=== PATIENT | male | born 1960 | race Caucasian/White ===

== ENCOUNTER → 2020-10-06 11:24 | Outpatient (BNVA) | payer OTHER, SELFPAY | PROVIDERS: PCP Nurse Practitioner Family; Visit Provider Student in an Organized Health Care Education/Training Program | DX: Z76.89 Persons encountering health services in other specified circumstances (principal) ==

== ENCOUNTER → 2021-01-19 09:48 | Outpatient (BNVA) | payer OTHER, SELFPAY | PROVIDERS: PCP Nurse Practitioner Family; Visit Provider Urology ==

== ENCOUNTER → 2021-04-09 08:58 | Outpatient (BNVA) | payer OTHER, SELFPAY | PROVIDERS: PCP Nurse Practitioner Family; Visit Provider Urology ==

== ENCOUNTER → 2021-05-14 15:55 | Outpatient (BNVA) | payer OTHER, SELFPAY | PROVIDERS: PCP Nurse Practitioner Family; Visit Provider Student in an Organized Health Care Education/Training Program ==

== ENCOUNTER 2021-07-07 11:43 | Outpatient (REF) | payer OTHER, SELFPAY ==
[2021-07-07 14:47] LABS: Prostate Specific Antigen < 0.05 ng/mL (<0.05-4.0)
== END 2021-07-07 11:44 | disposition home or self-care (01) ==
LOC: HO.HMGCLDS 11:43
PROVIDERS: PCP Nurse Practitioner Family; Visit Provider Urology
DX: C61 Malignant neoplasm of prostate (principal)
CPT/HCPCS: 36415; 84153

== ENCOUNTER → 2021-09-29 09:07 | Outpatient (BNVA) | payer OTHER, SELFPAY | PROVIDERS: PCP Nurse Practitioner Family; Visit Provider Urology ==

== ENCOUNTER 2021-10-05 11:52 | Outpatient (REF) | payer OTHER, SELFPAY ==
[2021-10-05 13:02] LABS: Alanine Aminotransferase 21 U/L (0-40); Albumin Level 4.2 g/dL (3.5-5.0); Alkaline Phosphatase 79 U/L (39-117); Anion Gap 14 (12-20); Aspartate Amino Transferase 13 U/L (5-37); Bilirubin Total 1.1 mg/dL (0.0-1.0); Blood Urea Nitrogen 9 mg/dL (9-16); Calcium 9.1 mg/dL (8.4-10.2); Carbon Dioxide 25 mmol/L (22-29); Chloride 100 mmol/L (96-108); Estimated Glomerular Filt Rate > 60; Glucose Random 111 mg/dL (60-115); Potassium 3.7 mmol/L (3.3-5.1); Sodium 135 mmol/L (135-145); Total Protein 7.3 g/dL (6.5-8.0)
== END 2021-10-05 11:53 | disposition home or self-care (01) ==
LOC: HO.LAB 11:52
PROVIDERS: PCP Nurse Practitioner Family; Visit Provider Nurse Practitioner Family
DX: M15.9 Polyosteoarthritis, unspecified (principal)
CPT/HCPCS: 36415; 80053

== ENCOUNTER 2021-10-05 12:25 | Outpatient (REF) | payer OTHER, SELFPAY ==
[2021-10-05 13:55] LABS: COVID-19 Test Negative (Negative); IDNOW Serial# 16C4AD1C
== END 2021-10-05 12:26 | disposition home or self-care (01) ==
LOC: HO.LAB 12:25
PROVIDERS: PCP Nurse Practitioner Family; Visit Provider Internal Medicine
DX: Z20.822 Contact with and (suspected) exposure to COVID-19 (principal)
CPT/HCPCS: 36415; 87635; C9803

== ENCOUNTER 2021-10-11 11:19 | Outpatient (REF) | payer OTHER, SELFPAY ==
[2021-10-11 12:37] LABS: Influenza A PCR NEGATIVE (Negative); Influenza B PCR NEGATIVE (Negative); Resp Syncy Virus RNA Qual PCR NEGATIVE (Negative); SARS COV2 PCR INHOUSE NEGATIVE (Negative)
== END 2021-10-11 11:20 | disposition home or self-care (01) ==
LOC: HO.LNP 11:19
PROVIDERS: Visit Provider Internal Medicine
DX: R43.9 Unspecified disturbances of smell and taste (principal); Z20.822 Contact with and (suspected) exposure to COVID-19
CPT/HCPCS: 0241U

== ENCOUNTER → 2022-01-24 10:51 | Outpatient (BNVA) | payer OTHER, SELFPAY | PROVIDERS: PCP Nurse Practitioner Family; Visit Provider Nurse Practitioner Family | DX: Z13.89 Encounter for screening for other disorder (principal) ==

== ENCOUNTER 2022-03-29 07:26 | Outpatient (REF) | payer OTHER, SELFPAY ==
[2022-03-29 11:29] LABS: Appearance Urine CLEAR; Color Urine YELLOW; Glucose Urine UA NEG (NEG); Leukocyte Esterase Urine NEG (NEG); Nitrite Urine NEG (NEG); Urine Blood NEG (NEG); Urine Ketones NEG (NEG); Urine Protein NEG (NEG-TRACE)
[2022-03-29 12:00] LABS: Alanine Aminotransferase 32 U/L (0-40); Albumin Level 4.3 g/dL (3.5-5.0); Alkaline Phosphatase 72 U/L (39-117); Anion Gap 15 (12-20); Aspartate Amino Transferase 19 U/L (5-37); Bilirubin Total 0.7 mg/dL (0.0-1.0); Blood Urea Nitrogen 11 mg/dL (9-16); Calcium 9.4 mg/dL (8.4-10.2); Carbon Dioxide 25 mmol/L (22-29); Chloride 101 mmol/L (96-108); Estimated Glomerular Filt Rate > 60; Glucose Random 116 mg/dL (60-115); Potassium 4.4 mmol/L (3.3-5.1); Sodium 137 mmol/L (135-145); Total Protein 7.3 g/dL (6.5-8.0)
[2022-03-29 12:05] LABS: Alanine Aminotransferase 30 U/L (0-40); Albumin Level 4.3 g/dL (3.5-5.0); Alkaline Phosphatase 73 U/L (39-117); Anion Gap 15 (12-20); Aspartate Amino Transferase 19 U/L (5-37); Bilirubin Total 0.7 mg/dL (0.0-1.0); Blood Urea Nitrogen 11 mg/dL (9-16); Calcium 9.4 mg/dL (8.4-10.2); Carbon Dioxide 25 mmol/L (22-29); Chloride 101 mmol/L (96-108); Cholesterol 182 mg/dL; Estimated Glomerular Filt Rate > 60; Glucose Fasting 115 mg/dL (60-99); HDL Cholesterol 27 mg/dL; LDL Cholesterol Calculated 89 mg/dl; Potassium 4.4 mmol/L (3.3-5.1); Sodium 137 mmol/L (135-145); Total Protein 7.3 g/dL (6.5-8.0); Triglycerides 331 mg/dL
[2022-03-29 12:14] LABS: Prostate Specific Antigen < 0.05 ng/mL (<0.05-4.0)
== END 2022-03-29 07:27 | disposition home or self-care (01) ==
LOC: HO.HMGCLDS 07:26
PROVIDERS: Absent Provider Urology; PCP Nurse Practitioner Family; Visit Provider Nurse Practitioner Family
DX: Z00.00 Encounter for general adult medical examination without abnormal findings (principal); Z12.5 Encounter for screening for malignant neoplasm of prostate; C61 Malignant neoplasm of prostate; M15.9 Polyosteoarthritis, unspecified
CPT/HCPCS: 36415; 80053; 80061; 81003; 84153; 84443

== ENCOUNTER → 2022-03-31 08:33 | Outpatient (BNVA) | payer OTHER, SELFPAY | PROVIDERS: PCP Nurse Practitioner Family; Visit Provider Urology | DX: N52.9 Male erectile dysfunction, unspecified (principal); C61 Malignant neoplasm of prostate | CPT/HCPCS: 51798 ==

== ENCOUNTER 2022-06-21 06:55 | Outpatient (REF) | payer OTHER, SELFPAY ==
[2022-06-21 12:09] LABS: Alanine Aminotransferase 27 U/L (0-40); Albumin Level 4.2 g/dL (3.5-5.0); Alkaline Phosphatase 73 U/L (39-117); Anion Gap 14 (12-20); Aspartate Amino Transferase 17 U/L (5-37); Bilirubin Total 0.8 mg/dL (0.0-1.0); Blood Urea Nitrogen 11 mg/dL (9-16); Calcium 9.2 mg/dL (8.4-10.2); Carbon Dioxide 27 mmol/L (22-29); Chloride 102 mmol/L (96-108); Cholesterol 154 mg/dL; Estimated Glomerular Filt Rate > 60; Glucose Random 116 mg/dL (60-115); HDL Cholesterol 29 mg/dL; LDL Cholesterol Calculated 87 mg/dl; Potassium 4.1 mmol/L (3.3-5.1); Sodium 139 mmol/L (135-145); Triglycerides 194 mg/dL
== END 2022-06-21 06:56 | disposition home or self-care (01) ==
LOC: HO.HMGCLDS 06:55
PROVIDERS: PCP Nurse Practitioner Family; Visit Provider Nurse Practitioner Family
DX: E78.1 Pure hyperglyceridemia (principal)
CPT/HCPCS: 36415; 80053; 80061

== ENCOUNTER 2022-10-03 13:06 | Outpatient (REF) | payer OTHER, SELFPAY ==
[2022-10-03 15:11] LABS: Prostate Specific Antigen < 0.10 ng/mL (<0.05-4.0)
== END 2022-10-03 13:07 | disposition home or self-care (01) ==
LOC: HO.HMGCLDS 13:06
PROVIDERS: PCP Nurse Practitioner Family; Visit Provider Urology
DX: Z12.5 Encounter for screening for malignant neoplasm of prostate (principal); C61 Malignant neoplasm of prostate
CPT/HCPCS: 36415; 84153

== ENCOUNTER → 2022-11-04 10:53 | Outpatient (BNVA) | payer OTHER, SELFPAY | PROVIDERS: PCP Nurse Practitioner Family; Visit Provider Urology | DX: Z13.89 Encounter for screening for other disorder (principal) ==

== ENCOUNTER 2023-01-31 09:16 | Outpatient (REF) | payer OTHER, SELFPAY ==
--- NOTE | ~2023-01-31 | XR_ITS ---
EXAMINATION: XR SHOULDER, RIGHT CLINICAL INFORMATION: Right shoulder pain COMPARISON: None available. TECHNIQUE: AP external rotation, Grashey, scapular Y, and axillary views of the right shoulder. FINDINGS: Within the head of humerus, there is a benign-appearing sclerotic lesion likely representing an enchondroma. Degenerative changes are seen along the greater tuberosity of the head of the humerus. There is calcific tendinopathy adjacent to the greater tuberosity of the humerus along the rotator cuff. Joint spaces are well-maintained. XR/XR shoulder RT min 2V IMPRESSION: 1. Calcific tendinopathy of the rotator cuff. Adjacent degenerative changes of the humeral head. 2. Benign-appearing sclerotic lesion in the head of the humerus likely representing an enchondroma.
--- NOTE | ~2023-01-31 | XR_ITS ---
EXAMINATION: XR SHOULDER, LEFT CLINICAL INFORMATION: Left shoulder pain COMPARISON: None available. TECHNIQUE: AP external rotation, Grashey, scapular Y, and axillary views of the left shoulder. FINDINGS: Osseous structures are intact. There is a moderate-sized subacromial spur. Degenerative changes seen in the acromioclavicular joint space. Soft tissues are unremarkable. XR/XR shoulder LT min 2V IMPRESSION: Degenerative changes as described above.
== END 2023-01-31 09:17 | disposition home or self-care (01) ==
LOC: HO.HMGCX 09:16
PROVIDERS: PCP Nurse Practitioner Family; Visit Provider Nurse Practitioner Family
DX: M25.511 Pain in right shoulder (principal); M25.512 Pain in left shoulder
CPT/HCPCS: 73030

== ENCOUNTER → 2023-02-07 11:07 | Outpatient (BNVA) | payer MEDICARE, OTHER, SELFPAY | PROVIDERS: PCP Nurse Practitioner Family; Visit Provider Nurse Practitioner Family ==

== ENCOUNTER 2023-02-07 12:20 | Outpatient (REF) | payer OTHER, SELFPAY ==
[2023-02-07 14:05] LABS: Amphetamine Screen Urine Not Detected (Not Detect); Barbiturates, Urine Not Detected (Not Detect); Benzodiazepines Screen Urine Not Detected (Not Detect); Cannabinoid Screen Urine Not Detected (Not Detect); Cocaine Screen Urine Not Detected (Not Detect); Fentanyl, urine Not Detected (Not Detect); Opiate Screen Urine Not Detected (Not Detect); Phencyclidine Screen Urine Not Detected (Not Detect)
== END 2023-02-07 12:21 | disposition home or self-care (01) ==
LOC: HO.10HDL 12:20
PROVIDERS: Visit Provider Nurse Practitioner Family
DX: Z79.899 Other long term (current) drug therapy (principal)
CPT/HCPCS: 80307; 80373

== ENCOUNTER → 2023-02-23 09:57 | Outpatient (BNVA) | payer OTHER, MEDICARE, SELFPAY | PROVIDERS: PCP Nurse Practitioner Family; Visit Provider Orthopaedic Surgery | DX: M19.011 Primary osteoarthritis, right shoulder (principal); M19.012 Primary osteoarthritis, left shoulder | CPT/HCPCS: 20610; J1100 ==

== ENCOUNTER 2023-05-05 09:46 | Outpatient (REF) | payer OTHER, SELFPAY ==
[2023-05-05 13:00] LABS: Prostate Specific Antigen < 0.10 ng/mL (<0.05-4.0)
== END 2023-05-05 09:47 | disposition home or self-care (01) ==
LOC: HO.HMGCLDS 09:46
PROVIDERS: PCP Nurse Practitioner Family; Visit Provider Urology
DX: Z12.5 Encounter for screening for malignant neoplasm of prostate (principal); C61 Malignant neoplasm of prostate
CPT/HCPCS: 36415; 84153

== ENCOUNTER 2023-05-10 14:21 | Outpatient (AMB) | payer OTHER, SELFPAY ==
--- NOTE | 2023-05-10 14:43 | MHC.OFFVIS ---
Intake Intake Visit Reasons: 6M PSA(psa?) Intake Note: Patient is present for Follow Up Urology Med:Tadalafil, Tamsulosin Antibiotic Allergy: Amoxicillin, Penicillin Blood Thinner: None Allergies ampicillin Allergy (Intermediate, Verified 05/10/23 14:45) rash pseudoephedrine Allergy (Intermediate, Verified 05/10/23 14:45) anaphylaxis PENICILLIN Allergy (Intermediate, Uncoded 05/10/23 14:45) anaphylaxis HPI HPI Comments History of Present Illness Details Yassine ENGEL is a very pleasant male. They are a patient of Dr Munroe. They are seen in the office today for the following urologic conditions - prostate cancer - erectile dysfunction Six month follow-up PSA well controlled Tadalafil refilled Using tamsulosin periodically as needed Follow-up 6 months Prostate cancer: Group 3. February [address] [facility] Does have associated urgency and frequency in takes Flomax once or twice a week PSA 12/13 0.2, 07/13 <0.1, 04/13 <0.1, 10/13 <0.1, 05/14 <0.1 Prostate cancer was diagnosed 02/08 Dr Coles - PSA 4.5. Diagnosis was reached by 02/08 , needle biopsy, for elevated PSA, PSA at diagnosis 4.5, size at TRUS 35cc. The Ravin grade is 4 One out of twelve cores - RML , 4+3 = 7 30%. TNM Classification of Malignant Tumours (TNM) T1c. The D'Quintin (NCCN) risk category is Intermediate Risk (PSA 10-20, Gl 7, T2) - Group 3 by definition Initial therapy included Primary treatment, brachytherapy [facility] February 2019 Associated conditions erectile dysfunction Yes Therapeutic plan: PSA follow-up every 6 months [facility] Medical History Benign prostatic hyperplasia with lower urinary tract symptoms Nicotine dependence, cigarettes, uncomplicated Nocturia Prostate cancer (~2018) Seasonal allergies Traumatic rupture of left biceps tendon Wrist fracture, right Surgical History History of arthroplasty of right ankle History of prostate biopsy History of surgery on arm Hx of shoulder surgery Family History Father Cancer Mother Cancer Social History (Reviewed 05/10/23 @ 14:45 by DAVE Murdock Housing: House Alcohol intake: never Patient Tobacco Use Status: Current everyday Tobacco user Tobacco use type: Cigarette Cigarettes Per Day: 8 Years Smoked: 35 e-Cigarette/Vaping Use: Never Used Second Hand Smoke Exposure: No Current occupational status: retired Cognitive needs: No Hearing needs: No Vision needs: No Review of Systems Const Denies chills and Denies fever(s) Card Reports no additional complaints and Denies syncope Resp Denies cough GI Denies abdominal pain and Denies heartburn Reports as per HPI and Denies change in libido Neuro Denies syncope Psych Denies change in libido Endo Denies change in libido Physical Exam Const General: cooperative, healthy appearing, comfortable and no acute distress Orientation/consciousness: patient oriented x3 HEENT Face and sinus: Yes normal facial exam Mouth: moist mucous membranes Neck Neck: Yes normal visual inspection, Yes full ROM and Yes trachea midline Chest Chest palpation & inspection: normal inspection of the chest Resp Effort & Inspection: normal respiratory effort, able to speak in complete sentences and no respiratory distress GI Inspection: Yes normal to inspection Back/Spine/Pelvis Cervical Spine: normal cervical lordosis Thoracic/Lumbar Spine: thoracic and lumbar spine normal to inspection Skin General skin exam: no rashes or lesions noted Neuro General: patient oriented x3, gait normal, tone normal and moves all extremities Extrem General: Yes normal to inspection and Yes capillary refill normal Assessment & Plan Assessment & Plan (1) Prostate cancer: Onset Date: ~2018 Comment: (dx 01/2019 - Christine 4 + 3 initial treatment brachytherapy) Code(s): C61 - Malignant neoplasm of prostate (2) Erectile dysfunction: Code(s): N52.9 - Male erectile dysfunction, unspecified Plan Six month follow-up PSA Orders: Orders Prostate Specific Antigen 6 Months C61 - Malignant neoplasm of prostate Patient Instructions: Imaging studies, laboratory and physical exam results were discussed and reviewed in detail. No major barriers to patient understanding were identified. An opportunity to ask questions regarding the treatment plan was provided. All questions were answered. The patient expressed understanding and agreement with the above treatment plan. The patient is aware they should contact our office by phone for worsening of their current condition or the appearance of new urologic symptoms. Compliance is encouraged with any medications and followup testing that is ordered. It is a privilege to participate in the urologic care of your patient. If you have any questions or concerns regarding treatment for the above conditions, or other urologic issues, please do not hesitate to contact me. The office telephone contact is [phone]. This note is constructed using voice recognition software. While every effort has been made to ensure accuracy sales technician home theater errors may have been included. Yours sincerely, Dr Jose Coles MD, [facility] - Urology Providers of Expert, Compassionate Care for the Genitourinary System Coding Level of Care Code Est Pt Level 3 (42928) Diagnoses Prostate cancer C61 Erectile dysfunction N52.9
== END 2023-05-10 15:15 | disposition home or self-care (01) ==
PROVIDERS: Visit Provider Urology
DX: C61 Malignant neoplasm of prostate (principal); N52.9 Male erectile dysfunction, unspecified
CPT/HCPCS: 99213

== ENCOUNTER → 2023-05-10 14:21 | Outpatient (BNVA) | payer OTHER, SELFPAY | PROVIDERS: Visit Provider Urology ==

== ENCOUNTER 2023-08-01 13:52 | Outpatient (AMB) | payer OTHER, SELFPAY ==
[2023-08-01 14:01] VITALS: BP 122/74; PULSE 97; TEMP 36.6; O2SAT 98; BMI 36.0
--- NOTE | 2023-08-01 14:01 | MHC.OFFVIS ---
Intake Vital Signs 08/01/23 14:01 Height 6 ft Weight 265 lb 10.512 oz BMI 36.0 BP 122/74 Blood Pressure Location Rt brachial Position Sitting Pulse 97 Pulse Source Pulse Oximeter Temp 97.8 F Temp Source Skin Pulse Oximetry (%) 98 Intake Visit Reasons: osteoarthritis Intake Note: Pt seen today for OA follow up. C/o right hip and ankle pain. 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: No Accompanied by: Self / Same As Patient Allergies ampicillin Allergy (Intermediate, Verified 08/01/23 14:04) rash pseudoephedrine Allergy (Intermediate, Verified 08/01/23 14:04) anaphylaxis PENICILLIN Allergy (Intermediate, Uncoded 08/01/23 14:04) anaphylaxis Medication List - Last Reconciled 08/01/23 by Salena Stockton MD albuterol sulfate 90 mcg/actuation 1 inh inhalation QID PRN cholecalciferol (vitamin D3) 50 mcg PO DAILY meloxicam 15 mg PO DAILY PRN 30 days tadalafil 10 mg PO DAILY 90 days tamsulosin 0.4 mg PO BEDTIME 90 days tizanidine 2 mg PO BID PRN tramadol 50 mg PO BID PRN HPI HPI Comments History of Present Illness Details This is a 63-year-old male with osteoarthritis who presents for follow-up. She was evaluated by Orthopedics 5 months ago for bilateral shoulder osteoarthritis and steroid injection was done, according to patient they were quite helpful for 4 months. Over the last month he has been having recurrent shoulder pain and stiffness, worse with activity. Recently he has been having right hip pain and right ankle pain. Worse at night when he sleeps on his right side. Has been taking tramadol 1 tab a day for a few months but recently started taking 2 a day for his recurrent joint pain [facility] Medical History Nicotine dependence, cigarettes, uncomplicated Seasonal allergies Benign prostatic hyperplasia with lower urinary tract symptoms Nocturia Prostate cancer (~2019) Wrist fracture, right Traumatic rupture of left biceps tendon Surgical History History of prostate biopsy History of surgery on arm History of arthroplasty of right ankle Hx of shoulder surgery Family History Father Cancer Mother Cancer Social History Housing: House Alcohol intake: never Patient Tobacco Use Status: Current everyday Tobacco user Tobacco use type: Cigarette Cigarettes Per Day: 8 Years Smoked: 35 e-Cigarette/Vaping Use: Never Used Second Hand Smoke Exposure: No Current occupational status: retired Cognitive needs: No Hearing needs: No Vision needs: No Review of Systems Musc Reports arthralgias Physical Exam Vital Signs: Last Vital Signs Temp 97.8 F 08/01/23 14:01 Pulse 97 08/01/23 14:01 BP 122/74 08/01/23 14:01 Pulse Ox 98 08/01/23 14:01 BMI result Body Mass Index 36.0 Const General: cooperative, healthy appearing and comfortable Nutritional Appearance: obese morbidly obese Orientation/consciousness: patient oriented x3 Limitations: no limitations HEENT Head: Yes normocephalic and Yes atraumatic Mouth: moist mucous membranes Resp Effort & Inspection: normal respiratory effort and able to speak in complete sentences Neuro General: patient oriented x3 Extrem Other: Osteoarthritic changes of both hands with no active synovitis Bilateral shoulder pain with full abduction Right trochanteric bursa area tenderness with equivocal Derik's test Office Procedures Joint Injection/Drain Joint Injection/Drain Primary Site: right shoulder Secondary Site: left shoulder Prep: site was prepped using sterile technique and ethochloride spray was applied Injected: 40 mg of, Kenalog and other (2 mL of 1% lidocaine) Approach Used: posterolateral Procedure: The patient tolerated the procedure well Coding Details: The right shoulder was prepped ChloraPrep and alcohol. The subacromial space was injected with 40 mg of triamcinolone and 2 cc of lidocaine. Patient tolerated the procedure well no apparent immediate side effects. The left shoulder was prepped ChloraPrep and alcohol. The subacromial space was injected with 40 mg of triamcinolone and 2 cc of lidocaine. Patient tolerated the procedure well no apparent immediate side effects. 24116 - Large joint (X 2) Procedure code (CPT) selection complete Results Reviewed Results Reviewed: Laboratory Tests Date of Service: 01/31/23 Procedure(s): XR shoulder RT min 2V Accession Number(s): [id number] EXAMINATION: XR SHOULDER, RIGHT CLINICAL INFORMATION: Right shoulder pain? COMPARISON: None available.? TECHNIQUE: AP external rotation, Grashey, scapular Y, and axillary views of the right shoulder. FINDINGS: Within the head of humerus, there is a benign-appearing sclerotic lesion likely representing an enchondroma. Degenerative changes are seen along the greater tuberosity of the head of the humerus. There is calcific tendinopathy adjacent to the greater tuberosity of the humerus along the rotator cuff. Joint spaces are well-maintained.? XR/XR shoulder RT min 2V IMPRESSION: 1.? Calcific tendinopathy of the rotator cuff. Adjacent degenerative changes of the humeral head. 2.? Benign-appearing sclerotic lesion in the head of the humerus likely representing an enchondroma. Date of Service: 01/31/23 Procedure(s): XR shoulder LT min 2V Accession Number(s): [id number] EXAMINATION: XR SHOULDER, LEFT CLINICAL INFORMATION: Left shoulder pain? COMPARISON: None available.? TECHNIQUE: AP external rotation, Grashey, scapular Y, and axillary views of the left shoulder. FINDINGS: Osseous structures are intact. There is a moderate-sized subacromial spur. Degenerative changes seen in the acromioclavicular joint space. Soft tissues are unremarkable.? XR/XR shoulder LT min 2V IMPRESSION: Degenerative changes as described above. ? Assessment & Plan Assessment & Plan (1) Bilateral shoulder pain: Code(s): M25.511 - Pain in right shoulder; M25.512 - Pain in left shoulder Qualifiers: Chronicity: chronic Qualified Code(s): M25.511 - Pain in right shoulder; M25.512 - Pain in left shoulder; G89.29 - Other chronic pain Plan: Bilateral shoulder osteoarthritis. Last injection done by Orthopedics 02/2023 was helpful for at least 4 months. Today patient requesting repeat injection. With patient's consent both shoulders were injected with Kenalog today (2) Trochanteric bursitis of right hip: Code(s): M70.61 - Trochanteric bursitis, right hip Plan: I gave patient home exercises to do for greater trochanteric pain syndrome. Can consider injection next visit Plan I spent 26 minutes reviewing patient's chart, evaluating patient, counseling patient and documenting in the chart Orders: Orders AMB Joint Injection/Aspiration Today M19.011 - Primary osteoarthritis, right shoulder, M19.012 - Primary osteoarthritis, left shoulder Coding Level of Care Code Est Pt Level 4 (41240) Diagnoses Chronic pain of both shoulders M25.511; M25.512; G89.29 Chronicity: chronic Trochanteric bursitis of right hip M70.61 CPT Codes Coding - 42201 Large joint: 87896 - Large joint ([id number])
== END 2023-08-01 14:29 | disposition home or self-care (01) ==
PROVIDERS: PCP Nurse Practitioner Family; Visit Provider Student in an Organized Health Care Education/Training Program
DX: M25.511 Pain in right shoulder (principal); M25.512 Pain in left shoulder; G89.29 Other chronic pain; M70.61 Trochanteric bursitis, right hip
CPT/HCPCS: 20610; 99214

== ENCOUNTER → 2023-08-01 13:52 | Outpatient (BNVA) | payer OTHER, SELFPAY | PROVIDERS: Visit Provider Student in an Organized Health Care Education/Training Program | DX: M25.511 Pain in right shoulder (principal); M25.512 Pain in left shoulder; G89.29 Other chronic pain; M70.61 Trochanteric bursitis, right hip | CPT/HCPCS: 20610; J3301 ==

== ENCOUNTER 2023-08-16 15:50 | Outpatient (AMB) | payer OTHER, SELFPAY ==
--- NOTE | 2023-08-16 16:00 | A.OFFVIS_ITS ---
Intake Vital Signs 08/16/23 16:01 Height 6 ft Weight 263 lb 0.183 oz BMI 35.7 BP 120/76 Blood Pressure Location Lt brachial Position Sitting Pulse 86 Pulse Source Pulse Oximeter Temp 97.2 F Temp Source Skin Pulse Oximetry (%) 96 Oxygen Delivery Method Room Air Intake Visit Reasons: Hip pain/injection Intake Note: Patient here for right hip injection. 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 Accompanied by: Self / Same As Patient Allergies ampicillin Allergy (Intermediate, Verified 08/16/23 16:03) rash pseudoephedrine Allergy (Intermediate, Verified 08/16/23 16:03) anaphylaxis PENICILLIN Allergy (Intermediate, Uncoded 08/16/23 16:03) anaphylaxis Medication List - Last Reconciled 08/16/23 by Salena Stockton MD albuterol sulfate 90 mcg/actuation 1 inh inhalation QID PRN cholecalciferol (vitamin D3) 50 mcg PO DAILY meloxicam 15 mg PO DAILY PRN 30 days tadalafil 10 mg PO DAILY 90 days tamsulosin 0.4 mg PO BEDTIME 90 days tizanidine 2 mg PO BID PRN tramadol 75 mg (1.5 x 50 mg) PO DAILY PRN HPI HPI Comments History of Present Illness Details Patient returns for right hip injection. States that bilateral shoulder injections were quite helpful. Initial history: This is a 63-year-old male with osteoarthritis who presents for follow-up. She was evaluated by Orthopedics 5 months ago for bilateral shoulder osteoarthritis and steroid injection was done, according to patient they were quite helpful for 4 months. Over the last month he has been having recurrent shoulder pain and stiffness, worse with activity. Recently he has been having right hip pain and right ankle pain. Worse at night when he sleeps on his right side. Has been taking tramadol 1 tab a day for a few months but recently started taking 2 a day for his recurrent joint pain [facility] Medical History Nicotine dependence, cigarettes, uncomplicated Seasonal allergies Benign prostatic hyperplasia with lower urinary tract symptoms Nocturia Prostate cancer (~2019) Wrist fracture, right Traumatic rupture of left biceps tendon Surgical History History of prostate biopsy History of surgery on arm History of arthroplasty of right ankle Hx of shoulder surgery Family History Father Cancer Mother Cancer Social History Housing: House Alcohol intake: never Patient Tobacco Use Status: Current everyday Tobacco user Tobacco use type: Cigarette Cigarettes Per Day: 8 Years Smoked: 35 e-Cigarette/Vaping Use: Never Used Second Hand Smoke Exposure: No Current occupational status: retired Cognitive needs: No Hearing needs: No Vision needs: No Review of Systems Musc Reports arthralgias Physical Exam Vital Signs: Last Vital Signs Temp 97.2 F 08/16/23 16:01 Pulse 86 08/16/23 16:01 BP 120/76 08/16/23 16:01 Pulse Ox 96 08/16/23 16:01 Oxygen Delivery Method Room Air 08/16/23 16:01 BMI result Body Mass Index 35.7 Const General: cooperative, healthy appearing and comfortable Nutritional Appearance: obese morbidly obese Orientation/consciousness: patient oriented x3 Limitations: no limitations HEENT Head: Yes normocephalic and Yes atraumatic Resp Effort & Inspection: normal respiratory effort and able to speak in complete sentences Neuro General: patient oriented x3 Extrem Other: Osteoarthritic changes of both hands with no active synovitis Normal range of both shoulders today without pain Right trochanteric bursa area tenderness with equivocal Derik's test Office Procedures Joint Injection/Drain Joint Injection/Drain Details: Right hip trochanteric bursa Prep: site was prepped using sterile technique and ethochloride spray was applied Injected: 40 mg of, Kenalog and other (2 mL of 1% lidocaine) Procedure: The patient tolerated the procedure well Coding Details: With the patient's consent, the right lateral hip area was prepped with for Chloraprep and alcohol. Under a topical ethyl chloride spray the tender area over the trochanteric region was injected with 40 mg of Kenalog and 2 cc of 1% lidocaine. The patient tolerated the procedure with no adverse effects. 48848 - Glenohumeral/Tronchanteric Bursa/Intraarticular Procedure code (CPT) selection complete Results Reviewed Results Reviewed: Laboratory Tests Date of Service: 01/31/23 Procedure(s): XR shoulder RT min 2V Accession Number(s): [id number] EXAMINATION: XR SHOULDER, RIGHT CLINICAL INFORMATION: Right shoulder pain? COMPARISON: None available.? TECHNIQUE: AP external rotation, Grashey, scapular Y, and axillary views of the right shoulder. FINDINGS: Within the head of humerus, there is a benign-appearing sclerotic lesion likely representing an enchondroma. Degenerative changes are seen along the greater tuberosity of the head of the humerus. There is calcific tendinopathy adjacent to the greater tuberosity of the humerus along the rotator cuff. Joint spaces are well-maintained.? XR/XR shoulder RT min 2V IMPRESSION: 1.? Calcific tendinopathy of the rotator cuff. Adjacent degenerative changes of the humeral head. 2.? Benign-appearing sclerotic lesion in the head of the humerus likely representing an enchondroma. Date of Service: 01/31/23 Procedure(s): XR shoulder LT min 2V Accession Number(s): [id number] EXAMINATION: XR SHOULDER, LEFT CLINICAL INFORMATION: Left shoulder pain? COMPARISON: None available.? TECHNIQUE: AP external rotation, Grashey, scapular Y, and axillary views of the left shoulder. FINDINGS: Osseous structures are intact. There is a moderate-sized subacromial spur. Degenerative changes seen in the acromioclavicular joint space. Soft tissues are unremarkable.? XR/XR shoulder LT min 2V IMPRESSION: Degenerative changes as described above. ? Assessment & Plan Assessment & Plan (1) Bilateral shoulder pain: Code(s): M25.511 - Pain in right shoulder; M25.512 - Pain in left shoulder Plan: Bilateral shoulder osteoarthritis. Injected by Orthopedics 02/2023 was helpful for at least 4 months. Injected again 07/2023. Effective Can repeat injections as needed every 3-4 months (2) Trochanteric bursitis of right hip: Code(s): M70.61 - Trochanteric bursitis, right hip Plan: With patient's consent, right hip trochanteric bursa was injected with Kenalog today Plan I spent 16 minutes reviewing patient's chart, evaluating patient, counseling patient and documenting in the chart Orders: Orders AMB Joint Injection/Aspiration Today M70.61 - Trochanteric bursitis, right hip Coding Level of Care Code Est Pt Level 3 (20881) Diagnoses Bilateral shoulder pain M25.511; M25.512 Trochanteric bursitis of right hip M70.61 CPT Codes Coding - Joint 7: 96705 - Glenohumeral/Tronchanteric Bursa/Intraarticular ([id number])
[2023-08-16 16:01] VITALS: BP 120/76; PULSE 86; TEMP 36.2; O2SAT 96; BMI 35.7
== END 2023-08-16 16:30 | disposition home or self-care (01) ==
PROVIDERS: PCP Nurse Practitioner Family; Referring Provider Nurse Practitioner Family; Visit Provider Student in an Organized Health Care Education/Training Program
DX: M25.511 Pain in right shoulder (principal); M25.512 Pain in left shoulder; M70.61 Trochanteric bursitis, right hip
CPT/HCPCS: 20610

== ENCOUNTER → 2023-08-16 15:50 | Outpatient (BNVA) | payer OTHER, SELFPAY | PROVIDERS: PCP Nurse Practitioner Family; Referring Provider Nurse Practitioner Family; Visit Provider Student in an Organized Health Care Education/Training Program | DX: M70.61 Trochanteric bursitis, right hip (principal); M19.011 Primary osteoarthritis, right shoulder; M19.012 Primary osteoarthritis, left shoulder | CPT/HCPCS: 20610; J3301 ==

== ENCOUNTER 2023-11-02 07:05 | Outpatient (REF) | payer OTHER, SELFPAY ==
[2023-11-02 12:21] LABS: Prostate Specific Antigen < 0.10 ng/mL (<0.05-4.0)
== END 2023-11-02 07:06 | disposition home or self-care (01) ==
LOC: HO.HMGCLDS 07:05
PROVIDERS: PCP Nurse Practitioner Family; Visit Provider Urology
DX: C61 Malignant neoplasm of prostate (principal); Z12.5 Encounter for screening for malignant neoplasm of prostate
CPT/HCPCS: 36415; 84153

== ENCOUNTER 2023-11-07 14:54 | Outpatient (AMB) | payer OTHER, SELFPAY ==
--- NOTE | 2023-11-07 14:55 | MHC.OFFVIS ---
Intake Intake Visit Reasons: 6M PSA(set) Conf Intake Note: Patient is Present for Telephone Follow Up PSA Urology Med: Tadalafil, Tamsulosin Antibiotic Allergy: Penicillin, Ampicillin Blood Thinner: None Allergies ampicillin Allergy (Intermediate, Verified 08/16/23 16:03) rash pseudoephedrine Allergy (Intermediate, Verified 08/16/23 16:03) anaphylaxis PENICILLIN Allergy (Intermediate, Uncoded 08/16/23 16:03) anaphylaxis Medication List - Last Reconciled 11/07/23 by Jose Coles MD albuterol sulfate 90 mcg/actuation 1 inh inhalation QID PRN cholecalciferol (vitamin D3) 50 mcg PO DAILY meloxicam 15 mg PO DAILY PRN 30 days tadalafil 10 mg PO DAILY 90 days tamsulosin 0.4 mg PO BEDTIME 90 days tizanidine 2 mg PO BID PRN tramadol 75 mg (1.5 x 50 mg) PO DAILY PRN HPI HPI Comments History of Present Illness Details Yassine ENGEL is a very pleasant male. They are a patient of Dr Munroe. They are seen in the office today for the following urologic conditions - prostate cancer - erectile dysfunction Telemedicine Evaluation 15 min Consultation [employer] Video attempted Six month follow-up PSA remains well controlled Tadalafil refilled Using tamsulosin periodically as needed Follow-up 6 months Prostate cancer: Group 3. February 2019 brachytherapy [facility] Does have associated urgency and frequency in takes Flomax once or twice a week PSA 12/13 0.2, 07/13 <0.1, 04/13 <0.1, 10/13 <0.1, 05/14 <0.1, 11/15 <0.1 Prostate cancer was diagnosed 02/08 Dr Coles - PSA 4.5. Diagnosis was reached by 02/08 , needle biopsy, for elevated PSA, PSA at diagnosis 4.5, size at TRUS 35cc. The Ravin grade is 02/08 One out of twelve cores - RML , 4+3 = 7 30%. TNM Classification of Malignant Tumours (TNM) T1c. The D'Quintin (NCCN) risk category is Intermediate Risk (PSA 10-20, Gl 7, T2) - Group 3 by definition Initial therapy included Primary treatment, brachytherapy [facility] February 2019 Associated conditions erectile dysfunction Yes Therapeutic plan: PSA follow-up every 6 months [facility] Medical History Nicotine dependence, cigarettes, uncomplicated Seasonal allergies Benign prostatic hyperplasia with lower urinary tract symptoms Nocturia Prostate cancer (~2019) Wrist fracture, right Traumatic rupture of left biceps tendon Surgical History History of prostate biopsy History of surgery on arm History of arthroplasty of right ankle Hx of shoulder surgery Family History Father Cancer Mother Cancer Social History Housing: House Alcohol intake: never Patient Tobacco Use Status: Current everyday Tobacco user Tobacco use type: Cigarette Cigarettes Per Day: 8 Years Smoked: 35 e-Cigarette/Vaping Use: Never Used Second Hand Smoke Exposure: No Current occupational status: retired Cognitive needs: No Hearing needs: No Vision needs: No Review of Systems Const All systems reviewed & are unremarkable except as noted in HPI and below Reports no additional complaints Resp Reports no additional complaints GI Reports no additional complaints Reports as per HPI Musc Reports no additional complaints Physical Exam Telemedicine evaluation Appropriate responses Regular breathing rate and rhythm HEENT Head: Yes normal to inspection Ears: hearing grossly normal bilaterally Eyes General: appearance normal, both eyes and all related structures Neck Neck: Yes normal visual inspection Chest Chest palpation & inspection: normal inspection of the chest Resp Effort & Inspection: normal respiratory effort and able to speak in complete sentences Assessment & Plan Assessment & Plan (1) Prostate cancer: Onset Date: ~2018 Comment: (dx 01/2019 - Ravin 4 + 3 initial treatment brachytherapy) Code(s): C61 - Malignant neoplasm of prostate Plan Six-month follow-up Medications: Refilled tamsulosin 0.4 mg PO BEDTIME 90 caps 1RF 90 days C61 - Malignant neoplasm of prostate tadalafil 10 mg PO DAILY 90 tabs 1RF sexual activity 90 days N52.9 - Male erectile dysfunction, unspecified Patient Instructions: Imaging studies, laboratory and physical exam results were discussed and reviewed in detail. No major barriers to patient understanding were identified. An opportunity to ask questions regarding the treatment plan was provided. All questions were answered. The patient expressed understanding and agreement with the above treatment plan. The patient is aware they should contact our office by phone for worsening of their current condition or the appearance of new urologic symptoms. Compliance is encouraged with any medications and followup testing that is ordered. It is a privilege to participate in the urologic care of your patient. If you have any questions or concerns regarding treatment for the above conditions, or other urologic issues, please do not hesitate to contact me. The office telephone contact is [phone]. This note is constructed using voice recognition software. While every effort has been made to ensure accuracy balloon design printer errors may have been included. Yours sincerely, Dr Jose Coles MD, [facility] - Urology Providers of Expert, Compassionate Care for the Genitourinary System Telehealth Telehealth Location of provider rendering services: practice address Location of patient: address on file Patient Identification confirmed using: Name, : Yes Telehealth method: video Patient verbally consented to treatment: Yes Patient verbally consented to billing insurance company: Yes Patient informed of any privacy concerns related to visit: Yes Coding Level of Care Code Tele Est Pt Level 4 (17649) Diagnoses Prostate cancer C61
== END 2023-11-07 15:12 | disposition home or self-care (01) ==
LOC: HO.HUSH 14:54
PROVIDERS: PCP Nurse Practitioner Family; Visit Provider Urology
DX: C61 Malignant neoplasm of prostate (principal)
CPT/HCPCS: 99213

== ENCOUNTER → 2023-11-07 14:54 | Outpatient (BNVA) | payer OTHER, SELFPAY | PROVIDERS: PCP Nurse Practitioner Family; Visit Provider Urology ==

== ENCOUNTER 2023-11-16 10:45 | Outpatient (AMB) | payer OTHER, SELFPAY ==
[2023-11-16 10:47] VITALS: BP 120/70; PULSE 73; TEMP 36; O2SAT 95; BMI 36.0
--- NOTE | 2023-11-16 10:47 | A.OFFVIS_ITS ---
Intake Vital Signs 11/16/23 10:47 Height 6 ft Weight 265 lb 10.512 oz BMI 36.0 BP 120/70 Blood Pressure Location Rt brachial Position Sitting Pulse 73 Pulse Source Pulse Oximeter Temp 96.8 F Temp Source Skin Pulse Oximetry (%) 95 Oxygen Delivery Method Room Air Intake Visit Reasons: OA Intake Note: Patient last seen 08/16/23 presents today for follow up. Reports right knee pain that radiates down the leg to the ankle and across foot. 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 Accompanied by: Self / Same As Patient Allergies ampicillin Allergy (Intermediate, Verified 11/16/23 10:50) rash pseudoephedrine Allergy (Intermediate, Verified 11/16/23 10:50) anaphylaxis PENICILLIN Allergy (Intermediate, Uncoded 11/16/23 10:50) anaphylaxis Medication List - Last Reconciled 11/16/23 by Salena Stockton MD albuterol sulfate 90 mcg/actuation 1 inh inhalation QID PRN cholecalciferol (vitamin D3) 50 mcg PO DAILY meloxicam 15 mg PO DAILY PRN 30 days tadalafil 10 mg PO DAILY 90 days tamsulosin 0.4 mg PO BEDTIME 90 days tizanidine 2 mg PO BID PRN tramadol 75 mg (1.5 x 50 mg) PO DAILY PRN HPI HPI Comments History of Present Illness Details 63-year-old male with generalized osteoa rthritis returns for follow-up. He Reports right knee pain that radiates down the leg to the ankle and across foot. Pain started approx a month ago, he can not think of anything that makes it better or worse. Right hip trochanteric injection done last visit was not helpful. His shoulders have been good recently. He states that he suffered from sciatica on his left side in the 90s. He was evaluated by pain management and received pain medications. Then he followed with another specialist and received multiple epidural injections and blocks which were helpful. [facility] Medical History Nicotine dependence, cigarettes, uncomplicated Seasonal allergies Benign prostatic hyperplasia with lower urinary tract symptoms Nocturia Prostate cancer (~2019) Wrist fracture, right Traumatic rupture of left biceps tendon Surgical History History of prostate biopsy History of surgery on arm History of arthroplasty of right ankle Hx of shoulder surgery Family History Father Cancer Mother Cancer Social History Housing: House Alcohol intake: never Patient Tobacco Use Status: Current everyday Tobacco user Tobacco use type: Cigarette Cigarettes Per Day: 8 Years Smoked: 35 e-Cigarette/Vaping Use: Never Used Second Hand Smoke Exposure: No Current occupational status: retired Cognitive needs: No Hearing needs: No Vision needs: No Review of Systems Musc Reports back pain and Reports radiating pain into limb Physical Exam Vital Signs: Last Vital Signs Temp 96.8 F 11/16/23 10:47 Pulse 73 11/16/23 10:47 BP 120/70 11/16/23 10:47 Pulse Ox 95 11/16/23 10:47 Oxygen Delivery Method Room Air 11/16/23 10:47 BMI result Body Mass Index 36.0 Const General: cooperative, healthy appearing and comfortable Nutritional Appearance: obese morbidly obese Orientation/consciousness: patient oriented x3 Limitations: no limitations HEENT Head: Yes normocephalic and Yes atraumatic Resp Effort & Inspection: normal respiratory effort and able to speak in complete sentences Neuro General: patient oriented x3 Extrem Other: Osteoarthritic changes of both hands with no active synovitis Normal range of both shoulders today without pain Right trochanteric bursa area tenderness Negative straight leg raise test bilaterally No lumbar paraspinal muscle tenderness No SI joint tenderness No buttock tenderness to palpation Assessment & Plan Assessment & Plan (1) Sciatica: Code(s): M54.30 - Sciatica, unspecified side Qualifiers: Laterality: right Qualified Code(s): M54.31 - Sciatica, right side Plan: 63-year-old male with generalized osteoarthritis returns for follow-up. Has been having right buttock, right hip pain radiating towards his blood lower extremity, clinical picture consistent with sciatica/radiculopathy. Mentions history of sciatica years ago on the left side s/p multiple epidural blocks and injections which were quite helpful. Right hip trochanteric bursitis injection last visit was not helpful. Will refer patient to pain management for further evaluation Follow-up with me as needed Plan I spent 15 minutes reviewing patient's chart, evaluating patient, counseling patient and documenting in the chart Orders: Referrals Pain Management Referral M54.30 - Sciatica, unspecified side Coding Level of Care Code Est Pt Level 3 (05839) Diagnoses Sciatica of right side M54.31 Laterality: right
== END 2023-11-16 11:17 | disposition home or self-care (01) ==
PROVIDERS: PCP Nurse Practitioner Family; Visit Provider Student in an Organized Health Care Education/Training Program
DX: M54.31 Sciatica, right side (principal)
CPT/HCPCS: 99213

== ENCOUNTER → 2023-11-16 10:45 | Outpatient (BNVA) | payer OTHER, SELFPAY | PROVIDERS: PCP Nurse Practitioner Family; Visit Provider Student in an Organized Health Care Education/Training Program ==

== ENCOUNTER 2023-11-23 08:52 | Outpatient (AMB) | payer OTHER, SELFPAY ==
--- NOTE | 2023-11-23 09:02 | MHC.OFFVIS ---
Intake Vital Signs 11/23/23 09:07 Height 6 ft Weight 264 lb 2 oz BMI 35.8 BP 150/84 H Blood Pressure Location Rt brachial Position Sitting Respiration 16 Pulse 68 Pulse Source Pulse Oximeter Pulse Oximetry (%) 99 Oxygen Delivery Method Room Air Intake Visit Reasons: Sciatica, Unspecified Side - Confirmed Allergies ampicillin Allergy (Intermediate, Verified 11/23/23 09:00) rash pseudoephedrine Allergy (Intermediate, Verified 11/23/23 09:00) anaphylaxis PENICILLIN Allergy (Intermediate, Uncoded 11/16/23 10:50) anaphylaxis HPI HPI Comments History of Present Illness Details Yassine is a very pleasant 63-year-old male who presents to the office today for evaluation management of his right lower back pain. Patient reports he has been suffering with this pain for approximately 6 months, he denies inciting injury. Pain is in the right buttocks with referred pain into the thigh down the lower leg and across the top of the right foot. He describes the pain as a ?deep ache?. Denies shooting, shocking, electrical or zinging pain. Denies weakness, numbness, tingling, pins and needles of the right lower extremity. Patient reports after the pain started he was evaluated by Rheumatology and was given a steroid injection to the most tender area in his right buttock but it did not provide him any relief. He is unable to report what makes the pain worse though he does feel that it bothers him more after sitting in the car or climbing stairs. He has not attempted physical therapy in the last 6 months, but he has previously done physical therapy and he continues with home exercise program including using the exercise bands as they instructed. He states that this is not helped his pain. He is currently taking Tylenol, meloxicam, tramadol and tizanidine all with limited benefit. He states tizanidine will help him at night but ultimately the pain returns once medications wear off. Patient has undergone injections in his lower back, hip and knees years ago. States he was told that the lumbar spine is ?naturally fusing? and they could no longer continue with epidural steroid injections. Patient denies red flag symptoms including new loss of bowel, bladder or saddle anesthesia. Patient denies any recent imaging of his back or right hip. Pain today is rated as a 6/10, constant and worse during the day. In terms of muscle damage condition is described as aching, stabbing, sharp, shooting, dull. Pain is negatively impacting patient's enjoyment of life, general activity, recreational activities, sleep and walking. Past medical history significant for osteoarthritis, prostate cancer with seeding 2019, nicotine dependence and elevated cholesterol. Patient denies current use of anticoagulants. Denies implantable devices but does have a history of prostate seeding. [facility] Medical History Nicotine dependence, cigarettes, uncomplicated Seasonal allergies Benign prostatic hyperplasia with lower urinary tract symptoms Nocturia Prostate cancer (~2019) Wrist fracture, right Traumatic rupture of left biceps tendon Surgical History History of prostate biopsy History of surgery on arm History of arthroplasty of right ankle Hx of shoulder surgery Family History Father Cancer Mother Cancer Social History Housing: House Alcohol intake: never Patient Tobacco Use Status: Current everyday Tobacco user Tobacco use type: Cigarette Cigarettes Per Day: 8 Years Smoked: 35 e-Cigarette/Vaping Use: Never Used Second Hand Smoke Exposure: No Current occupational status: retired Cognitive needs: No Hearing needs: No Vision needs: No Review of Systems Const All systems reviewed & are unremarkable except as noted in HPI and below Physical Exam Vital Signs: Last Vital Signs Pulse 68 11/23/23 09:07 Resp 16 11/23/23 09:07 BP 150/84 H 11/23/23 09:07 Pulse Ox 99 11/23/23 09:07 Oxygen Delivery Method Room Air 11/23/23 09:07 BMI result Body Mass Index 35.8 General: awake, alert, oriented. Answers questions appropriately. Fully engaged in examination. Skin: warm, dry, intact HEENT: Normocephalic. Hearing intact. Cardiac: External chest normal in appearance. Respiratory: No cough, audible wheezing or stridor. Abdomen: without gross distension. MS: No obvious swelling or deformities. Able to stand on bilateral tiptoes and bilateral heels.? Able to transition from sit to stand unassisted. Ambulates with bilaterally normal heel strike and toe off SLR with and without dorsiflexion negative bilaterally LAUREN positive on the right for pain in the hip, negative for pain increased to the groin Nontender over bilateral posterior superior iliac spine Nontender over midline vertebrae or paraspinal muscles Range of motion intact Neurological: Oriented to person, place, time and situation. Thought process intact. No gait abnormalities appreciated. Psychiatric: Appropriate mood and affect. Good judgment and insight. Results Reviewed Results Reviewed: Imaging ordered, results pending Assessment & Plan Assessment & Plan (1) Lumbar spondylosis: Code(s): M47.816 - Spondylosis without myelopathy or radiculopathy, lumbar region (2) Right hip pain: Code(s): M25.551 - Pain in right hip (3) Generalized osteoarthritis of multiple sites: Code(s): M15.9 - Polyosteoarthritis, unspecified Plan Marked is a very pleasant 63-year-old male who presented to the office today for evaluation management of his right lower back pain. X-ray lumbar spine and right hip ordered for evaluation Patient has exhausted 6 months of conservative therapy including home exercise program, nonsteroidal anti-inflammatory medications, muscle relaxers and prescription opioid medications without improvement of his pain. Discussed options for treatment including diagnostic interventional testing, therapeutic steroid injections, peripheral nerve stimulation with Sprint, RFA and more permanent neuromodulation. Will schedule for fluoroscopy guided diagnostic right L3, L4, DR L5 MBB with local anesthetic. If patient does not find benefit after diagnostic MBB will plan for diagnostic right hip injection versus diagnostic right sacroiliac joint injection. All questions and concerns have been answered and patient agrees with the plan. Follow up after injections, sooner if needed. Orders: Orders XR lumbar spine 4V min Today M47.816 - Spondylosis without myelopathy or radiculopathy, lumbar region XR hip RT min 2V Today M25.551 - Pain in right hip Coding Level of Care Code New Pt Level 4 (75227) Diagnoses Lumbar spondylosis M47.816 Right hip pain M25.551 Generalized osteoarthritis of multiple sites M15.9
[2023-11-23 09:07] VITALS: BP 150/84; PULSE 68; RESP 16; O2SAT 99; BMI 35.8
== END 2023-11-23 09:46 | disposition home or self-care (01) ==
PROVIDERS: PCP Nurse Practitioner Family; Referring Provider Student in an Organized Health Care Education/Training Program; Visit Provider Registered Nurse Emergency
DX: M47.816 Spondylosis without myelopathy or radiculopathy, lumbar region (principal); M25.551 Pain in right hip; M15.9 Polyosteoarthritis, unspecified
CPT/HCPCS: 99204

== ENCOUNTER → 2023-11-23 08:52 | Outpatient (BNVA) | payer OTHER, SELFPAY | PROVIDERS: PCP Nurse Practitioner Family; Referring Provider Student in an Organized Health Care Education/Training Program; Visit Provider Registered Nurse Emergency ==

== ENCOUNTER 2023-11-25 10:35 | Outpatient (REF) | payer OTHER, SELFPAY ==
--- NOTE | ~2023-11-25 | XR_ITS ---
EXAMINATION: XR HIP, RIGHT CLINICAL INFORMATION: Pain COMPARISON: None available. TECHNIQUE: Two views of the right hip. FINDINGS: No fracture. Alignment is anatomic. Hip joint space is maintained. Soft tissues are unremarkable. XR/XR hip RT min 2V IMPRESSION: Normal right hip.
--- NOTE | ~2023-11-25 | XR_ITS ---
EXAMINATION: XR lumbar spine 4V min CLINICAL INFORMATION: Reason for Exam M47.816 - Spondylosis without myelopathy or radiculopathy, lumbar region COMPARISON: None TECHNIQUE: 5 views of the lumbar spine FINDINGS: 5 nonrib-bearing lumbar-type vertebral bodies. Vertebral body heights are maintained. Anterolisthesis of L4 on L5, retrolisthesis of L3 on L4. Pars defect on the right at L4. Moderate multilevel degenerative disc disease with loss of disc space height, facet arthropathy and disc osteophyte complexes. This is worst at L4/L5. Atherosclerotic calcifications of the abdominal aorta. XR/XR lumbar spine 4V min IMPRESSION: * Moderate spondylosis of the lumbar spine, as above detailed. * Spondylolisthesis, as above detailed. * Pars defect on the right at L4.
== END 2023-11-25 10:36 | disposition home or self-care (01) ==
LOC: HO.HMGCX 10:35
PROVIDERS: PCP Nurse Practitioner Family; Visit Provider Registered Nurse Emergency
DX: M47.816 Spondylosis without myelopathy or radiculopathy, lumbar region (principal); M25.551 Pain in right hip
CPT/HCPCS: 72110; 73502

== ENCOUNTER 2023-12-19 06:11 | Outpatient (REF) | payer OTHER, SELFPAY ==
--- NOTE | ~2023-12-19 | FL_ITS ---
EXAMINATION: XR FLUOROSCOPY WITH IMAGES CLINICAL INFORMATION: Lumbar spondylosis without myelopathy or radiculopathy. COMPARISON: None available. TECHNIQUE: Fluoroscopy Supervised By: Dr. Viviana Hanks. Fluoroscopy Time: 0.4 minutes. Cumulative Dose: 8.52 mGy. DAP: 0.148 mGym2. Images: 3. FINDINGS: The submitted images show injection needles and injected contrast at the right L3-L4, L4-L5 and L5-S1 neural foramina. FL/FL guidance in treatment room IMPRESSION: Intraoperative fluoroscopic guidance is provided during lumbar pain management procedure. Please see the patient's Operative Report for full procedural details.
== END 2023-12-19 06:12 | disposition home or self-care (01) ==
LOC: CF 06:11
PROVIDERS: Visit Provider Anesthesiology
DX: M47.816 Spondylosis without myelopathy or radiculopathy, lumbar region (principal); M25.551 Pain in right hip; M15.9 Polyosteoarthritis, unspecified
CPT/HCPCS: 64493; 64494; J2795; Q9967

== ENCOUNTER 2023-12-19 07:15 | Outpatient (AMB) | payer OTHER, SELFPAY ==
--- NOTE | 2023-12-19 07:23 | MHC.OFFVIS ---
Intake Vital Signs 12/19/23 07:26 12/19/23 09:20 Height 6 ft 6 ft Weight 262 lb 262 lb BMI 35.5 35.5 BP 140/72 H 140/80 H Blood Pressure Location Rt brachial Rt brachial Position Sitting Sitting Respiration 16 16 Pulse 68 66 Pulse Source Pulse Oximeter Pulse Oximeter Pulse Oximetry (%) 96 98 Oxygen Delivery Method Room Air Room Air Comment Pre-Op Post-op Intake Visit Reasons: RIGHT DIAGNOSTIC L3, L4, DRL5 MBB/confirm [employer] Bi Consultant Required: No Accompanied by: Self / Same As Patient Allergies ampicillin Allergy (Intermediate, Verified 11/23/23 09:00) rash pseudoephedrine Allergy (Intermediate, Verified 11/23/23 09:00) anaphylaxis PENICILLIN Allergy (Intermediate, Uncoded 11/16/23 10:50) anaphylaxis PFSH Medical History Nicotine dependence, cigarettes, uncomplicated Seasonal allergies Benign prostatic hyperplasia with lower urinary tract symptoms Nocturia Prostate cancer (~2018) Wrist fracture, right Traumatic rupture of left biceps tendon Surgical History History of prostate biopsy History of surgery on arm History of arthroplasty of right ankle Hx of shoulder surgery Family History Father Cancer Mother Cancer Social History Housing: House Alcohol intake: never Patient Tobacco Use Status: Current everyday Tobacco user Tobacco use type: Cigarette Cigarettes Per Day: 8 Years Smoked: 35 e-Cigarette/Vaping Use: Never Used Second Hand Smoke Exposure: No Current occupational status: retired Cognitive needs: No Hearing needs: No Vision needs: No Physical Exam Vital Signs: Last Vital Signs Pulse 66 12/19/23 09:20 Resp 16 12/19/23 09:20 BP 140/80 H 12/19/23 09:20 Pulse Ox 98 12/19/23 09:20 Oxygen Delivery Method Room Air 12/19/23 09:20 BMI result Body Mass Index 35.5 Assessment & Plan Assessment & Plan (1) Lumbar spondylosis: Code(s): M47.816 - Spondylosis without myelopathy or radiculopathy, lumbar region (2) Right hip pain: Code(s): M25.551 - Pain in right hip (3) Generalized osteoarthritis of multiple sites: Code(s): M15.9 - Polyosteoarthritis, unspecified Plan: Diagnostic medial branch block L3,L4 dorsal ramus L5 on the right. ? ?Informed consent was explained to the patient. All questions were explained and? answered.? The patient was taken inside the operating room where she was positioned prone on the operating table. Time-out was performed delineating correct site, side, the nature of the procedure, patient's allergy, . All operating room staff was participating in OR time-out procedure. ? ? The lower back was prepped with ChloraPrep and draped with sterile towels.? C-arm was brought over the operating field and sq picture of L4-, L5 vertebra and S1 AREA were delineated on the screen.? Point of interest were delineated as confluence of superior articular process of L4 and L5 vertebra on the right with corresponding transverse processes as well as confluence of the sacral alae on the right with superior articular process of S1.? The projection of the point of interest to the skin were injected with the small amount of local anesthetic lidocaine 2% 1-1.5 cc.? After that 22 gauge 3.5 inch spinal needle was driven sequentially to the points of interest in tunnel vision fashion. After needles gently contacted the bone at the point of interests the needle was injected with small amount of the contrast.? The injection of the contrast did not demonstrate any intravascular or intrathecal spread of the contrast.? After that injection of the? ropivacaine 0.5%-1cc was performed at each needle location.??after that the needles were removed and Bandaids were applied. ? Upon completion of the injections? needle was? removed and sterile Band-Aids were applied.? The patient tolerated procedure very well. Plan Marked is a very pleasant 63-year-old male who presented to the office today for evaluation management of his right lower back pain. X-ray lumbar spine and right hip ordered for evaluation Patient has exhausted 6 months of conservative therapy including home exercise program, nonsteroidal anti-inflammatory medications, muscle relaxers and prescription opioid medications without improvement of his pain. Discussed options for treatment including diagnostic interventional testing, therapeutic steroid injections, peripheral nerve stimulation with Sprint, RFA and more permanent neuromodulation. Will schedule for fluoroscopy guided diagnostic right L3, L4, DR L5 MBB with local anesthetic. If patient does not find benefit after diagnostic MBB will plan for diagnostic right hip injection versus diagnostic right sacroiliac joint injection. All questions and concerns have been answered and patient agrees with the plan. Follow up after injections, sooner if needed. Orders: Orders FL guidance in treatment room 12/19/23 M47.816 - Spondylosis without myelopathy or radiculopathy, lumbar region Coding Level of Care Code Procedure Only Diagnoses Lumbar spondylosis M47.816 Right hip pain M25.551 Generalized osteoarthritis of multiple sites M15.9
[2023-12-19 07:26] VITALS: BP 140/72; PULSE 68; RESP 16; O2SAT 96; BMI 35.5
[2023-12-19 09:20] VITALS: BP 140/80; PULSE 66; RESP 16; O2SAT 98; BMI 35.5
== END 2023-12-19 08:45 | disposition home or self-care (01) ==
LOC: HO.PMCPRC 07:15
PROVIDERS: PCP Nurse Practitioner Family; Visit Provider Anesthesiology
DX: M47.816 Spondylosis without myelopathy or radiculopathy, lumbar region (principal)
CPT/HCPCS: 64493; 64494

== ENCOUNTER 2023-12-25 08:52 | Outpatient (AMB) | payer OTHER, SELFPAY ==
--- NOTE | 2023-12-25 08:53 | MHC.OFFVIS ---
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 Patient reports 20% pain relief since procedure without significant improvement in his functioning, sleep or pain reduction. Patient reports right sided lower back pain that radiates to his right leg, specifically right anterior thigh and into right lateral lower leg and right ankle and dorsal surface of right foot with intermittent numbness and tingling. He has been partially managing his symptoms with tramadol and tizanidine. Pain affects his daily activities, functioning or playing golf. Denies any fever, abdominal or groin pain, weakness, bladder or bowel dysfunction, or saddle anesthesia. Past Procedures: 12/19/23: Diagnostic Right L3-L4 DR L5 MBB-20% pain relief PRIOR: Yassine is a very pleasant 63-year-old male who presents to the office today for evaluation management of his right lower back pain. Patient reports he has been suffering with this pain for approximately 6 months, he denies inciting injury. Pain is in the right buttocks with referred pain into the thigh down the lower leg and across the top of the right foot. He describes the pain as a ?deep ache?. Denies shooting, shocking, electrical or zinging pain. Denies weakness, numbness, tingling, pins and needles of the right lower extremity. Patient reports after the pain started he was evaluated by Rheumatology and was given a steroid injection to the most tender area in his right buttock but it did not provide him any relief. He is unable to report what makes the pain worse though he does feel that it bothers him more after sitting in the car or climbing stairs. He has not attempted physical therapy in the last 6 months, but he has previously done physical therapy and he continues with home exercise program including using the exercise bands as they instructed. He states that this is not helped his pain. He is currently taking Tylenol, meloxicam, tramadol and tizanidine all with limited benefit. He states tizanidine will help him at night but ultimately the pain returns once medications wear off. Patient has undergone injections in his lower back, hip and knees years ago. States he was told that the lumbar spine is ?naturally fusing? and they could no longer continue with epidural steroid injections. Patient denies red flag symptoms including new loss of bowel, bladder or saddle anesthesia. Patient denies any recent imaging of his back or right hip. Pain today is rated as a 6/10, constant and worse during the day. In terms of muscle damage condition is described as aching, stabbing, sharp, shooting, dull. Pain is negatively impacting patient's enjoyment of life, general activity, recreational activities, sleep and walking. Past medical history significant for osteoarthritis, prostate cancer with seeding 2018, nicotine dependence and elevated cholesterol. Patient denies current use of anticoagulants. Denies implantable devices but does have a history of prostate seeding. [facility] Medical History Nicotine dependence, cigarettes, uncomplicated Seasonal allergies Benign prostatic hyperplasia with lower urinary tract symptoms Nocturia Prostate cancer (~2019) Wrist fracture, right Traumatic rupture of left biceps tendon Surgical History History of prostate biopsy History of surgery on arm History of arthroplasty of right ankle Hx of shoulder surgery Family History Father Cancer Mother Cancer Social History Housing: House Alcohol intake: never Patient Tobacco Use Status: Current everyday Tobacco user Tobacco use type: Cigarette Cigarettes Per Day: 8 Years Smoked: 35 e-Cigarette/Vaping Use: Never Used Second Hand Smoke Exposure: No Current occupational status: retired Cognitive needs: No Hearing needs: No Vision needs: No Review of Systems Const All systems reviewed & are unremarkable except as noted in HPI and below Physical Exam Vital Signs: Last Vital Signs Pulse 75 03/04/24 08:57 BP 137/79 12/25/23 08:57 Pulse Ox 97 12/25/23 08:57 Oxygen Delivery Method Room Air 12/25/23 08:57 BMI result Body Mass Index 36.0 General: Appears afebrile. Alert and oriented. Mood and affect appropriate. Follows and participates in conversation appropriately. Respiratory effort is unlabored. No cough. No nasal discharge. Able to transition from sit to stand unassisted. Ambulates with bilaterally normal heel strike and toe off. Back/Spine/Pelvis Other: TTP over paraspinals from L3-S1. Pain in all ranges of motion, lumbar extension and facet loading bilaterally reproduces moderate pain. Moderate pain with lumbar flexion and bending. Strength 5/5 hip flexion bilaterally. Cervical Spine: cervical ROM normal and No Cervical spine tenderness Thoracic/Lumbar Spine: thoracic and lumbar spine normal to inspection, Lasegue's sign negative, straight leg raise negative bilaterally, pain with thoraco-lumbar ROM, thoraco-lumbar ROM limited, No thoracic spinal tenderness and lumbar spinal tenderness Pelvis: buttock tenderness on the right and no sciatic notch tenderness Sacroiliac joints: on the right (+Sancho's, SI distraction, Pelvic compression) tender to palpation and on the left nontender Results Reviewed Results Reviewed: XR lumbar spine 4V min 11/25/23 CLINICAL INFORMATION: Reason for Exam M47.816 - Spondylosis without myelopathy or radiculopathy, lumbar region FINDINGS: 5 nonrib-bearing lumbar-type vertebral bodies. Vertebral body heights are maintained. Anterolisthesis of L4 on L5, retrolisthesis of L3 on L4. Pars defect on the right at L4. Moderate multilevel degenerative disc disease with loss of disc space height, facet arthropathy and disc osteophyte complexes. This is worst at L4/L5. Atherosclerotic calcifications of the abdominal aorta. IMPRESSION: * Moderate spondylosis of the lumbar spine, as above detailed. * Spondylolisthesis, as above detailed. * Pars defect on the right at L4. XR HIP, RIGHT 11/25/23 FINDINGS: No fracture. Alignment is anatomic. Hip joint space is maintained. Soft tissues are unremarkable. IMPRESSION: Normal right hip. Assessment & Plan Assessment & Plan (1) Lumbar radiculopathy: Code(s): M54.16 - Radiculopathy, lumbar region (2) Vertebrogenic low back pain: Code(s): M54.51 - Vertebrogenic low back pain (3) Spondylolisthesis of lumbar region: Code(s): M43.16 - Spondylolisthesis, lumbar region (4) Lumbar spondylosis: Code(s): M47.816 - Spondylosis without myelopathy or radiculopathy, lumbar region (5) Right hip pain: Code(s): M25.551 - Pain in right hip (6) Lumbar degenerative disc disease: Code(s): M51.36 - Other intervertebral disc degeneration, lumbar region Plan Patient is status post diagnostic lumbar medial branch blocks with minimal pain relief. He presents with right-sided lower back pain with positive SI joint pain in significant exacerbation of pain with forward flexion and bending, indicating a discogenic source. We will proceed with lumbar spine MRI to assess for neural integrity and compression and follow up on previous xray findings. Patient has exhausted over 6 months of conservative therapy including home exercise program, nonsteroidal anti-inflammatory medications, muscle relaxers and prescription opioid medications without improvement of his pain. Reviewed interventional treatments including diagnostic interventional testing, therapeutic steroid injections, peripheral nerve stimulation with Sprint, RFA and more permanent neuromodulation. All questions and concerns have been answered and patient agrees with the plan. Follow up for MRI results and sooner if needed. Orders: Orders MR lumbar spine wo con Today M43.16 - Spondylolisthesis, lumbar region, M47.816 - Spondylosis without myelopathy or radiculopathy, lumbar region, M54.16 - Radiculopathy, lumbar region, M54.51 - Vertebrogenic low back pain Coding Level of Care Code Est Pt Level 4 (27444) Diagnoses Lumbar radiculopathy M54.16 Vertebrogenic low back pain M54.51 Spondylolisthesis of lumbar region M43.16 Lumbar spondylosis M47.816 Right hip pain M25.551 Lumbar degenerative disc disease M51.36
[2023-12-25 08:57] VITALS: BP 137/79; PULSE 75; O2SAT 97; BMI 36.0
== END 2023-12-25 09:21 | disposition home or self-care (01) ==
PROVIDERS: PCP Nurse Practitioner Family; Referring Provider Student in an Organized Health Care Education/Training Program; Visit Provider Nurse Practitioner Family
DX: M54.16 Radiculopathy, lumbar region (principal); M54.51 Vertebrogenic low back pain; M43.16 Spondylolisthesis, lumbar region; M47.816 Spondylosis without myelopathy or radiculopathy, lumbar region; M25.551 Pain in right hip; M51.36 Other intervertebral disc degeneration, lumbar region
CPT/HCPCS: 99214

== ENCOUNTER → 2023-12-25 08:52 | Outpatient (BNVA) | payer OTHER, SELFPAY | PROVIDERS: PCP Nurse Practitioner Family; Referring Provider Student in an Organized Health Care Education/Training Program; Visit Provider Nurse Practitioner Family ==

== ENCOUNTER 2024-01-09 07:17 | Outpatient (REF) | payer OTHER, SELFPAY ==
--- NOTE | ~2024-01-09 | MR_ITS ---
EXAMINATION: MR LUMBAR SPINE WITHOUT CONTRAST CLINICAL INFORMATION: Lumbar radiculopathy COMPARISON: Lumbar spine x-ray on 11/25/2023 TECHNIQUE: MRI of the lumbar spine was obtained using routine sequences without contrast. FINDINGS: The visualized lumbar vertebrae are intact. Evaluation of the intervertebral discs show: T12/L1: Intervertebral disc height is normal, with mild loss of T2 signal. No focal disc herniation is seen. Bilateral T12/L1 neuroforamina are patent. Bilateral apophyseal joints are intact with normal alignment. L-1/L-2: Intervertebral disc height is normal, with normal T2 signal. No focal disc herniation is seen. Bilateral L1-L2 neuroforamina are patent. Bilateral apophyseal joints are intact with normal alignment. Bilateral apophyseal joints show loss of joint space, sclerosis, facet hypertrophy and osteophytosis. L2/L3: There is anterior L2 on L3 displacement by 0.4 cm, with exposure of intervertebral disc. Posterior inferior L2 vertebral endplate T2 hypointense sclerotic Schmorl's node surrounded by semilunar shaped T2 hyperintensity is seen. Intervertebral disc height is moderately decreased, with mild loss of T2 signal. No focal disc herniation is seen. Bilateral L2-L3 neuroforamina are patent. There is marked spinal stenosis due to impingement by hypertrophic ligamentum flavum. Bilateral apophyseal joints are intact with normal alignment. Bilateral apophyseal joints show loss of joint space, sclerosis, facet hypertrophy and osteophytosis. L3/L4: There is mild posterior L3 on L4 displacement by 0.2 cm. Intervertebral disc height is markedly decreased, with mild loss of T2 signal. Mild posterior and bilateral foraminal disc protrusion is seen. Bilateral L3-L4 neuroforamina are mildly stenosed. There is mild spinal stenosis due to impingement by hypertrophic ligamentum flavum. Bilateral apophyseal joints are intact with normal alignment. Bilateral apophyseal joints show loss of joint space, sclerosis, facet hypertrophy and osteophytosis. L4/L5: Intervertebral disc height is markedly decreased, with mild loss of T2 signal. Mild posterior and bilateral foraminal disc protrusion is seen. There are moderate left and mild right L4-L5 neuroforamina stenosis. Bilateral apophyseal joints are intact with normal alignment. Bilateral apophyseal joints show loss of joint space, sclerosis, facet hypertrophy and osteophytosis. L5/S1: Intervertebral disc height is markedly decreased, with moderate loss of T2 signal. Mild posterior and bilateral foraminal disc protrusion is seen. There is moderate asymmetric right L5-S1 neuroforaminal stenosis. Bilateral apophyseal joints are intact with normal alignment. Bilateral apophyseal joints show loss of joint space, sclerosis, facet hypertrophy and osteophytosis. Conus medullaris is seen normally at L1 level. MR/MR lumbar spine wo con IMPRESSION: 1. Grade 1 L2-L3 anterolisthesis and grade 1 L3-L4 retrolisthesis. 2. Marked L2-L3 and mild L3-L4 spinal stenosis due to combination of spondylolisthesis and impingement by hypertrophic ligamentum flavum. 3. Moderate left and mild right L4-L5 and moderate asymmetric right L5-S1 neuroforamina stenosis. 4. Mild bilateral L3-L4 neuroforamina stenosis. 5. Multilevel lumbar spondylosis with bilateral apophyseal joint osteoarthritis and L2-L3 to L5-S1 degenerative lumbar disc disease
== END 2024-01-09 07:18 | disposition home or self-care (01) ==
LOC: HO.MRI 07:17
PROVIDERS: PCP Nurse Practitioner Family; Visit Provider Nurse Practitioner Family
DX: M54.16 Radiculopathy, lumbar region (principal); M54.51 Vertebrogenic low back pain; M43.16 Spondylolisthesis, lumbar region; M47.816 Spondylosis without myelopathy or radiculopathy, lumbar region
CPT/HCPCS: 72148

== ENCOUNTER 2024-02-16 11:24 | Outpatient (AMB) | payer OTHER, SELFPAY ==
--- NOTE | 2024-02-16 11:27 | MHC.OFFVIS ---
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 Patient continues to endorse axial low back pain and discogenic pain as well as spinal stenosis related pain with neurogenic claudication. Patient reports he can stand for 5 minutes and walk for 3 minutes before he needs to sit down and rest. He tried physical therapy and epidural steroidal injections in the past is partial improvement, more recently he underwent lumbar medial branch blocks is minimal relief. He continues to take tramadol during the day and tizanidine is partial improvement but has difficulty walking in the afternoon and evening. Patient has fragmented sleep due to pain. Also reports mood changes due to chronic pain. He is interested in interventional treatments as well as neurosurgical evaluation to address his symptoms. He states improved back pain will allow him increased quality time with his family and grandchildren, participate in golfing and fishing and be able to work on his yard work. Denies any recent cough, cold, infection, fever, any significant changes in her medical history, medications or recent hospitalizations. PRIOR: Patient presents today to assess response to Diagnostic Right L3-L4 DR L5 MBB on 12/19/23. Patient reports 20% pain relief since procedure without significant improvement in his functioning, sleep or pain reduction. Patient reports right sided lower back pain that radiates to his right leg, specifically right anterior thigh and into right lateral lower leg and right ankle and dorsal surface of right foot with intermittent numbness and tingling. He has been partially managing his symptoms with tramadol and tizanidine. Pain affects his daily activities, functioning or playing golf. Denies any fever, abdominal or groin pain, weakness, bladder or bowel dysfunction, or saddle anesthesia. Past Procedures: 12/19/23: Diagnostic Right L3-L4 DR L5 MBB-20% pain relief PRIOR: Yassine is a very pleasant 63-year-old male who presents to the office today for evaluation management of his right lower back pain. Patient reports he has been suffering with this pain for approximately 6 months, he denies inciting injury. Pain is in the right buttocks with referred pain into the thigh down the lower leg and across the top of the right foot. He describes the pain as a ?deep ache?. Denies shooting, shocking, electrical or zinging pain. Denies weakness, numbness, tingling, pins and needles of the right lower extremity. Patient reports after the pain started he was evaluated by Rheumatology and was given a steroid injection to the most tender area in his right buttock but it did not provide him any relief. He is unable to report what makes the pain worse though he does feel that it bothers him more after sitting in the car or climbing stairs. He has not attempted physical therapy in the last 6 months, but he has previously done physical therapy and he continues with home exercise program including using the exercise bands as they instructed. He states that this is not helped his pain. He is currently taking Tylenol, meloxicam, tramadol and tizanidine all with limited benefit. He states tizanidine will help him at night but ultimately the pain returns once medications wear off. Patient has undergone injections in his lower back, hip and knees years ago. States he was told that the lumbar spine is ?naturally fusing? and they could no longer continue with epidural steroid injections. Patient denies red flag symptoms including new loss of bowel, bladder or saddle anesthesia. Patient denies any recent imaging of his back or right hip. Pain today is rated as a 6/10, constant and worse during the day. In terms of muscle damage condition is described as aching, stabbing, sharp, shooting, dull. Pain is negatively impacting patient's enjoyment of life, general activity, recreational activities, sleep and walking. Past medical history significant for osteoarthritis, prostate cancer with seeding 2019, nicotine dependence and elevated cholesterol. Patient denies current use of anticoagulants. Denies implantable devices but does have a history of prostate seeding. [facility] Medical History Nicotine dependence, cigarettes, uncomplicated Seasonal allergies Benign prostatic hyperplasia with lower urinary tract symptoms Nocturia Prostate cancer (~2019) Wrist fracture, right Traumatic rupture of left biceps tendon Surgical History History of prostate biopsy History of surgery on arm History of arthroplasty of right ankle Hx of shoulder surgery Family History Father Cancer Mother Cancer Social History Housing: House Alcohol intake: never Patient Tobacco Use Status: Current everyday Tobacco user Tobacco use type: Cigarette Cigarettes Per Day: 8 Years Smoked: 35 e-Cigarette/Vaping Use: Never Used Second Hand Smoke Exposure: No Current occupational status: retired Cognitive needs: No Hearing needs: No Vision needs: No Review of Systems Const All systems reviewed & are unremarkable except as noted in HPI and below Physical Exam Vital Signs: Last Vital Signs Pulse 67 02/16/24 11:32 BP 160/81 H 02/16/24 11:32 Pulse Ox 96 02/16/24 11:32 Oxygen Delivery Method Room Air 02/16/24 11:32 BMI result Body Mass Index 35.8 General: Appears afebrile. Alert and oriented. Mood and affect appropriate. Follows and participates in conversation appropriately. Respiratory effort is unlabored. No cough. Able to transition from sit to stand unassisted. Ambulates with bilaterally normal heel strike and toe off, reports imbalance and unsteadiness on the right. Back/Spine/Pelvis Other: TTP over paraspinals from L3-S1. Pain in all ranges of motion, especially axial rotations, forward flexion and facet loading bilaterally reproduces moderate pain. Strength 5/5 left and 4/5 right hip flexion bilaterally. Cervical Spine: cervical ROM normal, cervical muscular tenderness and No Cervical spine tenderness Thoracic/Lumbar Spine: thoracic and lumbar spine normal to inspection, No Thoracic/lumbar spine scar(s), Lasegue's sign positive (L5 distribution) on the right and localized, pain with thoraco-lumbar ROM, paraspinal muscle tenderness, thoraco-lumbar ROM limited, No thoracic spinal tenderness and lumbar spinal tenderness Pelvis: buttock tenderness on the right and sciatic notch tenderness on the right Sacroiliac joints: on the right (+Sancho's, SI distraction, Pelvic compression) tender to palpation and on the left nontender Results Reviewed Results Reviewed: XR lumbar spine 4V min 11/25/23 CLINICAL INFORMATION: Reason for Exam M47.816 - Spondylosis without myelopathy or radiculopathy, lumbar region FINDINGS: 5 nonrib-bearing lumbar-type vertebral bodies. Vertebral body heights are maintained. Anterolisthesis of L4 on L5, retrolisthesis of L3 on L4. Pars defect on the right at L4. Moderate multilevel degenerative disc disease with loss of disc space height, facet arthropathy and disc osteophyte complexes. This is worst at L4/L5. Atherosclerotic calcifications of the abdominal aorta. IMPRESSION: * Moderate spondylosis of the lumbar spine, as above detailed. * Spondylolisthesis, as above detailed. * Pars defect on the right at L4. XR HIP, RIGHT 11/25/23 FINDINGS: No fracture. Alignment is anatomic. Hip joint space is maintained. Soft tissues are unremarkable. IMPRESSION: Normal right hip. MR LUMBAR SPINE WITHOUT CONTRAST 01/09/24 CLINICAL INFORMATION: Lumbar radiculopathy COMPARISON: Lumbar spine x-ray on 11/25/2023 TECHNIQUE: MRI of the lumbar spine was obtained using routine sequences without contrast. FINDINGS: The visualized lumbar vertebrae are intact. Evaluation of the intervertebral discs show: T12/L1: Intervertebral disc height is normal, with mild loss of T2 signal. No focal disc herniation is seen. Bilateral T12/L1 neuroforamina are patent. Bilateral apophyseal joints are intact with normal alignment. L-1/L-2: Intervertebral disc height is normal, with normal T2 signal. No focal disc herniation is seen. Bilateral L1-L2 neuroforamina are patent. Bilateral apophyseal joints are intact with normal alignment. Bilateral apophyseal joints show loss of joint space, sclerosis, facet hypertrophy and osteophytosis. L2/L3: There is anterior L2 on L3 displacement by 0.4 cm, with exposure of intervertebral disc. Posterior inferior L2 vertebral endplate T2 hypointense sclerotic Schmorl's node surrounded by semilunar shaped T2 hyperintensity is seen. Intervertebral disc height is moderately decreased, with mild loss of T2 signal. No focal disc herniation is seen. Bilateral L2-L3 neuroforamina are patent. There is marked spinal stenosis due to impingement by hypertrophic ligamentum flavum. Bilateral apophyseal joints are intact with normal alignment. Bilateral apophyseal joints show loss of joint space, sclerosis, facet hypertrophy and osteophytosis. L3/L4: There is mild posterior L3 on L4 displacement by 0.2 cm. Intervertebral disc height is markedly decreased, with mild loss of T2 signal. Mild posterior and bilateral foraminal disc protrusion is seen. Bilateral L3-L4 neuroforamina are mildly stenosed. There is mild spinal stenosis due to impingement by hypertrophic ligamentum flavum. Bilateral apophyseal joints are intact with normal alignment. Bilateral apophyseal joints show loss of joint space, sclerosis, facet hypertrophy and osteophytosis. L4/L5: Intervertebral disc height is markedly decreased, with mild loss of T2 signal. Mild posterior and bilateral foraminal disc protrusion is seen. There are moderate left and mild right L4-L5 neuroforamina stenosis. Bilateral apophyseal joints are intact with normal alignment. Bilateral apophyseal joints show loss of joint space, sclerosis, facet hypertrophy and osteophytosis. L5/S1: Intervertebral disc height is markedly decreased, with moderate loss of T2 signal. Mild posterior and bilateral foraminal disc protrusion is seen. There is moderate asymmetric right L5-S1 neuroforaminal stenosis. Bilateral apophyseal joints are intact with normal alignment. Bilateral apophyseal joints show loss of joint space, sclerosis, facet hypertrophy and osteophytosis. Conus medullaris is seen normally at L1 level. IMPRESSION: 1. Grade 1 L2-L3 anterolisthesis and grade 1 L3-L4 retrolisthesis. 2. Marked L2-L3 and mild L3-L4 spinal stenosis due to combination of spondylolisthesis and impingement by hypertrophic ligamentum flavum. 3. Moderate left and mild right L4-L5 and moderate asymmetric right L5-S1 neuroforamina stenosis. 4. Mild bilateral L3-L4 neuroforamina stenosis. 5. Multilevel lumbar spondylosis with bilateral apophyseal joint osteoarthritis and L2-L3 to L5-S1 degenerative lumbar disc disease Assessment & Plan Assessment & Plan (1) Lumbar radiculopathy: Code(s): M54.16 - Radiculopathy, lumbar region Category: Medical (2) Lumbar spinal stenosis: Code(s): M48.061 - Spinal stenosis, lumbar region without neurogenic claudication Category: Medical (3) Vertebrogenic low back pain: Code(s): M54.51 - Vertebrogenic low back pain Category: Medical (4) Spondylolisthesis of lumbar region: Code(s): M43.16 - Spondylolisthesis, lumbar region Category: Medical (5) Lumbar spondylosis: Code(s): M47.816 - Spondylosis without myelopathy or radiculopathy, lumbar region Category: Medical (6) Lumbar degenerative disc disease: Code(s): M51.36 - Other intervertebral disc degeneration, lumbar region Category: Medical Plan Discussed lumbar spine MRI results in greater detail with patient, imaging discussed with Dr. Baptiste as well. Patient has pending Neurosurgical evaluation at [facility] on 03/01/24 for surgical options. We discussed today interventional treatments for his right sided spinal stenosis related pain with neurogenic claudication and discogenic pain, including MILD and BVN ablation procedures. Informational pamphlets were provided to patient. For right sided radicular pain, we will proceed with Right L5 TFESI with local and fluoroscopy. Expectations, risks and benefits were reviewed. Patient is aware he will be contacted to schedule this procedure. He is not on anticoagulation. Patient will also start pregabalin 50 mg BID, for first week he will take it at bedtime and advance to BID if well tolerated. Side effects and precautions were reviewed with patient. All questions and concerns have been answered and patient agrees with the plan. Follow up after injections and sooner if needed. Medications: New pregabalin 50 mg PO BID 60 caps 0RF pain 30 days M48.061 - Spinal stenosis, lumbar region without neurogenic claudication, M54.16 - Radiculopathy, lumbar region Coding Level of Care Code Est Pt Level 4 (26867) Diagnoses Lumbar radiculopathy M54.16 Lumbar spinal stenosis M48.061 Vertebrogenic low back pain M54.51 Spondylolisthesis of lumbar region M43.16 Lumbar spondylosis M47.816 Lumbar degenerative disc disease M51.36
[2024-02-16 11:32] VITALS: BP 160/81; BP 171/85; PULSE 67; O2SAT 96; BMI 35.8
== END 2024-02-16 12:11 | disposition home or self-care (01) ==
PROVIDERS: PCP Nurse Practitioner Family; Visit Provider Nurse Practitioner Family
DX: M54.16 Radiculopathy, lumbar region (principal); M48.061 Spinal stenosis, lumbar region without neurogenic claudication; M54.51 Vertebrogenic low back pain; M43.16 Spondylolisthesis, lumbar region; M47.816 Spondylosis without myelopathy or radiculopathy, lumbar region; M51.36 Other intervertebral disc degeneration, lumbar region
CPT/HCPCS: 99214

== ENCOUNTER → 2024-02-16 11:24 | Outpatient (BNVA) | payer OTHER, SELFPAY | PROVIDERS: PCP Nurse Practitioner Family; Visit Provider Nurse Practitioner Family ==

== ENCOUNTER 2024-03-01 12:56 | Outpatient (AMB) | payer OTHER, SELFPAY ==
--- NOTE | 2024-03-01 13:00 | A.SPINEOV_ITS ---
Intake Visit Reasons: lumbar radiculopathy Intake Note: Mr. Reveles is here today c/o back pain. Shipping Associate Required: No Allergies Penicillins Allergy (Severe, Verified 02/16/24 11:34) Anaphylaxis ampicillin Allergy (Intermediate, Verified 02/16/24 11:34) rash pseudoephedrine Allergy (Intermediate, Verified 02/16/24 11:34) anaphylaxis Assessment & Plan Assessment & Plan (1) Lumbar spinal stenosis: Code(s): M48.061 - Spinal stenosis, lumbar region without neurogenic claudication Category: Medical Plan Dear Analia Thank you for referring Mr Reveles to our office today. He is a very nice 64-year-old gentleman who presents to the office today for evaluation of a c hronic low back pain with superimposed right leg pain which started in July of last year. He has been dealing with a chronic low back pain for years and generally it does not bring him to the doctor's office. It is really the leg pain that has been getting so bad that he is sought out treatment. The pain initially started in his right buttock, but now goes down to his lateral calf. It is associated with activity and will go away if he sits, but if he sits too long the symptoms will then get aggravated. If he sits in his car he has no pain. He has tried tramadol, meloxicam. He underwent an L L3-4 block which really did not have much effect. He tried chiropractic and physical therapy as well. Here today to see us for evaluation the setting of an MRI showing severe stenosis at L2-3 with spondylolisthesis at L2-3 amongst other degenerative changes. PMH: He is reasonably healthy, he has a history of right shoulder surgery, left biceps repair, prostate seeding secondary to prostate cancer. His current prostate numbers are excellent. Social hx: He does smoke 8-10 cigarettes a day Medications: Lyrica, Cialis, Flomax, vitamin-D, meloxicam and tramadol Allergies: All the penicillins antibiotics, ampicillin Sudafed Physical exam: Patient is awake alert oriented no acute distress, he has full strength of bilateral lower extremities with normal reflexes Imaging review: Lumbar MRI done at [facility] shows multilevel [id number] degenerative disc disease. He has a grade 1 spondylolisthesis at L2-3 with moderate to severe stenosis. The report suggests there is foraminal stenosis at other levels but I do not appreciate this as I can see fat around the exiting nerve root at all the levels of the spine on the right side. Impression: 64-year-old gentleman presents for evaluation of right-sided leg pain that seems to travel down his leg into his outer calf and is worsened with activity but can also be present if he sits for too long. Sitting in his car se ems to be the best position. He has no pain when he is driving. The pain can be present at night. He is tried many of the usual conservative treatments. He had no significant improvement with an L3-4 nerve block. His MRI shows severe stenosis at L2-3 with spondylolisthesis. I sent the patient for flexion- extension x-rays. Fortunately these show no signs of instability. Dr. Wolfe and I met with him and discussed the option of a right L2-3 decompression. Because we can not do the surgery until April, he was interested in pursuing another injection. It looks like the plan is for an L5 TFE, but we are wondering from might be more meaningful to do an L2-3 epidural just to confirm that this is where the pain is coming from. Pt was given risk and benefits of surgery including but not limited to infection, hematoma , nerve injury,durotomy, weakness,bowel/bladder injury, persistent pain, as well as the option to continue with conservative treatment and patient wishes to proceed with surgery. Pt is aware they should stop their motrin, aspirin 7 days prior to surgery. All questions were answered to the best of our ability. If there is anything about this patients medical history that we have overlooked or concerns you have about us proceeding with surgery we would appreciate any input you can offer. Thank you for allowing us to care for your patient. The total time spent with this visit with this patient was 45 minutes reviewing history, physical exam, lumbar imaging review, and implementation of treatment plan or further diagnostic testing Mikey Wolfe MD,PhD [facility] Orders: Orders XR lumbar spine 4V min Today M48.061 - Spinal stenosis, lumbar region without neurogenic claudication Coding Level of Care Code New Pt Level 4 (12256) Diagnoses Lumbar spinal stenosis M48.061
== END 2024-03-01 14:43 | disposition home or self-care (01) ==
PROVIDERS: PCP Nurse Practitioner Family; Referring Provider Internal Medicine; Visit Provider Physician Assistant
DX: M48.061 Spinal stenosis, lumbar region without neurogenic claudication (principal)
CPT/HCPCS: 99204

== ENCOUNTER 2024-03-01 12:56 | Outpatient (REF) | payer OTHER, SELFPAY ==
--- NOTE | ~2024-03-01 | XR_ITS ---
EXAMINATION: XR LUMBOSACRAL SPINE WITH OBLIQUES CLINICAL INFORMATION: Spinal stenosis lumbar region. COMPARISON: MR lumbar spine 01/09/2024, x-rays lumbar spine 11/25/2023. TECHNIQUE: AP, lateral neutral, flexion and extension views of the lumbar spine FINDINGS: Mild dextroscoliosis of the lumbar spine. Moderate multilevel lumbar spondylosis with multilevel loss of disc space height, most notable at L3-L4, L4-L5 and L5-S1. Grade 1 anterolisthesis of L2 on L3 with flexion and extension. Grade 1 anterolisthesis of L3 on L4 with flexion and extension. Previously identified pars defect better characterized on MRI. XR/XR lumbar spine 4V min IMPRESSION: Moderate multilevel lumbar spondylosis.
== END 2024-03-01 12:57 | disposition home or self-care (01) ==
LOC: HO.HOSX 12:56
PROVIDERS: PCP Nurse Practitioner Family; Visit Provider Physician Assistant
DX: M48.061 Spinal stenosis, lumbar region without neurogenic claudication (principal)
CPT/HCPCS: 72110

== ENCOUNTER 2024-03-07 07:09 | Outpatient (REF) | payer OTHER, SELFPAY ==
--- NOTE | ~2024-03-07 | FL_ITS ---
EXAMINATION: XR FLUOROSCOPY WITH IMAGES CLINICAL INFORMATION: Radiculopathy. COMPARISON: None available. TECHNIQUE: Fluoroscopy Supervised By: Dr. Ritchie Baptiste. Fluoroscopy Time: 0.2 minutes. Cumulative Dose: 6.37 mGy. DAP: 0.0291 Gycm2. Images: 2. FINDINGS: Intraoperative fluoroscopy and spot films were performed during a procedure in the OR. Single image demonstrates a needle just to the right of the midline with contrast in the epidural space. Exact level cannot be ascertained due to marked coning of the images. Please see Dr. Ritchie Baptiste's report for complete details. FL/FL guidance in treatment room IMPRESSION: Intraoperative fluoroscopy and spot films were obtained. Please see Dr. Ritchie Baptiste's report for complete details.
== END 2024-03-07 07:10 | disposition home or self-care (01) ==
LOC: CF 07:09
PROVIDERS: PCP Nurse Practitioner Family; Visit Provider Internal Medicine
DX: M54.16 Radiculopathy, lumbar region (principal)
CPT/HCPCS: 62323; J3301; Q9967

== ENCOUNTER 2024-03-07 09:58 | Outpatient (AMB) | payer OTHER, SELFPAY ==
--- NOTE | 2024-03-07 09:55 | MHC.OFFVIS ---
Vital Signs 03/07/24 10:39 03/07/24 10:40 Height 6 ft Weight 264 lb BMI 35.8 BP 116/72 124/80 Blood Pressure Location Lt brachial Lt brachial Position Sitting Sitting Respiration 18 Pulse 70 Pulse Source Pulse Oximeter Pulse Oximetry (%) 95 Oxygen Delivery Method Room Air Comment Pre-Op Post-Op Intake Visit Reasons: Right L2-L3 interlaminar THONG Allergies Penicillins Allergy (Severe, Verified 02/16/24 11:34) Anaphylaxis ampicillin Allergy (Intermediate, Verified 02/16/24 11:34) rash pseudoephedrine Allergy (Intermediate, Verified 02/16/24 11:34) anaphylaxis HPI HPI Right L2-L3 interlaminar THONG: Details: Patient presents for scheduled procedure. Denies any recent cough, cold, infection, fever or other significant changes in medical history since last office visit. Due to severe spinal canal stenosis at L2-3, with ligamentum flavum in close proximity to the cauda equina on the right side, we will proceed with a right interlaminar injection at L3-4. [facility] Medical History Nicotine dependence, cigarettes, uncomplicated Seasonal allergies Benign prostatic hyperplasia with lower urinary tract symptoms Nocturia Prostate cancer (~2019) Wrist fracture, right Traumatic rupture of left biceps tendon Surgical History History of prostate biopsy History of surgery on arm History of arthroplasty of right ankle Hx of shoulder surgery Family History Father Cancer Mother Cancer Social History Housing: House Alcohol intake: never Patient Tobacco Use Status: Current everyday Tobacco user Tobacco use type: Cigarette Cigarettes Per Day: 8 Years Smoked: 35 e-Cigarette/Vaping Use: Never Used Second Hand Smoke Exposure: No Current occupational status: retired Cognitive needs: No Hearing needs: No Vision needs: No Physical Exam Vital Signs: Last Vital Signs Pulse 70 03/07/24 10:39 Resp 18 03/07/24 10:39 BP 124/80 03/07/24 10:40 Pulse Ox 95 03/07/24 10:39 Oxygen Delivery Method Room Air 05/16/24 10:39 BMI result Body Mass Index 35.8 Office Procedures Joint Injection/Drain Joint Injection/Drain Details: Interlaminar epidural steroid injection, L3-4, right parasaggital After obtaining written consent, pre-procedure blood pressure and heart rate were stable and recorded in the nursing record. The patient was placed in the prone position. The lumbar area was widely prepped with chloraprep and draped in sterile fashion. Fluoroscopic guidance was used to identify the desired interlaminar space and for needle placement. Subcutaneous 0.5% lidocaine was used to anesthetize the skin overlying the target. A 20-gauge Julian needle was advanced to the epidural space using loss of resistance to contrast technique under fluoroscopic AP and contralateral oblique views. There was no evidence of heme or CSF and no paresthesias were elicited with needle placement. Confirmation of epidural needle placement was performed with 1cc of omnipaque 180. Next 3 ml 0.5% lidocaine mixed with 80 mg triamcinolone was administered epidurally with no pain elicited on injection. The needle tract tubing was then cleared with 1 ml of 0.5% lidocaine. The needle was removed, skin cleansed and a sterile bandage was applied. The patient tolerated the procedure well and no complications were encountered. Following the procedure the patient's vital signs were stable. The patient was discharged home in good condition with post-procedural instructions. Time Out: Immediately prior to the procedure, the following was verbally confirmed that there is a signed consent form and that the correct patient, planned procedure, site and side are consistent with documentation and that necessary equipment and/or blood products are available prior to the start of the case. Complications: none EBL: <5 cc Coding 84856 - Caudal/Lumbar Epidural/Interlaminar with fluoroscopy Procedure code (CPT) selection complete Assessment & Plan Assessment & Plan (1) Lumbar spinal stenosis: Code(s): M48.061 - Spinal stenosis, lumbar region without neurogenic claudication Category: Medical (2) Lumbar radiculopathy: Code(s): M54.16 - Radiculopathy, lumbar region Category: Medical Plan Patient is status post right parasagittal interlaminar L3-4 THONG. Patient tolerated procedure well and was discharged home in stable condition with discharge instructions. All questions were answered. We will follow-up via telephone or in clinic to assess response to therapy. A follow-up appointment was made during today's visit. Orders: Orders FL guidance in treatment room Today M54.16 - Radiculopathy, lumbar region Coding Level of Care Code Procedure Only Diagnoses Lumbar spinal stenosis M48.061 Lumbar radiculopathy M54.16 CPT Codes Coding - Joint 11: 78088 - Caudal/Lumbar Epidural/Interlaminar with fluoroscopy ([id number])
[2024-03-07 10:39] VITALS: BP 116/72; PULSE 70; RESP 18; O2SAT 95; BMI 35.8
[2024-03-07 10:40] VITALS: BP 124/80
== END 2024-03-07 10:40 | disposition home or self-care (01) ==
LOC: HO.PMCPRC 09:58
PROVIDERS: PCP Nurse Practitioner Family; Visit Provider Internal Medicine
DX: M54.16 Radiculopathy, lumbar region (principal)
CPT/HCPCS: 62323

== ENCOUNTER 2024-04-05 09:22 | Outpatient (AMB) | payer OTHER, SELFPAY ==
--- NOTE | 2024-04-05 09:33 | A.OFFVIS_ITS ---
Vital Signs 04/05/24 09:35 Height 6 ft Weight 253 lb BMI 34.3 BP 118/65 Blood Pressure Location Lt brachial Position Sitting Respiration 18 Pulse 64 Pulse Source Pulse Oximeter Pulse Oximetry (%) 98 Oxygen Delivery Method Room Air Intake Visit Reasons: s/p Right L2-L3 interlaminar THONG Intake Note: Patient states 95% relief. Pain level today 2/10 Allergies Penicillins Allergy (Severe, Verified 02/16/24 11:34) Anaphylaxis ampicillin Allergy (Intermediate, Verified 02/16/24 11:34) rash pseudoephedrine Allergy (Intermediate, Verified 02/16/24 11:34) anaphylaxis HPI HPI s/p Right L2-L3 interlaminar THONG: Details: 64-year-old male who presents today for status post right L2-L3 interlaminar THONG. The patient had the 80% relief from this injection. He's been more active. He has been doing a lot of yard work. He denies any concerns at this time. [facility] Medical History Nicotine dependence, cigarettes, uncomplicated Seasonal allergies Benign prostatic hyperplasia with lower urinary tract symptoms Nocturia Prostate cancer (~2019) Wrist fracture, right Traumatic rupture of left biceps tendon Surgical History History of prostate biopsy History of surgery on arm History of arthroplasty of right ankle Hx of shoulder surgery Family History Father Cancer Mother Cancer Social History Housing: House Alcohol intake: never Patient Tobacco Use Status: Current everyday Tobacco user Tobacco use type: Cigarette Cigarettes Per Day: 8 Years Smoked: 35 e-Cigarette/Vaping Use: Never Used Second Hand Smoke Exposure: No Current occupational status: retired Cognitive needs: No Hearing needs: No Vision needs: No Review of Systems Const All systems reviewed & are unremarkable except as noted in HPI and below Physical Exam Vital Signs: Last Vital Signs Pulse 64 04/05/24 09:35 Resp 18 04/05/24 09:35 BP 118/65 04/05/24 09:35 Pulse Ox 98 04/05/24 09:35 Oxygen Delivery Method Room Air 04/05/24 09:35 BMI result Body Mass Index 34.3 General: Appears afebrile. Alert and oriented. Mood and affect appropriate. Follows and participates in conversation appropriately. Respiratory effort is unlabored. Able to transition from sit to stand unassisted. Ambulates with bilaterally normal heel strike and toe off. Assessment & Plan Assessment & Plan (1) Lumbar radiculopathy: Code(s): M54.16 - Radiculopathy, lumbar region Category: Medical Plan He is going to be follow up as needed. He will call us if his symptoms return for repeat injection. Scribed for Dr. Baptiste by Meaghan Hines medical insurance coding specialist, on 04/05/2024. I, Dr. Baptiste, have personally reviewed and agree with the information entered by the scribe Coding Level of Care Code Est Pt Level 2 (51960) Diagnoses Lumbar radiculopathy M54.16
[2024-04-05 09:35] VITALS: BP 118/65; PULSE 64; RESP 18; O2SAT 98; BMI 34.3
== END 2024-04-05 09:41 | disposition home or self-care (01) ==
PROVIDERS: PCP Nurse Practitioner Family; Visit Provider Internal Medicine
DX: M54.16 Radiculopathy, lumbar region (principal)
CPT/HCPCS: 99212

== ENCOUNTER → 2024-04-05 09:22 | Outpatient (BNVA) | payer OTHER, SELFPAY | PROVIDERS: PCP Nurse Practitioner Family; Visit Provider Internal Medicine ==

== ENCOUNTER 2024-04-26 10:13 | Outpatient (AMB) | payer OTHER, SELFPAY ==
[2024-04-26 10:15] VITALS: BP 126/80; PULSE 66; TEMP 36.6; O2SAT 94; BMI 34.3
--- NOTE | 2024-04-26 10:15 | AM.OFFWIN_ITS ---
Intake Vital Signs 04/26/24 10:15 Height 6 ft Weight 253 lb BMI 34.3 BP 126/80 Blood Pressure Location Rt brachial Position Sitting Pulse 66 Pulse Source Pulse Oximeter Temp 97.8 F Temp Source Temporal Artery Scan Pulse Oximetry (%) 94 Oxygen Delivery Method Room Air Intake Visit Reasons: EP LT ear pain Intake Note: pt is here for left ear pain Patient Tobacco Use Status: Current everyday Tobacco user Allergies ampicillin Allergy (Severe, Verified 04/26/24 10:16) Anaphylaxis Penicillins Allergy (Severe, Verified 04/26/24 10:16) Anaphylaxis all cillins pineapple Allergy (Severe, Verified 04/26/24 10:16) Rash pseudoephedrine Allergy (Severe, Verified 04/26/24 10:16) anaphylaxis Sudafed Do you need a note to return to daycare/school/sports/work: No HPI HPI Comments History of Present Illness Details 64 y/o male patient who presents to walk in clinic with c/o left ear pain for few days now. Admits to swimming in the pool. [facility] Medical History (Updated 04/18/24 @ 12:18 by Rachel Castellon RN) Spinal stenosis Osteoarthritis Environmental allergies Nicotine dependence, cigarettes, uncomplicated Seasonal allergies Benign prostatic hyperplasia with lower urinary tract symptoms Nocturia Prostate cancer (~2018) Wrist fracture, right Traumatic rupture of left biceps tendon Surgical History (Updated 04/18/24 @ 12:15 by Rachel Castellon RN) History of prostate biopsy History of surgery on arm (~2005) History of arthroplasty of right ankle Hx of shoulder surgery (~1981) Family History Father Cancer Mother Cancer Social History (Updated 04/18/24 @ 12:35 by Rachel Castellon RN) Housing: House Are you a primary healthcare consulting manager to a significant other at home: Yes (daughter, supportive ) Do you presently have visiting nurse or other home services: No Alcohol intake: never Patient Tobacco Use Status: Current everyday Tobacco user Tobacco use type: Cigarette Cigarettes Per Day: 8 Years Smoked: 35 e-Cigarette/Vaping Use: Never Used Second Hand Smoke Exposure: No Current occupational status: retired Cognitive needs: No Hearing needs: No Vision needs: No Review of Systems Const All systems reviewed & are unremarkable except as noted in HPI and below Physical Exam Vital Signs: Last Vital Signs Temp 97.8 F 04/26/24 10:15 Pulse 66 04/26/24 10:15 BP 126/80 04/26/24 10:15 Pulse Ox 94 04/26/24 10:15 Oxygen Delivery Method Room Air 04/26/24 10:15 BMI result Body Mass Index 34.3 Const General: comfortable and no acute distress Nutritional Appearance: obese Orientation/consciousness: patient oriented x3 HEENT Head: Yes normocephalic Ears: external ears normal, TM normal on the left and TM abnormal bulging on the left, erythematous on the left and retracted on the left; not perforated General nose exam: Normal nasal mucous membranes and turbinates present Face and sinus: Yes sinuses nontender Mouth: moist mucous membranes Throat: Yes posterior oropharynx normal Neuro General: patient oriented x3, gait normal and moves all extremities Psych Speech and movement: Normal speech and movement present Assessment & Plan Assessment & Plan (1) Otitis of left ear: Code(s): H66.92 - Otitis media, unspecified, left ear Plan: Acetaminophen for pain relief Ordered Abx Otic drop for 7 days. Medications: New ciprofloxacin-dexamethasone 0.3-0.1 % 4 drps otic (ear) left BID 7 days 7.5 mL 0RF H66.92 - Otitis media, unspecified, left ear Coding Level of Care Code Est Pt Level 3 (62639) Diagnoses Otitis of left ear H66.92 Time Spent (min) 15
== END 2024-04-26 10:34 | disposition home or self-care (01) ==
PROVIDERS: PCP Nurse Practitioner Family; Visit Provider Nurse Practitioner Family
DX: H66.92 Otitis media, unspecified, left ear (principal)
CPT/HCPCS: 99213

== ENCOUNTER 2024-05-02 08:25 | Day surgery (SDC) | payer OTHER, SELFPAY ==
[2024-04-18 11:58] VITALS: BP 130/67; PULSE 68; RESP 16; O2SAT 97; BMI 33.9
--- NOTE | ~2024-05-02 | FL_ITS ---
EXAMINATION: XR FLUOROSCOPY WITH IMAGES CLINICAL INFORMATION: L2-L3 decompression. COMPARISON: None available. TECHNIQUE: Fluoroscopy Supervised By: Dr. Wolfe. Fluoroscopy Time: 3.3. Cumulative Dose: 1.9133 mGy. DAP: 0.8323 Gycm2. Images: 1. FINDINGS: Intraoperative fluoroscopy and spot films were performed during a procedure in the OR. The posterior probe is present at the L2-L3 disc space. Please correlate with Dr. Wolfe's report for complete details. FL/FL guidance in OR IMPRESSION: Intraoperative fluoroscopy and spot films were obtained. Please see Dr. Wolfe's report for complete details.
--- NOTE | 2024-05-02 08:24 | PC.NURSE ---
0705 called pt -has not arrived as scheduled for 8am, en route states he was told 8:30 but voicemail was left for 800 yesterday. pt states will arrive for 8:30
[2024-05-02 08:31] VITALS: BMI 34.1
[2024-05-02 08:40] VITALS: BP 149/89; PULSE 75; RESP 18; TEMP 36.6; O2SAT 95
--- NOTE | 2024-05-02 08:50 | P.CONAN_ITS ---
Documented by User: Faye Og NP 05/01/24 10:08 HPI - Anesthesia Eval Consult details Narrative: 64yo M for Right L2-3 Decompression, 05/02/24 No recent illness No CP/SOB with yardwork Smoker Seasonal allergies. Rescue inhaler with grass mowing PMFSH Active Problems Active Problems: All Active Problems Lumbar spinal stenosis (Acute) Lumbar degenerative disc disease (Acute) Spondylolisthesis of lumbar region (Acute) Vertebrogenic low back pain (Acute) Lumbar radiculopathy (Acute) Lumbar spondylosis (Acute) Right hip pain (Acute) Sciatica (Acute) Trochanteric bursitis of right hip (Acute) Osteoarthritis of shoulders, bilateral (Acute) Encounter for medication monitoring (Acute) Obesity (Acute) High triglycerides (Acute) Erectile dysfunction (Acute) Generalized osteoarthritis of multiple sites (Acute) Nicotine dependence, cigarettes, uncomplicated (Acute) Prostate cancer (Acute ~2018) Past Medical History Medical History (Updated 04/18/24 @ 12:18 by Rachel Castellon RN) Spinal stenosis Osteoarthritis Environmental allergies Nicotine dependence, cigarettes, uncomplicated Seasonal allergies Benign prostatic hyperplasia with lower urinary tract symptoms Nocturia Prostate cancer (~2018) Wrist fracture, right Traumatic rupture of left biceps tendon Family History Family History Father Cancer Mother Cancer Family history of problems with anesthesia: No Surgical History Surgical History (Updated 04/18/24 @ 12:15 by Rachel Castellon RN) History of prostate biopsy History of surgery on arm (~2005) History of arthroplasty of right ankle Hx of shoulder surgery (~1981) History of Problems with Anesthesia: No Social History Social History (Updated 04/18/24 @ 12:35 by Rachel Castellon RN) Housing: House Are you a primary family day carer to a significant other at home: Yes (daughter, supportive ) Do you presently have visiting nurse or other home services: No Alcohol intake: never Patient Tobacco Use Status: Current everyday Tobacco user Tobacco use type: Cigarette Cigarettes Per Day: 8 Years Smoked: 35 e-Cigarette/Vaping Use: Never Used Second Hand Smoke Exposure: No Use of substances other than those prescribed or required for medical reasons: No Have you been hit, kicked, punched, or otherwise hurt by someone within the past year? If so, by whom?: No Are you DNR?: No Advance Directives: No Advance Directives Information Provided: Yes Advance Directives on File: No Recently lost weight without trying: No Current occupational status: retired Cognitive needs: No Hearing needs: No Vision needs: No Meds Allergies Allergy/AdvReac Type Severity Reaction Status Date / Time ampicillin Allergy Severe Anaphylaxis Verified 04/26/24 10:16 Penicillins Allergy Severe Anaphylaxis Verified 04/26/24 10:16 all cillins pineapple Allergy Severe Rash Verified 04/26/24 10:16 pseudoephedrine Allergy Severe anaphylaxis Verified 04/26/24 10:16 Sudafed Home Medications ?Medication ?Instructions ?Recorded ?Confirmed ?Last Taken ?Type fexofenadine 180 mg tablet 180 mg PO DAILY PRN Allergy 04/17/24 04/17/24 Unknown History Symptoms fluticasone propionate 50 2 spray intranasal DAILY PRN 04/17/24 04/17/24 Unknown History mcg/actuation nasal Allergy Symptoms spray,suspension (Flonase Allergy Relief) tamsulosin 0.4 mg capsule 0.4 mg PO .3 X WEEK 04/17/24 04/17/24 Unknown History tramadol 50 mg tablet 50 mg PO BID PRN pain 04/17/24 04/17/24 Unknown History Exam Height,Weight and Vital Signs: Height 6 ft Weight 113.398 kg Last Vital Signs Pulse 68 04/18/24 11:58 Resp 16 04/18/24 11:58 BP 130/67 04/18/24 11:58 Pulse Ox 97 04/18/24 11:58 O2 Del Method Room Air 04/18/24 11:58 Airway Mallampati Class: II TM Dist: >3cm Neck ROM: Full Denture: Upper and Lower Heart: RRR Lungs: CTAB Assessment and Plan Assessment Anesthesia Assessment: Anesthesia Plan Discussed, Smoking Cess. Discussed and PAT Visit Final Anesthetic Review Family History of Problems with Anesthesia: No History of Problems with Anesthesia: No Documented by User: Audrey Sood DO 05/02/24 08:54 PMFSH Past Medical History Medical History (Updated 04/18/24 @ 12:18 by Rachel Castellon RN) Spinal stenosis Osteoarthritis Environmental allergies Nicotine dependence, cigarettes, uncomplicated Seasonal allergies Benign prostatic hyperplasia with lower urinary tract symptoms Nocturia Prostate cancer (~2018) Wrist fracture, right Traumatic rupture of left biceps tendon Family History Family History Father Cancer Mother Cancer Family history of problems with anesthesia: No Surgical History Surgical History (Updated 04/18/24 @ 12:15 by Rachel Castellon RN) History of prostate biopsy History of surgery on arm (~2005) History of arthroplasty of right ankle Hx of shoulder surgery (~1981) History of Problems with Anesthesia: No Social History Social History (Updated 04/18/24 @ 12:35 by Rachel Castellon RN) Housing: House Are you a primary family day carer to a significant other at home: Yes (daughter, supportive ) Do you presently have visiting nurse or other home services: No Alcohol intake: never Patient Tobacco Use Status: Current everyday Tobacco user Tobacco use type: Cigarette Cigarettes Per Day: 8 Years Smoked: 35 e-Cigarette/Vaping Use: Never Used Second Hand Smoke Exposure: No Use of substances other than those prescribed or required for medical reasons: No Have you been hit, kicked, punched, or otherwise hurt by someone within the past year? If so, by whom?: No Are you DNR?: No Advance Directives: No Advance Directives Information Provided: Yes Advance Directives on File: No Recently lost weight without trying: No Current occupational status: retired Cognitive needs: No Hearing needs: No Vision needs: No Meds Allergies Allergy/AdvReac Type Severity Reaction Status Date / Time ampicillin Allergy Severe Anaphylaxis Verified 04/26/24 10:16 Penicillins Allergy Severe Anaphylaxis Verified 04/26/24 10:16 all cillins pineapple Allergy Severe Rash Verified 04/26/24 10:16 pseudoephedrine Allergy Severe anaphylaxis Verified 04/26/24 10:16 Sudafed Home Medications ?Medication ?Instructions ?Recorded ?Confirmed ?Last Taken ?Type fexofenadine 180 mg tablet 180 mg PO DAILY PRN Allergy 04/17/24 04/17/24 Unknown History Symptoms fluticasone propionate 50 2 spray intranasal DAILY PRN 04/17/24 04/17/24 Unknown History mcg/actuation nasal Allergy Symptoms spray,suspension (Flonase Allergy Relief) tamsulosin 0.4 mg capsule 0.4 mg PO .3 X WEEK 04/17/24 04/17/24 Unknown History tramadol 50 mg tablet 50 mg PO BID PRN pain 04/17/24 04/17/24 Unknown History Exam Exam Date and Time: May 02, 2024 0850 Height,Weight and Vital Signs: Height 6 ft Weight 113.398 kg Last Vital Signs Pulse 68 04/18/24 11:58 Resp 16 04/18/24 11:58 BP 130/67 04/18/24 11:58 Pulse Ox 97 04/18/24 11:58 O2 Del Method Room Air 04/18/24 11:58 Vital Signs Pulse Rate 68 04/18/24 11:58 Respiratory Rate 16 04/18/24 11:58 Blood Pressure 130/67 04/18/24 11:58 Pulse Oximetry 97 04/18/24 11:58 Oxygen Delivery Method Room Air 04/18/24 11:58 Temperature 97.9 F 05/02/24 08:40 Pulse Rate 75 05/02/24 08:40 Respiratory Rate 18 05/02/24 08:40 Blood Pressure 149/89 H 05/02/24 08:40 Pulse Oximetry 95 05/02/24 08:40 Oxygen Delivery Method Room Air 05/02/24 08:40 Airway Mallampati Class: II TM Dist: >3cm Neck ROM: Full Denture: Upper and Lower Heart: S1S2 Assessment and Plan Assessment Anesthesia Assessment: Anesthesia Plan Discussed and Chart Reviewed Final Anesthetic Review Family History of Problems with Anesthesia: No History of Problems with Anesthesia: No NPO: Yes ASA Class: III Final Preanesthetic Review: No Changes in Pt Med Stat, Meds/Allgs Chart Reviewed, Consent Obtained/Reviewed and Anes Risks/Benef Reviewed Patient Risk: Intermediate Procedure Risk: Intermediate Anesthetic Plan Anesthetic Plan: GA and Agree w/ Assess. and Plan Disposition: Standard PACU
[2024-05-02 08:53] LABS: Hematocrit 47.4 % (42.0-52.0); Hemoglobin 16.5 g/dl (14.0-18.0); Mean Corpuscular HGB Conc 34.8 g/dl (31.0-36.0); Mean Corpuscular Hemoglobin 30.5 pg (27.0-33.0); Mean Corpuscular Volume 87.6 fL (80.0-98.0); Mean Platelet Volume 9.4 fL (9.4-12.4); Platelet Count 148 X10*3/uL (160-400); Red Blood Count 5.41 X10*6/uL (4.60-5.80); White Blood Count 7.5 X10*3/uL (4.8-10.8)
--- NOTE | 2024-05-02 08:53 | MHC.SHP ---
Pre-Procedural Eval Section A - 24 Hr Update-Section A only Date of Service: 05/02/24 The patient is an INPATIENT: No Section B - Complete if H&P > 30 days Chief Complaint: Spinal stenosis, lumbar region without neurogenic Details of Present Illness: right lumbar radiculopathy due to stenosis Allergies: Allergies Allergy/AdvReac Type Severity Reaction Status Date / Time ampicillin Allergy Severe Anaphylaxis Verified 04/26/24 10:16 Penicillins Allergy Severe Anaphylaxis Verified 04/26/24 10:16 all cillins pineapple Allergy Severe Rash Verified 04/26/24 10:16 pseudoephedrine Allergy Severe anaphylaxis Verified 04/26/24 10:16 Sudafed Review of Systems Sugical H&P ROS: Negative: Constitution, Cardiovascular, Respiratory, Neurological, Psychiatric, Hem-Onc, Allergic/Immunologic, Gastrointestinal, Genitourinary, Musculoskeletal, Integumentary, Endocrine and Eyes/Ears/Nose/Throat Exam Surgical H&P Exam: Normal: HEENT, Normal: Extremities, Normal: Skin and Normal: Neurological (awake and alert) and Not Evaluated: Heart, Not Evaluated: Lungs and Not Evaluated: Abdomen Plan Right L2-3 decompression Time Spent With Patient Time: Total time managing care of this patient today _5___ minutes.
[2024-05-02] MEDS: Lactated Ringers 1,000 ML 100 ML IVCONT (09:02)
[2024-05-02] MEDS: vancomycin/NS 2,000 MG/500 ML PLAST..BAG 250 MG IV (09:03)
[2024-05-02 09:04] LABS: Anion Gap 14 (12-20); Blood Urea Nitrogen 9 mg/dL (9-16); Calcium 9.5 mg/dL (8.4-10.2); Carbon Dioxide 24 mmol/L (22-29); Chloride 103 mmol/L (96-108); Creatinine Clr Calc Pharmacy 112.8; Estimated Glomerular Filt Rate > 60; Glucose Fasting 114 mg/dL (60-99); Potassium 4.2 mmol/L (3.3-5.1); Sodium 137 mmol/L (135-145)
[2024-05-02] MEDS: methocarbamoL 750 MG TABLET PO (09:06)
[2024-05-02] MEDS: Gabapentin 300 MG CAPSULE PO (09:07)
--- NOTE | 2024-05-02 10:46 | W.PM.OPN ---
Operative Note Operative Note Date of Service: 05/02/24 Narrative: Preoperative Diagnosis: L2-3 spinal stenosis/lateral recess stenosis/neural foraminal stenosis Operation: Right L2-3 Laminotomy, Partial facetectomy and foraminotomy with use of microscope Consent Informed Consent was obtained for this operation. I have explained the nature, purpose and benefits of the operation. I have discussed the risks and benefit of the operation including possible complications or adverse events with patient/family. Alternative(s) were discussed with the patient with their relative benefits and risks as well as the consequences of not accepting the operation were included in obtaining consent. Surgeon: GRISELDA DAO MD, PHD Procedure Assisted By: Mikey Almaguer Description of Procedure This 64-year-old male suffering from right side neurogenic claudication. The MRI shows L2-3 central lateral recess stenosis. The patient was offered a decompression. The procedure complications were explained. The patient was consented. The patient was brought to the operating room and endotracheally intubated. The patient was turned in prone position on the Eddie frame. Prep and drape was done followed by timeout. The Physician financial planning assistant provided access. A mid lumbar incision was made followed by release of the paravertebral muscle on the right side to expose the L2-3 lamina and facet joints. An intraoperative x-ray was obtained to confirm the correct level. The microscope was brought in. I took over the procedure. The high-speed drill was used to do a right L2-3 laminotomy until flavum ligament was reached. A #2 Kerrison was used to expand the laminotomy near flush to the pedicles and to include a partial facetectomy. The flavum ligament was opened and resected with a #3 Kerrison to decompress the underlying thecal sac. Severe hypertrophy of the flavum ligament was encountered. The flavum ligament was removed to decompress the lateral recess and the exiting L3 nerve root. A long nerve hook could be easily passed along the medial side of the pedicle as a sign of adequate decompression. The microscope was removed. Hemostasis was done. The physician financial planning assistant close the Incision in 2 layers. Steri-Strips were used to approximate incision. An OpSite with Tegaderm was used to cover the incision. All sponge needle counts were correct. Patient was extubated and transported in stable is to recovery room. Anesthesia: General Estimated Blood Loss (ml): 15 mL Complications: None Duration of Surgery: Under 60 Minutes Postoperative Plan: Discharge to home
--- NOTE | 2024-05-02 10:53 | PM.DS ---
DS: Providers Provider Date of Service: 05/02/24 Date of discharge: 05/02/24 Primary care physician: JOSE JUAN Rand Admitting clinician: Rakesh Wolfe DS: Diagnosis Discharge Diagnosis (1) Lumbar spinal stenosis: Status: Acute DS: Summary Time Attestation Discharge Coordination Time (in mins): 7 Quality: Safe Use of Opioids Does Pt have an Active Cancer Diagnosis on the Problem List?: No Quality: Stroke Does the patient have a stroke diagnosis?: No Physical Exam Vital Signs: Vital Signs: Last Vital Signs Temp 97.9 F 05/02/24 08:40 Pulse 75 05/02/24 08:40 Resp 18 05/02/24 08:40 BP 149/89 H 05/02/24 08:40 Pulse Ox 95 05/02/24 08:40 O2 Del Method Room Air 05/02/24 08:40 BMI result Body Mass Index 34.1 DS: Data Data Completed and Pending Labs on day of discharge: Laboratory Results - last 24 hr 05/02/24 08:46 WBC 7.5 RBC 5.41 Hgb 16.5 Hct 47.4 MCV 87.6 MCH 30.5 MCHC 34.8 RDW 14.0 Plt Count 148 L MPV 9.4 Absolute Nucleated RBC 0.000 Nucleated RBC % (auto) 0.0 Sodium 137 Potassium 4.2 Chloride 103 Carbon Dioxide 24 Anion Gap 14 BUN 9 Creatinine 0.84 Estim Creat Clear Calc 112.8 Estimated GFR > 60 Fasting Glucose 114 H Calcium 9.5 Discharge Plan Discharge Patient Disposition: Home, Self-Care Referrals: Elliot Ambrose FNP-BC [Primary Care Provider] - 1 Week Discharge Medications: New docusate sodium [Colace] 100 mg capsule 100 mg PO BID Qty: 20 0RF oxycodone 5 mg tablet 5 mg PO Q4H PRN (Reason: pain) Qty: 20 0RF Rx Instructions: Partial Fill upon patient request. Continued cholecalciferol (vitamin D3) 50 mcg (2,000 unit) capsule 50 mcg PO DAILY Qty: 90 1RF tizanidine 2 mg tablet 2 mg PO BID PRN (Reason: for muscle spasm) Qty: 60 0RF meloxicam 15 mg tablet 15 mg PO DAILY PRN (Reason: pain) 30 Days Qty: 30 2RF albuterol sulfate 90 mcg/actuation HFA aerosol inhaler 1 inh inhalation QID PRN (Reason: shortness of breath or wheezing) Qty: 6.7 1RF fexofenadine 180 mg Tablet 180 mg PO DAILY PRN (Reason: Allergy Symptoms) fluticasone propionate [Flonase Allergy Relief] 50 mcg/actuation [place],Suspension 2 spray INTRANASAL DAILY PRN (Reason: Allergy Symptoms) Rx Instructions: administer into each nostril tramadol 50 mg tablet 50 mg PO BID PRN (Reason: pain) tamsulosin 0.4 mg capsule 0.4 mg PO .3 X WEEK ciprofloxacin-dexamethasone 0.3-0.1 % drops,suspension 4 drp otic (ear) left BID 7 Days Qty: 7.5 0RF tadalafil 10 mg tablet 10 mg PO DAILY 90 Days Qty: 90 1RF Discharge Orders: Discharge Order (Routine); Ordered 05/02/24 Ordered By: Mikey Forrester Diet: Advance to usual diet Activity on Discharge: As tolerated Activity Restrictions/Additional Instructions: After your spinal surgery we ask you to observe the following restrictions/guidelines: Activity: It is normal to feel some discomfort as you increase your activity, but that will improve with time. We ask you avoid heavy lifting or acitivities that cause pain. As a general rule, 8lbs is a safe limit for lifting right after surgery. Walk as much as you feel comfortable but not to exhaustion. You will feel extra tired the first few days after surgery. Stay well hydrated. It is OK to walk up and down stairs You may return to driving when you are off narcotics (such as vicodin, oxycodone, dilaudid, etc), and you are back to normal functional capacity. If you have any concerns please check with office before driving. Return to work is specific to each patient and each surgery, so please speak with your doctor/PA at first follow up. Please bring paperwork such as FMLA at that time if you need it filled out. Medications: For optimum pain control, it is best to start with a combination of 500 mg of Tylenol every 4 hours with 600 mg of Motrin every 8 hours, and use narcotics as needed in between for breakthrough pain. We will give you a short supply of narcotics after surgery (usually one weeks worth). If you need more please call the office but do not use more than prescribed. You will need to give our office 48 hours notice if you need narcotics refilled and we do not fill narcotics on weekends or evenings. If you are on a narcotic, it is a good idea to take a stool softener such as colace or senna to avoid constipation If you take blood thinner such as aspirin, Plavix, Coumadin, Effient, Eliquis etc for conditions such as Afib, DVT, Pulmonary embolus, coronary disease, stents etc please speak with your surgeon about specific details as to when you can resume these medications. You can resume NSAIDs on post op day 1 (eg: Motrin, Naproxen, etc). Follow up: Please call the office, , after surgery to arrange a 3 week follow up for wound check. Wound Care: You may remove your dressing on the first day after surgery. ?You may ?leave open to air. Please do not remove the steri strips underneath. they will fall off on their own in one week. IT IS NORMAL FOR THE WOUND TO OOZE OR BE BLOODY FOR A FEW DAYS AFTER SURGERY. ?IF THIS HAPPENS JUST PLACE NEW DRESSING OVER IT TO AVOID STAINING CLOTHES. You may shower on post op day # 1 We ask that you do not let the water soak the wound. If it does get wet, just towel dry lightly. Please do not scrub your incision or place any type of chemical/ointment on the wound. No tub baths, pools or jacuzzis for one month. If you have any leaking or redness from your wound, or fevers, please call office Print Language: Indonesian
[2024-05-02 11:14] VITALS: BP 136/80; PULSE 98; RESP 16; TEMP 36.6; O2SAT 98
[2024-05-02 11:19] VITALS: BP 133/86; PULSE 74; RESP 16; O2SAT 98
[2024-05-02 11:24] VITALS: BP 121/69; PULSE 71; RESP 18; O2SAT 95
[2024-05-02 11:29] VITALS: BP 129/71; PULSE 71; RESP 18; O2SAT 94
[2024-05-02 11:44] VITALS: BP 137/80; PULSE 65; RESP 18; TEMP 36.6; O2SAT 95
== END 2024-05-02 12:22 | disposition home or self-care (01) ==
PROVIDERS: Nurse Practitioner; PCP Nurse Practitioner Family; Visit Provider Neurological Surgery
PROC: (CPT 63047; principal; 2024-05-02 10:30)
DX: M48.061 Spinal stenosis, lumbar region without neurogenic claudication (principal); M43.16 Spondylolisthesis, lumbar region; G89.29 Other chronic pain; M79.661 Pain in right lower leg; Z85.46 Personal history of malignant neoplasm of prostate; Z79.899 Other long term (current) drug therapy; Z88.0 Allergy status to penicillin; Z88.1 Allergy status to other antibiotic agents; Z88.8 Allergy status to other drugs, medicaments and biological substances; Z98.890 Other specified postprocedural states; F17.210 Nicotine dependence, cigarettes, uncomplicated
CPT/HCPCS: 63047; 36415; 80048; 85027; J0131; J1100; J1885; J2250; J2405; J2704; J3010; J3370

== ENCOUNTER → 2024-05-02 08:25 | Outpatient (BNV) | payer OTHER, SELFPAY | PROVIDERS: PCP Nurse Practitioner Family; Visit Provider Neurological Surgery | DX: M48.061 Spinal stenosis, lumbar region without neurogenic claudication (principal) | CPT/HCPCS: 63047; 99499 ==

== ENCOUNTER 2024-05-07 08:54 | Outpatient (REF) | payer OTHER, SELFPAY ==
[2024-05-07 11:20] LABS: Prostate Specific Antigen < 0.10 ng/mL (<0.05-4.0)
[2024-05-14 12:02] LABS: Testosterone, Free 28.7 pg/mL (35.0-155.0); Testosterone, Total 194 ng/dL (250-1100)
== END 2024-05-07 08:55 | disposition home or self-care (01) ==
LOC: HO.HMGCLDS 08:54
PROVIDERS: PCP Nurse Practitioner Family; Visit Provider Urology
DX: C61 Malignant neoplasm of prostate (principal); N52.9 Male erectile dysfunction, unspecified; Z12.5 Encounter for screening for malignant neoplasm of prostate
CPT/HCPCS: 36415; 84153; 84402; 84403

== ENCOUNTER 2024-05-15 07:48 | Outpatient (AMB) | payer OTHER, SELFPAY ==
--- NOTE | 2024-05-15 07:51 | MHC.OFFVIS ---
Vital Signs 05/15/24 07:56 Height 6 ft Weight 253 lb 4.978 oz BMI 34.4 BP 122/80 Blood Pressure Location Rt brachial Position Sitting Respiration 18 Pulse 68 Pulse Source Pulse Oximeter Pulse Oximetry (%) 95 Oxygen Delivery Method Room Air Intake Visit Reasons: Right shoulder pain/CM Intake Note: Patient presents for right shoulder pain. Allergies ampicillin Allergy (Severe, Verified 05/15/24 07:54) Anaphylaxis Penicillins Allergy (Severe, Verified 05/15/24 07:54) Anaphylaxis all cillins pineapple Allergy (Severe, Verified 05/15/24 07:54) Rash pseudoephedrine Allergy (Severe, Verified 05/15/24 07:54) anaphylaxis Sudafed Medication List - Last Reconciled 05/15/24 by Salena Stockton MD albuterol sulfate 90 mcg/actuation 1 inh inhalation QID PRN cholecalciferol (vitamin D3) 50 mcg PO DAILY ciprofloxacin-dexamethasone 0.3-0.1 % 4 drps otic (ear) left BID 7 days docusate sodium (Colace) 100 mg PO BID fexofenadine 180 mg PO DAILY PRN fluticasone propionate 50 mcg/actuation (Flonase Allergy Relief) 2 sprays intranasal DAILY PRN meloxicam 15 mg PO DAILY PRN 30 days oxycodone 5 mg PO Q4H PRN tadalafil 10 mg PO DAILY 90 days tamsulosin 0.4 mg PO .3 X WEEK tizanidine 2 mg PO BID PRN tramadol 50 mg PO BID PRN HPI Comments Details: 64-year-old male with generalized osteoarthritis returns for follow-up. States that his right shoulder has been bothering him, has limited range of motion of the right shoulder. Requesting another injection. States that the last injection done 07/2023 provided at least 6 months relief. Patient was evaluated by pain management and spine surgeon over the summer and had injection by pain management as well as spine surgery. States that his back feels much better overall as well as his legs. [facility] Medical History Spinal stenosis Osteoarthritis Environmental allergies Nicotine dependence, cigarettes, uncomplicated Seasonal allergies Benign prostatic hyperplasia with lower urinary tract symptoms Nocturia Prostate cancer (~2019) Wrist fracture, right Traumatic rupture of left biceps tendon Surgical History Previous back surgery History of prostate biopsy History of surgery on arm (~2005) History of arthroplasty of right ankle Hx of shoulder surgery (~1981) Family History Father Cancer Mother Cancer Social History Housing: House Are you a primary med care manager to a significant other at home: Yes (daughter, supportive ) Do you presently have visiting nurse or other home services: No Alcohol intake: never Patient Tobacco Use Status: Current everyday Tobacco user Tobacco use type: Cigarette Cigarettes Per Day: 8 Years Smoked: 35 e-Cigarette/Vaping Use: Never Used Second Hand Smoke Exposure: No Current occupational status: retired Cognitive needs: No Hearing needs: No Vision needs: No Review of Systems Musc Reports arthralgias, Reports limited range of motion and Reports stiffness Physical Exam Vital Signs: Last Vital Signs Pulse 68 05/15/24 07:56 Resp 18 05/15/24 07:56 BP 122/80 05/15/24 07:56 Pulse Ox 95 05/15/24 07:56 Oxygen Delivery Method Room Air 05/15/24 07:56 BMI result Body Mass Index 34.4 Const General: cooperative, healthy appearing and comfortable Nutritional Appearance: obese morbidly obese Orientation/consciousness: patient oriented x3 Limitations: no limitations HEENT Head: Yes normocephalic and Yes atraumatic Resp Effort & Inspection: normal respiratory effort and able to speak in complete sentences Neuro General: patient oriented x3 Extrem Other: Osteoarthritic changes of both hands with no active synovitis Limited right shoulder abduction with positive empty can test Office Procedures Joint Injection/Drain Joint Injection/Drain Primary Site: right shoulder Prep: site was prepped using sterile technique and ethochloride spray was applied Injected: 40 mg of, Kenalog, with 1 mL of, 1% plain lidocaine and in the subcromial space Approach Used: posterolateral Procedure: The patient tolerated the procedure well Coding Details: With patient's consent. The right shoulder was prepped ChloraPrep and alcohol. The subacromial space was injected with 40 mg of triamcinolone and 1 cc of lidocaine. Patient tolerated the procedure well no apparent immediate side effects. 84362 - Large joint Procedure code (CPT) selection complete Results Reviewed Results Reviewed: Laboratory Tests Date of Service: 01/31/23 Procedure(s): XR shoulder RT min 2V Accession Number(s): [id number] EXAMINATION: XR SHOULDER, RIGHT CLINICAL INFORMATION: Right shoulder pain? COMPARISON: None available.? TECHNIQUE: AP external rotation, Grashey, scapular Y, and axillary views of the right shoulder. FINDINGS: Within the head of humerus, there is a benign-appearing sclerotic lesion likely representing an enchondroma. Degenerative changes are seen along the greater tuberosity of the head of the humerus. There is calcific tendinopathy adjacent to the greater tuberosity of the humerus along the rotator cuff. Joint spaces are well-maintained.? XR/XR shoulder RT min 2V IMPRESSION: 1.? Calcific tendinopathy of the rotator cuff. Adjacent degenerative changes of the humeral head. 2.? Benign-appearing sclerotic lesion in the head of the humerus likely representing an enchondroma. Date of Service: 01/31/23 Procedure(s): XR shoulder LT min 2V Accession Number(s): [id number] EXAMINATION: XR SHOULDER, LEFT CLINICAL INFORMATION: Left shoulder pain? COMPARISON: None available.? TECHNIQUE: AP external rotation, Grashey, scapular Y, and axillary views of the left shoulder. FINDINGS: Osseous structures are intact. There is a moderate-sized subacromial spur. Degenerative changes seen in the acromioclavicular joint space. Soft tissues are unremarkable.? XR/XR shoulder LT min 2V IMPRESSION: Degenerative changes as described above. ? Assessment & Plan Assessment & Plan (1) Osteoarthritis of shoulders, bilateral: Code(s): M19.011 - Primary osteoarthritis, right shoulder; M19.012 - Primary osteoarthritis, left shoulder Category: Medical Plan: Bilateral shoulder osteoarthritis. Injected by Orthopedics 02/2023 was helpful for at least 4 months. Injected again 07/2023. Effective for at least 6 months. Today patient returns requesting another injection. He is not interested in PT at this time. The patient's consent, right shoulder was injected with Kenalog today Follow-up as needed Plan I spent 16 minutes reviewing patient's chart, evaluating patient, counseling patient and documenting in the chart Orders: Orders AMB Joint Injection/Aspiration Today M19.011 - Primary osteoarthritis, right shoulder, M19.012 - Primary osteoarthritis, left shoulder Coding Level of Care Code Est Pt Level 3 (97150) Diagnoses Osteoarthritis of shoulders, bilateral M19.011; M19.012 CPT Codes Coding - 13174 Large joint: 08679 - Large joint ([id number])
[2024-05-15 07:56] VITALS: BP 122/80; PULSE 68; RESP 18; O2SAT 95; BMI 34.4
== END 2024-05-15 08:56 | disposition home or self-care (01) ==
PROVIDERS: PCP Nurse Practitioner Family; Visit Provider Student in an Organized Health Care Education/Training Program
DX: M19.011 Primary osteoarthritis, right shoulder (principal); M19.012 Primary osteoarthritis, left shoulder
CPT/HCPCS: 20610; 99213

== ENCOUNTER → 2024-05-15 07:48 | Outpatient (BNVA) | payer OTHER, SELFPAY | PROVIDERS: PCP Nurse Practitioner Family; Visit Provider Student in an Organized Health Care Education/Training Program | DX: M19.011 Primary osteoarthritis, right shoulder (principal); M19.012 Primary osteoarthritis, left shoulder | CPT/HCPCS: 20610; J3301 ==

== ENCOUNTER 2024-05-20 13:42 | Outpatient (AMB) | payer OTHER, SELFPAY ==
--- NOTE | 2024-05-20 13:47 | HO.SPINEOV ---
Intake Visit Reasons: 1st post op Intake Note: Mr. Reveles is here today for his 1st post op. Returner Required: No Allergies ampicillin Allergy (Severe, Verified 05/15/24 07:54) Anaphylaxis Penicillins Allergy (Severe, Verified 05/15/24 07:54) Anaphylaxis all cillins pineapple Allergy (Severe, Verified 05/15/24 07:54) Rash pseudoephedrine Allergy (Severe, Verified 05/15/24 07:54) anaphylaxis Sudafed Assessment & Plan Assessment & Plan (1) Lumbar spinal stenosis: Code(s): M48.061 - Spinal stenosis, lumbar region without neurogenic claudication Category: Medical Plan Mr Reveles is 3 weeks out from his right L2-3 decompression. His preoperative right leg pain is gone. He is very pleased with the results. His wound is healed up nicely. He is starting to increase his activity level gently. We discussed activity guidelines, restrictions expectations after lumbar decompression. At this point he is doing so well, I do not think he needs to come back and see us unless there some issue. We had a lengthy discussion about waiting another 3-4 weeks before starting any real golfing activities that would result in twisting on his spine. He understands the limitations. We will see him back on an as-needed basis. Mikey Wolfe MD, PhD [facility] Coding Level of Care Code Global (95149) Diagnoses Lumbar spinal stenosis M48.061
== END 2024-05-20 14:24 | disposition home or self-care (01) ==
PROVIDERS: PCP Nurse Practitioner Family; Visit Provider Physician Assistant
DX: M48.061 Spinal stenosis, lumbar region without neurogenic claudication (principal)
CPT/HCPCS: 99024

== ENCOUNTER → 2024-05-20 13:42 | Outpatient (BNVA) | payer OTHER, SELFPAY | PROVIDERS: PCP Nurse Practitioner Family; Visit Provider Physician Assistant ==

== ENCOUNTER 2024-05-23 11:00 | Outpatient (AMB) | payer OTHER, SELFPAY ==
--- NOTE | 2024-05-23 11:00 | MHC.OFFVIS ---
Intake Visit Reasons: 6M PSA/Testo(set) Intake Note: Patient is Present for Telephone Follow Up PSA/Testosterone Urology Med: Tadalafil, Tamsulosin Antibiotic Allergy: Ampicillin,Pencillins Blood Thinner:None Director Professional Services Required: No Allergies ampicillin Allergy (Severe, Verified 08/02/24 14:53) Anaphylaxis Penicillins Allergy (Severe, Verified 08/02/24 14:53) Anaphylaxis all cillins pineapple Allergy (Severe, Verified 08/02/24 14:53) Rash pseudoephedrine Allergy (Severe, Verified 08/02/24 14:53) anaphylaxis Sudafed Medication List - Last Reconciled 05/23/24 by Jose Coles MD albuterol sulfate 90 mcg/actuation 1 inh inhalation QID PRN cholecalciferol (vitamin D3) 50 mcg PO DAILY docusate sodium (Colace) 100 mg PO BID fexofenadine 180 mg PO DAILY PRN fluticasone propionate 50 mcg/actuation (Flonase Allergy Relief) 2 sprays intranasal DAILY PRN meloxicam 15 mg PO DAILY PRN 30 days oxycodone 5 mg PO Q4H PRN tadalafil 10 mg PO DAILY 90 days tamsulosin 0.4 mg PO .3 X WEEK tizanidine 2 mg PO BID PRN tramadol 50 mg PO BID PRN HPI Comments Details: Yassine ENGEL is a very pleasant male. They are a patient of Dr Munroe. They are seen in the office today for the following urologic conditions - prostate cancer - erectile dysfunction Telemedicine Evaluation 15 min Consultation [employer] Video attempted Six month follow-up PSA remains well controlled Tadalafil refilled Using tamsulosin periodically as needed Follow-up 6 months Prostate cancer: Group 3. February 2019 brachytherapy [facility] Does have associated urgency and frequency in takes Flomax once or twice a week PSA 12/13 0.2, 07/13 <0.1, 04/13 <0.1, 10/13 <0.1, 05/14 <0.1, 11/15 <0.1, 05/15 <0.1 T 194 Prostate cancer was diagnosed 02/08 Dr Coles - PSA 4.5. Diagnosis was reached by 02/08 , needle biopsy, for elevated PSA, PSA at diagnosis 4.5, size at TRUS 35cc. The [place] grade is 4 One out of twelve cores - RML , 4+3 = 7 30%. TNM Classification of Malignant Tumours (TNM) T1c. The [place] (NCCN) risk category is Intermediate Risk (PSA 10-20, Gl 7, T2) - Group 3 by definition Initial therapy included Primary treatment, brachytherapy [facility] February 2019 Associated conditions erectile dysfunction Yes Therapeutic plan: PSA follow-up every 6 months [facility] Medical History Positive colorectal cancer screening using Cologuard test (~07/23/24) Spinal stenosis Osteoarthritis Environmental allergies Nicotine dependence, cigarettes, uncomplicated Seasonal allergies Benign prostatic hyperplasia with lower urinary tract symptoms Nocturia Prostate cancer (~2018) Wrist fracture, right Traumatic rupture of left biceps tendon Surgical History Previous back surgery History of prostate biopsy History of surgery on arm (~2005) History of arthroplasty of right ankle Hx of shoulder surgery (~1981) Family History Father Cancer Mother Cancer Social History Housing: House Are you a primary child care worker to a significant other at home: Yes (daughter, supportive ) Do you presently have visiting nurse or other home services: No Alcohol intake: never Patient Tobacco Use Status: Current everyday Tobacco user Tobacco use type: Cigarette Cigarettes Per Day: 8 Years Smoked: 35 e-Cigarette/Vaping Use: Never Used Second Hand Smoke Exposure: No Current occupational status: retired Cognitive needs: No Hearing needs: No Vision needs: No Review of Systems Const All systems reviewed & are unremarkable except as noted in HPI and below Reports no additional complaints Resp Reports no additional complaints GI Reports no additional complaints Reports as per HPI Musc Reports no additional complaints Physical Exam Telemedicine evaluation Appropriate responses Regular breathing rate and rhythm HEENT Head: Yes normal to inspection Ears: hearing grossly normal bilaterally Eyes General: appearance normal, both eyes and all related structures Neck Neck: Yes normal visual inspection Chest Chest palpation & inspection: normal inspection of the chest Resp Effort & Inspection: normal respiratory effort and able to speak in complete sentences Telehealth Telehealth Location of provider rendering services: practice address Location of patient: address on file Patient Identification confirmed using: Name, : Yes Telehealth method: video Patient verbally consented to treatment: Yes Patient verbally consented to billing insurance company: Yes Patient informed of any privacy concerns related to visit: Yes Assessment & Plan Assessment & Plan (1) Prostate cancer: Onset Date: ~2018 Comment: (dx 01/2019 - [place] 4 + 3 initial treatment brachytherapy) Code(s): C61 - Malignant neoplasm of prostate Category: Medical (2) Erectile dysfunction after prostate brachytherapy: Code(s): N52.35 - Erectile dysfunction following radiation therapy Category: Medical Plan 6m f/u PSA office Orders: Orders Prostate Specific Antigen 6 Months C61 - Malignant neoplasm of prostate Medications: Refilled tadalafil 10 mg PO DAILY 90 tabs 1RF sexual activity 90 days N52.9 - Male erectile dysfunction, unspecified Patient Instructions: Imaging studies, laboratory and physical exam results were discussed and reviewed in detail. No major barriers to patient understanding were identified. An opportunity to ask questions regarding the treatment plan was provided. All questions were answered. The patient expressed understanding and agreement with the above treatment plan. The patient is aware they should contact our office by phone for worsening of their current condition or the appearance of new urologic symptoms. Compliance is encouraged with any medications and followup testing that is ordered. It is a privilege to participate in the urologic care of your patient. If you have any questions or concerns regarding treatment for the above conditions, or other urologic issues, please do not hesitate to contact me. The office telephone contact is [phone]. This note is constructed using voice recognition software. While every effort has been made to ensure accuracy director learning and development errors may have been included. Yours sincerely, Dr Jose Coles MD, [facility] - Urology Providers of Expert, Compassionate Care for the Genitourinary System Coding Level of Care Code Tele Est Pt Level 3 (47480) Diagnoses Prostate cancer C61 Erectile dysfunction after prostate brachytherapy N52.35
== END 2024-05-23 13:48 | disposition home or self-care (01) ==
LOC: HO.HUSH 11:00
PROVIDERS: PCP Nurse Practitioner Family; Visit Provider Urology
DX: C61 Malignant neoplasm of prostate (principal); N52.35 Erectile dysfunction following radiation therapy
CPT/HCPCS: 99213

== ENCOUNTER → 2024-05-23 11:00 | Outpatient (BNVA) | payer OTHER, SELFPAY | PROVIDERS: PCP Nurse Practitioner Family; Visit Provider Urology ==

== ENCOUNTER 2024-06-03 09:50 | Outpatient (AMB) | payer OTHER, SELFPAY ==
[2024-06-03 09:51] VITALS: BP 126/74; PULSE 84; O2SAT 96; BMI 34.0
--- NOTE | 2024-06-03 09:51 | MHC.PC.OV ---
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: No Allergies ampicillin Allergy (Severe, Verified 06/03/24 17:08) Anaphylaxis Penicillins Allergy (Severe, Verified 06/03/24 17:08) Anaphylaxis all cillins pineapple Allergy (Severe, Verified 06/03/24 17:08) Rash pseudoephedrine Allergy (Severe, Verified 06/03/24 17:08) anaphylaxis Sudafed Tobacco use date assessed: 06/03/24 Fall risk assessment: No Falls in past year Last assessed Fall Risk: 06/03/24 Dental Screening Dental Screen Date: 06/03/24 Did you have a dental visit in the last 12 months?: No Did you have a dental problem in the last 6 months where you did not have access to dental care?: No Was dental information given to patient?: Patient has dentist HPI PE HPI Details 64-year-old presents to the office requesting a physical. He has transferred his care from another provider. In addition, Patient has a rash on his right eyelid and a few lesions on his left hand that he would like evaluated. Symptoms started a few days ago. The rash on the hand is very itchy. New tearing from the eye. 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 1. Little interest or pleasure in doing things: not at all 2. Feeling down, depressed, or hopeless: not at all 3. Trouble falling or staying asleep, or sleeping too much: not at all 4. Feeling tired or having little energy: not at all 5. Poor appetite or overeating: not at all 6. Feeling bad about yourself - or that you are a failure or have let yourself or your family down: not at all 7. Trouble concentrating on things, such as reading the newspaper or watching television: not at all 8. Moving or speaking so slowly that other people could have noticed. Or the opposite - being so fidgety or restless that you have been moving around a lot more than usual: not at all 9. Thoughts that you would be better off or of hurting yourself in some way: not at all Total score: 0 Depression Screening Interpretation: Negative Depression Screening Done: Yes 75924 - PHQ-9 Billing: Yes Source: Developed by Drs. Ramón Santos, Candy Pearce, Romulo Carson and colleagues, with an educational albaro from [employer]. Thrive Questionnaire Date Thrive assessed: 06/03/24 I am a: Patient What is your living situation today?: I have a steady place to live Within the past 12 months, did the food you bought not last and you didn't have the money to get more?: Never true Within the past 12 months, did you worry whether your food would run out before you got money to buy more?: Never true Do you have trouble paying for medicines?: No Do you have trouble getting transportation to medical appointments?: No Do you have trouble paying your heating and electricity bill?: No Do you have trouble taking care of your child, family member or friend?: No Do you have trouble with day-to-day activities such as bathing, preparing meals, shopping, managing finances, etc.?: No Are you currently unemployed and looking for a job?: No Are you interested in more education?: No Please select the resources that you would like help with: None Currently or been in a relationship where the following occur: No concerns reported THRIVE Score: 0 AUDIT C Alcohol Use Questionnaire (AUDIT-C) 1. How often do you have a drink containing alcohol?: Never 3. How often do you have six or more drinks on one occasion?: Never Total Score: 0 Score Reviewed/Action Taken: Yes CARLOS-7 AMB Questionnaire CARLOS-7 Date CARLOS - 7 assessed: 06/03/24 Feeling nervous, anxious, or on edge: 0 = Not at all Not being able to stop or control worryin = Not at all Worrying too much about different things: 0 = Not at all Trouble relaxin = Not at all Being so restless that it is hard to sit still: 0 = Not at all Becoming easily annoyed or irritable: 0 = Not at all Feeling afraid as if something awful might happen: 0 = Not at all Total CARLOS-7 score (0-4 normal; 5-9 mild; 10-14 moderate; 15-21 severe): 0 Source: Developed by Drs. Ramón Santos, Candy Pearce, Romulo Carson and colleagues, with an educational albaro from [employer]. CARLOS-7 Assessment Billing CARLOS-7 Assessment Tool: CARLOS-7 Assessment 02257 Physical exam (Primary Care) Vital Signs: Last Vital Signs Pulse 84 06/03/24 09:51 BP 126/74 06/03/24 09:51 Pulse Ox 96 06/03/24 09:51 Oxygen Delivery Method Room Air 06/03/24 09:51 Care Plan Goal for BP management: Blood pressure is stable. BMI result Body Mass Index 34.0 BMI Assessment/Plan discussion: High (1 lb per week weight loss suggested.) BMI High, discussed plan: lifestyle, weight reduction and dietary Tobacco/Smoking Status: Tobacco use Status Tobacco use date assessed 06/03/24 06/03/24 09:58 Patient Tobacco Use Status Current everyday Tobacco 06/03/24 09:51 Tobacco use type Cigarette 06/03/24 09:51 e-Cigarette/Vaping Use Never Used 06/03/24 09:51 Are you ready to quit: No PHQ-9: PHQ-9 Score PHQ-9: Total score 0 06/03/24 09:58 Depression Screening Interpretation: Negative Thrive Assessment: Date of Thrive Assessment Date Thrive assessed 06/03/24 06/03/24 09:58 Currently or been in a relationship where the following occur: No concerns reported Const General: cooperative and healthy appearing Nutritional Appearance: well nourished Orientation/consciousness: patient oriented x3 Limitations: no limitations HENMT Head: Yes normal to inspection Eyes Other: Right eye: Upper eyelid: Erythematous edges. Conjunctiva is clear. Anterior chambers clear. Neck Neck: Yes normal visual inspection Chest Chest palpation & inspection: normal palpation of entire chest wall Resp Effort & Inspection: normal respiratory effort Skin Other: Right hand: Erythematous area, no vesicles or pustules seen. Neuro General: patient oriented x3 Assessment and Plan Assessment & Plan (1) Nicotine dependence, cigarettes, uncomplicated: Comment: (current smoker) Code(s): F17.210 - Nicotine dependence, cigarettes, uncomplicated Plan: Patient was counseled to quit smoking. (2) Lumbar spinal stenosis: Code(s): M48.061 - Spinal stenosis, lumbar region without neurogenic claudication Plan: Symptoms are much better after the procedure. He no longer is taking the oxycodone. Pain symptoms are controlled with the tramadol. (3) Annual physical exam: Code(s): Z00.00 - Encounter for general adult medical examination without abnormal findings (4) Contact dermatitis: Code(s): L25.9 - Unspecified contact dermatitis, unspecified cause Plan: Blood work has been ordered. Patient has agreed to get a Cologuard done. Same test has been ordered. Orders: Referrals Cologuard Test Z12.11 - Encounter for screening for malignant neoplasm of colon Medications: New erythromycin 0.5 inches ophthalmic (eye) TID 1 g 0RF triamcinolone acetonide 0.025% 1 appl topical BID 15 grams 0RF Coding Level of Care Code Est Pt Level 4 (15416) New Pt Prev Care >65yr (87290) Diagnoses Nicotine dependence, cigarettes, uncomplicated F17.210 Lumbar spinal stenosis M48.061 Annual physical exam Z00.00 Contact dermatitis L25.9 Additional Codes CARLOS-7 Assessment Billing - CARLOS-7 Assessment Tool: CARLOS-7 Assessment [id number] ([id number])
== END 2024-06-03 10:41 | disposition home or self-care (01) ==
PROVIDERS: PCP Nurse Practitioner Family; Visit Provider Internal Medicine
DX: Z00.00 Encounter for general adult medical examination without abnormal findings (principal); L25.9 Unspecified contact dermatitis, unspecified cause; F17.210 Nicotine dependence, cigarettes, uncomplicated; M48.061 Spinal stenosis, lumbar region without neurogenic claudication
CPT/HCPCS: 99213; 99397

== ENCOUNTER 2024-08-02 14:41 | Outpatient (AMB) | payer OTHER, SELFPAY ==
--- NOTE | 2024-08-02 14:49 | MHC.OFFVIS ---
Vital Signs 08/02/24 14:56 Height 6 ft Weight 255 lb 4.725 oz BMI 34.6 BP 120/74 Blood Pressure Location Rt brachial Position Sitting Pulse 77 Pulse Source Pulse Oximeter Pulse Oximetry (%) 96 Oxygen Delivery Method Room Air Intake Visit Reasons: Right shoulder, neck and joint pain Intake Note: Patient presents for right shoulder, neck and joint pain. Allergies ampicillin Allergy (Severe, Verified 08/02/24 14:53) Anaphylaxis Penicillins Allergy (Severe, Verified 08/02/24 14:53) Anaphylaxis all cillins pineapple Allergy (Severe, Verified 08/02/24 14:53) Rash pseudoephedrine Allergy (Severe, Verified 08/02/24 14:53) anaphylaxis Sudafed Medication List - Last Reconciled 08/02/24 by Salena Stockton MD albuterol sulfate 90 mcg/actuation 1 inh inhalation QID PRN fexofenadine 180 mg PO DAILY PRN fluticasone propionate 50 mcg/actuation (Flonase Allergy Relief) 2 sprays intranasal DAILY PRN tadalafil 10 mg PO DAILY 90 days tamsulosin 0.4 mg PO .3 X WEEK tizanidine 2 mg PO BID PRN tramadol 50 mg PO BID PRN triamcinolone acetonide 0.5% 1 appl topical DAILY HPI Comments Details: 64-year-old male with osteoarthritis returns for follow-up. He states that over the last month or so he has noticed right-sided neck pain that shoots down his upper back all the way to his shoulder associated with numbness. He also has an itchy rash on the dorsum of his left hand he was prescribed steroid creams without much improvement [facility] Medical History Positive colorectal cancer screening using Cologuard test (~07/23/24) Spinal stenosis Osteoarthritis Environmental allergies Nicotine dependence, cigarettes, uncomplicated Seasonal allergies Benign prostatic hyperplasia with lower urinary tract symptoms Nocturia Prostate cancer (~2018) Wrist fracture, right Traumatic rupture of left biceps tendon Surgical History Previous back surgery History of prostate biopsy History of surgery on arm (~2005) History of arthroplasty of right ankle Hx of shoulder surgery (~1981) Family History Father Cancer Mother Cancer Social History Housing: House 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 program 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 a significant other at home: Yes (daughter, supportive ) Do you presently have visiting nurse or other home services: No Alcohol intake: never Patient Tobacco Use Status: Current everyday Tobacco user Tobacco use type: Cigarette Cigarettes Per Day: 8 Years Smoked: 35 e-Cigarette/Vaping Use: Never Used Second Hand Smoke Exposure: No Current occupational status: retired Cognitive needs: No Hearing needs: No Vision needs: No Review of Systems ENT Reports neck pain Musc Reports neck pain, Reports numbness and Reports radiating pain into limb Skin/Breast Reports rash Neuro Reports numbness Physical Exam Vital Signs: Last Vital Signs Pulse 77 08/02/24 14:56 BP 120/74 08/02/24 14:56 Pulse Ox 96 08/02/24 14:56 Oxygen Delivery Method Room Air 08/02/24 14:56 BMI result Body Mass Index 34.6 Const General: cooperative, healthy appearing and comfortable Nutritional Appearance: obese morbidly obese Orientation/consciousness: patient oriented x3 Limitations: no limitations HEENT Head: Yes normocephalic and Yes atraumatic Resp Effort & Inspection: normal respiratory effort and able to speak in complete sentences Neuro General: patient oriented x3 Extrem Other: Osteoarthritic changes of both hands with no active synovitis Mildly limited range of motion of his neck Negative Spurling's test on the left Equivocal Spurling's test on the right Assessment & Plan Assessment & Plan (1) Cervical radiculopathy: Code(s): M54.12 - Radiculopathy, cervical region Category: Medical Plan: Will check cervical spine x-rays and cervical spine MRI (2) Rash of hand: Code(s): R21 - Rash and other nonspecific skin eruption Category: Medical Plan: Dorsum of left hand Did not improve with steroid creams. Looks fungal to me. Will prescribe clotrimazole cream Plan I spent 24 minutes reviewing patient's chart, evaluating patient, ordering diagnostic workup, counseling patient and documenting in the chart Orders: Orders XR cervical spine 4V Today M54.12 - Radiculopathy, cervical region MR cervical spine wo con Today M54.12 - Radiculopathy, cervical region Medications: New clotrimazole 1% 1 appl topical BID 2 weeks 30 grams 1RF Coding Level of Care Code Est Pt Level 4 (37699) Diagnoses Cervical radiculopathy M54.12 Rash of hand R21
[2024-08-02 14:56] VITALS: BP 120/74; PULSE 77; O2SAT 96; BMI 34.6
== END 2024-08-02 15:27 | disposition home or self-care (01) ==
PROVIDERS: PCP Internal Medicine; Visit Provider Student in an Organized Health Care Education/Training Program
DX: M54.12 Radiculopathy, cervical region (principal); R21 Rash and other nonspecific skin eruption
CPT/HCPCS: 99214

== ENCOUNTER 2024-08-02 14:41 | Outpatient (REF) | payer OTHER, SELFPAY ==
--- NOTE | ~2024-08-02 | XR_ITS ---
EXAMINATION: XR CERVICAL SPINE 5 VIEWS CLINICAL INFORMATION: Radiculopathy, cervical region M54.12. COMPARISON: None available. TECHNIQUE: 5 views of the cervical spine, inclusive of flexion and extension views, were obtained. FINDINGS: The vertebral alignment is normal. No intrinsic bony abnormality. No fracture or subluxation. Degenerative changes with disc space narrowing, uncovertebral joint hypertrophy and osteophyte formation is seen from C3 through T1. Posterior facet joint arthropathy is seen bilaterally throughout the cervical spine. Mild diffuse neural foraminal osseous encroachment seen bilaterally. The surrounding prevertebral soft tissues are unremarkable. XR/XR cervical spine 4V IMPRESSION: Multilevel degenerative disc disease and posterior facet joint arthropathy. Electronically signed by: Augustin Gomez MD 10/08/2024 11:16 AM LYNN MORATAYA
== END 2024-08-02 14:42 | disposition home or self-care (01) ==
LOC: HO.XRAY 14:41
PROVIDERS: PCP Internal Medicine; Visit Provider Student in an Organized Health Care Education/Training Program
DX: M54.12 Radiculopathy, cervical region (principal); R21 Rash and other nonspecific skin eruption
CPT/HCPCS: 72050

== ENCOUNTER → 2024-08-25 11:25 | Outpatient (BNV) | payer OTHER, SELFPAY | PROVIDERS: PCP Internal Medicine; Visit Provider Radiology Diagnostic Radiology | DX: M54.12 Radiculopathy, cervical region (principal) | CPT/HCPCS: 72141 ==

== ENCOUNTER 2024-08-25 11:31 | Outpatient (REF) | payer OTHER, SELFPAY ==
--- NOTE | ~2024-08-25 | MR_ITS ---
EXAMINATION: MR CERVICAL SPINE WITHOUT CONTRAST CLINICAL INFORMATION: Radiculopathy, cervical region. COMPARISON: None available. TECHNIQUE: MRI of the cervical spine was obtained using routine sequences without contrast. FINDINGS: Craniocervical junction is intact. There is a subtle hyperintense T2 STIR bone marrow signal in the superior endplate of C7 likely related to Modic type I endplate changes. Bone marrow inhomogeneity. Multilevel marginal osteophyte formation C4 C7. Grade 1 anterolisthesis, C3-4 and C7-T1. Grade 1 retrolisthesis C4-5. Cervical spinal cord signal is normal. C2-3: Broad-based disc osteophyte complex formation. No cord compression. Bilateral neuroforamina narrowing on a degenerative basis. C3-4: Broad-based disc osteophyte complex formation. No cord compression. Bilateral neuroforamina stenosis on a degenerative basis. C4-5: Broad-based disc osteophyte complex formation. No cord compression. Bilateral neuroforamina narrowing on a degenerative basis. C5-6: Broad-based disc osteophyte compresses formation. No cord compression. Bilateral neuroforamina narrowing on a degenerative basis. C6-7: Broad-based disc osteophyte complex formation. No cord compression. Bilateral neuroforamina narrowing on a degenerative basis. C7-T1: No cord compression. No neuroforamina stenosis. No prevertebral compartment hematoma, mass or fluid collection. Flow-void signal within the mean vessels is normal. Codominant vertebral arteries. MR/MR cervical spine wo con IMPRESSION: Multilevel cervical spondylosis C2-3, to C6-7 resulting in bilateral neuroforamina narrowing without cord compression, edema and or myelopathy. Electronically signed by: Nilson Anderson MD 08/26/2024 11:49 AM EST
== END 2024-08-25 11:32 | disposition home or self-care (01) ==
LOC: HO.MRI 11:31
PROVIDERS: PCP Internal Medicine; Visit Provider Student in an Organized Health Care Education/Training Program
DX: M54.12 Radiculopathy, cervical region (principal)
CPT/HCPCS: 72141

== ENCOUNTER 2024-08-31 12:20 | Inpatient (IN) | payer OTHER, SELFPAY ==
[2024-08-31] VITALS (9 sets, daily range): BP systolic 103–133; BP diastolic 51–81; PULSE 90–108; RESP 17–20; TEMP 36.6–37.7; O2SAT 88–95; BMI 33.9
--- NOTE | ~2024-08-31 | MR_ITS ---
EXAMINATION: MR ABDOMEN WITHOUT AND WITH CONTRAST CLINICAL INFORMATION: Pancreatic liver mass is better assessed with thrombus COMPARISON: Multiple previous including imaging same day TECHNIQUE: MR abdomen was performed without and with use of 10 mL intravenous Gadavist gadolinium contrast. Postcontrast images are performed in multiphase dynamic sequences. Imaging was performed in 3 planes. FINDINGS: LUNG BASES: The visualized lung bases are unremarkable. LIVER, GALLBLADDER, AND BILIARY TREE: There are innumerable liver masses throughout the left and right lobe demonstrates restricted diffusion and heterogeneously hyperintense T2 signal and decreased T1 signal intensity. Following enhancement, lesions enhance normally peripherally. Appearance is consistent metastatic disease. Hepatic vessels are patent but there is once again thrombus within the main portal vein which appears nonenhancing similar to recent CT imaging. No biliary ductal dilatation. The gallbladder is unremarkable with no evidence of gallbladder wall thickening, or obvious pericholecystic inflammatory changes. PANCREAS: Pancreatic head mass is again noted measuring up to approximately 4 cm demonstrating restricted diffusion and heterogeneous enhancement. Pancreatic duct is normal in caliber without pancreatic parenchyma atrophy. 6 and 8 Process is blunted but is no gross encasement of the mesenteric vessels. Portal vein also appears spared. Origins of the celiac and branch vessels are also spared. SPLEEN: Significant enlargement 16.3 cm. No focal lesion. ADRENAL GLANDS: Normal. KIDNEYS AND URETERS: The kidneys are normal in size, shape, and enhance symmetrically. No hydronephrosis. No perinephric stranding. GASTROINTESTINAL TRACT: No bowel obstruction. No ascites or fluid collection. ABDOMINAL WALL: No significant hernia is appreciated. LYMPH NODES: No lymphadenopathy. VASCULAR: Unremarkable. OSSEOUS STRUCTURES: Marrow signal normal. MR/MR abdomen wo/w con IMPRESSION: 1. Pancreatic head mass with extensive hepatic metastatic disease. Diagnostic incision clinically pancreatic duct adenocarcinoma versus pancreatic neuroendocrine tumor. Tissue diagnosis recommended. 2. Likely gland thrombus within the main portal vein. 3. Splenomegaly. Electronically signed by: Brennan Hilliard MD 08/31/2024 08:53 PM [facility]
--- NOTE | ~2024-08-31 | XR_ITS ---
EXAMINATION: XR CHEST CLINICAL INFORMATION: Shortness of breath, right lower chest pain COMPARISON: None available. TECHNIQUE: 2 views of the chest were obtained. FINDINGS: Prominent interstitial markings. No organized airspace consolidation. No pneumothorax or pleural effusion. Cardiomediastinal silhouette within normal limits. Osseous and soft tissue structures are unremarkable. XR/XR chest 2V IMPRESSION: Prominent interstitial markings, nonspecific. Differential includes infection, edema, or emphysema. Electronically signed by: Dino Schneider DO 08/31/2024 03:24 PM EST
--- NOTE | ~2024-08-31 | US_ITS ---
EXAMINATION: US ABDOMEN LIMITED CLINICAL INFORMATION: Acute right upper quadrant pain for 2 days, history of prostate adenocarcinoma. COMPARISON: None available. TECHNIQUE: Real-time imaging of the right upper quadrant abdominal viscera. FINDINGS: PANCREAS: The visualized pancreatic head and body are normal in appearance. The remainder of the pancreas is obscured from visualization by the overlying bowel gas. LIVER: Hepatomegaly containing innumerable hypoechoic masses concerning for metastatic disease. There is no intrahepatic biliary duct dilatation seen. GALLBLADDER: Normal. The gallbladder is physiologically distended without evidence of stones, sludge, polyps, wall thickening or pericholecystic fluid. No sonographic Hitchcock's sign. COMMON BILE DUCT: Normal in caliber measuring 0.7 cm in diameter. RIGHT KIDNEY: Normal. No hydronephrosis. No renal calculi or focal parenchymal lesions. The kidney measures 11.8 cm in maximum dimension. VASCULAR: Hyperechoic filling defect in the main portal vein resulting in at least partial occlusion FREE FLUID: None. US/US abdomen limited IMPRESSION: 1. Hepatomegaly containing innumerable hypoechoic masses concerning for metastatic disease. 2. Hyperechoic filling defect in the main portal vein resulting in at least partial occlusion is concerning for bland versus tumor thrombus. Electronically signed by: Sharon Gamez MD 08/31/2024 03:58 PM EST
--- NOTE | ~2024-08-31 | CT_ITS ---
EXAMINATION: CT CHEST WITH CONTRAST CLINICAL INFORMATION: Pancreatic mass with liver metastases COMPARISON: CT abdomen 08/31/2024 TECHNIQUE: Multidetector volumetric CT imaging of the chest was obtained after the administration of 65 mL of Omnipaque 300 intravenous contrast without immediate adverse reactions. Axial MIP volume rendering provided. Sagittal and coronal reformatted images were obtained. This CT examination was performed using dose optimization techniques as appropriate, variously including the following: *Automated exposure control *Adjustment of mA and/or kV according to patient size (this includes techniques or standardized protocols for targeted exams where dose is matched to indication/reason for exam; i.e. extremities or head) *Use of iterative reconstruction technique DLP: 587 mGy-cm FINDINGS: LUNGS: There is no evidence of pulmonary metastases. Scattered calcified granulomas are seen. Basilar atelectasis is seen. Some subpleural reticulation is seen. There is mild honeycombing present along the major fissure in the right upper lobe posteriorly. MEDIASTINUM: There is a single enlarged node measuring 1.7 cm in short axis dimension in the right precarinal region. This node has a large fatty ramin. No other enlarged lymph nodes are seen. Heart size is normal. Thyroid unremarkable. CORONARY ARTERY CALCIUM: Moderate VASCULAR: No aortic aneurysm PLEURA: There is no pleural effusion. No pleural mass or thickening. AXILLA: No lymphadenopathy. UPPER ABDOMEN: Diffuse liver metastatic lesions are again noted. The pancreatic head mass is not included in the [id number] in this exam OSSEOUS STRUCTURES: No osseous metastatic disease CT/CT chest w IV con IMPRESSION: 1. No evidence of pulmonary metastatic disease. 2. Single enlarged precarinal lymph node with fatty ramin which I doubt is pathologic. 3. Diffuse liver metastatic disease more completely imaged on the abdominal CT earlier today. Fleischner guidelines were followed. Electronically signed by: Carlos Mccallum MD 08/31/2024 05:52 PM [facility] [place]
--- NOTE | ~2024-08-31 | CT_ITS ---
EXAMINATION: CTA ABDOMEN AND PELVIS CLINICAL INFORMATION: RUQ pain, query portal vein thrombosis TECHNIQUE: Multiple axial images were obtained through the abdomen and pelvis before and after administration of 80 mL of Omnipaque intravenously. Images were evaluated on independent dedicated 3-D workstation and 3-D images were reconstructed with concurrent radiologist supervision and subsequently interpreted. Specific vascular measurements are placed directly on the 3-D rendered images and are documented and stored in PACS. This CT examination was performed using dose optimization techniques as appropriate, variously including the following: *Automated exposure control. *Adjustment of mA and/or kV according to patient size (this includes techniques or standardized protocols for targeted exams where dose is matched to indication/reason for exam, i.e., extremities or head). *Use of iterative reconstruction technique. COMPARISON: None DLP: 1285 mGy-cm. FINDINGS: VASCULAR: Abdominal aorta: Normal in caliber. Atherosclerotic plaque in the prerenal abdominal aorta Iliac arteries: Patent with extensive atherosclerotic plaque Mesenteric arteries: The celiac artery is patent. The SMA is patent. The ROBEL is patent Renal arteries: Patent bilateral renal arteries NONVASCULAR: Lung Bases: Subsegmental atelectasis left lung base. Liver, Gallbladder, Biliary Tree: Innumerable hypodense lesions throughout the liver. Rounded nonocclusive thrombus in the main portal vein measuring 2.6 cm. The gallbladder is unremarkable with no evidence of radiopaque gallstones, gallbladder wall thickening, or pericholecystic inflammatory changes. Pancreas: Rounded masslike soft tissue in the pancreatic head measuring 3.9 centimeters. Spleen: Unremarkable. Adrenal Glands: Unremarkable. Kidneys and Ureters: The kidneys are normal in size, shape, and attenuation. No hydronephrosis or hydroureter or calculi seen. No perinephric stranding. Bladder: Unremarkable. Gastrointestinal Tract: Severe colonic diverticulosis. The large and small bowel are normal in caliber. Abdominal Wall: No hernia is demonstrated. Lymph Nodes: Prominent periportal lymph nodes. Pelvic Viscera: Brachytherapy seeds in the prostate. Osseous Structures: Sclerotic lesion in the anterior sacrum measuring 1.1 cm. Multilevel degenerative changes of the lumbar spine. CT/CT angio abdomen pelvis IMPRESSION: 1. Rounded masslike soft tissue in the pancreatic head measuring 3.9 cm and concerning for pancreatic neoplasm. Recommend pancreas protocol MRI with contrast for further evaluation for pancreatic mass. 2. Innumerable hypodense lesions throughout the liver consistent with metastatic disease. 3. Rounded nonocclusive thrombus in the main portal vein measuring 2.6 cm. This is favored represent bland thrombus as there is no appreciable enhancement between the arterial and venous phases. 4. Sclerotic lesion in the anterior sacrum measuring 1.1 cm, which is indeterminate. Electronically signed by: Avinash Olivarez MD 08/31/2024 04:16 PM [facility]
--- NOTE | 2024-08-31 12:43 | ED_ITS ---
HPI - Abdominal Pain General Chief Complaint: Abdominal Pain Stated Complaint: r flank pain-r shoulder pain Time Seen by Provider: 08/31/24 13:30 Source: patient and family Mode of arrival: ambulatory Limitations: no limitations History of Present Illness ED Provider: THOMAS Collado HPI narrative: This is a 64-year-old male history of hypertension, erectile dysfunction, sciatica, hyperlipidemia, nicotine dependence, prostate cancer presenting to the emergency department with complaints of right upper quadrant pain and right scapula/shoulder pain ongoing for the past 3-4 days acutely worsening over the past 2 days. Patient reports pain is severe, sharp and stabbing, reports he feels it under his ribcage at times pain is so bad he feels short of breath. He still has his gallbladder. He reports this is the most uncomfortable he has ever been. Denies fevers, chills, nausea, vomiting, changes in bowel habits, headache, vision changes, dizziness, weakness, chest pain. Related Data Home Medications ?Medication ?Instructions ?Recorded ?Confirmed fexofenadine 180 mg tablet 180 mg PO DAILY Allergy Symptoms 04/17/24 08/31/24 fluticasone propionate 50 2 spray intranasal DAILY PRN 04/17/24 08/31/24 mcg/actuation nasal Allergy Symptoms spray,suspension (Flonase Allergy Relief) tamsulosin 0.4 mg capsule 0.4 mg PO MOWEFR 04/17/24 08/31/24 tramadol 50 mg tablet 50 mg PO BEDTIME PRN pain 08/31/24 08/31/24 tramadol 50 mg tablet 50 mg PO DAILY@0900 pain 08/31/24 08/31/24 Previous Rx's ?Medication ?Instructions ?Recorded albuterol sulfate 90 mcg/actuation 1 inh inhalation QID PRN shortness 01/02/24 aerosol inhaler of breath or wheezing #6.7 grams tadalafil 10 mg tablet 10 mg PO DAILY sexual activity 90 07/02/24 days #90 tabs clotrimazole 1 % topical cream 1 appl topical BID 2 weeks #30 08/02/24 grams Allergies Allergy/AdvReac Type Severity Reaction Status Date / Time ampicillin Allergy Severe Anaphylaxis Verified 08/31/24 12:45 Penicillins Allergy Severe Anaphylaxis Verified 08/31/24 12:45 all cillins pineapple Allergy Severe Rash Verified 08/31/24 12:45 pseudoephedrine Allergy Severe anaphylaxis Verified 08/31/24 12:45 Sudafed Review of Systems Review of Systems Yes all other systems are reviewed and are negative [facility] Past Medical History Attestation statement: The following information was validated with the patient. Source: old records reviewed and nursing notes reviewed Medical History Positive colorectal cancer screening using Cologuard test (~07/23/24) Spinal stenosis Osteoarthritis Environmental allergies Nicotine dependence, cigarettes, uncomplicated Seasonal allergies Benign prostatic hyperplasia with lower urinary tract symptoms Nocturia Prostate cancer (~2018) Wrist fracture, right Traumatic rupture of left biceps tendon Surgical History Previous back surgery History of prostate biopsy History of surgery on arm (~2005) History of arthroplasty of right ankle Hx of shoulder surgery (~1981) Family History Family History Father Cancer Mother Cancer Social History Social History Housing: House 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giver services home to a significant other at home: Yes (daughter, supportive ) Do you presently have visiting nurse or other home services: No Alcohol intake: never Patient Tobacco Use Status: Current everyday Tobacco user Tobacco use type: Cigarette Years Smoked: 35 Smoked in Last 30 Days: Yes e-Cigarette/Vaping Use: Never Used Second Hand Smoke Exposure: No Use of substances other than those prescribed or required for medical reasons: No Advance Directives: No Advance Directives Information Provided: Yes Nutrition Risks: No Nutritional Risk Current occupational status: retired Cognitive needs: No Hearing needs: No Vision needs: No Physical Exam ED Vital Signs: Vital Signs - 24 hr 08/31/24 12:41 08/31/24 14:12 08/31/24 14:14 Temperature 99.4 F 99.9 F Pulse Rate 108 H 90 Respiratory Rate 18 20 20 Blood Pressure 133/81 103/51 L Pulse Oximetry 94 93 Oxygen Delivery Method Room Air Room Air Oxygen Flow Rate 08/31/24 15:58 08/31/24 16:26 08/31/24 16:27 Temperature 99.4 F Pulse Rate 103 H 100 Respiratory Rate 18 20 Blood Pressure 131/65 131/72 Pulse Oximetry 93 88 L 93 Oxygen Delivery Method Room Air Room Air Nasal Cannula Oxygen Flow Rate 2 08/31/24 17:52 Temperature Pulse Rate Respiratory Rate 18 Blood Pressure Pulse Oximetry Oxygen Delivery Method Oxygen Flow Rate BMI result Body Mass Index 33.9 vss Appearance: Alert.? Oriented X3.? No acute distress.? Head: Normocephalic, atraumatic, no step-offs or deformities Eyes: Pupils equal, round and reactive to light.? Neck: Normal inspection.? Neck supple.? CVS: Normal heart rate and rhythm.? Pulses normal.? Respiratory: No respiratory distress.? Breath sounds normal.? Abdomen: Soft and + right upper quadrant tenderness and positive Hitchcock sign. + boas sign Skin: Skin warm and dry.? Normal skin color.? Normal skin turgor.? Extremities: No lower extremity edema.? No calf ttp. 5/5 strength to bilateral upper and lower extremities Back: No midline tenderness, no C-spine tenderness, full range of motion, no CVA tenderness bilaterally Neuro: Oriented X 3.? No motor deficit.? No sensory deficit. CN 2-12 intact Course Course Course Narrative: This is an RME performed by Jl Donald [employer]: Additional HPI, ROS, PE not included below will be deferred to primary provider. Patient is a 64-year-old male Right upper quadrant pain that radiates along the lateral side and into the back as well as right shoulder pain, nausea, excessive belching. Symptom onset 2 days ago. Feels short of breath while walking around which is atypical for him. Admits to tobacco usage Lung sounds diminished in the right lower lobe, tenderness upon palpation to the right upper quadrant of the abdomen Plan: Serum labs, CXR, ultrasound Reevaluation(s) Reevaluation #1: Patient's CBC with leukocytosis 16.5, no left shift. Chemistry with low sodium 131 patient receiving IV fluids at this time. Patient's total bilirubin 2.7 deviating from patient's baseline which prompted me to order ultrasound of right upper quadrant, there seems to be an abnormality in the portal vein therefore CTA abdomen was ordered and pending. Flu, COVID, RSV negative. Right upper quadrant ultrasound with hepatomegaly containing innumerable hypoechoic masses concerning for metastatic disease of the liver. Hypoechoic filling defect in the main portal vein resulting in at least partial occlusion concerning for a bland versus tumor thrombus. CTA pending. Sign out to Dr. Ott. Time: 16:10 Medical Decision Making Medical Decision Making MDM Narrative: 64-year-old male presents with right shoulder pain and right upper quadrant pain ongoing 3-4 days worsening acutely over the past 2 days. On exam positive Hitchcock's and positive boas sign History and physical exam concerning for cholecystitis versus cholelithiasis. Unlikely PE, ACS, acute abdomen, obstruction, appendicitis, pancreatitis, diverticulitis. Will rule out metabolic derangements. Plan labs, urine, imaging. I received sign-out from my colleague THOMAS Collado. -patient has elevated LFTs, right upper quadrant pain, patient know the received prophylactic antibiotics. -ultrasound report concerning for multiple hypoechoic masses and there is a filling defect in the main portal vein resulting it at least a partial occlusion versus tumor -CT scan of the abdomen concerning for rounded masslike soft tissue measuring 3.9 cm in the pancreatic head, concerning for pancreatic neoplasm. There innumerable masses throughout the liver consistent with metastatic disease. Nonocclusive thrombus in main portal vein 2.6 cm. There is a sclerotic lesion in the anterior sacrum measuring 1.1 cm, indeterminate etiology -I discussed the above-mentioned with patient and his and daughter -they informed me that patient recently had a positive Cologuard test, he has an endoscopy scheduled for the near future. -also, patient has history of prostate cancer in remission to their knowledge -I discussed the above-mentioned with Dr. Kerns for Gastroenterology -we will proceed with ordering CEA, PSA and CA 19-9, MRI of the abdomen with and without contrast, Lovenox 1 milligram/kilogram b.i.d. , and in the next few days patient will need a colonoscopy and a liver biopsy -I discussed the patient with Dr. Herrera from the hospitalist team, patient being admitted -MRI of the abdomen will be done today -patient will need hematology/oncology consult I have personally provided 60 minutes of critical care time. Time includes review of lab data, radiology results, discussion with consultants, and monitoring for potential decompensation. Intervention performed as documented. Differential Diagnosis Differential Diagnoses: The differential diagnosis associated with the presentation includes (History and physical exam concerning for cholecystitis versus cholelithiasis. Unlikely PE, ACS, acute abdomen, obstruction, appendicitis, pancreatitis, diverticulitis. Will rule out metabolic derangements.) Admission/Observation Consideration of admission/observation: Escalation of care including admission/observation considered (Possible) Lab Data MDM Lab Attestation statement: I reviewed the patient's lab results. 08/31/24 13:57 08/31/24 13:57 Labs: Lab Results 08/31/24 08/31/24 08/31/24 Range/Units 13:57 16:31 18:01 WBC 16.5 H (4.8-10.8) X10*3/uL RBC 5.00 (4.60-5.80) X10*6/uL Hgb 14.9 (14.0-18.0) g/dl Hct 41.5 L (42.0-52.0) % MCV 82.8 (80.0-98.0) fL MCH 29.7 (27.0-33.0) pg MCHC 35.9 (31.0-36.0) g/dl RDW 13.1 (11.0-16.0) % Plt Count 146 L (160-400) X10*3/uL MPV 9.4 (9.4-12.4) fL Immature Gran % (Auto) 0.4 (0.0-0.4) % Neut % (Auto) 75.7 H (45-73) % Lymph % (Auto) 8.4 L (20-40) % [place] % (Auto) 14.8 H (2-11) % Eos % (Auto) 0.5 (0-4) % Baso % (Auto) 0.2 (0-2) % Lymph # (Auto) 1.4 (1.2-4.9) X10*3/uL [place] # (Auto) 2.4 H (0.1-1.2) X10*3/uL Eos # (Auto) 0.1 (0.0-0.4) X10*3/uL Baso # (Auto) 0.0 (0.0-0.2) X10*3/uL Abs Immat Gran (auto) 0.07 H (0.00-0.03) X10*3/uL Absolute Neuts (auto) 12.5 H (2.0-8.3) x10*3/uL Absolute Nucleated RBC 0.000 (0.0-0.012) X10*3/uL Nucleated RBC % (auto) 0.0 (0.0-0.2) /100WBC Smear Tech's Comments VERIFIED PT 15.6 H (10.9-12.4) SEC INR 1.3 H (0.9-1.1) APTT 37.5 H (26.0-36.8) SEC Sodium 131 L (135-145) mmol/L Potassium 4.1 (3.3-5.1) mmol/L Chloride 99 (96-108) mmol/L Carbon Dioxide 20 L (22-29) mmol/L Anion Gap 16 (12-20) BUN 10 (9-16) mg/dL Creatinine 0.78 (0.5-1.4) mg/dL Estim Creat Clear Calc 121.1 Estimated GFR > 60 Random Glucose 108 (60-115) mg/dL Lactic Acid 0.7 (0.5-2.0) mmol/L Calcium 9.6 (8.4-10.2) mg/dL Total Bilirubin 2.7 H (0.0-1.0) mg/dL Direct Bilirubin 0.8 H (0.0-0.5) mg/dL AST 47 H (5-37) U/L ALT 24 (0-40) U/L Alkaline Phosphatase 91 (39-117) U/L Troponin I High Sens 6.1 (<3.5-35.0) ng/L Total Protein 7.4 (6.5-8.0) g/dL Albumin 3.7 (3.5-5.0) g/dL Lipase 5 L (8-78) U/L Carcinoembryonic Ag 3.40 ng/mL Prostate Specific Ag < 0.10 (<0.05-4.0) ng/mL Urine Color Yellow Urine Appearance Clear Urine pH 7.0 (5.0-9.0) Ur Specific [place] 1.020 (1.005-1.025) Urine Protein Negative (Neg-Trace) mg/dL Urine Glucose (UA) Negative (Negative) mg/dL Urine Ketones Negative (Negative) mg/dL Urine Blood Trace H (Negative) Urine Nitrite Negative (Negative) Ur Leukocyte Esterase Negative (Negative) Urine RBC 3-5 H (0-2) /HPF Urine WBC 0-5 (0-5) /HPF Ur Squamous Epith Cells 0-2 (0-2) /HPF Urine Bacteria None Seen (None Seen) Hyaline Casts 0-2 (0-2) /LPF Influenza Type A (PCR) NEGATIVE (Negative) Influenza Type B (PCR) NEGATIVE (Negative) RSV RNA Qual (PCR) NEGATIVE (Negative) SARS-CoV-2 RNA (RT-PCR) NEGATIVE (Negative) Independent Interpretation I performed an independent interpretation of an: EKG (Normal sinus rhythm Minimal voltage criteria for LVH, may be normal variant ( R in aVL ) Borderline ECG When compared with ECG of 30-SEP-2013 09:15, No significant change was found), Plain X-Ray (XR/XR chest 2V IMPRESSION: Prominent interstitial markings, nonspecific. Differential includes infection, edema, or emphysema. ) and CT Scan Radiology Impression Discussion of test interpretation with radiology: I have reviewed the radiologist's reading. Radiologist Impression: MRI: LUNG BASES: The visualized lung bases are unremarkable. LIVER, GALLBLADDER, AND BILIARY TREE: There are innumerable liver masses throughout the left and right lobe demonstrates restricted diffusion and heterogeneously hyperintense T2 signal and decreased T1 signal intensity. Following enhancement, lesions enhance normally peripherally. Appearance is consistent metastatic disease. Hepatic vessels are patent but there is once again thrombus within the main portal vein which appears nonenhancing similar to recent CT imaging. No biliary ductal dilatation. The gallbladder is unremarkable with no evidence of gallbladder wall thickening, or obvious pericholecystic inflammatory changes. PANCREAS: Pancreatic head mass is again noted measuring up to approximately 4 cm demonstrating restricted diffusion and heterogeneous enhancement. Pancreatic duct is normal in caliber without pancreatic parenchyma atrophy. 6 and 8 Process is blunted but is no gross encasement of the mesenteric vessels. Portal vein also appears spared. Origins of the celiac and branch vessels are also spared. SPLEEN: Significant enlargement 16.3 cm. No focal lesion. ADRENAL GLANDS: Normal. KIDNEYS AND URETERS: The kidneys are normal in size, shape, and enhance symmetrically. No hydronephrosis. No perinephric stranding. GASTROINTESTINAL TRACT: No bowel obstruction. No ascites or fluid collection. ABDOMINAL WALL: No significant hernia is appreciated. LYMPH NODES: No lymphadenopathy. VASCULAR: Unremarkable. OSSEOUS STRUCTURES: Marrow signal normal. MR/MR abdomen wo/w con IMPRESSION: 1. Pancreatic head mass with extensive hepatic metastatic disease. Diagnostic incision clinically pancreatic duct adenocarcinoma versus pancreatic neuroendocrine tumor. Tissue diagnosis recommended. 2. Likely gland thrombus within the main portal vein. 3. Splenomegaly. Medications Administered Discontinued Medications Generic Name Dose Route Start Last Admin Trade Name Antonia PRN Reason Stop Dose Admin Enoxaparin Sodium 120 mg 08/31/24 16:58 08/31/24 17:52 Enoxaparin Sodium 120 Mg/0.8 Ml Syringe 1 mg/kg (120 mg) 08/31/24 16:59 120 mg SUBCUT Administration ONCE ONE Gadobutrol 10 ml 08/31/24 18:59 08/31/24 19:00 Gadobutrol 10 Ml Vial IVPUSH 08/31/24 19:00 10 ml ONCE ONE Administration Sodium Chloride 3,401.94 mls @ 3,401.94 mls/hr 08/31/24 13:38 08/31/24 15:54 Ns 30 ml/kg infuse over 1 hr (3401.94 ml) 08/31/24 14:37 Infused IV Infusion .Q1H STA Levofloxacin 500 mg in 100 mls @ 100 mls/hr 08/31/24 13:38 08/31/24 15:54 Levaquin IV 08/31/24 14:37 Infused ONCE ONE Infusion Metronidazole 500 mg in 100 mls @ 100 mls/hr 08/31/24 13:38 08/31/24 15:54 Flagyl IV 08/31/24 14:37 Infused ONCE ONE Infusion Iohexol 100 ml 08/31/24 15:52 08/31/24 15:52 Iohexol 350 Mg/Ml 100 Ml Infus..Btl IV 08/31/24 15:53 80 ml ONCE ONE Administration Iohexol 100 ml 08/31/24 16:57 08/31/24 16:57 Iohexol 350 Mg/Ml 100 Ml Infus..Btl IV 08/31/24 16:58 65 ml ONCE ONE Administration Morphine Sulfate 4 mg 08/31/24 13:36 08/31/24 14:14 Morphine Sulfate 4 Mg/Ml Cartridge IVPUSH 08/31/24 13:37 4 mg ONCE ONE Administration Protocol Morphine Sulfate 4 mg 08/31/24 17:48 08/31/24 17:52 Morphine Sulfate 4 Mg/Ml Cartridge IVPUSH 08/31/24 17:49 4 mg ONCE ONE Administration Protocol Ondansetron HCl 4 mg 08/31/24 13:36 08/31/24 14:13 Ondansetron Hcl 4 Mg/2 Ml Vial IVPUSH 08/31/24 13:37 4 mg ONCE ONE Administration Critical Care Time Critical Care Time Critical Care Time: Yes Total Critical Care Time: 45 Attestation: I attest to this time spent taking care of the patient, obtaining history, physical, reviewing labs, imaging, treatment of patients condition +/- specialist/hospitalist consult Discharge Plan Discharge Clinical Impression: Abdominal pain, RUQ, Liver masses, Portal vein thrombosis Patient Disposition: Admitted As Inpatient Interventions: Admission Worksheet (ED) Last Done: 08/31/24 21:12
--- NOTE | 2024-08-31 12:49 | ECG_ITS ---
Test Reason : ap Blood Pressure : / mmHG Vent. Rate : 100 BPM Atrial Rate : 100 BPM P-R Int : 186 ms QRS Dur : 086 ms QT Int : 334 ms P-R-T Axes : 044 -26 015 degrees QTc Int : 430 ms Normal sinus rhythm Minimal voltage criteria for LVH, may be normal variant ( R in aVL ) Borderline ECG When compared with ECG of 30-SEP-2013 09:15, No significant change was found Referred By: Billie Donald Electronically Signed By:SINTIA CARROLL MD
[2024-08-31 14:08] LABS: Basophils Percent Auto 0.2 % (0-2); Eosinophils Absolute Auto 0.1 X10*3/uL (0.0-0.4); Eosinophils Percent Auto 0.5 % (0-4); Hematocrit 41.5 % (42.0-52.0); Hemoglobin 14.9 g/dl (14.0-18.0); Imm Gran Abs Auto 0.07 X10*3/uL (0.00-0.03); Imm Gran Pct Auto 0.4 % (0.0-0.4); Lymphocytes Absolute Auto 1.4 X10*3/uL (1.2-4.9); Lymphocytes Percent Auto 8.4 % (20-40); MANUAL DIFF FLAG SCAN; Mean Corpuscular HGB Conc 35.9 g/dl (31.0-36.0); Mean Corpuscular Hemoglobin 29.7 pg (27.0-33.0); Mean Corpuscular Volume 82.8 fL (80.0-98.0); Mean Platelet Volume 9.4 fL (9.4-12.4); Monocytes Absolute Auto 2.4 X10*3/uL (0.1-1.2); Monocytes Percent Auto 14.8 % (2-11); Neutrophils Absolute Auto 12.5 x10*3/uL (2.0-8.3); Neutrophils Percent Auto 75.7 % (45-73); Platelet Count 146 X10*3/uL (160-400); Red Cell Distribution Width 13.1 % (11.0-16.0); SCAN SMEAR FLAG 1; White Blood Count 16.5 X10*3/uL (4.8-10.8)
[2024-08-31] MEDS: ondansetron HCL 4 MG/2 ML VIAL IVPUSH (14:13)
--- NOTE | 2024-08-31 14:13 | PC.NURSE ---
20G to LAC. Tolerated well
[2024-08-31] MEDS: Morphine Sulfate 4 MG/ML CARTRIDGE IVPUSH ×2 (14:14→17:52)
[2024-08-31 14:19] LABS: Lactic Acid 0.7 mmol/L (0.5-2.0)
[2024-08-31 14:21] LABS: Alanine Aminotransferase 24 U/L (0-40); Albumin Level 3.7 g/dL (3.5-5.0); Alkaline Phosphatase 91 U/L (39-117); Anion Gap 16 (12-20); Aspartate Amino Transferase 47 U/L (5-37); Bilirubin Direct 0.8 mg/dL (0.0-0.5); Bilirubin Total 2.7 mg/dL (0.0-1.0); Blood Urea Nitrogen 10 mg/dL (9-16); Calcium 9.6 mg/dL (8.4-10.2); Carbon Dioxide 20 mmol/L (22-29); Chloride 99 mmol/L (96-108); Creatinine Clr Calc Pharmacy 121.1; Estimated Glomerular Filt Rate > 60; Glucose Random 108 mg/dL (60-115); INTERNATIONAL NORM RATIO 1.3 (0.9-1.1); Lipase 5 U/L (8-78); Potassium 4.1 mmol/L (3.3-5.1); Prothrombin Time 15.6 SEC (10.9-12.4); Sodium 131 mmol/L (135-145); Total Protein 7.4 g/dL (6.5-8.0)
[2024-08-31 14:27] LABS: SLIDE REVIEW VERIFIED; Troponin-I High Sensitivity 6.1 ng/L (<3.5-35.0)
[2024-08-31] MEDS: SODIUM CHLORIDE 3401.94 ML IV (14:28)
[2024-08-31] MEDS: metroNIDAZOLE/NS 500 MG/100 ML PIGGYBACK 100 MG IV (14:33)
[2024-08-31] MEDS: levoFLOXacin/D5W 500 MG/100 ML PIGGYBACK 100 MG IV (14:33)
[2024-08-31 15:13] LABS: Influenza A PCR NEGATIVE (Negative); Influenza B PCR NEGATIVE (Negative); Resp Syncy Virus RNA Qual PCR NEGATIVE (Negative); SARS COV2 PCR INHOUSE NEGATIVE (Negative)
[2024-08-31] MEDS: iohexoL 350 MG/ML 100 ML INFUS..BTL IV ×2 (15:52→16:57)
[2024-08-31 16:43] LABS: Appearance Urine Clear; Color Urine Yellow; Glucose Urine UA Negative (Negative); Leukocyte Esterase Urine Negative (Negative); Nitrite Urine Negative (Negative); UMIC TRIGGER UACC YES; Urine Blood Trace (Negative); Urine Ketones Negative (Negative); Urine Protein Negative (Neg-Trace)
[2024-08-31 16:45] LABS: Bacteria Urine None Seen (None Seen); Hyaline Casts Urine 0-2 /LPF (0-2); Squamous Epithelial Cell Urine 0-2 /HPF (0-2); WBC Urine 0-5 /HPF (0-5)
[2024-08-31 17:13] LABS: Partial Thromboplastin Time 37.5 SEC (26.0-36.8)
[2024-08-31] MEDS: Enoxaparin Sodium 120 MG/0.8 ML SYRINGE SUBCUT (17:52)
--- NOTE | 2024-08-31 18:27 | P.HPHOSP_ITS ---
History of Present Illness Date of Service: 08/31/24 Chief Complaint: ruq pain 64M PMH prostate ca in remission, mild intermittent asthma/copd, obesity, presented with ruq abdominal pain. Pain ongoing for several days, right upper quadrant also right shoulder, associated with bloating initially thought it was constipation. Has been worsening over last few days so came to ED. Patient denies fever, chills, weight loss, loss of appetite. In ED CT abdomen pelvis showed 4 cm pancreatic mass and liver hypodensities consistent with metastases. Also showed nonocclusive thrombus in the main portal vein. Review of Systems 2 Review of Systems: Yes all other systems are reviewed and are negative [facility] Medical History Positive colorectal cancer screening using Cologuard test (~07/23/24) Spinal stenosis Osteoarthritis Environmental allergies Nicotine dependence, cigarettes, uncomplicated Seasonal allergies Benign prostatic hyperplasia with lower urinary tract symptoms Nocturia Prostate cancer (~2018) Wrist fracture, right Traumatic rupture of left biceps tendon Family History Father Cancer Mother Cancer Surgical History Previous back surgery History of prostate biopsy History of surgery on arm (~2005) History of arthroplasty of right ankle Hx of shoulder surgery (~1981) Social History Housing: House Are you a primary resident care provider to a significant other at home: Yes (daughter, supportive ) Do you presently have visiting nurse or other home services: No Alcohol intake: never Patient Tobacco Use Status: Current everyday Tobacco user Tobacco use type: Cigarette Cigarettes Per Day: 8 Years Smoked: 35 e-Cigarette/Vaping Use: Never Used Second Hand Smoke Exposure: No Advance Directives: No Advance Directives Information Provided: Yes Current occupational status: retired Cognitive needs: No Hearing needs: No Vision needs: No Meds Allergies Allergy/AdvReac Type Severity Reaction Status Date / Time ampicillin Allergy Severe Anaphylaxis Verified 08/31/24 12:45 Penicillins Allergy Severe Anaphylaxis Verified 08/31/24 12:45 all cillins pineapple Allergy Severe Rash Verified 08/31/24 12:45 pseudoephedrine Allergy Severe anaphylaxis Verified 08/31/24 12:45 Sudafed Home Medications ?Medication ?Instructions ?Recorded ?Confirmed ?Last Taken ?Type fexofenadine 180 mg tablet 180 mg PO DAILY Allergy Symptoms 04/17/24 08/31/24 08/31/24 History fluticasone propionate 50 2 spray intranasal DAILY PRN 04/17/24 08/31/24 Unknown History mcg/actuation nasal Allergy Symptoms spray,suspension (Flonase Allergy Relief) tamsulosin 0.4 mg capsule 0.4 mg PO MOWEFR 04/17/24 08/31/24 08/30/24 History tramadol 50 mg tablet 50 mg PO BEDTIME PRN pain 08/31/24 08/31/24 Unknown History tramadol 50 mg tablet 50 mg PO DAILY@0900 pain 08/31/24 08/31/24 08/31/24 History Physical Exam 2 Vital Signs and Narrative: Vital Signs: Last Vital Signs Temp 99.4 F 08/31/24 15:58 Pulse 100 08/31/24 16:27 Resp 18 08/31/24 17:52 BP 131/72 08/31/24 16:27 Pulse Ox 93 08/31/24 16:27 O2 Del Method Nasal Cannula 08/31/24 16:27 O2 Flow Rate 2 08/31/24 16:27 BMI result Body Mass Index 33.9 General: AO X 3, no acute distress Resp: CTA bilateral, no accessory muscles used CVS: S1,S2,RRR GI: soft, non tender, non distended Neuro: motor grossly intact, alert Psych: appropriate affect, appropriate insight Results Labs 08/31/24 13:57 08/31/24 13:57 Labs: Laboratory Results - last 24 hr 08/31/24 08/31/24 13:57 16:31 MCV 82.8 MCH 29.7 MCHC 35.9 RDW 13.1 Plt Count 146 L MPV 9.4 Immature Gran % (Auto) 0.4 Neut % (Auto) 75.7 H Lymph % (Auto) 8.4 L [place] % (Auto) 14.8 H Eos % (Auto) 0.5 Baso % (Auto) 0.2 Lymph # (Auto) 1.4 [place] # (Auto) 2.4 H Eos # (Auto) 0.1 Baso # (Auto) 0.0 Abs Immat Gran (auto) 0.07 H Absolute Neuts (auto) 12.5 H Absolute Nucleated RBC 0.000 Nucleated RBC % (auto) 0.0 Smear Tech's Comments VERIFIED PT 15.6 H INR 1.3 H APTT 37.5 H Anion Gap 16 Estim Creat Clear Calc 121.1 Estimated GFR > 60 Random Glucose 108 Lactic Acid 0.7 Calcium 9.6 Total Bilirubin 2.7 H Direct Bilirubin 0.8 H AST 47 H ALT 24 Alkaline Phosphatase 91 Troponin I High Sens 6.1 Total Protein 7.4 Albumin 3.7 Lipase 5 L Urine Color Yellow Urine Appearance Clear Urine pH 7.0 Ur Specific [place] 1.020 Urine Protein Negative Urine Glucose (UA) Negative Urine Ketones Negative Urine Blood Trace H Urine Nitrite Negative Ur Leukocyte Esterase Negative Urine RBC 3-5 H Urine WBC 0-5 Ur Squamous Epith Cells 0-2 Urine Bacteria None Seen Hyaline Casts 0-2 Influenza Type A (PCR) NEGATIVE Influenza Type B (PCR) NEGATIVE RSV RNA Qual (PCR) NEGATIVE SARS-CoV-2 RNA (RT-PCR) NEGATIVE Imaging Radiologist's Impressions: Impressions Chest X-Ray 08/31/24 13:16 IMPRESSION: Prominent interstitial markings, nonspecific. Differential includes infection, edema, or emphysema. Electronically signed by: Dino Schneider DO 08/31/2024 03:24 PM EST RP Abdomen Ultrasound 08/31/24 13:42 IMPRESSION: 1. Hepatomegaly containing innumerable hypoechoic masses concerning for metastatic disease. 2. Hyperechoic filling defect in the main portal vein resulting in at least partial occlusion is concerning for bland versus tumor thrombus. Electronically signed by: Sharon Gamez MD 08/31/2024 03:58 PM EST RP Abdomen/Pelvis CTA 08/31/24 15:02 IMPRESSION: 1. Rounded masslike soft tissue in the pancreatic head measuring 3.9 cm and concerning for pancreatic neoplasm. Recommend pancreas protocol MRI with contrast for further evaluation for pancreatic mass. 2. Innumerable hypodense lesions throughout the liver consistent with metastatic disease. 3. Rounded nonocclusive thrombus in the main portal vein measuring 2.6 cm. This is favored represent bland thrombus as there is no appreciable enhancement between the arterial and venous phases. 4. Sclerotic lesion in the anterior sacrum measuring 1.1 cm, which is indeterminate. Electronically signed by: Avinash Olivarez MD 08/31/2024 04:16 PM EST RP Chest CT 08/31/24 16:37 IMPRESSION: 1. No evidence of pulmonary metastatic disease. 2. Single enlarged precarinal lymph node with fatty ramin which I doubt is pathologic. 3. Diffuse liver metastatic disease more completely imaged on the abdominal CT earlier today. Fleischner guidelines were followed. Electronically signed by: Carlos Mccallum MD 08/31/2024 05:52 PM EST RP Assessment and Plan (1) Liver masses: Status: Acute Plan 64M PMH prostate ca in remission, mild intermittent asthma/copd, obesity, presented with ruq abdominal pain Pancreatic mass with suspected liver metastasis Pain control, Oncology eval, IR for liver mass biopsy Portal vein thrombosis Therapeutic Lovenox Mild intermittent asthma/COPD Albuterol p.r.n. History of prostate CA In remission Continue Flomax DVT prophylaxis on therapeutic Lovenox Full Code Patient with new diagnosis of portal vein thrombosis and pancreatic mass will need at least 2 midnights inpatient to initiate anticoagulation and obtain liver biopsy Quality Stroke Does the patient have a stroke diagnosis?: No VTE Prior VTE?: No VTE Risk Level:: Medical - moderate - high VTE Device Contraindication: Treatment Not Indicated VTE Drug Contraindication: N/A - Med Ordered
--- NOTE | 2024-08-31 18:27 | PHA.MEDREC ---
Addendum entered by Abhilash Martínez RPh 08/31/24 18:30: Reviewed by [facility] Original Note: Pharmacy Consult ? Medication Reconciliation Pharmacy has completed the medication reconciliation. Spoke with patient to confirm medications. He takes tramadol daily scheduled and he will take an extra at bedtime as needed. His tamsulosin is 3 days/week right now MOWEFR.
--- NOTE | 2024-08-31 18:39 | P.CNHO_ITS ---
Subjective - Subjective Chief complaint: Consult for: 1. Pancreatic Mass, 2. Liver Mets. Patient: new to practice Consult date: 08/31/24 Requesting Physician: Kwesi. Primary Care Provider: Nelson Silva MD Family Provider: Jud. Medical Summary: DIAGNOSIS: 1. Pancretic Mass. 2. Liver Lesions. HPI - Consult Narrative Reason for consult: Conult for: 1. Pancreatic mass. 2. Liver Lesions. Narrative: Yassine Reveles is a 64 year old gentleman,with H/O prostate cancer, presented to the emergency department with complaints of right upper quadrant pain and right scapula/shoulder pain ongoing for the past 3-4 days acutely worsening over the past 2 days. Patient reports pain is severe, sharp and stabbing. He feels it under his ribcage at times pain is so bad he feels short of breath. He still has his gallbladder. He reports this is the most uncomfortable he has ever been. Denies fevers, chills, nausea, vomiting, changes in bowel habits, headache, vision changes, dizziness, weakness, chest pain. CxR: Prominent interstitial markings, nonspecific. Differential includes infection, edema, or emphysema. U/S of abdomen: 1. Hepatomegaly containing innumerable hypoechoic masses concerning for metastatic disease. 2. Hyperechoic filling defect in the main portal vein resulting in at least partial occlusion is concerning for bland versus tumor thrombus. Cat scan of abdomen: 1. Rounded masslike soft tissue in the pancreatic head measuring 3.9 cm and concerning for pancreatic neoplasm. Recommend pancreas protocol MRI with contrast for further evaluation for pancreatic mass. 2. Innumerable hypodense lesions throughout the liver consistent with metastatic disease. 3. Rounded nonocclusive thrombus in the main portal vein measuring 2.6 cm. This is favored represent bland thrombus as there is no appreciable enhancement between the arterial and venous phases. 4. Sclerotic lesion in the anterior sacrum measuring 1.1 cm, which is indeterminate. CTA of chest: 1. No evidence of pulmonary metastatic disease. 2. Single enlarged precarinal lymph node with fatty ramin which I doubt is pathologic. 3. Diffuse liver metastatic disease more completely imaged on the abdominal CT earlier today. Medical History: History of hypertension, erectile dysfunction, sciatica, hyperlipidemia, nicotine dependence. Positive colorectal cancer screening using Cologuard test (~07/23/24) Spinal stenosis Osteoarthritis Environmental allergies Nicotine dependence, cigarettes, uncomplicated Seasonal allergies Benign prostatic hyperplasia with lower urinary tract symptoms Nocturia Prostate cancer (~2019) Wrist fracture, right Traumatic rupture of left biceps tendon Surgical History: Previous back surgery History of prostate biopsy History of surgery on arm (~2005) History of arthroplasty of right ankle Hx of shoulder surgery (~1981) Family History: Father Cancer of prostate. Grand pa with Prostate cancer. Mother Lymphoma. 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 Has 4 kids. Housing: House 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er development coordinator to a significant other at home: Yes (daughter, supportive ) Do you presently have visiting nurse or other home services: No Alcohol intake: Went through alcohol rehab 28 years ago. Patient Tobacco Use Status: Current everyday Tobacco user. ROS: Yassine has been feeling tired for about a week or so. No fever, chills nor night sweats, apetite has not been good, he has lost weight. No ARMANDO, nor dizziness. No CP, has been SOB. C/O RUQ pain, andnausea, no vomiting, bowels are constipated, No previous colonoscopy, recent cologaurd was positive. Appt with GI on 09/23. No dysuria nor hematuria. No jt pains. No focal weakness. H/O radiculopathy in neck and back, sees Dr. Wolfe. No rashes nor pruritis. [facility] Medical History: Medical History (Last Reviewed 09/09/24 @ 11:22 by Dorys Samaniego) Benign prostatic hyperplasia with lower urinary tract symptoms Environmental allergies Nicotine dependence, cigarettes, uncomplicated Nocturia Osteoarthritis Pancreatic tumor Positive colorectal cancer screening using Cologuard test Onset Date: ~07/23/24 Prostate cancer Onset Date: ~2019 Seasonal allergies Spinal stenosis Traumatic rupture of left biceps tendon Wrist fracture, right Family History: Family History (Last Reviewed 09/09/24 @ 11:22 by Dorys Samaniego) Father Cancer Mother Cancer Surgical History: Surgical History (Last Reviewed 09/09/24 @ 11:22 by Dorys Samaniego) History of arthroplasty of right ankle History of liver biopsy History of prostate biopsy History of surgery on arm Onset Date: ~2005 Hx of shoulder surgery Onset Date: ~1981 Previous back surgery Social History: Social History (Last Updated 09/09/24 @ 11:22 by Dorys Samaniego) Living Situation History: Household Members: Spouse Housing: House 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er development coordinator to a significant other at home: Yes 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er development coordinator to a significant other at home comment: daughter, supportive Do you presently have visiting nurse or other home services: No Alcohol History Details: 1. How often do you have a drink containing alcohol?: a. Never Tobacco History: Patient Tobacco Use Status: Current everyday Tobacco Tobacco use type: Cigarette Cigarette Packs Per Day: 0.5 Years Smoked: 35 e-Cigarette/Vaping Use: Never Used Second Hand Smoke Exposure: Yes Substance Use History: Use of substances other than those prescribed or required for medical reasons : No Domestic Abuse History: Have you been hit, kicked, punched, or otherwise hurt by someone within the past year? If so, by whom?: No Do you feel safe in your current relationship?: Yes Homicidal Assessment: Do you have thoughts of harming others: None Do you have a plan to hurt others: No Plan Nutrition Assessment: Patient : No Occupation Assessmet: service: No Current occupational status: retired Home Medications and Allergies Current Medications: Current Medications Acetaminophen (Acetaminophen 325 Mg Tablet) 650 mg PO Q6H PRN PRN Reason: Pain, Mild (Pain Scale 1-3), fever or headache Albuterol Sulfate (Albuterol Sulfate 90 Mcg 8 Gm Inhaler) 1 puff INHALE QID PRN PRN Reason: shortness of breath or wheezing Calcium Carbonate (Calcium Carbonate 750 Mg Tab.Chew) 750 mg PO Q4H PRN PRN Reason: Heartburn Enoxaparin Sodium (Enoxaparin Sodium 100 Mg/Ml Syringe) 100 mg SUBCUT Q12H ALBIN Loratadine (Loratadine 10 Mg Tablet) 10 mg PO DAILY ALBIN Magnesium Hydroxide (Milk Of Magnesia 30 Ml Oral.Susp) 30 ml PO DAILY PRN PRN Reason: Constipation Melatonin (Melatonin 3 Mg Tablet) 6 mg PO BEDTIME PRN PRN Reason: Insomnia Oxycodone HCl (Oxycodone Hcl Immed Release 5 Mg Tablet) 5 mg PO Q6H PRN PRN Reason: Pain, Moderate(Pain Scale 4-6) Sodium Chloride (0.9 % Sodium Chloride Flush 3 Ml Syringe) 3 ml IVFLUSH QSHIFT [facility] Tamsulosin HCl (Tamsulosin Hcl 0.4 Mg Capsule) 0.4 mg PO MoWeFr@0900 ALBIN Tramadol HCl (Tramadol Hcl 50 Mg Tablet) 50 mg PO BEDTIME PRN PRN Reason: Pain, Moderate(Pain Scale 4-6) Tramadol HCl (Tramadol Hcl 50 Mg Tablet) 50 mg PO DAILY@0900 [facility] Home Medications ?Medication ?Instructions ?Recorded ?Confirmed ?Type fexofenadine 180 mg tablet 180 mg PO DAILY Allergy Symptoms 04/17/24 09/09/24 History fluticasone propionate 50 2 spray intranasal DAILY PRN 04/17/24 09/09/24 History mcg/actuation nasal Allergy Symptoms spray,suspension (Flonase Allergy Relief) tamsulosin 0.4 mg capsule 0.4 mg PO MOWEFR 04/17/24 09/09/24 History tramadol 50 mg tablet 50 mg PO DAILY@0900 pain 08/31/24 09/09/24 History Allergies Allergy/AdvReac Type Severity Reaction Status Date / Time ampicillin Allergy Severe Anaphylaxis Verified 09/09/24 11:23 Penicillins Allergy Severe Anaphylaxis Verified 09/09/24 11:23 all cillins pineapple Allergy Severe Rash Verified 09/09/24 11:23 pseudoephedrine Allergy Severe anaphylaxis Verified 09/09/24 11:23 Sudafed Physical Exam Vital signs: Vital Signs Temp 99.4 F 08/31/24 15:58 Pulse 100 08/31/24 16:27 Resp 18 08/31/24 17:52 BP 131/72 08/31/24 16:27 Pulse Ox 93 08/31/24 16:27 O2 Del Method Nasal Cannula 08/31/24 16:27 O2 Flow Rate 2 08/31/24 16:27 Intake & Output 08/30/24 08/31/24 08/31/24 18:59 06:59 18:59 Intake Total 3601.94 / 3601.94 Balance 3601.94 / 3601.94 Intake: Intake, IV Amount 3601.94 / 3601.94 0.9 % Sodium Chloride 3,401.94 3401.94 / 3401.94 ml @ 3401.94 mls/hr IV .Q1H STA Rx#:[id number] levoFLOXacin/D5W 500 mg In 100 100 / 100 ml @ 100 mls/hr IV ONCE ONE Rx# :[id number] metroNIDAZOLE/NS 500 mg In 100 100 / 100 ml @ 100 mls/hr IV ONCE ONE Rx# :[id number] Other: Weight 113.398 kg Weight 113.398 kg Hem/Onc Consult Result - Labs CBC & Chem 7: 09/01/24 05:42 09/01/24 05:42 Labs: Short CBC 08/31/24 Range/Units 13:57 WBC 16.5 H (4.8-10.8) X10*3/uL Hgb 14.9 (14.0-18.0) g/dl Hct 41.5 L (42.0-52.0) % Plt Count 146 L (160-400) X10*3/uL BMP 08/31/24 13:57 Sodium 131 L Potassium 4.1 Chloride 99 Carbon Dioxide 20 L BUN 10 Creatinine 0.78 Calcium 9.6 Liver Function 08/31/24 Range/Units 13:57 Total Bilirubin 2.7 H (0.0-1.0) mg/dL Direct Bilirubin 0.8 H (0.0-0.5) mg/dL AST 47 H (5-37) U/L ALT 24 (0-40) U/L Alkaline Phosphatase 91 (39-117) U/L Albumin 3.7 (3.5-5.0) g/dL Urine 08/31/24 Range/Units 16:31 Urine Color Yellow Urine Appearance Clear Urine pH 7.0 (5.0-9.0) Ur Specific [place] 1.020 (1.005-1.025) Urine Protein Negative (Neg-Trace) mg/dL Urine Glucose (UA) Negative (Negative) mg/dL Assessment and Plan Patient Active problem list reviewed?: Yes (1) Pancreatic mass Status: Acute Assessment and plan: 64 year old gentleman presents with RUQ abdominal pain. DATA BASE: LFTs: 2.7/91/47/24. CEA: 3.40. Cat scan of abdomen: 1. Rounded masslike soft tissue in the pancreatic head measuring 3.9 cm and concerning for pancreatic neoplasm. Recommend pancreas protocol MRI with contrast for further evaluation for pancreatic mass. 2. Innumerable hypodense lesions throughout the liver consistent with metastatic disease. 3. Rounded nonocclusive thrombus in the main portal vein measuring 2.6 cm. This is favored represent bland thrombus as there is no appreciable enhancement between the arterial and venous phases. 4. Sclerotic lesion in the anterior sacrum measuring 1.1 cm, which is indeterminate. CTA of chest: 1. No evidence of pulmonary metastatic disease. 2. Single enlarged precarinal lymph node with fatty ramin which I doubt is pathologic. 3. Diffuse liver metastatic disease more completely imaged on the abdominal CT earlier today. IMPRESSION: Pancreatic mass with suspected liver metastasis. Portal vein thrombosis. PLAN: Will undergo biopsy of the liver mass under IR guidance. Meanwhile institute pain control. He is on Oxycodone. Wants to try that first before Morphine. If he has Adenocarcinoma of Pancreas, he can be offered palliative systemic chemotherapy with FOLFIRINOX. Alternative would be Gemzar/Abraxane. Will arrange for a portacath placement. Therapeutic Lovenox for the PVT. Thanks, CC: Dr. Silva. Addendum: He turned out to have a neuroendocrine tumor. Was referred to [facility] for liver directed therapy. - Time Spent With Patient Time Spent with Patient (in minutes): 30
[2024-08-31 18:55] LABS: Prostate Specific Antigen < 0.10 ng/mL (<0.05-4.0)
[2024-08-31] MEDS: gadobutroL 10 ML VIAL IVPUSH (19:00)
[2024-08-31] MEDS: oxyCODONE HCl Immed Release 5 MG TABLET PO (22:34)
[2024-08-31] MEDS: Nicotine 14 MG PATCH.TD24 TRANSDERMA (23:53)
[2024-09-01 03:20] VITALS: BP 107/53; PULSE 81; RESP 18; TEMP 36.5; O2SAT 94
[2024-09-01] MEDS: oxyCODONE HCl Immed Release 5 MG TABLET PO ×3 (06:20→17:32)
[2024-09-01] MEDS: Enoxaparin Sodium 100 MG/ML SYRINGE SUBCUT (06:21)
[2024-09-01 07:39] LABS: Hematocrit 37.7 % (42.0-52.0); Hemoglobin 13.1 g/dl (14.0-18.0); Mean Corpuscular HGB Conc 34.7 g/dl (31.0-36.0); Mean Corpuscular Hemoglobin 29.6 pg (27.0-33.0); Mean Corpuscular Volume 85.3 fL (80.0-98.0); Mean Platelet Volume 10.6 fL (9.4-12.4); Platelet Count 123 X10*3/uL (160-400); Red Blood Count 4.42 X10*6/uL (4.60-5.80); Red Cell Distribution Width 13.2 % (11.0-16.0); White Blood Count 12.3 X10*3/uL (4.8-10.8)
[2024-09-01 07:56] LABS: Alanine Aminotransferase 17 U/L (0-40); Albumin Level 3.3 g/dL (3.5-5.0); Alkaline Phosphatase 80 U/L (39-117); Anion Gap 15 (12-20); Aspartate Amino Transferase 28 U/L (5-37); Bilirubin Direct 0.5 mg/dL (0.0-0.5); Bilirubin Total 1.4 mg/dL (0.0-1.0); Blood Urea Nitrogen 11 mg/dL (9-16); Carbon Dioxide 21 mmol/L (22-29); Chloride 102 mmol/L (96-108); Creatinine Clr Calc Pharmacy 125.9; Estimated Glomerular Filt Rate > 60; Glucose Fasting 96 mg/dL (60-99); Potassium 3.9 mmol/L (3.3-5.1); Sodium 134 mmol/L (135-145); Total Protein 6.6 g/dL (6.5-8.0)
[2024-09-01 08:00] VITALS: BP 135/77; PULSE 84; RESP 17; TEMP 36.2; O2SAT 94
[2024-09-01] MEDS: traMADoL HCL 50 MG TABLET PO ×2 (08:33→23:44)
[2024-09-01] MEDS: Loratadine 10 MG TABLET PO (08:33)
[2024-09-01] MEDS: 0.9 % Sodium Chloride Flush 3 ML SYRINGE IVFLUSH ×3 (08:33→21:02)
--- NOTE | 2024-09-01 08:51 | P.PNIM_ITS ---
Subjective Subjective Date of Service: 09/01/24 Interval History: pain decently controlled with oxycodone Physical Exam 2 Vital Signs: Vital Signs: Last Vital Signs Temp 97.1 F 09/01/24 08:00 Pulse 84 09/01/24 08:00 Resp 17 09/01/24 08:00 BP 135/77 09/01/24 08:00 Pulse Ox 94 09/01/24 08:00 O2 Del Method Room Air 09/01/24 08:00 O2 Flow Rate 2 08/31/24 16:27 BMI result Body Mass Index 33.9 General: AO X 3, no acute distress Resp: CTA bilateral, no accessory muscles used CVS: S1,S2,RRR GI: soft, non tender, non distended Neuro: motor grossly intact, alert Psych: appropriate affect, appropriate insight Objective Data Active Medications Acetaminophen (Acetaminophen 325 Mg Tablet) 650 mg PO Q6H PRN PRN Reason: Pain, Mild (Pain Scale 1-3), fever or headache Albuterol Sulfate (Albuterol Sulfate 90 Mcg 8 Gm Inhaler) 1 puff INHALE QID PRN PRN Reason: shortness of breath or wheezing Calcium Carbonate (Calcium Carbonate 750 Mg Tab.Chew) 750 mg PO Q4H PRN PRN Reason: Heartburn Enoxaparin Sodium (Enoxaparin Sodium 100 Mg/Ml Syringe) 100 mg SUBCUT Q12H [facility] Last Admin: 09/01/24 06:21 Dose: 100 mg Documented By: EHSAN Loratadine (Loratadine 10 Mg Tablet) 10 mg PO DAILY [facility] Last Admin: 09/01/24 08:33 Dose: 10 mg Documented By: TON Magnesium Hydroxide (Milk Of Magnesia 30 Ml Oral.Susp) 30 ml PO DAILY PRN PRN Reason: Constipation Melatonin (Melatonin 3 Mg Tablet) 6 mg PO BEDTIME PRN PRN Reason: Insomnia Nicotine (Nicotine 14 Mg Patch.Td24) 14 mg TRANSDERMA DAILY [facility] Last Admin: 08/31/24 23:53 Dose: 14 mg Documented By: EHSAN Oxycodone HCl (Oxycodone Hcl Immed Release 5 Mg Tablet) 5 mg PO Q6H PRN PRN Reason: Pain, Moderate(Pain Scale 4-6) Last Admin: 09/01/24 06:20 Dose: 5 mg Documented By: HO.NATALSA Sodium Chloride (0.9 % Sodium Chloride Flush 3 Ml Syringe) 3 ml IVFLUSH QSHIFT [facility] Last Admin: 09/01/24 08:33 Dose: 3 ml Documented By: TON Tamsulosin HCl (Tamsulosin Hcl 0.4 Mg Capsule) 0.4 mg PO MoWeFr@0900 [facility] Tramadol HCl (Tramadol Hcl 50 Mg Tablet) 50 mg PO BEDTIME PRN PRN Reason: Pain, Moderate(Pain Scale 4-6) Tramadol HCl (Tramadol Hcl 50 Mg Tablet) 50 mg PO DAILY@0900 [facility] Last Admin: 09/01/24 08:33 Dose: 50 mg Documented By: TON Labs 09/01/24 05:42 09/01/24 05:42 Labs: Laboratory Results - last 24 hr 08/31/24 08/31/24 08/31/24 13:57 16:31 18:01 MCV 82.8 MCH 29.7 MCHC 35.9 RDW 13.1 Plt Count 146 L MPV 9.4 Immature Gran % (Auto) 0.4 Neut % (Auto) 75.7 H Lymph % (Auto) 8.4 L Schuyler % (Auto) 14.8 H Eos % (Auto) 0.5 Baso % (Auto) 0.2 Lymph # (Auto) 1.4 Schuyler # (Auto) 2.4 H Eos # (Auto) 0.1 Baso # (Auto) 0.0 Abs Immat Gran (auto) 0.07 H Absolute Neuts (auto) 12.5 H Absolute Nucleated RBC 0.000 Nucleated RBC % (auto) 0.0 Smear Tech's Comments VERIFIED PT 15.6 H INR 1.3 H APTT 37.5 H Anion Gap 16 Estim Creat Clear Calc 121.1 Estimated GFR > 60 Random Glucose 108 Fasting Glucose Lactic Acid 0.7 Calcium 9.6 Magnesium Total Bilirubin 2.7 H Direct Bilirubin 0.8 H AST 47 H ALT 24 Alkaline Phosphatase 91 Troponin I High Sens 6.1 Total Protein 7.4 Albumin 3.7 Lipase 5 L Carcinoembryonic Ag 3.40 Prostate Specific Ag < 0.10 Urine Color Yellow Urine Appearance Clear Urine pH 7.0 Ur Specific Bradley 1.020 Urine Protein Negative Urine Glucose (UA) Negative Urine Ketones Negative Urine Blood Trace H Urine Nitrite Negative Ur Leukocyte Esterase Negative Urine RBC 3-5 H Urine WBC 0-5 Ur Squamous Epith Cells 0-2 Urine Bacteria None Seen Hyaline Casts 0-2 Influenza Type A (PCR) NEGATIVE Influenza Type B (PCR) NEGATIVE RSV RNA Qual (PCR) NEGATIVE SARS-CoV-2 RNA (RT-PCR) NEGATIVE 09/01/24 05:42 MCV 85.3 MCH 29.6 MCHC 34.7 RDW 13.2 Plt Count 123 L MPV 10.6 Immature Gran % (Auto) Neut % (Auto) Lymph % (Auto) Schuyler % (Auto) Eos % (Auto) Baso % (Auto) Lymph # (Auto) Schuyler # (Auto) Eos # (Auto) Baso # (Auto) Abs Immat Gran (auto) Absolute Neuts (auto) Absolute Nucleated RBC 0.000 Nucleated RBC % (auto) 0.0 Smear Tech's Comments PT INR APTT Anion Gap 15 Estim Creat Clear Calc 125.9 Estimated GFR > 60 Random Glucose Fasting Glucose 96 Lactic Acid Calcium 9.0 D Magnesium 2.0 Total Bilirubin 1.4 H Direct Bilirubin 0.5 AST 28 ALT 17 Alkaline Phosphatase 80 Troponin I High Sens Total Protein 6.6 Albumin 3.3 L Lipase Carcinoembryonic Ag Prostate Specific Ag Urine Color Urine Appearance Urine pH Ur Specific Bradley Urine Protein Urine Glucose (UA) Urine Ketones Urine Blood Urine Nitrite Ur Leukocyte Esterase Urine RBC Urine WBC Ur Squamous Epith Cells Urine Bacteria Hyaline Casts Influenza Type A (PCR) Influenza Type B (PCR) RSV RNA Qual (PCR) SARS-CoV-2 RNA (RT-PCR) Assessment and Plan (1) Portal vein thrombosis: Status: Acute Plan 64M PMH prostate ca in remission, mild intermittent asthma/copd, obesity, presented with ruq abdominal pain Pancreatic mass with suspected liver metastasis Oncology appreciated IR for liver mass biopsy Portal vein thrombosis Therapeutic Lovenox (hold tonight for biopsy) Mild intermittent asthma/COPD Albuterol p.r.n. History of prostate CA In remission Continue Flomax DVT prophylaxis on therapeutic Lovenox Full Code reason for continued hospitalization:biopsy pending Quality Stroke Does the patient have a stroke diagnosis?: No VTE Prior VTE?: No VTE Risk Level:: Medical - moderate - high VTE Device Contraindication: Treatment Not Indicated VTE Drug Contraindication: N/A - Med Ordered
--- NOTE | 2024-09-01 09:24 | MHC.CM.PN ---
Addendum entered by Shanti Muñiz 09/01/24 13:00: HCP COMPLETED NAMING PTS , DEE, HIS AGENT. NOW ON FILE Original Note: PT REPORTS HE LIVES AT HOME WITH HIS AND KIDS HE IS INDEPENDENT WITH CARE AND MOBILITY HE HAS NO SERVICES OR DME HE IS UNSURE IF HE HAS A HCP, CM WILL CHECK WITH PTS WHEN SHE ARRIVES PCP: DELLA GUPTA DCP: HOME VIA PRIVATE TRANSPORT
[2024-09-01 16:00] VITALS: BP 137/89; PULSE 87; RESP 16; TEMP 36.6; O2SAT 94
[2024-09-01] MEDS: Acetaminophen 325 MG TABLET 650 MG PO (17:16)
[2024-09-01 19:21] VITALS: BP 124/74; PULSE 83; RESP 18; TEMP 36.2; O2SAT 95
[2024-09-01] MEDS: Milk of Magnesia 30 ML ORAL.SUSP PO (21:15)
[2024-09-02 04:00] VITALS: BP 128/79; PULSE 68; RESP 16; TEMP 36.2; O2SAT 95
[2024-09-02] MEDS: oxyCODONE HCl Immed Release 5 MG TABLET PO ×2 (06:29→13:57)
--- NOTE | 2024-09-02 06:29 | PC.NURSE ---
Per pt request oxycodone given per DEC for 06/01 pain.
[2024-09-02 07:22] VITALS: BP 127/59; PULSE 68; RESP 20; TEMP 36.3; O2SAT 95
--- NOTE | 2024-09-02 09:12 | HO.PM.IMPN ---
Subjective Subjective Date of Service: 09/02/24 Interval History: pain decently controlled with oxycodone Physical Exam Vital Signs: Vital Signs: Last Vital Signs Temp 97.4 F 09/02/24 07:22 Pulse 68 09/02/24 07:22 Resp 20 09/02/24 07:22 BP 127/59 L 09/02/24 07:22 Pulse Ox 95 09/02/24 07:22 O2 Del Method Room Air 09/02/24 07:22 O2 Flow Rate 2 08/31/24 16:27 BMI result Body Mass Index 33.9 General: AO X 3, no acute distress Resp: CTA bilateral, no accessory muscles used CVS: S1,S2,RRR GI: soft, non tender, non distended Neuro: motor grossly intact, alert Psych: appropriate affect, appropriate insight Objective Data Active Medications Acetaminophen (Acetaminophen 325 Mg Tablet) 650 mg PO Q6H PRN PRN Reason: Pain, Mild (Pain Scale 1-3), fever or headache Last Admin: 09/01/24 17:16 Dose: 650 mg Documented By: TON Albuterol Sulfate (Albuterol Sulfate 90 Mcg 8 Gm Inhaler) 1 puff INHALE QID PRN PRN Reason: shortness of breath or wheezing Calcium Carbonate (Calcium Carbonate 750 Mg Tab.Chew) 750 mg PO Q4H PRN PRN Reason: Heartburn Enoxaparin Sodium (Enoxaparin Sodium 100 Mg/Ml Syringe) 100 mg SUBCUT Q12H [facility] Last Admin: 09/01/24 06:21 Dose: 100 mg Documented By: EHSAN Loratadine (Loratadine 10 Mg Tablet) 10 mg PO DAILY [facility] Last Admin: 09/01/24 08:33 Dose: 10 mg Documented By: TON Magnesium Hydroxide (Milk Of Magnesia 30 Ml Oral.Susp) 30 ml PO DAILY PRN PRN Reason: Constipation Last Admin: 09/01/24 21:15 Dose: 30 ml Documented By: PALLAVI Melatonin (Melatonin 3 Mg Tablet) 6 mg PO BEDTIME PRN PRN Reason: Insomnia Nicotine (Nicotine 14 Mg Patch.Td24) 14 mg TRANSDERMA DAILY [facility] Last Admin: 08/31/24 23:53 Dose: 14 mg Documented By: EHSAN Oxycodone HCl (Oxycodone Hcl Immed Release 5 Mg Tablet) 5 mg PO Q4H PRN PRN Reason: Pain, Moderate(Pain Scale 4-6) Last Admin: 09/02/24 06:29 Dose: 5 mg Documented By: PALLAVI Sodium Chloride (0.9 % Sodium Chloride Flush 3 Ml Syringe) [facility] Last Admin: 09/01/24 21:02 Dose: 3 ml Documented By: PALLAVI Tamsulosin HCl (Tamsulosin Hcl 0.4 Mg Capsule) 0.4 mg PO MoWeFr@0900 [facility] Tramadol HCl (Tramadol Hcl 50 Mg Tablet) 50 mg PO BEDTIME PRN PRN Reason: Pain, Moderate(Pain Scale 4-6) Last Admin: 09/01/24 23:44 Dose: 50 mg Documented By: PALLAVI Tramadol HCl (Tramadol Hcl 50 Mg Tablet) 50 mg PO DAILY@0900 [facility] Last Admin: 09/01/24 08:33 Dose: 50 mg Documented By: TON Labs 09/01/24 05:42 09/01/24 05:42 Microbiology Microbiology Results: Microbiology 08/31/24 14:29 Blood Culture - Preliminary Blood - Venous No growth after 24 hours. 08/31/24 13:57 Blood Culture - Preliminary Blood - Venous No growth after 24 hours. Assessment and Plan (1) Portal vein thrombosis: Status: Acute Plan 64M PMH prostate ca in remission, mild intermittent asthma/copd, obesity, presented with ruq abdominal pain Pancreatic mass with suspected liver metastasis Oncology appreciated IR for liver mass biopsy today Portal vein thrombosis Therapeutic Lovenox on hold for biopsy, like doac on discharge Mild intermittent asthma/COPD Albuterol p.r.n. History of prostate CA In remission Continue Flomax DVT prophylaxis on therapeutic Lovenox Full Code reason for continued hospitalization:biopsy pending Quality Stroke Does the patient have a stroke diagnosis?: No VTE Prior VTE?: No VTE Risk Level:: Medical - moderate - high VTE Device Contraindication: Treatment Not Indicated VTE Drug Contraindication: N/A - Med Ordered
[2024-09-02] MEDS: 0.9 % Sodium Chloride Flush 3 ML SYRINGE IVFLUSH (09:54)
[2024-09-02] MEDS: Tamsulosin HCL 0.4 MG CAPSULE PO (09:55)
[2024-09-02] MEDS: Loratadine 10 MG TABLET PO (09:55)
[2024-09-02] MEDS: traMADoL HCL 50 MG TABLET PO (09:55)
[2024-09-02] MEDS: Nicotine 14 MG PATCH.TD24 TRANSDERMA (09:55)
--- NOTE | 2024-09-02 11:23 | PM.DS ---
DS: Providers Provider Date of Service: 09/02/24 Date of admission: 08/31/24 18:26 Date of discharge: 09/02/24 Primary care physician: Nelson Silva MD Consults: 08/31/24 18:25 Consult to Hematology / Oncology Routine Consulting Provider: [facility] [place]ology Reason for consultation: new panc mass and liver mets DS: Diagnosis Discharge Diagnosis (1) Portal vein thrombosis: Status: Acute DS: Summary Hospital Course Hospital Course: from initial hpi: 64M PMH prostate ca in remission, mild intermittent asthma/copd, obesity, presented with ruq abdominal pain. Pain ongoing for several days, right upper quadrant also right shoulder, associated with bloating initially thought it was constipation. Has been worsening over last few days so came to ED. Patient denies fever, chills, weight loss, loss of appetite. In ED CT abdomen pelvis showed 4 cm pancreatic mass and liver hypodensities consistent with metastases. Also showed nonocclusive thrombus in the main portal vein. hospital course: Patient was admitted for right upper quadrant pain due to pancreatic mass with suspected liver metastases. He was put on oxycodone and pain became better controlled. He was seen by Oncology recommended biopsy of liver lesion which will be done on 09/03/2024. He will follow up with Oncology as outpatient. For portal vein thrombosis was started on therapeutic Lovenox which is now on hold for biopsy and will be started on Eliquis after biopsy. For mild intermittent asthma/COPD he was stable on albuterol. For history of prostate CA he remains in remission and was continued on Flomax. Time Attestation Discharge Coordination Time (in mins): 36 Quality: Safe Use of Opioids Does Pt have an Active Cancer Diagnosis on the Problem List?: Yes Opioid Measure Date for [facility] Report: 08/03/24 Opioid Measure Time for [facility] Report: 11:23 Quality: Stroke Does the patient have a stroke diagnosis?: No Physical Exam Vital Signs: Vital Signs: Last Vital Signs Temp 97.4 F 09/02/24 07:22 Pulse 68 09/02/24 07:22 Resp 20 09/02/24 07:22 BP 127/59 L 09/02/24 07:22 Pulse Ox 95 09/02/24 07:22 O2 Del Method Room Air 09/02/24 07:22 O2 Flow Rate 2 08/31/24 16:27 BMI result Body Mass Index 33.9 General: AO X 3, no acute distress Resp: CTA bilateral, no accessory muscles used CVS: S1,S2,RRR GI: soft, non tender, non distended Neuro: motor grossly intact, alert Psych: appropriate affect, appropriate insight DS: Data Data Completed and Pending Labs on day of discharge: Preliminary micro results at discharge 08/31/24 14:29 Blood Culture - Preliminary Blood - Venous No growth after 24 hours. 08/31/24 13:57 Blood Culture - Preliminary Blood - Venous No growth after 24 hours. Discharge Plan Discharge Anticipated Discharge Date/Time: 09/02/24 11:17 Patient Disposition: Home, Self-Care Discharge Diagnosis: pancreatic mass with liver metastases, portal vein thrombosus Referrals: Rudi Shelton MD [Physician] - 1 Week Nelson Silva MD [Primary Care Provider] - 1 Week Discharge Medications: New oxycodone 5 mg Tablet 5 mg PO Q4H PRN (Reason: Pain, Moderate(Pain Scale 4-6)) Qty: 60 0RF Rx Instructions: Partial Fill upon patient request. apixaban 5 mg tablet 5 mg PO BID Qty: 180 0RF polyethylene glycol 3350 [Miralax] 17 gram/dose powder 17 g PO DAILY Qty: 238 0RF Continued albuterol sulfate 90 mcg/actuation HFA aerosol inhaler 1 inh inhalation QID PRN (Reason: shortness of breath or wheezing) Qty: 6.7 1RF tadalafil 10 mg tablet 10 mg PO DAILY 90 Days Qty: 90 1RF tramadol 50 mg tablet 50 mg PO BEDTIME PRN (Reason: pain) tramadol 50 mg tablet 50 mg PO DAILY@0900 fexofenadine 180 mg Tablet 180 mg PO DAILY fluticasone propionate [Flonase Allergy Relief] 50 mcg/actuation [place],Suspension 2 spray INTRANASAL DAILY PRN (Reason: Allergy Symptoms) Rx Instructions: administer into each nostril tamsulosin 0.4 mg capsule 0.4 mg PO MOWEFR clotrimazole 1 % cream 1 appl topical BID 14 Days Qty: 30 1RF Discharge Orders: Discharge Order (Routine); Ordered 09/02/24 Ordered By: Filippo Orosco Diet: npo after midnight tonigh Activity on Discharge: As tolerated Stand Alone Forms: Patient Portal Discharge page Print Language: Estonian Care Plan Goals: work up pancreatic mass and liver lesions, manage portal vein thrombosis, manage pain Health Concerns: pancreatic mass with liver lesions, portal vein thrombosis, pain Plan of Treatment: npo after midnight, come for appointment with IR for biopsy tomorrow (arrive at 10am, scheduled for 11:15am), dont start eliquis for the portal vein thrombosis until after biopsy follow up with dr elana jones for pain control and laxative to prevent opiate induced constipation Assessment: see above
--- NOTE | 2024-09-02 11:50 | MHC.CM.PN ---
PT DCD HOME SELF CARE
[2024-09-03 12:33] LABS: Carbohydrate Antigen 19-9 5 U/mL (<34)
== END 2024-09-02 14:10 | disposition home or self-care (01) | DRG 281 ==
LOC: HO.ED 18:04 → HO.EDOVER 18:34 → HO.S3 21:11
PROVIDERS: Nurse Practitioner Family; Physician Assistant; Admitting Provider Internal Medicine; Emergency Provider Emergency Medicine; PCP Internal Medicine; Visit Provider Internal Medicine
DX: C25.0 Malignant neoplasm of head of pancreas (principal); I81 Portal vein thrombosis; C78.7 Secondary malignant neoplasm of liver and intrahepatic bile duct; C61 Malignant neoplasm of prostate; F17.210 Nicotine dependence, cigarettes, uncomplicated; E78.5 Hyperlipidemia, unspecified; J45.20 Mild intermittent asthma, uncomplicated; E66.9 Obesity, unspecified; J44.9 Chronic obstructive pulmonary disease, unspecified; Z20.822 Contact with and (suspected) exposure to COVID-19; Z71.6 Tobacco abuse counseling; Z68.33 Body mass index [BMI] 33.0-33.9, adult; Z79.899 Other long term (current) drug therapy
CPT/HCPCS: 0241U; 36415; 71046; 71260; 74174; 74183; 76705; 80048; 80076; 81001; 82378; 83605; 83690; 83735; 84153; 84484; 85025; 85027; 85610; 85730; 86301; 86850; 86900; 86901; 87040; 93005; 99285; A9585; J1650; J1836; J1956; J2270; J2405; Q9967

== ENCOUNTER → 2024-08-31 12:49 | Outpatient (BNV) | payer OTHER, SELFPAY | PROVIDERS: Admitting Provider Internal Medicine; Emergency Provider Emergency Medicine; PCP Internal Medicine; Visit Provider Internal Medicine Cardiovascular Disease | DX: R10.9 Unspecified abdominal pain (principal) | CPT/HCPCS: 93010 ==

== ENCOUNTER → 2024-08-31 18:26 | Outpatient (BNV) | payer OTHER, SELFPAY | PROVIDERS: Admitting Provider Internal Medicine; Emergency Provider Emergency Medicine; PCP Internal Medicine; Visit Provider Internal Medicine Medical Oncology | DX: K86.9 Disease of pancreas, unspecified (principal) | CPT/HCPCS: 99222 ==

== ENCOUNTER → 2024-08-31 18:26 | Outpatient (BNV) | payer OTHER, SELFPAY | PROVIDERS: Admitting Provider Internal Medicine; Emergency Provider Emergency Medicine; PCP Internal Medicine; Visit Provider Internal Medicine | DX: R16.0 Hepatomegaly, not elsewhere classified (principal); K86.89 Other specified diseases of pancreas; Z85.46 Personal history of malignant neoplasm of prostate; I81 Portal vein thrombosis | CPT/HCPCS: 99223; 99232; 99239; 99499 ==

== ENCOUNTER 2024-09-03 08:59 | Day surgery (SDC) | payer OTHER, SELFPAY ==
[2024-09-03] VITALS (15 sets, daily range): BP systolic 103–138; BP diastolic 62–84; PULSE 59–77; RESP 14–22; TEMP 36.4–36.8; O2SAT 92–96; BMI 33.5
--- NOTE | ~2024-09-03 | US_ITS ---
Pancreatic mass with multiple liver lesions concerning for metastases. PROCEDURES: 1. Limited preprocedure ultrasound of the abdomen. Permanent images saved in PACS. 2. Ultrasound-guided biopsy of the left lobe liver mass. 3. Limited preprocedure ultrasound of the abdomen. Permanent images saved in PACS. CLINICIANS: Azam Ornelas PA-C MEDICATIONS: -Versed 1 mg, Fentanyl 50 mcg, and lidocaine 1% 10 mL SQ -Antibiotics: None -For additional details, please see nursing flowsheet. COMPLICATIONS: None ESTIMATED BLOOD LOSS: < 5 ml CONTRAST: None SPECIMENS: 5 x 20 g cores were sent to pathology MODERATE SEDATION TIME: 15 min PROCEDURE NOTE: The procedure, risks, benefits, and alternatives were carefully explained to the patient and written informed consent was obtained. The patient was placed supine on the exam table. A timeout was performed. A limited ultrasound of the abdomen was performed to localize the left lobe liver lesion and choose appropriate needle entry and trajectory. The patient was prepped and draped in usual sterile fashion. The skin and deeper soft tissues were anesthetized with lidocaine. Under ultrasound guidance, a 19 gauge trocar needle was advanced to the liver lesion. A 20 gauge biopsy device was inserted through the trocar needle advanced into the liver lesion. A total of 5, 20 gauge cores were performed. The specimens were placed in formalin. A total of 2 Gelfoam torpedoes were then administered through the trocar needle into the biopsy tract and at the level of the liver capsule. The needle was removed. A limited post procedure ultrasound was then performed. Images were saved in PACS. A dry dressing was applied and secured with Tegaderm. There were no immediate complications. The patient was stable after the procedure and was transferred to the post anesthesia care unit. The procedure was done under moderate sedation with a dedicated nurse for monitoring of vital signs. US/US biopsy liver Impression: Ultrasound-guided biopsy of a left lobe liver mass. This procedure was performed by Azam Ornelas PA-C and supervised by Dr. Villalta. Electronically signed by: Antoine Law MD 09/10/2024 04:08 PM [facility]
--- NOTE | 2024-09-03 10:35 | MHC.SHP ---
Pre-Procedural Eval Section A - 24 Hr Update-Section A only Date of Service: 09/03/24 Section B - Complete if H&P > 30 days Chief Complaint: liver bx, liver mets Details of Present Illness: 64 y/o man with pancreatic mass and multiple liver masses Relevant Family History (Specify if Yes): No Relevant Social History: None Present Medications: see Short Stay Collaborative assessment Medical History: Significant History History of Previous Operations: No relevant previous surgery Allergies: Allergies Allergy/AdvReac Type Severity Reaction Status Date / Time ampicillin Allergy Severe Anaphylaxis Verified 09/03/24 09:51 Penicillins Allergy Severe Anaphylaxis Verified 09/03/24 09:51 all cillins pineapple Allergy Severe Rash Verified 09/03/24 09:51 pseudoephedrine Allergy Severe anaphylaxis Verified 09/03/24 09:51 Sudafed Review of Systems Sugical H&P ROS: Negative: Constitution, Cardiovascular and Respiratory and Yes, Specify: Gastrointestinal (4/10 abd pain) Exam Surgical H&P Exam: Normal: Heart, Normal: Lungs, Normal: Skin and Normal: Neurological and Significant Findings: Abdomen (ttp ruq) Plan 64 y/o man with a pancreatic mass and multiple liver masses -liver mass biopsy Time Spent With Patient Time: Total time managing care of this patient today ____ minutes.
[2024-09-03] MEDS: fentaNYL citrate/PF 100 MCG/2 ML VIAL 50 MCG IVPUSH (12:15)
[2024-09-03] MEDS: Midazolam HCl 5 MG/ML VIAL 1 MG IVPUSH (12:15)
[2024-09-03] MEDS: Midazolam HCl 5 MG/ML VIAL IVPUSH (12:23)
[2024-09-03] MEDS: fentaNYL citrate/PF 100 MCG/2 ML VIAL 25 MCG IVPUSH (12:23)
[2024-09-03] MEDS: Lidocaine HCl 1 % MPF 5 ML VIAL 10 ML SUBCUT (12:33)
== END 2024-09-03 14:53 | disposition home or self-care (01) ==
PROVIDERS: Student in an Organized Health Care Education/Training Program; PCP Internal Medicine; Visit Provider Internal Medicine Medical Oncology
DX: C78.7 Secondary malignant neoplasm of liver and intrahepatic bile duct (principal); R16.0 Hepatomegaly, not elsewhere classified; C7A.1 Malignant poorly differentiated neuroendocrine tumors; K86.9 Disease of pancreas, unspecified; Z85.46 Personal history of malignant neoplasm of prostate; Z79.899 Other long term (current) drug therapy; F17.210 Nicotine dependence, cigarettes, uncomplicated
CPT/HCPCS: 47000; 76942; 88307; 88313; 88341; 88342; 88360; 99152; J2003; J2250; J2310; J3010

== ENCOUNTER → 2024-09-03 11:20 | Outpatient (BNV) | payer OTHER, SELFPAY | PROVIDERS: PCP Internal Medicine; Visit Provider Physician Assistant Surgical | DX: K86.89 Other specified diseases of pancreas (principal); R16.0 Hepatomegaly, not elsewhere classified; C61 Malignant neoplasm of prostate | CPT/HCPCS: 47000; 76942; 99152 ==

== ENCOUNTER 2024-09-04 10:31 | Outpatient (AMB) | payer OTHER, SELFPAY ==
--- NOTE | 2024-09-04 10:34 | MHC.PC.OV ---
Vital Signs 09/04/24 10:37 Height 6 ft Weight 249 lb BMI 33.8 BP 110/68 Blood Pressure Location Lt brachial Position Sitting Pulse 82 Pulse Source Pulse Oximeter Pulse Oximetry (%) 96 Oxygen Delivery Method Room Air Intake Visit Reasons: 3mth f/u Intake Note: Patient is here for hospital discharge follow up. Patient was discharged from [facility] [place] on 09/02/24. Pt decline flu shot today. 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 Accompanied by: Self / Same As Patient Allergies ampicillin Allergy (Severe, Verified 09/08/24 15:35) Anaphylaxis Penicillins Allergy (Severe, Verified 09/08/24 15:35) Anaphylaxis all cillins pineapple Allergy (Severe, Verified 09/08/24 15:35) Rash pseudoephedrine Allergy (Severe, Verified 09/08/24 15:35) anaphylaxis Sudafed Medication List - Last Reconciled 09/08/24 by Nelson Silva MD albuterol sulfate 90 mcg/actuation 1 inh inhalation QID PRN apixaban 5 mg PO BID clotrimazole 1% 1 appl topical BID 2 weeks fexofenadine 180 mg PO DAILY fluticasone propionate 50 mcg/actuation (Flonase Allergy Relief) 2 sprays intranasal DAILY PRN oxycodone 5 mg PO Q4H PRN polyethylene glycol 3350 (Miralax) 17 grams PO DAILY tadalafil 10 mg PO DAILY 90 days tamsulosin 0.4 mg PO MOWEFR tramadol 50 mg PO DAILY@0900 tramadol 50 mg PO BEDTIME PRN Tobacco use date assessed: 09/04/24 Fall risk assessment: No Falls in past year Last assessed Fall Risk: 09/04/24 Dental Screening Dental Screen Date: 06/03/24 HPI 3mth f/u HPI Details 64-year-old male presents to the office to discuss his medical condition. Patient is accompanied by his . Patient presented to the emergency room with worsening right epigastric pain and shoulder pain. On routine imaging of the abdomen, unfortunately patient was diagnosed to have pancreatic cancer with metastasis to the liver. He was discharged home a few days ago. Patient underwent a liver biopsy yesterday. He is scheduled to see the medical oncologist in a week. Patient is feeling better, his appetite has improved. [facility] Medical History (Updated 09/03/24 @ 09:50 by Audrey Colin RN) Pancreatic tumor Positive colorectal cancer screening using Cologuard test (~07/23/24) Spinal stenosis Osteoarthritis Environmental allergies Nicotine dependence, cigarettes, uncomplicated Seasonal allergies Benign prostatic hyperplasia with lower urinary tract symptoms Nocturia Prostate cancer (~2018) Wrist fracture, right Traumatic rupture of left biceps tendon Surgical History (Updated 09/04/24 @ 10:44 by SUNNY Clayton) History of liver biopsy Previous back surgery History of prostate biopsy History of surgery on arm (~2005) History of arthroplasty of right ankle Hx of shoulder surgery (~1981) Family History Father Cancer Mother Cancer Social History (Updated 09/04/24 @ 10:44 by SUNNY Clayton) Household Members: Spouse Housing: House Are you a primary senior resident care director to a significant other at home: Yes (daughter, supportive ) Do you presently have visiting nurse or other home services: No Alcohol intake: never Patient Tobacco Use Status: Current everyday Tobacco user Tobacco use type: Cigarette Cigarette Packs Per Day: 0.5 Cigarettes Per Day: 6 Years Smoked: 35 e-Cigarette/Vaping Use: Never Used Second Hand Smoke Exposure: Yes service: No Current occupational status: retired Cognitive needs: No Hearing needs: No Vision needs: No Questionnaire Thrive Questionnaire Date Thrive assessed: 09/01/24 CARLOS-7 AMB Questionnaire CARLOS-7 Date CARLOS - 7 assessed: 06/03/24 Source: Developed by Drs. Ramón Santos, Candy Pearce, Romulo Carson and colleagues, with an educational albaro from [employer]. Physical exam (Primary Care) Vital Signs: Last Vital Signs Pulse 82 09/04/24 10:37 BP 110/68 09/04/24 10:37 Pulse Ox 96 09/04/24 10:37 Oxygen Delivery Method Room Air 09/04/24 10:37 BMI result Body Mass Index 33.8 Tobacco/Smoking Status: Tobacco use Status Tobacco use date assessed 09/04/24 09/04/24 10:45 Patient Tobacco Use Status Current everyday Tobacco 09/04/24 10:45 Tobacco use type Cigarette 09/04/24 10:45 e-Cigarette/Vaping Use Never Used 09/04/24 10:45 Thrive Assessment: Date of Thrive Assessment Date Thrive assessed 09/01/24 09/04/24 10:45 Const General: cooperative and healthy appearing Nutritional Appearance: well nourished Orientation/consciousness: patient oriented x3 Limitations: no limitations HENMT Head: Yes normal to inspection Eyes General: appearance normal, both eyes and all related structures Neck Neck: Yes normal visual inspection Chest Chest palpation & inspection: normal palpation of entire chest wall Resp Effort & Inspection: normal respiratory effort Neuro General: patient oriented x3 Office Procedures Flu Questionnaire Does the patient have a severe egg allergy?: No Does the patient have severe life threatening allergies?: No Does the patient have a fever or illness today?: No Has the patient ever had Guillain-Kennard Syndrome?: No Has the patient ever had any past reaction to a flu shot?: No Immunizations Fluarix Triv [id number] (PF) 45 mcg (15 mcg x 3)/0.5 mL IM syringe Performing Provider: Nelson Silva MD Performing Location[facility] [place] [facility] Administered by: TWAN Wlaker on 09/04/24 11:14 Dose Route Admin Location Dispensed Lot Number Expiration Date TNC Plane Captain 0.5 mL IM Left Deltoid 0.5 mL [id number] 04/21/25 [id number] [employer] VIS Given Date VIS Provided VIS Publication Date 09/04/24 Single Vaccine 21 Eligibility Eligibility Date Funding Source Not [facility] Eligible 09/04/24 Private Coding Level of Care Code Est Pt Level 4 (54303) Complex EM visit Add On G2211 Diagnoses Pancreatic mass K86.89 Assessment & Plan Assessment & Plan (1) Pancreatic mass: Code(s): K86.89 - Other specified diseases of pancreas Category: Medical Plan: Unfortunate diagnosis. We will inform the patient the results of the liver biopsy. Continue symptomatic treatment currently. Patient has an upcoming appointment with his oncologist. 20 minutes spent in reviewing the scans and hospital discharge summary. Orders: Orders Influenza [id number] Immunization 09/04/24 Z23 - Encounter for immunization
[2024-09-04 10:37] VITALS: BP 110/68; PULSE 82; O2SAT 96; BMI 33.8
== END 2024-09-04 11:41 | disposition home or self-care (01) ==
PROVIDERS: PCP Internal Medicine; Visit Provider Internal Medicine
DX: K86.89 Other specified diseases of pancreas (principal)

== ENCOUNTER → 2024-09-04 10:31 | Outpatient (BNVA) | payer OTHER, SELFPAY | PROVIDERS: PCP Internal Medicine; Visit Provider Internal Medicine | DX: C25.9 Malignant neoplasm of pancreas, unspecified (principal); C78.7 Secondary malignant neoplasm of liver and intrahepatic bile duct; Z23 Encounter for immunization | CPT/HCPCS: 90471; 90656 ==

== ENCOUNTER → 2024-09-09 10:45 | Outpatient (BNV) | payer OTHER, SELFPAY | PROVIDERS: PCP Internal Medicine; Visit Provider Internal Medicine Medical Oncology | DX: D3A.8 Other benign neuroendocrine tumors (principal) | CPT/HCPCS: 99214 ==

== ENCOUNTER 2024-11-19 13:15 | Outpatient (REF) | payer OTHER, SELFPAY ==
--- NOTE | ~2024-11-19 | PE_ITS ---
EXAMINATION: FLUORINE-18 FDG PET/CT SCAN CLINICAL INFORMATION: Neuroendocrine tumor of the pancreas. Evaluate for liver metastases. TECHNIQUE: 60 minutes following the intravenous administration of 6.4 mCi of gallium 68 Dotatate, images from the skull base to proximal thigh were obtained using a combined PET/CT scanner with CT scan based attenuation correction. No oral or intravenous contrast was administered. Transverse, coronal, sagittal, and volume reconstruction projections were obtained. . The radiotracer was injected intravenously through right antecubital vein, without any complications. Total CT exam dose-length product 1231 mGy-cm. * These CT images were obtained using dose optimization techniques as appropriate, variously including the following: Automated exposure control * Adjustment of mA and/or kV according to patient size (this includes techniques or standardized protocols for targeted exams where dose is matched to indication/reason for exam; i.e. extremities or head) * Use of iterative reconstruction technique COMPARISON: MRI abdomen 08/31/2024. CT angiography of abdomen and pelvis 08/31/2024 FINDINGS: HEAD AND NECK: No abnormal radiotracer activity seen in the head on the neck region to suspect any distant metastatic disease. On CT visualized intracranial brain parenchyma is normal. The lateral ventricles are normal. The paranasal sinuses are well-aerated. No abnormal neck mass or abnormal lymphadenopathy seen. The major salivary glands are symmetrical and normal. CHEST: No metabolic activity seen in the chest especially the lung parenchyma, mediastinum or the axilla. Ports and Devices: None Lungs: No abnormal radiotracer uptake. Pleura: No significant pleural effusion. Lymph Nodes: No tracer-avid mediastinal, hilar or internal mammary or axillary lymphadenopathy. Mediastinum: There is no significant pericardial effusion/thickening. There is mild coronary artery calcifications. Breasts/Chest Wall: No abnormal radiotracer uptake. ABDOMEN/PELVIS: Liver/Biliary System: There are multiple FDG avid lesions in the left and caudate lobes. Previous MRI visualized lesion in the right hepatic lobe are metabolically non-FDG active lesions. Pancreas: There is moderate metabolic activity seen in the head of the pancreas aorta is normal pancreatic mass. No metabolic activity seen in the body of the tail of pancreas. The very pancreatic soft tissues are normal. Spleen: Normal tracer activity seen within the spleen . Spleen is enlarged measuring 15 cm in length. Adrenal Glands: No abnormal radiotracer uptake. Kidneys: No hydronephrosis, hydroureter or renal calculi bilaterally. Bowel: There is scattered stool and gas in colon. No abnormal metabolic activity seen. Lymph Nodes: No tracer avid retroperitoneal, mesenteric or pelvic and/or groin lymphadenopathy. Pelvic Organs: The urinary bladder is underdistended. MUSCULOSKELETAL: No abnormal FDG activity seen. There is mild degenerative disc changes L2-3, L3-4, L4-5 and L5-S1 disc levels. No aggressive lytic or sclerotic process seen. VASCULAR: Unremarkable. PET/PET CT fusion skull to thigh IMPRESSION: Abnormal FDG activity multiple lesions seen in left and caudate lobe. MRI visualized large lesion in the right hepatic lobe are significantly FDG negative or have decreased activity likely have been treated previously. Mild mild to moderate metabolic activity in the head of the pancreas, the index lesion Electronically signed by: Kendall Frye MD 11/21/2024 12:30 PM EST
--- OUTSIDE RECORDS SUMMARY | 2024-11-19 14:15 | XMS_ITS | Clinical Summary ---
Author Organization [facility] Address [address] [place] [address] Care Team Providers Care Machine Set Up Operator Paper Goods Name Role Phone Elliot Ambrose MD Primary Care Provider Allergies Active Allergy Reactions Criticality Noted Date Comments Amoxicillin Rash/Dermatitis Low 04/04/2019 All cillin medications Other, Food Diarrhea,Rash/Dermat it is Low 05/17/2019 Pineapple,oysters Penicillins Diarrhea,Rash/Dermat it is Low 05/17/2019 Pseudoephedrine Anaphylaxis High 05/17/2019 Sulfa Antibiotics Unknown/Patient and Family Unable to Define Medium 05/21/2019 Medications Medication Sig Dispensed Refills Start Date End Date Status finasteride (PROSCAR) 5 MG tablet Take 1 tablet (5 mg total) by mouth daily. 1 02/13/2019 Active gabapentin (NEURONTIN) 300 MG capsule Take 1 capsule (300 mg total) by mouth daily. 03/30/2019 Active meloxicam (MOBIC) 15 MG tablet Take 1 tablet (15 mg total) by mouth daily as needed. 0 02/24/2019 Active Vitamin D3 (CHOLECALICEROL) 2000 units tablet Take 1 tablet (2,000 Units total) by mouth daily. 3 03/22/2019 Active tamsulosin (FLOMAX) 0.4 MG capsuleIndications :History of brachytherapy,Pros rivera cancer (HCC) Take 1 capsule (0.4 mg total) by mouth daily. 30 capsule 3 05/21/2019 Active Additional Information Patient taking differently:0.4 mg Oral3 times daily, 2-3 Times a week, Reported on 01/03/2023 traMADol (ULTRAM) 50 MG tablet Take 1 tablet (50 mg total) by mouth daily. Active Family History Medical History Relation Name Comments Cancer, Prostate Father Relation Name Status Comments Father Mother Social History Tobacco Use Types Packs/Day Years Used Date Smoking Tobacco: Former Cigarettes 0.5 40 0 04/26/1979 - 04/26/2019 Smokeless Tobacco: Never Comments:40 years Alcohol Use Standard Drinks/Week Comments Never 0 (1 standard drink = 0.6 oz pur e alcohol) AUDIT-C Answer Date Recorded Frequency of Alcohol Consumption Never 04/04/2019 Average Number of Drinks Not on file 019 Frequency of Binge Drinking Not on file 03/23 Sex and Gender Information Value Date Recorded Sex Assigned at Not on file Gender Identity Not on file Sexual Orientation Not on file Last Filed Vital Signs Vital Sign Reading Time Taken Comments Blood Pressure 147/84 01/03/2023 10:51 AM EDT Pulse 81 01/03/2023 10:51 AM EDT Temperature 36.7 ??C (98.1 ??F) 01/03/2023 10:51 AM E DT Respiratory Rate 18 01/03/2023 10:51 AM EDT Oxygen Saturation 97% 01/03/2023 10:51 AM EDT Inhaled Oxygen Concentration - - Weight 127 kg (279 lb 12.8 oz) 01/03/2023 10:51 AM EDT Height 182.9 cm (6') 06/12/2019 1:45 PM EDT Body Mass Index 37.95 06/12/2019 1:45 PM EDT Plan of Treatment Health Maintenance Due Date Last Done Comments Hepatitis C Virus Screening 1960 DTaP/Tdap/Td Vaccines (1 - Tdap) 1977 Colonoscopy 2003 Lung Cancer Screening (LDCT) 01/20/2008 Pneumococcal Vaccines 50+ (1 of 1 - PCV) 01/20/2008 Zoster (Shingles) Vaccine (1 of 2) 01/20/2008 Influenza Vaccine 05/23/2024 07/10/2020 COVID-19 Vaccine ( - 2023-2 5 season) 2024 RSV Vaccine 60 years and old er and Patients (1 - 1-dose 75+ series) 2033 Hepatitis B Vaccines Aged Out No long er eligible based on patient's age to complete this topic Advance Directives * Full Code (Latest Code Status on File) Date Activated Date Inactivated Comments 05/21/2019 7:11 AM Care Teams Machine Set Up Operator Paper Goods Relationship Specialty Start Date End Date Elliot Ambrose MD [address] [place] [address] PCP - General Family Medicine 06/23/20
--- OUTSIDE RECORDS SUMMARY | 2024-11-19 14:15 | XMS_ITS | Encounter Summary ---
Author Organization [facility] Address [address] [place] [address] Care Team Providers Care Aeronautical Engineering Technologist Name Role Phone Elliot Ambrose MD Primary Care Provider Encounter Details Date Type Department Care Team (Late st Contact Info) Description 01/03/2023 Scanned Document [facility] [address] [place] [phone] Luciano Dahl MD [address] [place] [id number] Social History Tobacco Use Types Packs/Day Years [...] on file Sexual Orientation Not on file COVID-19 Exposure Response Date Recorded In the last 10 days, have yo u been in contact with someone who was confirmed or suspected to have Coronavirus/COVID-19? No / Unsure 01/03/2023 12:09 PM EDT documented as of this encounter Plan of Treatment Not on file documented as of this encounter Visit Diagnoses Not on filedocumented in this encounter Care Teams Aeronautical Engineering Technologist Relationship Specialty Start Date End Date Elliot Ambrose MD [address] [place] [address] PCP - General Family Medicine 06/23/20 documented as of this encounter
--- OUTSIDE RECORDS SUMMARY | 2024-11-19 14:15 | XMS_ITS | Encounter Summary ---
Author Organization [facility] Address [address] [place] [address] Care Team Providers Care Timekeeper Name Role Phone Jefferson Medina MD Primary Care Provider Elliot Ambrose MD Primary Care Provider [phone] Encounter Details Date Type Department Care Team (Late st Contact Info) Description 05/21/2019 Scanned Document [facility] [address] [place] [address] Provider, Generic Social History Tobacco Use Types Packs/Day Years [...] on file Sexual Orientation Not on file documented as of this encounter Plan of Treatment Not on file documented as of this encounter Procedures Procedure Name Priority Date/Time Associated Diagnosis Comments HX OUTSIDE ORDER 05/21/2019 documented in this encounter Results * HX OUTSIDE ORDER (05/21/2019) Narrative 05/21/2019 Ordered by an unspecified provider. Generic Provider HX AMB PROCEDURES documented in this encounter Visit Diagnoses Not on filedocumented in this encounter Care Teams Timekeeper Relationship Specialty Start Date End Date Jefferson Medina MD [address] [place] [address] PCP - General Radiation Oncology 03/27/19 06/22/20 Elliot Ambrose MD [address] [place] [address] PCP - General Family Medicine 06/23/20 documented as of this encounter
--- OUTSIDE RECORDS SUMMARY | 2024-11-19 14:15 | XMS_ITS | Encounter Summary ---
Author Organization [facility] Address [address] [place] [address] Care Team Providers Care Evaluator Transfer Students Name Role Phone Jefferson Medina MD Primary Care Provider [phone] Encounter Details Date Type Department Care Team (Late st Contact Info) Description 05/21/2019 7:30 AM EDT Hospital Encounter [facility] Radiation Oncology [address] [place] [phone] Jefferson Medina MD [address] [place] [phone] Social History Tobacco Use Types Packs/Day Years [...] on filedocumented in this encounter Care Teams Evaluator Transfer Students Relationship Specialty Start Date End Date Jefferson Medina MD [address] [place] [address] PCP - General Radiation Oncology 03/27/19 06/22/20 documented as of this encounter
--- OUTSIDE RECORDS SUMMARY | 2024-11-19 14:15 | XMS_ITS ---
Author Name [facility] Organization Unknown History of Medication Use Medication Directions Dispensed Refills Start Date End Date Stat finasteride (PROSCAR) 5 MG tablet Take 1 tablet (5 mg total) by mouth daily. 02/13/2019 active gabapentin (NEURONTIN) 300 MG capsule Take 1 capsule (300 mg total) by mouth daily. 03/30/2019 active tamsulosin (FLOMAX) 0.4 MG capsule Take 1 capsule (0.4 mg total) by mouth daily. 05/21/2019 active
--- OUTSIDE RECORDS SUMMARY | 2024-11-19 14:15 | XMS_ITS | Encounter Summary ---
Author Organization [facility] Address [address] [place] [address] Care Team Providers Care International Trade Compliance Manager Name Role Phone Jefferson Medina MD Primary Care Provider [phone] Elliot Ambrose MD Primary Care Provider [phone] Encounter Details Date Type Department Care Team (Late st Contact Info) Description 05/14/2019 Prep for Surgery [facility] Urologic Surgery [address] [phone] Alek Lynn MD [address] [id number] Social History Tobacco Use Types Packs/Day Years Used Date Smoking Tobacco: Every Day Cigarettes Smokeless Tobacco: Never Comments:40 years Alcohol Use [...] on filedocumented in this encounter Care Teams International Trade Compliance Manager Relationship Specialty Start Date End Date Jefferson Medina MD [address] [place] [address] PCP - General Radiation Oncology 03/27/19 06/22/20 Elliot Ambrose MD [address] [place] [address] PCP - General Family Medicine 06/23/20 documented as of this encounter
== END 2024-11-19 13:16 | disposition home or self-care (01) ==
LOC: HO.PET 13:15
PROVIDERS: PCP Internal Medicine; Visit Provider Internal Medicine Medical Oncology
DX: Z13.89 Encounter for screening for other disorder (principal)

== ENCOUNTER 2024-11-26 11:34 | Outpatient (AMB) | payer OTHER, SELFPAY ==
--- NOTE | 2024-11-26 11:36 | A.OFFVIS_ITS ---
Intake Visit Reasons: 6m/PSA Intake Note: Patient is present for 6M/PSA Urology Medication:TADALAFIL,TAMSULOSIN Antibiotic Allergy:AMPICILLIN,PENICILLIN Blood Thinner:APIXABAN Insurance Claim Auditor Required: No Allergies ampicillin Allergy (Severe, Verified 11/26/24 11:37) Anaphylaxis Penicillins Allergy (Severe, Verified 11/26/24 11:37) Anaphylaxis all cillins pineapple Allergy (Severe, Verified 11/26/24 11:37) Rash pseudoephedrine Allergy (Severe, Verified 11/26/24 11:37) anaphylaxis Sudafed HPI Comments Details: Yassine ENGEL is a very pleasant male. They are a patient of Dr Munroe. They are seen in the office today for the following urologic conditions - prostate cancer - erectile dysfunction Six month follow-up PSA remains well controlled Last 6 months has treatment for neuroendocrine tumor of the pancreas. Has involved liver embolization with plan for radioactive seeds Did have some issues with urination Will like to go back on tamsulosin daily Prostate cancer: Group 3. February 2019 brachytherapy [facility] Does have associated urgency and frequency in takes Flomax once or twice a week PSA 12/13 0.2, 07/13 <0.1, 04/13 <0.1, 10/13 <0.1, 05/14 <0.1, 11/15 <0.1, 05/15 <0.1 T 194, 09/15 PSA <0.1 Prostate cancer was diagnosed 02/08 Dr Coles - PSA 4.5. Diagnosis was reached by 02/08 , needle biopsy, for elevated PSA, PSA at diagnosis 4.5, size at TRUS 35cc. The Savery grade is 4 One out of twelve cores - RML , 4+3 = 7 30%. TNM Classification of Malignant Tumours (TNM) T1c. The D'Quintin (NCCN) risk category is Intermediate Risk (PSA 10-20, Gl 7, T2) - Group 3 by definition Initial therapy included Primary treatment, brachytherapy [facility] February 2019 Associated conditions erectile dysfunction Yes Therapeutic plan: PSA follow-up every 6 months [facility] Medical History Pancreatic tumor Positive colorectal cancer screening using Cologuard test (~07/23/24) Spinal stenosis Osteoarthritis Environmental allergies Nicotine dependence, cigarettes, uncomplicated Seasonal allergies Benign prostatic hyperplasia with lower urinary tract symptoms Nocturia Prostate cancer (~2018) Wrist fracture, right Traumatic rupture of left biceps tendon Surgical History History of liver biopsy Previous back surgery History of prostate biopsy History of surgery on arm (~2005) History of arthroplasty of right ankle Hx of shoulder surgery (~1981) Family History Father Cancer Mother Cancer Social History Household Members: Spouse Housing: House Are you a primary live in caregiver to a significant other at home: Yes (daughter, supportive ) Do you presently have visiting nurse or other home services: No Alcohol intake: never Patient Tobacco Use Status: Current everyday Tobacco user Tobacco use type: Cigarette Cigarette Packs Per Day: 0.5 Years Smoked: 35 e-Cigarette/Vaping Use: Never Used Second Hand Smoke Exposure: Yes service: No Current occupational status: retired Cognitive needs: No Hearing needs: No Vision needs: No Review of Systems Const Denies chills and Denies fever(s) Card Reports no additional complaints and Denies syncope Resp Denies cough GI Denies abdominal pain and Denies heartburn Reports as per HPI and Denies change in libido Neuro Denies syncope Psych Denies change in libido Endo Denies change in libido Physical Exam Const General: cooperative, healthy appearing, comfortable and no acute distress Orientation/consciousness: patient oriented x3 HEENT Face and sinus: Yes normal facial exam Mouth: moist mucous membranes Neck Neck: Yes normal visual inspection, Yes full ROM and Yes trachea midline Chest Chest palpation & inspection: normal inspection of the chest Resp Effort & Inspection: normal respiratory effort, able to speak in complete sentences and no respiratory distress GI Inspection: Yes normal to inspection Back/Spine/Pelvis Cervical Spine: normal cervical lordosis Thoracic/Lumbar Spine: thoracic and lumbar spine normal to inspection Skin General skin exam: no rashes or lesions noted Neuro General: patient oriented x3, gait normal, tone normal and moves all extremities Extrem General: Yes normal to inspection and Yes capillary refill normal Assessment & Plan Assessment & Plan (1) Prostate cancer: Onset Date: ~2018 Comment: (dx 01/2019 - Savery 4 + 3 initial treatment brachytherapy) Code(s): C61 - Malignant neoplasm of prostate Category: Medical (2) Erectile dysfunction after prostate brachytherapy: Code(s): N52.35 - Erectile dysfunction following radiation therapy Category: Medical Plan Continue interval surveillance Patient Instructions: This note is constructed using voice recognition software. While every effort has been made to ensure accuracy pre coder errors may have been included. Imaging studies, laboratory and physical exam results were discussed and reviewed in detail. No major barriers to patient understanding were identified. An opportunity to ask questions regarding the treatment plan was provided. All questions were answered. The patient expressed understanding and agreement with the above treatment plan. The patient is aware they should contact our office by phone for worsening of their current condition or the appearance of new urologic symptoms. Compliance is encouraged with any medications and followup testing that is ordered. It is a privilege to participate in the urologic care of your patient. If you have any questions or concerns regarding treatment for the above conditions, or other urologic issues, please do not hesitate to contact me. The office telephone contact is [phone]. Sincerely, Dr Jose Coles MD, [facility] - Urology Compassionate Specialist Care for the Genitourinary System Coding Level of Care Code Est Pt Level 4 (19812) Complex EM visit Add On G2211 Diagnoses Prostate cancer C61 Erectile dysfunction after prostate brachytherapy N52.35
--- OUTSIDE RECORDS SUMMARY | 2024-11-26 12:34 | XMS_ITS | Clinical Summary ---
Author Organization [facility] Address [address] [place] [address] Care Team Providers Care Food Mobile Driver Name Role Phone Elliot Ambrose MD Primary [...] Inactivated Comments 05/21/2019 7:11 AM Care Teams Food Mobile Driver Relationship Specialty Start Date End Date Elliot Ambrose MD [address] [place] [address] PCP - General Family Medicine 06/23/20
--- OUTSIDE RECORDS SUMMARY | 2024-11-26 12:34 | XMS_ITS | Encounter Summary ---
Author Organization [facility] Address [address] [place] [address] Care Team Providers Care Corrections Unit Supervisor Name Role Phone Elliot Ambrose MD Primary Care Provider [phone] Encounter Details Date Type Department Care Team (Late st Contact Info) Description 01/03/2023 Scanned Document [facility] Radiation Oncology [address] [place] [id number] Luciano Dahl MD [address] [place] [id number] Social History Tobacco Use Types Packs/Day Years [...] on filedocumented in this encounter Care Teams Corrections Unit Supervisor Relationship Specialty Start Date End Date Elliot Ambrose MD [address] [place] [address] PCP - General Family Medicine 06/23/20 documented as of this encounter
--- OUTSIDE RECORDS SUMMARY | 2024-11-26 12:34 | XMS_ITS | Encounter Summary ---
Author Organization [facility] Address [address] [place] [id number] Care Team Providers Care Java Front End Web Developer Name Role Phone Jefferson Medina MD Primary Care Provider [phone] Elliot Ambrose MD Primary Care Provider [phone] Encounter Details Date Type Department Care Team (Late st Contact Info) Description 05/14/2019 Prep for Surgery [facility] Urologic Surgery [address] [id number] Alek Lynn MD [address] [id number] Social History Tobacco Use Types Packs/Day Years [...] on filedocumented in this encounter Care Teams Java Front End Web Developer Relationship Specialty Start Date End Date Jefferson Medina MD [address] [place] [address] PCP - General Radiation Oncology 03/27/19 06/22/20 Elliot Ambrose MD [address] [place] [address] PCP - General Family Medicine 06/23/20 documented as of this encounter
--- OUTSIDE RECORDS SUMMARY | 2024-11-26 12:34 | XMS_ITS | Encounter Summary ---
Author Organization [facility] Address [address] [place] [address] Care Team Providers Care Tool Radial Drill Press Set Up Operator Name Role Phone Jefferson Medina MD Primary Care Provider [phone] Encounter Details Date Type Department Care Team (Late st Contact Info) Description 05/21/2019 7:30 AM EDT Hospital Encounter [facility] Radiation Oncology [address] [place] [phone] Jefferson Medina MD [address] [place] [id number] Social History Tobacco Use Types Packs/Day Years [...] on filedocumented in this encounter Care Teams Tool Radial Drill Press Set Up Operator Relationship Specialty Start Date End Date Jefferson Medina MD [address] [place] [address] PCP - General Radiation Oncology 03/27/19 06/22/20 documented as of this encounter
--- OUTSIDE RECORDS SUMMARY | 2024-11-26 12:34 | XMS_ITS | Encounter Summary ---
Author Organization [facility] Address [address] [place] [address] Care Team Providers Care National Expansion Recruiter Name Role Phone Jefferson Medina MD Primary Care Provider Elliot Ambrose MD Primary Care Provider [phone] Encounter Details Date Type Department Care Team (Late st Contact Info) Description 05/21/2019 Scanned Document [facility] Radiology [address] [place] [address] Provider, Generic Social History Tobacco [...] on filedocumented in this encounter Care Teams National Expansion Recruiter Relationship Specialty Start Date End Date Jefferson Medina MD [address] [place] [address] PCP - General Radiation Oncology 03/27/19 06/22/20 Elliot Ambrose MD [address] [place] [address] PCP - General Family Medicine 06/23/20 documented as of this encounter
== END 2024-11-26 12:16 | disposition home or self-care (01) ==
PROVIDERS: PCP Nurse Practitioner Family; Visit Provider Urology
DX: C61 Malignant neoplasm of prostate (principal); N52.35 Erectile dysfunction following radiation therapy
CPT/HCPCS: 99214

== ENCOUNTER 2025-01-13 09:47 | Outpatient (AMB) | payer OTHER, SELFPAY ==
--- NOTE | 2025-01-13 09:49 | A.OFFVIS_ITS ---
Vital Signs 01/13/25 09:54 Height 6 ft Weight 209 lb 7.026 oz BMI 28.4 BP 110/69 Blood Pressure Location Lt brachial Position Sitting Pulse 69 Intake Visit Reasons: Pancreatic Mass Intake Note: Yassine presents in the office as a new patient for a pancreatic mass. CC: States that he had a positive cologuard and distended with possible blocked bile duct. All tests are done here and has disk for MRI from [facility] that was done last monday. Lots of gas pains, intolerable to foods, lots of belching. If he does not take his laxative he has constipation. Store Keeper Required: No Allergies ampicillin Allergy (Severe, Verified 01/13/25 09:54) Anaphylaxis Penicillins Allergy (Severe, Verified 01/13/25 09:54) Anaphylaxis all cillins pineapple Allergy (Severe, Verified 01/13/25 09:54) Rash pseudoephedrine Allergy (Severe, Verified 01/13/25 09:54) anaphylaxis Sudafed oyster extract Allergy (Mild, Verified 01/13/25 09:55) Unknown HPI HPI Pancreatic Mass: Details: HPI 64 yr old m with hx of prostate ca and pancreatic mass here for assessment He has pancreatic NET with mets and embolization He has been noted to be more jaundiced he has issues with bloating and belching he denies abdominal pain no nausea or vomiting on eliquis for PVT ROS: Constitutional : No Weight loss, No Fever, No Chills ENT/Mouth : No sore throat, No Rhinorrhea Eyes: No Swelling, No Redness Cardiovascular : No Chest Pain, No SOB, No Edema Respiratory : No Cough, No Sputum, No Wheezing Gastrointestinal : see HPI Genitourinary : NO Dysuria, No Urinary Frequency, No Hematuria, No Urgency Musculoskeletal : + joint pain, No Myalgias, No Joint Swelling Skin : No Skin Lesions, No rash Neuro : No Weakness, No Numbness, No Dizziness, No Headache Psych : No Anxiety/Panic, No Depression Heme/Lymph: No Bruising, No Lymphadenopathy Endocrine : No Polyuria, No Polydipsia All other systems reviewed and are negative. Medical History Pancreatic tumor Positive colorectal cancer screening using Cologuard test (~07/23/24) Spinal stenosis Osteoarthritis Environmental allergies Nicotine dependence, cigarettes, uncomplicated Seasonal allergies Benign prostatic hyperplasia with lower urinary tract symptoms Nocturia Prostate cancer (~2019) Wrist fracture, right Traumatic rupture of left biceps tendon Surgical History History of liver biopsy Previous back surgery History of prostate biopsy History of surgery on arm (~2005) History of arthroplasty of right ankle Hx of shoulder surgery (~1981) Family History Father Cancer Mother Cancer Social History Household Members: Spouse Housing: House Are you a primary pulmonary care nurse to a significant other at home: Yes (daughter, supportive ) Do you presently have visiting nurse or other home services: No Alcohol intake: never Patient Tobacco Use Status: Current everyday Tobacco user Tobacco use type: Cigarette Cigarette Packs Per Day: 0.5 Cigarettes Per Day: 6 Years Smoked: 35 e-Cigarette/Vaping Use: Never Used Second Hand Smoke Exposure: Yes service: No Current occupational status: retired Cognitive needs: No Hearing needs: No Vision needs: No EXAM: GENERAL: The patient is well developed and nontoxic. VITAL SIGNS:see workflow HEENT: icteric sclerae, PERRLA, EOMI. Oropharynx clear. Moist mucous membranes. Conjunctivae appear well perfused. No thyroid mass. CHEST: Chest wall is nontender. HEART: Regular rate and rhythm without murmurs. LUNGS: Clear to auscultation bilaterally. ABDOMEN: Soft, positive bowel sounds, nontender, no organomegaly.no flank tenderness SKIN: No rash, no excessive bruising, petechiae, or purpura. NEUROLOGIC: Cranial nerves II-XII intact without motor/sensory deficit. Psych: normal affect clubbing ++ A/P: 1/ Obstructive jaundice - due to head of pancreas mass PLAN: / Urgent ERCP, with stent and decompression--reviewed benefits and risks incl pancreatitis,perforation, technical issues 2/ stop eliquis 2 days before [facility] Medical History Pancreatic tumor Positive colorectal cancer screening using Cologuard test (~07/23/24) Spinal stenosis Osteoarthritis Environmental allergies Nicotine dependence, cigarettes, uncomplicated Seasonal allergies Benign prostatic hyperplasia with lower urinary tract symptoms Nocturia Prostate cancer (~2018) Wrist fracture, right Traumatic rupture of left biceps tendon Surgical History History of liver biopsy Previous back surgery History of prostate biopsy History of surgery on arm (~2005) History of arthroplasty of right ankle Hx of shoulder surgery (~1981) Family History Father Cancer Mother Cancer Social History Household Members: Spouse Housing: House Are you a primary pulmonary care nurse to a significant other at home: Yes (daughter, supportive ) Do you presently have visiting nurse or other home services: No Alcohol intake: never Patient Tobacco Use Status: Current everyday Tobacco user Tobacco use type: Cigarette Cigarette Packs Per Day: 0.5 Years Smoked: 35 e-Cigarette/Vaping Use: Never Used Second Hand Smoke Exposure: Yes service: No Current occupational status: retired Cognitive needs: No Hearing needs: No Vision needs: No Physical Exam Vital Signs: Last Vital Signs Pulse 69 01/13/25 09:54 BP 110/69 01/13/25 09:54 BMI result Body Mass Index 28.4 Assessment & Plan Assessment & Plan (1) Neuroendocrine tumor of pancreas: Code(s): D3A.8 - Other benign neuroendocrine tumors Category: Medical Plan: see above Coding Level of Care Code New Pt Level 4 (33473) Diagnoses Neuroendocrine tumor of pancreas D3A.8
[2025-01-13 09:54] VITALS: BP 110/69; PULSE 69; BMI 28.4
== END 2025-01-13 10:58 | disposition home or self-care (01) ==
LOC: HO.HGI 09:48
PROVIDERS: PCP Nurse Practitioner Family; Visit Provider Internal Medicine Gastroenterology
DX: D3A.8 Other benign neuroendocrine tumors (principal)
CPT/HCPCS: 99204

== ENCOUNTER → 2025-01-13 09:47 | Outpatient (BNVA) | payer OTHER, SELFPAY | PROVIDERS: PCP Nurse Practitioner Family; Visit Provider Internal Medicine Gastroenterology ==

== ENCOUNTER 2025-01-22 08:45 | Outpatient (AMB) | payer OTHER, SELFPAY ==
--- NOTE | 2025-01-22 08:47 | MHC.OFFVIS ---
Vital Signs 01/22/25 08:52 Height 6 ft Weight 209 lb 3.499 oz BMI 28.4 BP 112/80 Blood Pressure Location Lt brachial Position Sitting Pulse 105 H Pulse Source Pulse Oximeter Pulse Oximetry (%) 95 Oxygen Delivery Method Room Air Intake Visit Reasons: arthritis Intake Note: Patient presents for arthritis. Allergies ampicillin Allergy (Severe, Verified 01/22/25 08:50) Anaphylaxis Penicillins Allergy (Severe, Verified 01/22/25 08:50) Anaphylaxis all cillins pineapple Allergy (Severe, Verified 01/22/25 08:50) Rash pseudoephedrine Allergy (Severe, Verified 01/22/25 08:50) anaphylaxis Sudafed oyster extract Allergy (Mild, Verified 01/22/25 08:50) Unknown Medication List - Last Reconciled 01/22/25 by Chuyita Barcenas MD albuterol sulfate 90 mcg/actuation 1 inh inhalation QID PRN apixaban 5 mg PO BID 90 days calcium carbonate-simethicone 750-250 mg (Phazyme Gas and Acid) 1 tab PO BID PRN capecitabine 1,500 mg (3 x 500 mg) PO BID clotrimazole 1% 1 appl topical BID 2 weeks fexofenadine 180 mg PO DAILY fluticasone propionate 50 mcg/actuation (Flonase Allergy Relief) 2 sprays intranasal DAILY PRN omeprazole 20 mg PO DAILY ondansetron 8 mg PO Q8H polyethylene glycol 3350 (Miralax) 17 grams PO DAILY tadalafil 10 mg PO DAILY 90 days tamsulosin 0.4 mg PO MOWEFR temozolomide 300 mg (3 x 100 mg) PO DAILY tramadol 75 mg (1.5 x 50 mg) PO DAILY PRN 90 days HPI Comments Details: Patient is a 65-year-old male current every day smoker with hyperlipidemia, prostate cancer, malignant neuroendocrine tumor of the pancreas with mets to the liver, and polyarticular osteoarthritis here today for follow up Interval History: Patient last seen 08/02/[address] Stockton. At that time he was following up for his osteoarthritis. Noting specifically right-sided neck pain shooting down his upper back all the way to his shoulder associated with numbness. He was sent to do an x-ray and MRI of his cervical spine. Currently undergoing treatment for pancreatic cancer His shoulder pain was attributed to his diagphramatic irritation of the gall bladder Knee pain bilaterally, more noticeable now that he is no longer on dilaudid Rheumatologic History: Polyarticular osteoarthritis Current Rheumatology Medication(s): Tramadol 75mg daily PFSH Medical History Pancreatic tumor Positive colorectal cancer screening using Cologuard test (~07/23/24) Spinal stenosis Osteoarthritis Environmental allergies Nicotine dependence, cigarettes, uncomplicated Seasonal allergies Benign prostatic hyperplasia with lower urinary tract symptoms Nocturia Prostate cancer (~2018) Wrist fracture, right Traumatic rupture of left biceps tendon Surgical History History of liver biopsy Previous back surgery History of prostate biopsy History of surgery on arm (~2005) History of arthroplasty of right ankle Hx of shoulder surgery (~1981) Family History Father Cancer Mother Cancer Social History Household Members: Spouse Housing: House Are you a primary toddler caregiver to a significant other at home: Yes (daughter, supportive ) Do you presently have visiting nurse or other home services: No Alcohol intake: never Patient Tobacco Use Status: Current everyday Tobacco user Tobacco use type: Cigarette Cigarette Packs Per Day: 0.5 Years Smoked: 35 e-Cigarette/Vaping Use: Never Used Second Hand Smoke Exposure: Yes service: No Current occupational status: retired Cognitive needs: No Hearing needs: No Vision needs: No Review of Systems Const Details: Review of Systems Constitutional: Denies fever, chills, weight loss ENT: Denies vision changes, eye pain or eye redness, dental caries, dry mouth GI: Denies nausea, vomiting, diarrhea, abdominal pain, change in BM Pulm: Denies SOB, FISHER, hemoptysis, wheezing Cards: Denies chest pain, palpitations Skin: Denies Raynaud's, rash, nail changes, photosensitivity. +jaundice PRODUCT DESIGNER: Denies headaches, weakness, paresthesias, recurrent falls MSK: as per HPI All other systems reviewed and are unremarkable except noted above Physical Exam Vital Signs: Last Vital Signs Pulse 105 H 01/22/25 08:52 BP 112/80 01/22/25 08:52 Pulse Ox 95 01/22/25 08:52 Oxygen Delivery Method Room Air 01/22/25 08:52 BMI result Body Mass Index 28.4 Vital signs reviewed Physical Examination CONSTITUITIONAL Patient alert and cooperative. Well appearing and in no apparent painful distress HEENT Jaundice. ?Pupils equal round and reactive to light. ?No lymphadenopathy. ? CHEST/RESPIRATORY SYSTEM Normal respiratory effort and able to speak in complete sentences. ?Clear to auscultation bilaterally. ?No crackles, rales, rhonchi, wheezes heard. CARDIAC SYSTEM Regular rate and rhythm. ?S1 and S2 heard no murmurs. ?Radial pulses intact bilaterally MSK Hands: ?Good machine stoppage frequency checker strength bilaterally. No deformities noted. ?No synovitis noted to the MCPs, PIPs or DIPs. ?No tenderness to palpation of these joints. Wrists: ?Full range of motion at the wrists without pain. ?No tenderness to palpation or synovitis noted to the wrists. Elbows: Full range of motion without pain. No tenderness, weakness, swelling, increased warmth or erythema. Shoulders: Full range of motion without pain. No tenderness, weakness, swelling, increased warmth or erythema. Hips: Full range of motion without pain. Hip bursa: No tenderness to palpation Knees: ?Full range of motion. ?No tenderness, swelling, increased warmth or erythema. Bilateral crepitations felt Ankles: Full range of motion. ?No tenderness, swelling, increased warmth or erythema.? Feet: ?Negative squeeze test. ?No tenderness to palpation or swelling of the MTPs. Tender points:?No tenderness to palpation of the bilateral trapezius, supraspinatus, greater trochanters, anterior costochondral junctions, bilateral gluteal areas, bilateral suboccipital muscle insertions SKIN Skin intact without rashes. Jaundice Results Reviewed Results Reviewed: Laboratory Tests 01/09/25 15:23 WBC 7.0 RBC 4.59 L Hgb 12.9 L Hct 38.6 L Plt Count 186 Sodium 134 L Potassium 4.0 Chloride 101 Carbon Dioxide 26 BUN 6 L Creatinine 0.67 Total Bilirubin 5.2 H AST 101 H ALT 92 H Alkaline Phosphatase 909 H Total Protein 7.7 XR C Spine 07/2024 FINDINGS: The vertebral alignment is normal. No intrinsic bony abnormality. No fracture or subluxation. Degenerative changes with disc space narrowing, uncovertebral joint hypertrophy and osteophyte formation is seen from C3 through T1. Posterior facet joint arthropathy is seen bilaterally throughout the cervical spine. Mild diffuse neural foraminal osseous encroachment seen bilaterally. The surrounding prevertebral soft tissues are unremarkable. IMPRESSION: Multilevel degenerative disc disease and posterior facet joint arthropathy. MRI C spine 08/2024 FINDINGS: Craniocervical junction is intact. There is a subtle hyperintense T2 STIR bone marrow signal in the superior endplate of C7 likely related to Modic type I endplate changes. Bone marrow inhomogeneity. Multilevel marginal osteophyte formation C4 C7. Grade 1 anterolisthesis, C3-4 and C7-T1. Grade 1 retrolisthesis C4-5. Cervical spinal cord signal is normal. C2-3: Broad-based disc osteophyte complex formation. No cord compression. Bilateral neuroforamina narrowing on a degenerative basis. C3-4: Broad-based disc osteophyte complex formation. No cord compression. Bilateral neuroforamina stenosis on a degenerative basis. C4-5: Broad-based disc osteophyte complex formation. No cord compression. Bilateral neuroforamina narrowing on a degenerative basis. C5-6: Broad-based disc osteophyte compresses formation. No cord compression. Bilateral neuroforamina narrowing on a degenerative basis. C6-7: Broad-based disc osteophyte complex formation. No cord compression. Bilateral neuroforamina narrowing on a degenerative basis. C7-T1: No cord compression. No neuroforamina stenosis. No prevertebral compartment hematoma, mass or fluid collection. Flow-void signal within the mean vessels is normal. Codominant vertebral arteries. IMPRESSION: Multilevel cervical spondylosis C2-3, to C6-7 resulting in bilateral neuroforamina narrowing without cord compression, edema and or myelopathy. Assessment & Plan Assessment & Plan (1) Generalized osteoarthritis of multiple sites: Code(s): M15.9 - Polyosteoarthritis, unspecified Category: Medical Plan: #Polyarticular OA Patient is a 65 y.o. male with pancreatic cancer c/b liver mets here today for follow up OA. Complaining of bilateral knee pain. Still has neck pain as well. Discussed with patient that based on his current medical condition conservative management would be the best option. We will prescribe topical diclofenac and increase his tramadol from once a day to twice a day. Once his cancers in remission we can consider intervention such as steroid injections and gel injections for his knees. Plan - Increase Tramadol to 75mg bid - Topical diclofenac for bilateral knees - RTC 6 months Plan I spent 22 minutes reviewing the record and labs, taking a history, examining the patient, discussing the treatment plan, ordering diagnostic work up and documenting in the medical record Medications: New diclofenac sodium 1% apply to bilateral knees 4 times a day 4 grams topical QID 100 grams 6RF M15.9 - Polyosteoarthritis, unspecified Changed From tramadol 75 mg (1.5 x 50 mg) PO DAILY 90 days PRN 135 tabs 0RF pain M15.9 - Polyosteoarthritis, unspecified, M19.011 - Primary osteoarthritis, right shoulder, M19.012 - Primary osteoarthritis, left shoulder, M51.36 - Other intervertebral disc degeneration, lumbar region To tramadol 75 mg (1.5 x 50 mg) PO BID 30 days PRN 135 tabs 5RF pain M15.9 - Polyosteoarthritis, unspecified, M19.011 - Primary osteoarthritis, right shoulder, M19.012 - Primary osteoarthritis, left shoulder, M51.36 - Other intervertebral disc degeneration, lumbar region Coding Level of Care Code Est Pt Level 3 (30860) Diagnoses Generalized osteoarthritis of multiple sites M15.9
[2025-01-22 08:52] VITALS: BP 112/80; PULSE 105; O2SAT 95; BMI 28.4
--- OUTSIDE RECORDS SUMMARY | 2025-01-22 09:20 | XMS_ITS | Encounter Summary ---
Author Organization [facility] Address [address] [place] [address] Care Team Providers Care Exceptional Student Education Aide Name Role Phone Jefferson Medina MD Primary Care Provider Elliot Ambrose MD Primary Care Provider [phone] Encounter Details Date Type Department Care Team (Late st Contact Info) Description 05/21/2019 Scanned Document [facility] Radiology [address] [place] [address] Provider, Generic Social History Tobacco [...] on filedocumented in this encounter Care Teams Exceptional Student Education Aide Relationship Specialty Start Date End Date Jefferson Medina MD [address] [place] [address] PCP - General Radiation Oncology 03/27/19 06/22/20 Elliot Ambrose MD [address] [place] [address] PCP - General Family Medicine 06/23/20 documented as of this encounter
--- OUTSIDE RECORDS SUMMARY | 2025-01-22 09:20 | XMS_ITS | Clinical Summary ---
Author Organization [facility] Address [address] [place] [address] Care Team Providers Care Fast Food Restaurant Manager Name Role Phone Elliot Ambrose MD Primary [...] Inactivated Comments 05/21/2019 7:11 AM Care Teams Fast Food Restaurant Manager Relationship Specialty Start Date End Date Elliot Ambrose MD [address] [place] [address] PCP - General Family Medicine 06/23/20
--- OUTSIDE RECORDS SUMMARY | 2025-01-22 09:20 | XMS_ITS | Encounter Summary ---
Author Organization [facility] Address [address] [place] [address] Care Team Providers Care Civil Rights Attorney Name Role Phone Elliot Ambrose MD Primary Care Provider [phone] Encounter Details Date Type Department Care Team (Late st Contact Info) Description 01/03/2023 Scanned Document [facility] Radiation Oncology [address] [place] [phone] Luciano Dahl MD [address] [place] [phone] Social History Tobacco Use Types Packs/Day Years [...] on filedocumented in this encounter Care Teams Civil Rights Attorney Relationship Specialty Start Date End Date Elliot Ambrose MD [address] [place] [address] PCP - General Family Medicine 06/23/20 documented as of this encounter
--- OUTSIDE RECORDS SUMMARY | 2025-01-22 09:20 | XMS_ITS | Encounter Summary ---
Author Organization [facility] Address [address] [place] [address] Care Team Providers Care Clipper Machine Operator Name Role Phone Jefferson Medina MD Primary Care Provider [phone] Elliot Ambrose MD Primary Care Provider [phone] Encounter Details Date Type Department Care Team (Late st Contact Info) Description 05/14/2019 Prep for Surgery [facility] Urologic Surgery [address] [phone] Alek Lynn MD [address] [address] Social History Tobacco Use Types Packs/Day Years [...] on filedocumented in this encounter Care Teams Clipper Machine Operator Relationship Specialty Start Date End Date Jefferson Medina MD [address] [place] [address] PCP - General Radiation Oncology 03/27/19 06/22/20 Elliot Ambrose MD [address] [place] [address] PCP - General Family Medicine 06/23/20 documented as of this encounter
--- OUTSIDE RECORDS SUMMARY | 2025-01-22 09:20 | XMS_ITS | Encounter Summary ---
Author Organization [facility] Address [address] [place] [address] Care Team Providers Care Payroll Accounting Clerk Name Role Phone Jefferson Medina MD Primary Care Provider [phone] Encounter Details Date Type Department Care Team (Late st Contact Info) Description 05/21/2019 7:30 AM EDT Hospital Encounter [facility] Radiation Oncology [address] [place] [phone] Jefferson Medina MD [address] [place] [phone] Social History Tobacco Use Types Packs/Day Years [...] on filedocumented in this encounter Care Teams Payroll Accounting Clerk Relationship Specialty Start Date End Date Jefferson Medina MD [address] [place] [address] PCP - General Radiation Oncology 03/27/19 06/22/20 documented as of this encounter
== END 2025-01-22 09:17 | disposition home or self-care (01) ==
LOC: HO.RHE 08:46
PROVIDERS: PCP Nurse Practitioner Family; Visit Provider Student in an Organized Health Care Education/Training Program
DX: M15.9 Polyosteoarthritis, unspecified (principal)
CPT/HCPCS: 99213

== ENCOUNTER 2025-01-22 11:54 | Day surgery (SDC) | payer OTHER, SELFPAY ==
--- NOTE | 2025-01-20 15:00 | P.CONAN_ITS ---
Documented by User: Faye Og NP 01/20/25 15:03 HPI - Anesthesia Eval Consult details Narrative: 65yo M for ERCP hx of prostate ca and pancreatic mass Eliquis - portal vein thrombosis s/p lumbar decompression 04/2024 ETT-7.5 with ProVu PMFSH Active Problems Active Problems: All Active Problems Neuroendocrine tumor of pancreas (Acute) Pancreatic mass (Acute) Portal vein thrombosis (Acute) Liver masses (Acute) Abdominal pain, RUQ (Acute) Rash of hand (Acute) Cervical radiculopathy (Acute) Erectile dysfunction after prostate brachytherapy (Acute) Lumbar spinal stenosis (Acute) Lumbar degenerative disc disease (Acute) Spondylolisthesis of lumbar region (Acute) Vertebrogenic low back pain (Acute) Lumbar radiculopathy (Acute) Lumbar spondylosis (Acute) Right hip pain (Acute) Sciatica (Acute) Trochanteric bursitis of right hip (Acute) Osteoarthritis of shoulders, bilateral (Acute) Encounter for medication monitoring (Acute) Obesity (Acute) High triglycerides (Acute) Erectile dysfunction (Acute) Generalized osteoarthritis of multiple sites (Acute) Positive colorectal cancer screening using Cologuard test (Acute ~07/23/24) Nicotine dependence, cigarettes, uncomplicated (Acute) Prostate cancer (Acute ~2019) Past Medical History Medical History Pancreatic tumor Positive colorectal cancer screening using Cologuard test (~07/23/24) Spinal stenosis Osteoarthritis Environmental allergies Nicotine dependence, cigarettes, uncomplicated Seasonal allergies Benign prostatic hyperplasia with lower urinary tract symptoms Nocturia Prostate cancer (~2018) Wrist fracture, right Traumatic rupture of left biceps tendon Family History Family History Father Cancer Mother Cancer Family history of problems with anesthesia: No Surgical History Surgical History History of liver biopsy Previous back surgery History of prostate biopsy History of surgery on arm (~2005) History of arthroplasty of right ankle Hx of shoulder surgery (~1981) History of Problems with Anesthesia: No Social History Social History Household Members: Spouse Housing: House Are you a primary healthcare sales representative to a significant other at home: Yes (daughter, supportive ) Do you presently have visiting nurse or other home services: No Alcohol intake: never Patient Tobacco Use Status: Current everyday Tobacco user Tobacco use type: Cigarette Cigarette Packs Per Day: 0.5 Cigarettes Per Day: 8 Years Smoked: 35 e-Cigarette/Vaping Use: Never Used Second Hand Smoke Exposure: Yes Use of substances other than those prescribed or required for medical reasons: No Are you DNR?: No Advance Directives: No Advance Directives Information Provided: Yes service: No Current occupational status: retired Cognitive needs: No Hearing needs: No Vision needs: No Meds Allergies Allergy/AdvReac Type Severity Reaction Status Date / Time ampicillin Allergy Severe Anaphylaxis Verified 01/22/25 08:50 Penicillins Allergy Severe Anaphylaxis Verified 01/22/25 08:50 all cillins pineapple Allergy Severe Rash Verified 01/22/25 08:50 pseudoephedrine Allergy Severe anaphylaxis Verified 01/22/25 08:50 Sudafed oyster extract Allergy Mild Unknown Verified 01/22/25 08:50 Home Medications ?Medication ?Instructions ?Recorded ?Confirmed ?Last Taken ?Type fexofenadine 180 mg tablet 180 mg PO DAILY Allergy Symptoms 04/17/24 01/22/25 09/03/24 06:00 History fluticasone propionate 50 2 spray intranasal DAILY PRN 04/17/24 01/22/25 Unknown History mcg/actuation nasal Allergy Symptoms spray,suspension (Flonase Allergy Relief) omeprazole 20 mg capsule,delayed 20 mg PO DAILY 01/13/25 01/22/25 Unknown History release Exam Pertinent Lab Results Pertinent Lab Results: Laboratory Tests 01/09/25 15:23 WBC 7.0 Hgb 12.9 L Hct 38.6 L Plt Count 186 Sodium 134 L Potassium 4.0 Chloride 101 Carbon Dioxide 26 BUN 6 L Creatinine 0.67 Narrative Narrative: EKG 08/2024 Vent. Rate : 100 BPM Atrial Rate : 100 BPM P-R Int : 186 ms QRS Dur : 086 ms QT Int : 334 ms P-R-T Axes : 044 -26 015 degrees QTc Int : 430 ms Normal sinus rhythm Minimal voltage criteria for LVH, may be normal variant ( R in aVL ) Borderline ECG When compared with ECG of 30-SEP-2013 09:15, No significant change was found Assessment and Plan Assessment Anesthesia Assessment: Chart Reviewed Final Anesthetic Review Family History of Problems with Anesthesia: No History of Problems with Anesthesia: No Documented by User: Juju Malin MD 01/22/25 13:57 PMFSH Past Medical History Medical History Pancreatic tumor Positive colorectal cancer screening using Cologuard test (~07/23/24) Spinal stenosis Osteoarthritis Environmental allergies Nicotine dependence, cigarettes, uncomplicated Seasonal allergies Benign prostatic hyperplasia with lower urinary tract symptoms Nocturia Prostate cancer (~2018) Wrist fracture, right Traumatic rupture of left biceps tendon Family History Family History Father Cancer Mother Cancer Surgical History Surgical History History of liver biopsy Previous back surgery History of prostate biopsy History of surgery on arm (~2005) History of arthroplasty of right ankle Hx of shoulder surgery (~1981) Social History Social History Household Members: Spouse Housing: House Are you a primary healthcare sales representative to a significant other at home: Yes (daughter, supportive ) Do you presently have visiting nurse or other home services: No Alcohol intake: never Patient Tobacco Use Status: Current everyday Tobacco user Tobacco use type: Cigarette Cigarette Packs Per Day: 0.5 Cigarettes Per Day: 8 Years Smoked: 35 e-Cigarette/Vaping Use: Never Used Second Hand Smoke Exposure: Yes Use of substances other than those prescribed or required for medical reasons: No Are you DNR?: No Advance Directives: No Advance Directives Information Provided: Yes service: No Current occupational status: retired Cognitive needs: No Hearing needs: No Vision needs: No Meds Allergies Allergy/AdvReac Type Severity Reaction Status Date / Time ampicillin Allergy Severe Anaphylaxis Verified 01/22/25 08:50 Penicillins Allergy Severe Anaphylaxis Verified 01/22/25 08:50 all cillins pineapple Allergy Severe Rash Verified 01/22/25 08:50 pseudoephedrine Allergy Severe anaphylaxis Verified 01/22/25 08:50 Sudafed oyster extract Allergy Mild Unknown Verified 01/22/25 08:50 Home Medications ?Medication ?Instructions ?Recorded ?Confirmed ?Last Taken ?Type fexofenadine 180 mg tablet 180 mg PO DAILY Allergy Symptoms 04/17/24 01/22/25 09/03/24 06:00 History fluticasone propionate 50 2 spray intranasal DAILY PRN 04/17/24 01/22/25 Unknown History mcg/actuation nasal Allergy Symptoms spray,suspension (Flonase Allergy Relief) omeprazole 20 mg capsule,delayed 20 mg PO DAILY 01/13/25 01/22/25 Unknown History release Exam Airway Mallampati Class: II TM Dist: >3cm Neck ROM: Full Denture: Upper and Lower Heart: rrr Lungs: cta Assessment and Plan Assessment Anesthesia Assessment: Anesthesia Plan Discussed Final Anesthetic Review NPO: Yes ASA Class: III Final Preanesthetic Review: No Changes in Pt Med Stat, Meds/Allgs Chart Reviewed and Consent Obtained/Reviewed Patient Risk: Intermediate Procedure Risk: Intermediate Anesthetic Plan Anesthetic Plan: GA Disposition: Standard PACU
--- NOTE | ~2025-01-22 | FL_ITS ---
EXAMINATION: FL GUIDANCE ONLY HISTORY: ERCP COMPARISON: Correlation is made with an MRI in the abdomen dated 08/31/2024. TECHNIQUE: Fluoroscopy time: 1 minute, 27 seconds.. Cumulative Dose: 37.902 mGy. DAP: 16.487 mGym2 Images: 5. FINDINGS: There is dilatation of the common bile duct. The distal common bile duct is not well visualized. The final image demonstrates a stent in the distal common bile duct, which demonstrates moderate central constriction. FL/FL guidance in OR IMPRESSION: Fluoroscopy during procedure. Please see procedure report for additional information. Electronically signed by: Ramón Becerra MD 01/22/2025 03:52 PM EDT
--- NOTE | 2025-01-22 12:24 | MHC.SHP ---
Pre-Procedural Eval Section A - 24 Hr Update-Section A only Date of Service: 01/22/25 The patient is an INPATIENT: No The patient has been examined within 24 hours of the surgical procedure. The History & Physical has been completed within 30 days and I have reviewed it.: Yes Section B - Complete if H&P > 30 days Chief Complaint: Benign neoplasm of pancreas Allergies: Allergies Allergy/AdvReac Type Severity Reaction Status Date / Time ampicillin Allergy Severe Anaphylaxis Verified 01/22/25 08:50 Penicillins Allergy Severe Anaphylaxis Verified 01/22/25 08:50 all cillins pineapple Allergy Severe Rash Verified 01/22/25 08:50 pseudoephedrine Allergy Severe anaphylaxis Verified 01/22/25 08:50 Sudafed oyster extract Allergy Mild Unknown Verified 01/22/25 08:50 Plan Diagnosis/Plan: Unchanged I have reviewed the history and physical and performed a pertinent physical examination on my patient. No changes have occurred unless specified. ERCP with stent placement Time Spent With Patient Time: Total time managing care of this patient today ____ minutes.
[2025-01-22 12:33] VITALS: BMI 28.2
[2025-01-22 12:55] VITALS: BP 118/81; PULSE 96; RESP 15; TEMP 36.4; O2SAT 99
[2025-01-22] MEDS: Lactated Ringers 1,000 ML 100 ML IVCONT (12:57)
[2025-01-22] MEDS: Indomethacin 50 MG SUPP.RECT 100 MG PR (15:04)
--- NOTE | 2025-01-22 15:25 | P.OP_ITS ---
Operative Note Operative Note Date of Service: 01/22/25 Narrative: Description:?Endoscopic retrograde cholangiopancreatography (ERCP) and EGD PROCEDURE: 1/ upper endoscopy 2/Endoscopic retrograde cholangiopancreatography and sphincterotomy, balloon dilation, with stent placement and intra op cholangiogram INDICATION FOR THE PROCEDURE:?Patient with a history of obstructive jaundice due to panc head mass MEDICATIONS:?General anesthesia. The risks of the procedure were made aware to the patient and consisted of medication reaction, bleeding, perforation, aspiration, and post ERCP pancreatit is. DESCRIPTION OF PROCEDURE:?After informed consent and appropriate sedation, a forward viewing endoscope was passed to exclude gastric outlet obstruction. no obstruction was noted but esophageal candidiasis was seen. this scope was then withdrawn. The duodenoscope was then inserted into the oropharynx, down the esophagus, and into the stomach. The scope was then advanced through the pylorus to the ampulla. The scope was in an unstable long position and the ampulla was approached but the wire kept going into the PD. A paco precut was performed and then the tome re angled and eventually went into the CBD. A generous sphincterotomy was performed and black colored bile came out. A cholangiogram confirmed distal stricture and proximally dilated CBD. A 10 mm balloon was then used to dilate the stricture and a 10 mm x 60 mm covered metal stent was then deployed across the stricture with good effect and free flow of bile. The procedure was then terminated and air suctioned from the stomach. FINDINGS: 1. CBD stricture 2. esophageal candidiasis RECOMMENDATIONS: 1. Clears today and advance diet tomorrow as tolerated 2. 21 d of fluconazole 3. Restart apixiban in 48 hrs, i.e January 24 in the afternoon 4. Stent can be changed in a year or earlier if indicated clinically
[2025-01-22 15:27] VITALS: BP 109/72; PULSE 93; RESP 16; TEMP 36.1; O2SAT 99
[2025-01-22 15:42] VITALS: BP 119/79; PULSE 78; RESP 18; O2SAT 99
[2025-01-22 15:57] VITALS: BP 126/76; PULSE 68; RESP 18; TEMP 36.4; O2SAT 98
== END 2025-01-22 16:30 | disposition home or self-care (01) ==
PROVIDERS: PCP Internal Medicine; Visit Provider Internal Medicine Gastroenterology
PROC: (CPT 43260; principal; 2025-01-22 13:30)
DX: C25.4 Malignant neoplasm of endocrine pancreas (principal); C7B.02 Secondary carcinoid tumors of liver; C61 Malignant neoplasm of prostate; K83.1 Obstruction of bile duct; B37.81 Candidal esophagitis; Z87.19 Personal history of other diseases of the digestive system; N40.1 Benign prostatic hyperplasia with lower urinary tract symptoms; R35.1 Nocturia; J30.2 Other seasonal allergic rhinitis; M15.9 Polyosteoarthritis, unspecified; Z79.01 Long term (current) use of anticoagulants; Z79.899 Other long term (current) drug therapy; Z88.0 Allergy status to penicillin; Z88.1 Allergy status to other antibiotic agents; Z88.8 Allergy status to other drugs, medicaments and biological substances; Z91.018 Allergy to other foods; F17.210 Nicotine dependence, cigarettes, uncomplicated; Z98.890 Other specified postprocedural states; E78.5 Hyperlipidemia, unspecified
CPT/HCPCS: 43274; C1726; C1874; J1100; J1610; J2003; J2250; J2405; J2704; J3010; Q9967

== ENCOUNTER → 2025-01-22 11:54 | Outpatient (BNV) | payer OTHER, SELFPAY | PROVIDERS: PCP Internal Medicine; Visit Provider Internal Medicine Gastroenterology | DX: K83.1 Obstruction of bile duct (principal); B37.81 Candidal esophagitis; K86.89 Other specified diseases of pancreas | CPT/HCPCS: 43262; 43274 ==

== ENCOUNTER 2025-02-26 14:59 | Inpatient (IN) | payer OTHER, SELFPAY ==
--- NOTE | ~2025-02-26 | XR_ITS ---
EXAMINATION: XR CHEST CLINICAL INFORMATION: sob COMPARISON: 08/31/2024. TECHNIQUE: Frontal view of the chest was obtained. FINDINGS: Projection is apical lordotic. The cardiac, hilar, and mediastinal contours are normal. Mild aortic mural calcification. Lungs demonstrate left basilar vague opacity, unknown a real finding or artifactual from apical lordotic technique. No definite effusion or pneumothorax. No focal osseous or soft tissue abnormality. XR/XR chest 1V IMPRESSION: 1. Markedly apical lordotic projection. 2. Vague left basilar opacity, consistent with pneumonia in the appropriate clinical setting. Electronically signed by: Samson Matos MD 02/28/2025 08:20 AM EDT
--- NOTE | ~2025-02-26 | XR_ITS ---
EXAMINATION: XR ABDOMEN KUB CLINICAL INDICATION: Abdominal pain COMPARISON: None available. TECHNIQUE: AP view of the abdomen. FINDINGS: Patient's large body habitus. There is gastrointestinal. No intestinal dilatation. No gross air-fluid levels. Airspace disease, left lower lung lobe/lingula. Probable is status post prostate gland seen. There is a stent in the right upper quadrant abdomen. There is a bone marrow inhomogeneity in the bony pelvis and proximal femurs. Multilevel thoracolumbar spondylosis. Spina bifida occulta, S1 and S2. XR/XR KUB IMPRESSION: No intestinal obstruction pattern. Airspace disease, lingula/left lung base. Probable biliary stent. Questionable abnormal bone marrow. Electronically signed by: Nilson Anderson MD 02/28/2025 08:19 AM EDT
--- NOTE | ~2025-02-26 | CT_ITS ---
EXAMINATION: CT CHEST WITH IV CONTRAST, CT ABDOMEN PELVIS WITH IV CONTRAST INDICATION: shock COMPARISON: Comparison is made with the prior examination dated 08/31/2024. TECHNIQUE: CT scan of the chest, abdomen and pelvis was performed without contrast using standard departmental protocol. Coronal and sagittal reformatted images were generated and reviewed. Oral contrast material was not administered at the request of the referring physician. This CT exam was performed with one or more of the following dose reduction techniques: automated exposure control, adjustment of the mA and/or kV according to patient size, use of iterative reconstruction technique. DLP: 1370 mGy-cm CHEST: THYROID: The thyroid is unremarkable. LUNGS: There is mild to moderate emphysema. There is airspace opacity in the lingula and left lower lobe, compatible with pneumonia. There is dependent atelectasis in the right lower lobe. MEDIASTINUM: There is a 1.8 cm paracarinal right lymph node without change. There are multiple subcentimeter anterior mediastinal and AP window lymph nodes. LENARD: Evaluation of the hilar regions is limited by lack of intravenous contrast material. CARDIOVASCULATURE: The heart is normal in size. There is a small pericardial effusion measuring up to 12 mm in thickness. The thoracic aorta is normal in caliber. DEGREE OF CORONARY CALCIFICATION: severe PLEURA: There is a small left pleural effusion and a trace right pleural effusion. No pneumothorax. MAIN AIRWAYS: The mainstem bronchi and proximal branches are patent. AXILLA: There is no axillary lymphadenopathy. SOFT TISSUES: Unremarkable. BONES: There is degenerative disc disease of the spine. ABDOMEN: Evaluation of the solid organs is limited by lack of intravenous contrast material. LIVER: The liver demonstrates a nodular contour. Again seen are multiple hypodense masses within the liver consistent with metastatic disease. Several of these masses in the left lobe demonstrate internal foci of gas, compatible with necrosis or infection. GALLBLADDER / BILE DUCTS: A stent is noted in the common bile duct. Gas is seen within the common bile duct as well as intrahepatic biliary radicals of the left lobe and in the gallbladder. No calcified gallstones are identified. SPLEEN: The spleen is normal in size and has an unremarkable unenhanced appearance. PANCREAS: There is fullness of the region of the uncinate process of the pancreas compatible with the patient's known mass in this region. ADRENAL GLANDS: Unremarkable. KIDNEYS/RETROPERITONEUM: No renal calculi are identified. There is no hydronephrosis. LYMPH NODES: No retroperitoneal lymphadenopathy is identified in the abdomen or pelvis. VASCULATURE: The abdominal aorta demonstrates atherosclerotic calcification, but is normal in caliber. MESENTERY/PERITONEUM: There is a moderate amount of ascites in the abdomen and pelvis. No masses. There is no free intraperitoneal gas. STOMACH: The stomach is collapsed, limiting evaluation. SMALL BOWEL: The small bowel is normal in caliber. COLON: The colon is unremarkable. APPENDIX: The appendix is not seen, however no inflammatory changes are seen adjacent to the cecum. URINARY BLADDER/PELVIC ORGANS: The urinary bladder is collapsed, limiting detailed evaluation. Multiple prostate seeds is seen in place. BONES / SOFT TISSUES: No suspicious bony or soft tissue abnormalities. CT/CT abdomen pelvis w IV con IMPRESSION: 1. Airspace opacity in the lingula and left lower lobe compatible with pneumonia. 2. Small left pleural effusion and trace right pleural effusion. 3. Small pericardial effusion. 4. Diffuse hepatic metastatic disease. Gas is present in multiple masses in the left lobe compatible with necrosis or infection. 5. Moderate amount of ascites. 6. Fullness of the region of the uncinate process of the pancreas, compatible with the patient's known mass in this region. Electronically signed by: Ramón Becerra MD 02/28/2025 12:07 PM EDT
[2025-02-26 15:51] VITALS: BMI 28.8
[2025-02-26 15:52] VITALS: BP 98/60; PULSE 88; RESP 18; TEMP 36.9; O2SAT 97
[2025-02-26 16:01] LABS: Osmolality, Serum 267 mosm/kg (281-305)
--- OUTSIDE RECORDS SUMMARY | 2025-02-26 16:05 | XMS_ITS | Encounter Summary ---
Author Organization [facility] Address [address] [place] [address] Care Team Providers Care Software Systems Architect Name Role Phone Elliot Ambrose MD Primary Care Provider Encounter Details Date Type Department Care Team (Late st Contact Info) Description 01/03/2023 Scanned Document [facility] Radiation Oncology [address] [place] [phone] Luciano Dahl MD [address] [place] [phone] Social History Tobacco Use Types Packs/Day Years [...] Recorded Sex Assigned at Not on file Legal Sex Male 1:39 PM EDT Gender Identity Not on file Sexual Orientation [...] on filedocumented in this encounter Care Teams Software Systems Architect Relationship Specialty Start Date End Date Elliot Ambrose MD [address] [place] [address] PCP - General Family Medicine 06/23/20 documented as of this encounter
--- OUTSIDE RECORDS SUMMARY | 2025-02-26 16:05 | XMS_ITS | Encounter Summary ---
Author Organization [facility] Address [address] [place], [place] [id number] Care Team Providers Care Flame Cutting Supervisor Name Role Phone Jefferson Medina MD Primary Care Provider [phone] Elliot Ambrose MD Primary Care Provider [phone] Encounter Details Date Type Department Care Team (Late st Contact Info) Description 05/14/2019 Prep for Surgery [facility] Urologic Surgery [place] [address] [phone] Alek Lynn MD [address] [phone] Social History Tobacco Use Types Packs/Day Years [...] on filedocumented in this encounter Care Teams Flame Cutting Supervisor Relationship Specialty Start Date End Date Jefferson Medina MD [address] [place] [address] PCP - General Radiation Oncology 03/27/19 06/22/20 Elliot Ambrose MD [address] [place] [address] PCP - General Family Medicine 06/23/20 documented as of this encounter
--- OUTSIDE RECORDS SUMMARY | 2025-02-26 16:05 | XMS_ITS | Encounter Summary ---
Author Organization [facility] Address [address] [place] [address] Care Team Providers Care Garment Manufacturing Supervisor Name Role Phone Jefferson Medina MD Primary Care Provider Elliot Ambrose MD Primary Care Provider [phone] Encounter Details Date Type Department Care Team (Late st Contact Info) Description 05/21/2019 Scanned Document [facility] Radiology [address] [place] [address] Provider, Generic Social History Tobacco [...] Narrative 05/21/2019 Ordered by an unspecified provider. us Generic Provider HX AMB PROCEDURES Final Result documented in this encounter Visit Diagnoses Not on filedocumented in this encounter Care Teams Garment Manufacturing Supervisor Relationship Specialty Start Date End Date Jefferson Medina MD [address] [place] [address] PCP - General Radiation Oncology 03/27/19 06/22/20 Elliot Ambrose MD [address] [place] [address] PCP - General Family Medicine 06/23/20 documented as of this encounter
--- OUTSIDE RECORDS SUMMARY | 2025-02-26 16:05 | XMS_ITS | Encounter Summary ---
Author Organization [facility] Address [address] [place], [place] [phone] Care Team Providers Care Creche Attendant Name Role Phone Jefferson Medina MD Primary Care Provider [phone] Encounter Details Date Type Department Care Team (Late st Contact Info) Description 05/21/2019 7:30 AM EDT Hospital Encounter [facility] Radiation Oncology [address] [place] [phone] Jefferson Medina MD [address] [place] [phone] Social History Tobacco Use Types Packs/Day Years [...] on filedocumented in this encounter Care Teams Creche Attendant Relationship Specialty Start Date End Date Jefferson Medina MD [address] [place] [address] PCP - General Radiation Oncology 03/27/19 06/22/20 documented as of this encounter
--- OUTSIDE RECORDS SUMMARY | 2025-02-26 16:05 | XMS_ITS | Clinical Summary ---
Author Organization [facility] Address [address] [place] [address] Care Team Providers Care Local Operator Name Role Phone Elliot Ambrose MD Primary Care Provider [phone] Allergies Active Allergy Reactions Criticality Noted Date Comments Amoxicillin Rash/Dermatitis Low 04/04/2019 All cillin medications Other, Food Diarrhea,Rash/Dermat it is Low 05/17/2019 Pineapple,oysters Penicillins Diarrhea,Rash/Dermat it is Low 05/17/2019 Pseudoephedrine Anaphylaxis High 05/17/2019 Sulfa Antibiotics Unknown/Patient and Family Unable to Define Medium 05/21/2019 Medications finasteride (PROSCAR) 5 MG tablet Take 1 tablet (5 mg total) by mouth daily. 1 9 Active gabapentin (NEURONTIN) 300 MG capsule Take 1 capsule (300 mg total) by mouth daily. 9 Active meloxicam (MOBIC) 15 MG tablet Take 1 tablet (15 mg total) by mouth daily as needed. 0 9 Active Vitamin D3 (CHOLECALICEROL ) 2000 units tablet Take 1 tablet (2,000 Units total) by mouth daily. 3 9 Active tamsulosin (FLOMAX) 0.4 MG capsuleIndicati ons:History of brachytherapy,P rostate cancer (HCC) Take 1 capsule (0.4 mg total) by mouth daily. 30 capsule 3 9 Active Additional Information Patient taking differently:0.4 mg [...] Zoster (Shingles) Vaccine (1 of 2) 01/20/2008 COVID-19 Vaccine ( - 2023-2 5 season) 2024 Influenza Vaccine 05/23/2025 07/10/2020 RSV Vaccine 60 years and old er and Patients (1 - 1-dose 75+ series) 2033 Hepatitis B Vaccines Aged Out No long er eligible based on patient's age to complete this topic Insurance [facility] Advance Directives * Full Code (Latest Code Status on File) Date Activated Date Inactivated Comments 05/21/2019 7:11 AM Care Teams Local Operator Relationship Specialty Start Date End Date Elliot Ambrose MD [address] [place] [address] PCP - General Family Medicine 06/23/20
[2025-02-26] MEDS: 0.9 % Sodium Chloride Flush 3 ML SYRINGE IVFLUSH ×2 (16:06→19:36)
--- NOTE | 2025-02-26 16:39 | PHA.MEDREC ---
Pharmacy Consult ? Medication Reconciliation Pharmacy has completed the medication reconciliation. Spoke with the patient and family at bedside, he was able to tell me most of his medications, with his spouse filling in some details. He is a chemo patient and currently on a 2-week on 2-week off cycle with capecitabine and temozolomide. He is not taking them now but potentially will start them Monday for a 14 day course, with capecitabine starting on Day 1 and temozolomide starting on day 10 - 14 according to spouse
--- NOTE | 2025-02-26 17:35 | PM.IMHP ---
History of Present Illness Date of Service: 02/26/25 Attending physician on admission: Filippo Orosco Chief Complaint: Hyponatremia Pt is a 65-year-old male with a PMH significant for pancreatic cancer with Mets to liver on oral chemotherapy follows with Dr. Shelton, hx of prostate cancer, GERD, and BPH who is directly admitted to the hospital after routine labs during oncology visit showed hyponatremia of 126. During visit pt was also found to be hypotensive at 89/60 and was given 2L IVF prior to admission to the hospital. Pt reports reduced p.o. intake the past few weeks, especially of solids. Food just does not appear appetizing to him. Has been trying to keep up on fluids. Some nausea without vomiting, intermittent abd pain. Previously with constipation but has been having recent bowel movements after milk of mag. Occasional neuropathy in fingers and toes. Currently feels better after the fluids. No chest pain or pressure or palpitations. Denies fever, chills. No SOB or difficulty breathing. Review of Systems Review of Systems: Yes all other systems are reviewed and are negative [facility] Medical History Pancreatic tumor Positive colorectal cancer screening using Cologuard test (~07/23/24) Spinal stenosis Osteoarthritis Environmental allergies Nicotine dependence, cigarettes, uncomplicated Seasonal allergies Benign prostatic hyperplasia with lower urinary tract symptoms Nocturia Prostate cancer (~2018) Wrist fracture, right Traumatic rupture of left biceps tendon Family History Father Cancer Mother Cancer Surgical History History of liver biopsy Previous back surgery History of prostate biopsy History of surgery on arm (~2005) History of arthroplasty of right ankle Hx of shoulder surgery (~1981) Social History Household Members: Spouse Housing: House Are you a primary foster care social worker to a significant other at home: Yes (daughter, supportive ) Do you presently have visiting nurse or other home services: No Alcohol intake: never Patient Tobacco Use Status: Current everyday Tobacco user Tobacco use type: Cigarette Cigarette Packs Per Day: 0.5 Years Smoked: 35 e-Cigarette/Vaping Use: Never Used Second Hand Smoke Exposure: No Use of substances other than those prescribed or required for medical reasons: No Have you been hit, kicked, punched, or otherwise hurt by someone within the past year? If so, by whom?: No Do you feel safe in your current relationship?: Yes Do you have thoughts of harming others: None Do you have a plan to hurt others: No Plan service: No Current occupational status: retired Cognitive needs: No Hearing needs: No Vision needs: No Meds Allergies Allergy/AdvReac Type Severity Reaction Status Date / Time ampicillin Allergy Severe Anaphylaxis Verified 02/04/25 11:11 Penicillins Allergy Severe Anaphylaxis Verified 02/04/25 11:11 all cillins pineapple Allergy Severe Rash Verified 02/04/25 11:11 pseudoephedrine Allergy Severe anaphylaxis Verified 02/04/25 11:11 Sudafed oyster extract Allergy Mild Unknown Verified 02/04/25 11:11 Active Medications: Current Medications Acetaminophen (Acetaminophen 325 Mg Tablet) 650 mg PO Q6H PRN PRN Reason: Pain, Mild 1-3,fever,headache Calcium Carbonate (Calcium Carbonate 750 Mg Tab.Chew) 750 mg PO Q4H PRN PRN Reason: Heartburn Magnesium Hydroxide (Milk Of Magnesia 30 Ml Oral.Susp) 30 ml PO DAILY PRN PRN Reason: Constipation Melatonin (Melatonin 3 Mg Tablet) 6 mg PO BEDTIME PRN PRN Reason: Insomnia Sodium Chloride (0.9 % Sodium Chloride Flush 3 Ml Syringe) [facility] Last Admin: 02/26/25 16:06 Dose: 3 ml Home Medications ?Medication ?Instructions ?Recorded ?Confirmed ?Last Taken ?Type fluticasone propionate 50 2 spray intranasal DAILY PRN 04/17/24 02/26/25 02/25/25 History mcg/actuation nasal Allergy Symptoms spray,suspension (Flonase Allergy Relief) omeprazole 20 mg capsule,delayed 20 mg PO DAILY 01/13/25 02/26/25 02/25/25 History release jkaqrv-tuqrnjjr-kbutpfp 1 cap PO TIDWM 02/26/25 02/26/25 02/25/25 History 36,000-114,000-180,000 unit capsule,delay rel (Creon) tamsulosin 0.4 mg capsule 0.4 mg PO DAILY 02/26/25 02/26/25 02/25/25 History tizanidine 2 mg tablet 2 mg PO BEDTIME PRN Muscle Spasm 02/26/25 02/26/25 02/25/25 History Physical Exam Vital Signs and Narrative: Vital Signs: Last Vital Signs Temp 98.5 F 02/26/25 15:52 Pulse 88 02/26/25 15:52 Resp 18 02/26/25 15:52 BP 98/60 02/26/25 15:52 Pulse Ox 97 02/26/25 15:52 O2 Del Method Room Air 02/26/25 15:52 BMI result Body Mass Index 28.8 General: AOx3, no acute distress Resp: CTA bilaterally CVS: S1, S2, RRR GI: +BS, no distention, mild LUQ tenderness Skin: Warm, dry Neuro: Cranial nerves II-XII grossly intact bilaterally. Motor grossly intact bilaterally Extremities: No edema Psych: Appropriate affect Results Labs Labs: Laboratory Results - last 24 hr 02/26/25 15:30 Osmolality 267 L Assessment and Plan (1) Acute hyponatremia: Status: Acute Plan Pt is a 65-year-old male with a PMH significant for pancreatic cancer with Mets to liver on oral chemotherapy follows with Dr. Shelton, hx of prostate cancer, GERD, and BPH who is directly admitted to the hospital after routine labs during oncology visit showed hyponatremia of 126. Hyponatremia Sodium 126 at time of presentation Secondary to hypovolemia vs SIADH Pt received 2L IVF at oncology visit, hold on additional fluids for now Check UA, serum and urine osmolality, urine sodium urine creatinine Follow sodium Hypotension BP as low as 89/60 Likely in the setting of hypovolemia due to reduced po intake Resuscitated with 2L IVF by oncology Currently normotensive at 120/67 Consider albumin if pt's BP remains low Monitor BP Reduced p.o. intake Pt reports not eating much for the past few weeks In the setting of chemotherapy Pt declines nutrition consult or dietary supplement at this time Pancreatic cancer w/mets to liver Continue temozolomide, capecitabine, Eliquis Oncology consult Nicotine dependence NRT: gum Constipation In the setting of opioid analgesics Continue bowel regimen Full Code Attending:?Dr. Orosco DVT Prophylaxis: On Eliquis Pt will require a hospitalization of at least two nights for treatment of acute hyponatremia and hypotension requiring close monitoring of labs and vitals. Quality Stroke Does the patient have a stroke diagnosis?: No VTE Prior VTE?: No VTE Risk Level:: Medical - moderate - high VTE Device Contraindication: Treatment Not Indicated VTE Drug Contraindication: N/A - Med Ordered
[2025-02-26 17:46] LABS: Appearance Urine Clear; Color Urine Dark Yellow; Glucose Urine UA Negative (Negative); Leukocyte Esterase Urine Trace (Negative); Nitrite Urine Negative (Negative); UMIC TRIGGER UACC YES; Urine Blood Negative (Negative); Urine Ketones Negative (Negative); Urine Protein Trace mg/dL (Neg-Trace)
[2025-02-26 17:48] LABS: Bacteria Urine None Seen (None Seen); Hyaline Casts Urine 0-2 /LPF (0-2); RBC Urine 0-2 /HPF (0-2); Squamous Epithelial Cell Urine 0-2 /HPF (0-2); WBC Urine 0-5 /HPF (0-5)
[2025-02-26 18:21] LABS: Creatinine Urine 110.67 mg/dL; Sodium Urine Random < 20.0 mmol/L
[2025-02-26 19:17] VITALS: BP 120/67; PULSE 97; RESP 18; TEMP 36.2; O2SAT 99
[2025-02-26] MEDS: oxyCODONE HCl Immed Release 5 MG TABLET PO (23:04)
[2025-02-27 04:00] VITALS: BP 97/57; PULSE 67; RESP 18; TEMP 36.7; O2SAT 97
[2025-02-27] MEDS: Omeprazole 20 MG CAPSULE.DR PO (06:30)
[2025-02-27 06:58] LABS: Anion Gap 10 (12-20); Blood Urea Nitrogen 8 mg/dL (9-16); Carbon Dioxide 24 mmol/L (22-29); Chloride 98 mmol/L (96-108); Creatinine Clr Calc Pharmacy 141.4; Estimated Glomerular Filt Rate > 60; Glucose Random 99 mg/dL (60-115); Potassium 3.9 mmol/L (3.3-5.1); Sodium 128 mmol/L (135-145)
[2025-02-27 07:03] LABS: Hematocrit 28.5 % (42.0-52.0); Hemoglobin 9.5 g/dl (14.0-18.0); Mean Corpuscular HGB Conc 33.3 g/dl (31.0-36.0); Mean Corpuscular Hemoglobin 28.3 pg (27.0-33.0); Mean Corpuscular Volume 84.8 fL (80.0-98.0); Mean Platelet Volume 9.8 fL (9.4-12.4); Platelet Count 161 X10*3/uL (160-400); Red Blood Count 3.36 X10*6/uL (4.60-5.80); Red Cell Distribution Width 15.1 % (11.0-16.0); White Blood Count 7.5 X10*3/uL (4.8-10.8)
[2025-02-27 07:26] VITALS: BP 96/57; PULSE 83; RESP 16; TEMP 36.6; O2SAT 98
[2025-02-27] MEDS: polyethylene glycoL 3350 17 GM POWD.PACK PO (08:22)
[2025-02-27] MEDS: Apixaban 5 MG TABLET PO ×2 (08:22→19:27)
[2025-02-27] MEDS: Tamsulosin HCL 0.4 MG CAPSULE PO (08:22)
[2025-02-27] MEDS: 0.9 % Sodium Chloride Flush 3 ML SYRINGE IVFLUSH ×2 (08:23→19:21)
[2025-02-27 08:39] VITALS: BP 100/60
[2025-02-27] MEDS: oxyCODONE HCl Immed Release 5 MG TABLET PO ×2 (09:22→18:20)
--- NOTE | 2025-02-27 10:02 | P.PNIM_ITS ---
Subjective Subjective Date of Service: 02/27/25 Interval History: His apetite has been poor, and has been having increasing abdominal pain Physical Exam 2 Vital Signs: Vital Signs: Last Vital Signs Temp 97.8 F 02/27/25 07:26 Pulse 83 02/27/25 07:26 Resp 16 02/27/25 07:26 BP 100/60 02/27/25 08:39 Pulse Ox 98 02/27/25 07:26 O2 Del Method Room Air 02/27/25 07:26 BMI result Body Mass Index 28.8 Objective Data Active Medications Acetaminophen (Acetaminophen 325 Mg Tablet) 650 mg PO Q6H PRN PRN Reason: Pain, Mild 1-3,fever,headache Albuterol Sulfate (Albuterol Sulfate 90 Mcg 8 Gm Inhaler) 1 puff INHALE QID PRN PRN Reason: shortness of breath or wheezing Apixaban (Apixaban 5 Mg Tablet) 5 mg PO BID [facility] Last Admin: 02/27/25 08:22 Dose: 5 mg Documented By: QUE Calcium Carbonate (Calcium Carbonate 750 Mg Tab.Chew) 750 mg PO Q4H PRN PRN Reason: Heartburn Fluticasone Propionate (Fluticasone Propionate Nasal 16 Gm [place]) 2 spray NOSTRIL-B DAILY PRN PRN Reason: Allergy Symptoms Magnesium Citrate (Magnesium Citrate 300 Ml Solution) 150 ml PO DAILY PRN PRN Reason: Constipation Magnesium Hydroxide (Milk Of Magnesia 30 Ml Oral.Susp) 30 ml PO DAILY PRN PRN Reason: Constipation Melatonin (Melatonin 3 Mg Tablet) 6 mg PO BEDTIME PRN PRN Reason: Insomnia Nicotine Polacrilex (Nicotine Polacrilex 2 Mg Gum) 2 mg BUCCAL Q1H PRN PRN Reason: Nicotine Cravings Non-Formulary Medication (Capecitabine) 1,500 mg PO BID [facility] Non-Formulary Medication (Cymiba-Thmmdgcq-Cpxuoum [Creon]) 1 cap PO TIDWM [facility] Non-Formulary Medication (Temozolomide) 300 mg PO DAILY [facility] Omeprazole (Omeprazole 20 Mg Capsule.Dr) 20 mg PO DAILY@0630 [facility] Last Admin: 02/27/25 06:30 Dose: 20 mg Documented By: STEVE Oxycodone HCl (Oxycodone Hcl Immed Release 5 Mg Tablet) 5 mg PO Q6H PRN PRN Reason: Pain, Severe (Pain Scale 7-10) Last Admin: 02/27/25 09:22 Dose: 5 mg Documented By: QUE Polyethylene Glycol (Polyethylene Glycol 3350 17 Gm Powd.Pack) 17 gm PO DAILY [facility] Last Admin: 02/27/25 08:22 Dose: 17 gm Documented By: QUE Sodium Chloride (0.9 % Sodium Chloride Flush 3 Ml Syringe) 3 ml IVFLUSH QSHIFT [facility] Last Admin: 02/27/25 08:23 Dose: 3 ml Documented By: QUE Tamsulosin HCl (Tamsulosin Hcl 0.4 Mg Capsule) 0.4 mg PO DAILY [facility] Last Admin: 02/27/25 08:22 Dose: 0.4 mg Documented By: QUE Tizanidine HCl (Tizanidine Hcl 4 Mg Tablet) 2 mg PO BEDTIME PRN PRN Reason: Muscle Spasm Tramadol HCl (Tramadol Hcl 50 Mg Tablet) 75 mg PO BID PRN PRN Reason: Pain, Moderate(Pain Scale 4-6) Labs 02/27/25 05:53 02/27/25 05:53 Labs: Laboratory Results - last 24 hr 02/26/25 02/26/25 02/27/25 15:30 17:17 05:53 MCV 84.8 MCH 28.3 MCHC 33.3 RDW 15.1 Plt Count 161 MPV 9.8 Absolute Nucleated RBC 0.000 Nucleated RBC % (auto) 0.0 Anion Gap 10 L Estim Creat Clear Calc 141.4 Estimated GFR > 60 Random Glucose 99 Osmolality 267 L Calcium 8.0 L Urine Color Dark Yellow Urine Appearance Clear Urine pH 6.0 Ur Specific [place] 1.020 Urine Protein Trace Urine Glucose (UA) Negative Urine Ketones Negative Urine Blood Negative Urine Nitrite Negative Ur Leukocyte Esterase Trace H Urine RBC 0-2 Urine WBC 0-5 Ur Squamous Epith Cells 0-2 Urine Bacteria None Seen Hyaline Casts 0-2 Ur Random Sodium < 20.0 Urine Creatinine 110.67 Assessment and Plan (1) Pancreatic cancer: Status: Acute Plan Pt is a 65-year-old male with a PMH significant for pancreatic cancer with Mets to liver on oral chemotherapy follows with Dr. Shelton, hx of prostate cancer, GERD, and BPH who is directly admitted to the hospital after routine labs during oncology visit showed hyponatremia of 126. Hyponatremial Sodium 126 at time of presentation--.128 Secondary to hypovolemia vs SIADH Pt received 2L IVF at oncology visit, hold on additional fluids for now Check UA, serum and urine osmolality, urine sodium urine creatinine Follow sodium Hypotension Likely in the setting of hypovolemia due to reduced po intake Resuscitated with 2L IVF by oncology Albumin x 2 Reduced p.o. intake Pt reports not eating much for the past few weeks In the setting of chemotherapy beach expert consult Pancreatic cancer w/mets to liver Continue temozolomide, capecitabine, Eliquis Oncology consult Nicotine dependence NRT: gum Constipation In the setting of opioid analgesics Continue bowel regimen Full Code Attending:?Dr. Orosco DVT Prophylaxis: On Eliquis Pt will require a hospitalization of at least two nights for treatment of acute hyponatremia and hypotension requiring close monitoring of labs and vitals. Quality Stroke Does the patient have a stroke diagnosis?: No VTE Prior VTE?: No VTE Risk Level:: Medical - moderate - high VTE Device Contraindication: Treatment Not Indicated VTE Drug Contraindication: N/A - Med Ordered
[2025-02-27] MEDS: Nicotine Polacrilex 2 MG GUM BUCCAL ×2 (13:31→18:20)
[2025-02-27] MEDS: Morphine Sulfate 4 MG/ML CARTRIDGE 2 MG IVPUSH ×3 (13:32→23:41)
[2025-02-27] MEDS: Albumin Human 25 % 100 ML 133.33 ML IV ×2 (14:28→15:15)
[2025-02-27 15:16] VITALS: BP 95/57; PULSE 80; RESP 16; TEMP 36.5; O2SAT 98
--- NOTE | 2025-02-27 15:27 | MHC.CM.PN ---
PT REPORTS HE LIVES AT HOME WITH HIS AND KIDS HE IS INDEPENDENT WITH CARE AND MOBILITY HE HAS NO SERVICES OR DME HCP ON FILE PCP: DELLA GUPTA DCP: HOME VIA PRIVATE TRANSPORT
--- NOTE | 2025-02-27 16:19 | PM.HEMONCCN ---
Subjective - Subjective Chief complaint: FOLLOW-UP FOR: PANCREATIC CARCINOMA. Patient: known to practice within the last 3 years Consult date: 02/27/25 Requesting Physician: Thuan. Primary Care Provider: Nelson Silva MD Family Provider: DR. Setele Medical Summary: DIAGNOSIS: PANCREATIC NEUROENDOCRINE TUMOR. Grip Utilized?: No - Serbian Speaking HPI - Consult Narrative Reason for consult: Consult for: Neuroendocrine tumor of the pancreas with liver Mets Narrative: Yassine Reveles is a pleasant 65 year old gentleman, admitted on 02/26 with nausea vomiting and hypotension. PMH significant for: Neuroendocrine Pancreatic cancer with Mets to liver on oral chemotherapy (Cap/Tem),Hx of prostate cancer, GERD, and BPH. He was directly admitted to the hospital after routine labs during oncology visit showed hyponatremia of 126. During visit pt was also found to be hypotensive at 89/60 and was given 2L IVF prior to admission to the hospital. Pt reported reduced p.o. intake the past few weeks, especially of solids. Food just does not appear appetizing to him. He has been trying to keep up on fluids. Has had nausea without vomiting, intermittent abd pain. Previously with constipation but has been having recent bowel movements after milk of mag. No chest pain or pressure or palpitations. Occasional neuropathy in fingers and toes. Currently feels better after the fluids. Denies fever, chills. No SOB or difficulty breathing. [facility] Medical History: Pancreatic tumor: Underwent bland ablation by IR at [facility]. Now started on oral chemotherapy. Positive colorectal cancer screening using Cologuard test (~07/23/24) Spinal stenosis Osteoarthritis Environmental allergies Nicotine dependence, cigarettes, uncomplicated Seasonal allergies Benign prostatic hyperplasia with lower urinary tract symptoms Nocturia Prostate cancer (~2019) Wrist fracture, right Traumatic rupture of left biceps tendon Review of Systems Review of Systems: Yes all other systems are reviewed and are negative Review of Systems - Constitutional Reports system reviewed and no additional complaints, except as documented - Eyes Reports system reviewed and no additional complaints, except as documented - ENT Reports system reviewed and no additional complaints, except as documented - Cardiovascular Reports system reviewed and no additional complaints, except as documented - Respiratory Reports no additional respiratory complaints - Gastrointestinal Reports system reviewed and no additional complaints, except as documented - Genitourinary Genitourinary: Reports no additional male genitourinary complaints - Musculoskeletal Reports system reviewed and no additional complaints, except as documented - Integumentary/Breasts Skin/Breast: Reports no additional skin complaints - Neurologic Reports system reviewed and no additional complaints, except as documented - Psychiatric Reports system reviewed and no additional complaints, except as documented - Endocrine Reports no additional endocrine complaints - Hematologic/Lymphatic Reports system reviewed and no additional complaints, except as documented - Allergic/Immunologic Reports system reviewed and no additional complaints, except as documented Oncology Screenings - ECOG Performance Status ECOG Performance Status: 2 [facility] Medical History: Medical History (Last Reviewed 02/26/25 @ 22:59 by THOMAS Braga) Benign prostatic hyperplasia with lower urinary tract symptoms Environmental allergies Nicotine dependence, cigarettes, uncomplicated Nocturia Osteoarthritis Pancreatic tumor Positive colorectal cancer screening using Cologuard test Onset Date: ~07/23/24 Prostate cancer Onset Date: ~2018 Seasonal allergies Spinal stenosis Traumatic rupture of left biceps tendon Wrist fracture, right Functional capacity: uses cane/walker Family History: Family History (Last Reviewed 02/26/25 @ 22:59 by THOMAS Braga) Father Cancer Mother Cancer Surgical History: Surgical History (Last Reviewed 02/26/25 @ 22:59 by THOMAS Braga) History of arthroplasty of right ankle History of liver biopsy History of prostate biopsy History of surgery on arm Onset Date: ~2005 Hx of shoulder surgery Onset Date: ~1981 Previous back surgery Social History: Social History (Last Reviewed 02/26/25 @ 22:59 by THOMAS Braga) Living Situation History: Household Members: Spouse Housing: House Are you a primary life care planner to a significant other at home: Yes Are you a primary life care planner to a significant other at home comment: daughter, supportive Do you presently have visiting nurse or other home services: No Alcohol History Details: 1. How often do you have a drink containing alcohol?: a. Never Tobacco History: Patient Tobacco Use Status: Current everyday Tobacco Tobacco use type: Cigarette Cigarette Packs Per Day: 0.5 Years Smoked: 35 e-Cigarette/Vaping Use: Never Used Second Hand Smoke Exposure: No Substance Use History: Use of substances other than those prescribed or required for medical reasons: No Domestic Abuse History: Have you been hit, kicked, punched, or otherwise hurt by someone within the past year? If so, by whom?: No Do you feel safe in your current relationship?: Yes Homicidal Assessment: Do you have thoughts of harming others: None Do you have a plan to hurt others: No Plan Nutrition Assessment: Patient : No Occupation Assessmet: service: No Current occupational status: retired Home Medications and Allergies Current Medications: Current Medications Acetaminophen (Acetaminophen 325 Mg Tablet) 650 mg PO Q6H PRN PRN Reason: Pain, Mild 1-3,fever,headache Albuterol Sulfate (Albuterol Sulfate 90 Mcg 8 Gm Inhaler) 1 puff INHALE QID PRN PRN Reason: shortness of breath or wheezing Apixaban (Apixaban 5 Mg Tablet) 5 mg PO BID [facility] Last Admin: 02/27/25 08:22 Dose: 5 mg Calcium Carbonate (Calcium Carbonate 750 Mg Tab.Chew) 750 mg PO Q4H PRN PRN Reason: Heartburn Fluticasone Propionate (Fluticasone Propionate Nasal 16 Gm [place]) 2 spray NOSTRIL-B DAILY PRN PRN Reason: Allergy Symptoms Magnesium Citrate (Magnesium Citrate 300 Ml Solution) 150 ml PO DAILY PRN PRN Reason: Constipation Magnesium Hydroxide (Milk Of Magnesia 30 Ml Oral.Susp) 30 ml PO DAILY PRN PRN Reason: Constipation Melatonin (Melatonin 3 Mg Tablet) 6 mg PO BEDTIME PRN PRN Reason: Insomnia Morphine Sulfate (Morphine Sulfate 4 Mg/Ml Cartridge) 2 mg IVPUSH Q4H PRN; Protocol PRN Reason: Pain, Severe (Pain Scale 7-10) Last Admin: 02/27/25 13:32 Dose: 2 mg Nicotine Polacrilex (Nicotine Polacrilex 2 Mg Gum) 2 mg BUCCAL Q1H PRN PRN Reason: Nicotine Cravings Last Admin: 02/27/25 13:31 Dose: 2 mg Non-Formulary Medication (Capecitabine) 1,500 mg PO BID [facility] Non-Formulary Medication (Pcypvd-Ovjxuzsy-Kaxcvwr [Creon]) 1 cap PO TIDWM [facility] Non-Formulary Medication (Temozolomide) 300 mg PO DAILY [facility] Omeprazole (Omeprazole 20 Mg Capsule.Dr) 20 mg PO DAILY@0630 [facility] Last Admin: 02/27/25 06:30 Dose: 20 mg Oxycodone HCl (Oxycodone Hcl Immed Release 5 Mg Tablet) 5 mg PO Q6H PRN PRN Reason: Pain, Moderate(Pain Scale 4-6) Polyethylene Glycol (Polyethylene Glycol 3350 17 Gm Powd.Pack) 17 gm PO DAILY [facility] Last Admin: 02/27/25 08:22 Dose: 17 gm Sodium Chloride (0.9 % Sodium Chloride Flush 3 Ml Syringe) 3 ml IVFLUSH QSORFT [facility] Last Admin: 02/27/25 14:32 Dose: Not Given Tamsulosin HCl (Tamsulosin Hcl 0.4 Mg Capsule) 0.4 mg PO DAILY [facility] Last Admin: 02/27/25 08:22 Dose: 0.4 mg Tizanidine HCl (Tizanidine Hcl 4 Mg Tablet) 2 mg PO BEDTIME PRN PRN Reason: Muscle Spasm Tramadol HCl (Tramadol Hcl 50 Mg Tablet) 75 mg PO BID PRN PRN Reason: Pain, Moderate(Pain Scale 4-6) Home Medications ?Medication ?Instructions ?Recorded ?Confirmed ?Type omeprazole 20 mg capsule,delayed 20 mg PO DAILY 01/13/25 02/26/25 History release tizanidine 2 mg tablet 2 mg PO BEDTIME PRN Muscle Spasm 02/26/25 02/26/25 History Allergies Allergy/AdvReac Type Severity Reaction Status Date / Time ampicillin Allergy Severe Anaphylaxis Verified 02/04/25 11:11 Penicillins Allergy Severe Anaphylaxis Verified 02/04/25 11:11 all cillins pineapple Allergy Severe Rash Verified 02/04/25 11:11 pseudoephedrine Allergy Severe anaphylaxis Verified 02/04/25 11:11 Sudafed oyster extract Allergy Mild Unknown Verified 02/04/25 11:11 Physical Exam Vital signs: Vital Signs Temp 97.7 F 02/27/25 15:16 Pulse 80 02/27/25 15:16 Resp 16 02/27/25 15:16 BP 95/57 L 02/27/25 15:16 Pulse Ox 98 02/27/25 15:16 O2 Del Method Room Air 02/27/25 15:16 Intake & Output 02/26/25 02/27/25 02/27/25 18:59 06:59 18:59 Intake Total 1240 / 1240 660 / 660 Output Total 200 / 200 Balance 1040 / 1040 660 / 660 Urine Output (Average ml/kg/hr) 0.17 0.17 Intake: Intake, Oral Amount 1240 / 1240 460 / 460 Intake, IV Amount 200 / 200 Albumin Human 25 % 100 ml @ 133 200 / 200 .333 mls/hr IV Q1H [facility] Rx#: [id number] Output: Output, Urine Amount 200 / 200 Other: Breakfast % Eaten 100% Lunch % Eaten 50% Dinner % Eaten 100% Eating (Feeding) Ability Independent Number of Unmeasured Voids 1 1 Number of Bowel Movements 3 Urine Bathroom Bathroom Urine Color Yellow Last Bowel Movement 02/26/25 02/26/25 Stool Bathroom Bathroom Stool Amount Moderate Moderate Stool Color Brown Brown Stool Consistency Loose Loose Weight 96.4 kg [place] Weight in Grams 34984 Weight 96.4 kg - Constitutional Present: mild distress - Routine HEENT Exam Head: Present: normal inspection, normocephalic Eye: Present: normal appearance ENT: Present: mucous membranes moist - Routine Neck Exam Present: supple - Routine Respiratory Exam Present: CTAB - Routine Cardiovascular Exam Cardiovascular: Present: RRR, S1, S2 - Routine Abdominal Exam Present: soft - Routine Extremities Exam Present: pulses intact Hem/Onc Consult Result - Labs CBC & Chem 7: 02/28/25 01:57 02/28/25 16:43 Labs: Short CBC 02/27/25 Range/Units 05:53 WBC 7.5 (4.8-10.8) X10*3/uL Hgb 9.5 L (14.0-18.0) g/dl Hct 28.5 L (42.0-52.0) % Plt Count 161 (160-400) X10*3/uL BMP 02/27/25 05:53 Sodium 128 L Potassium 3.9 Chloride 98 Carbon Dioxide 24 BUN 8 L Creatinine 0.61 Calcium 8.0 L Urine 02/26/25 Range/Units 17:17 Urine Color Dark Yellow Urine Appearance Clear Urine pH 6.0 (5.0-9.0) Ur Specific [place] 1.020 (1.005-1.025) Urine Protein Trace (Neg-Trace) mg/dL Urine Glucose (UA) Negative (Negative) mg/dL Assessment and Plan Patient Active problem list reviewed?: Yes (1) Neuroendocrine tumor of pancreas Problem details: RD recommends MD to code for severe protein calorie malnutrition Status: Acute Assessment and plan: 65 year old gentleman,with H/O prostate cancer, initially presented with complaints of right upper quadrant pain and right scapula/shoulder pain ongoing for the past 3-4 days acutely worsening over the past 2 days. Patient reports pain is severe, sharp and stabbing. He feels it under his ribcage at times pain is so bad he feels short of breath. He still has his gallbladder. He reports this is the most uncomfortable he has ever been. Denies fevers, chills, nausea, vomiting, changes in bowel habits, headache, vision changes, dizziness, weakness, chest pain. CxR: Prominent interstitial markings, nonspecific. Differential includes infection, edema, or emphysema. U/S of abdomen: 1. Hepatomegaly containing innumerable hypoechoic masses concerning for metastatic disease. 2. Hyperechoic filling defect in the main portal vein resulting in at least partial occlusion is concerning for bland versus tumor thrombus. Cat scan of abdomen: 1. Rounded masslike soft tissue in the pancreatic head measuring 3.9 cm and concerning for pancreatic neoplasm. Recommend pancreas protocol MRI with contrast for further evaluation for pancreatic mass. 2. Innumerable hypodense lesions throughout the liver consistent with metastatic disease. 3. Rounded nonocclusive thrombus in the main portal vein measuring 2.6 cm. This is favored represent bland thrombus as there is no appreciable enhancement between the arterial and venous phases. 4. Sclerotic lesion in the anterior sacrum measuring 1.1 cm, which is indeterminate. CTA of chest: 1. No evidence of pulmonary metastatic disease. 2. Single enlarged precarinal lymph node with fatty ramin which I doubt is pathologic. 3. Diffuse liver metastatic disease more completely imaged on the abdominal CT.. He underwent liver directed therapy at [facility] under the care of Dr. Hernandez.( he underwent bland embolization of the right lobe of the liver on 10/30 and left lobe of the liver on 12/06.) He was then started on cap/Tem, regimen, about a month ago. He presented to Oncology yesterday with hypotension, in the setting of hypovolemia due to reduced po intake. He was also noted to have Hyponatremia. Sodium 126 at time of presentation.128. This is likely secondary to SIADH. He had not been eating nor drinking much. He is feeling much better today. His appetite has improved. He has been ambulating. PLAN: He was Resuscitated with 2L IVF in oncology on 02/26. Also received Albumin x 2 Further IV fluids were held. Checked UA, serum and urine osmolality 267, urine sodium urine creatinine. Follow serum sodium. Now up to 128. He would like to go home tomorrow. I advised him to hold off taking his chemotherapy medications this week. He will return next week and will check his labs. Then decide went to resume. Thanks, CC: Dr. Steele Addendum: Patient took a turn for the worse on 02/28. He developed nausea and vomiting. He was transferred to the ICU. He was maintained on pressors. He got worst and was transferred to [facility]. Unfortunately he on 03/01. - Time Spent With Patient Time Spent with Patient (in minutes): 30
[2025-02-27] MEDS: ondansetron HCL 4 MG/2 ML VIAL IVPUSH (19:20)
[2025-02-27 20:00] VITALS: BP 96/60; PULSE 100; RESP 18; TEMP 36.8; O2SAT 93
[2025-02-27] MEDS: Metoclopramide HCl 10 MG/2 ML VIAL IVPUSH (20:46)
[2025-02-27] MEDS: traMADoL HCL 50 MG TABLET 75 MG PO (21:50)
[2025-02-27] MEDS: Milk of Magnesia 30 ML ORAL.SUSP PO (23:22)
[2025-02-27 23:59] VITALS: BP 80/48; PULSE 83; RESP 20; TEMP 36.4; O2SAT 96
[2025-02-28] VITALS (20 sets, daily range): BP systolic 59–121; BP diastolic 31–68; PULSE 92–128; RESP 18–45; TEMP 35.3–36.3; O2SAT 90–95; BMI 28.8
[2025-02-28] MEDS: Albumin Human 25 % 100 ML 133.33 ML IV ×2 (00:10→01:12)
[2025-02-28] MEDS: 0.9 % Sodium Chloride 500 ML IV (00:25)
[2025-02-28] MEDS: Lactated Ringers 1,000 ML 999 ML IV ×2 (01:33→06:00)
[2025-02-28 02:08] LABS: Hematocrit 38.6 % (42.0-52.0); Hemoglobin 12.9 g/dl (14.0-18.0); Mean Corpuscular HGB Conc 33.4 g/dl (31.0-36.0); Mean Corpuscular Hemoglobin 28.2 pg (27.0-33.0); Mean Corpuscular Volume 84.3 fL (80.0-98.0); Mean Platelet Volume 9.2 fL (9.4-12.4); Platelet Count 234 X10*3/uL (160-400); Red Blood Count 4.58 X10*6/uL (4.60-5.80); Red Cell Distribution Width 15.2 % (11.0-16.0); White Blood Count 6.1 X10*3/uL (4.8-10.8)
[2025-02-28 02:09] LABS: VBG Base Excess -8.6 mmol/L; VBG HCO3 15 mmol/L (22-26); VBG pCO2 26 mmHg; VBG pH 7.35 (7.32-7.43); VBG pO2 49 mmHg
[2025-02-28 02:15] LABS: Venous Blood Gas Refer to POC result
[2025-02-28 02:16] LABS: Anion Gap 19 (12-20); Blood Urea Nitrogen 12 mg/dL (9-16); Calcium 8.2 mg/dL (8.4-10.2); Carbon Dioxide 14 mmol/L (22-29); Chloride 101 mmol/L (96-108); Creatinine Clr Calc Pharmacy 89.8; Estimated Glomerular Filt Rate > 60; Glucose Random 125 mg/dL (60-115); Potassium 3.2 mmol/L (3.3-5.1); Sodium 131 mmol/L (135-145)
[2025-02-28 02:23] LABS: Troponin-I High Sensitivity 17.5 ng/L (<3.5-35.0)
[2025-02-28 02:30] LABS: Lactic Acid 7.3 mmol/L (0.5-2.0)
[2025-02-28 02:42] LABS: Band Neutrophils Percent 32 % (3-5); Eosinophils Absolute Manual 0.2 X10*3/uL (0.0-0.4); Eosinophils Percent Manual 4 % (0-4); Lymphocytes Absolute Manual 0.5 X10*3/uL (1.2-4.9); Lymphocytes Percent Manual 9 % (20-40); Metamyelocytes Absolute 0.1 X10*3/uL; Metamyelocytes Percent 2 %; Monocytes Absolute Manual 0.1 X10*3/uL (0.1-1.2); Monocytes Percent Manual 1 % (2-11); Neutrophils Absolute Manual 5.1 X10*3/uL (2.0-8.3); Neutrophils Percent Manual 52 % (45-73)
[2025-02-28 02:46] LABS: Dohle Bodies PRESENT; Ovalocytes 1+ (5-14) /OIF; Platelet Estimate NORMAL (NORMAL); Platelet Morphology Comment NORMAL; RBC Morphology NOTED; Toxic Granulation PRESENT; Toxic Vacuolation PRESENT
[2025-02-28 02:48] LABS: Burr Cells 2+ (3-5) /OIF
--- NOTE | 2025-02-28 03:09 | PC.NURSE ---
At 0000 pt's BP was 80/48, tiger text to Dr. Urban, 2 bags of IV Albumin ordered. After 1st bag infused - pt's BP 78/32, Dr. Urban made aware, 500 ml NS bolus ordered and put pt in trendelenburg position. Pt's BP after that 84/52. Labs ordered by Dr. Urban. After 2nd bag of Albumin infused, pt's BP 92/58, 1 liter LR bolus ordered. After 1 liter LR bolus pt's BP 94/54. Dr. Urban aware. Will continue to monitor.
--- NOTE | 2025-02-28 03:30 | PM.EVENT ---
Event Note Date of Service: 02/28/25 Event Note: Nurse reported hypotension. Ordered crystalloids and colloids with improvement of blood pressure. Also ordered labs which revealed lactic acidosis. Bicarb low. PH on VBG 7.35. Ordered oral bicarb. Re-examined the patient who is complaining of diffuse abdominal discomfort. Does have abdominal tenderness upon examination. Will obtain CT abdomen/pelvis with IV contrast. Time Spent With Patient Time: Total time managing care of this patient today ____ minutes.
[2025-02-28] MEDS: Sodium Bicarbonate 650 MG TABLET PO (03:43)
[2025-02-28 03:59] LABS: Reflex Lactate? Lactic Acid Added
--- NOTE | 2025-02-28 04:04 | PC.NURSE ---
Pt vomiting intermittently throughout the night. 100-200 ml each time, just now another 400 ml, mostly thin yellow-greenish bile.
[2025-02-28] MEDS: Omeprazole 20 MG CAPSULE.DR PO (05:31)
[2025-02-28 07:22] LABS: Reflex Lactate? 2 Y
[2025-02-28 07:59] LABS: Glucose, Whole Blood 154 mg/dL (60-115)
--- NOTE | 2025-02-28 08:04 | HO.PM.IMPN ---
Subjective Subjective Date of Service: 02/28/25 Interval History: Patient become increasing more hypotensive overnight, elevated lactic acid 7.2 to 7.8, and increasing abdominal pain and vomited several times. Given albumin and IVF, and BP is persistent low BP and with low rectal temp of 95, a CT of abdomen and pelvis pending. KUB and CXR requested, blood culture requested and starting IV Flagyl and Zosyn and surgical consultation. Physical Exam Vital Signs: Vital Signs: Last Vital Signs Temp 95.6 F L 02/28/25 07:30 Pulse 96 02/28/25 07:30 Resp 18 02/28/25 07:30 BP 72/50 L 02/28/25 07:30 Pulse Ox 92 02/28/25 07:30 O2 Del Method Room Air 02/28/25 07:30 BMI result Body Mass Index 28.8 Const: Other: General: AO X 3, no acute distress Resp: CTA bilateral CVS: S1,S2,RRR GI: +BS, some distention, and exquisitely tender and guarding Skin: No rash Neuro: motor grossly intact Psych: appropriate affect Objective Data Active Medications Acetaminophen (Acetaminophen 325 Mg Tablet) 650 mg PO Q6H PRN PRN Reason: Pain, Mild 1-3,fever,headache Albuterol Sulfate (Albuterol Sulfate 90 Mcg 8 Gm Inhaler) 1 puff INHALE QID PRN PRN Reason: shortness of breath or wheezing Apixaban (Apixaban 5 Mg Tablet) 5 mg PO BID [facility] Last Admin: 02/27/25 19:27 Dose: 5 mg Documented By: JULIAQC Calcium Carbonate (Calcium Carbonate 750 Mg Tab.Chew) 750 mg PO Q4H PRN PRN Reason: Heartburn Fluticasone Propionate (Fluticasone Propionate Nasal 16 Gm [place]) 2 spray NOSTRIL-B DAILY PRN PRN Reason: Allergy Symptoms Albumin Human (Kedbumin 25 %) 100 mls @ 100 mls/hr IV Q6H [facility]BIN Stop: 02/28/25 14:44 Lactated Ringer's (Lr) 500 mls @ 999 mls/hr IV .Q31M ALBIN Stop: 02/28/25 08:15 Levofloxacin (Levaquin) 750 mg in 150 mls @ 100 mls/hr IV Q24H [facility] Metronidazole (Flagyl) 500 mg in 100 mls @ 100 mls/hr IV Q8H [facility] Magnesium Citrate (Magnesium Citrate 300 Ml Solution) 150 ml PO DAILY PRN PRN Reason: Constipation Magnesium Hydroxide (Milk Of Magnesia 30 Ml Oral.Susp) 30 ml PO DAILY PRN PRN Reason: Constipation Last Admin: 02/27/25 23:22 Dose: 30 ml Documented By: STEVE Melatonin (Melatonin 3 Mg Tablet) 6 mg PO BEDTIME PRN PRN Reason: Insomnia Morphine Sulfate (Morphine Sulfate 4 Mg/Ml Cartridge) 2 mg IVPUSH Q4H PRN; Protocol PRN Reason: Pain, Severe (Pain Scale 7-10) Last Admin: 02/27/25 23:41 Dose: 2 mg Documented By: STEVE Nicotine Polacrilex (Nicotine Polacrilex 2 Mg Gum) 2 mg BUCCAL Q1H PRN PRN Reason: Nicotine Cravings Last Admin: 02/27/25 18:20 Dose: 2 mg Documented By: QUE Non-Formulary Medication (Capecitabine) 1,500 mg PO BID [facility] Pt Owned Med (Lipase -Protease-Amylase [ Creon] 36,000-114, 000- 180,000 Unit Cap 1 cap PO TIDWM [facility] Last Admin: 02/27/25 20:55 Dose: Not Given Documented By: STEVE Non-Admin Reason: pt already ate dinner. Non-Formulary Medication (Temozolomide) 300 mg PO DAILY [facility] Omeprazole (Omeprazole 20 Mg Capsule.Dr) 20 mg PO DAILY@0630 [facility] Last Admin: 02/28/25 05:31 Dose: 20 mg Documented By: STEVE Ondansetron HCl (Ondansetron Hcl 4 Mg/2 Ml Vial) 4 mg IVPUSH Q6H PRN PRN Reason: Nausea and Vomiting Last Admin: 02/27/25 19:20 Dose: 4 mg Documented By: STEVE Oxycodone HCl (Oxycodone Hcl Immed Release 5 Mg Tablet) 5 mg PO Q6H PRN PRN Reason: Pain, Moderate(Pain Scale 4-6) Last Admin: 02/27/25 18:20 Dose: 5 mg Documented By: QUE Polyethylene Glycol (Polyethylene Glycol 3350 17 Gm Powd.Pack) 17 gm PO DAILY [facility] Last Admin: 02/27/25 08:22 Dose: 17 gm Documented By: QUE Sodium Chloride (0.9 % Sodium Chloride Flush 3 Ml Syringe) 3 ml IVFLUSH QSHIFT [facility] Last Admin: 02/27/25 19:21 Dose: 3 ml Documented By: STEVE Tamsulosin HCl (Tamsulosin Hcl 0.4 Mg Capsule) 0.4 mg PO DAILY [facility] Last Admin: 02/27/25 08:22 Dose: 0.4 mg Documented By: QUE Tizanidine HCl (Tizanidine Hcl 4 Mg Tablet) 2 mg PO BEDTIME PRN PRN Reason: Muscle Spasm Tramadol HCl (Tramadol Hcl 50 Mg Tablet) 75 mg PO BID PRN PRN Reason: Pain, Moderate(Pain Scale 4-6) Last Admin: 02/27/25 21:50 Dose: 75 mg Documented By: STEVE Labs 02/28/25 01:57 02/28/25 09:49 Labs: Laboratory Results - last 24 hr 02/28/25 02/28/25 02/28/25 01:57 02:01 05:19 MCV 84.3 MCH 28.2 MCHC 33.4 RDW 15.2 Plt Count 234 D MPV 9.2 L Immature Gran % (Auto) Cancelled Neut % (Auto) Cancelled Lymph % (Auto) Cancelled [place] % (Auto) Cancelled Eos % (Auto) Cancelled Baso % (Auto) Cancelled Lymph # (Auto) Cancelled [place] # (Auto) Cancelled Eos # (Auto) Cancelled Baso # (Auto) Cancelled Abs Immat Gran (auto) Cancelled Absolute Neuts (auto) Cancelled Absolute Nucleated RBC 0.000 Nucleated RBC % (auto) 0.0 Neutrophils % (Manual) 52 Band Neutrophils % 32 H Lymphocytes % (Manual) 9 L Monocytes % (Manual) 1 L Eosinophils % (Manual) 4 Metamyelocytes % 2 Abs Neuts (Manual) 5.1 Lymphocytes # (Manual) 0.5 L Monocytes # (Manual) 0.1 Eosinophils # (Manual) 0.2 Metamyelocytes # 0.1 Toxic Granulation PRESENT Toxic Vacuolation PRESENT Dohle Bodies PRESENT Platelet Estimate NORMAL Plt Morphology Comment NORMAL RBC Morphology NOTED Ovalocytes 1+ (5-14) Lisle Cells 2+ (3-5) Hold Purple Top VBG pH 7.35 VBG pCO2 26 VBG pO2 49 VBG HCO3 15 L VBG O2 Saturation 73.0 VBG Base Excess -8.6 Anion Gap 19 Estim Creat Clear Calc 89.8 Estimated GFR > 60 POC Glucose Random Glucose 125 H Lactic Acid 7.3 H* Lactic Acid F/U @ 2Hr 7.0 H* Calcium 8.2 L 02/28/25 02/28/25 07:30 07:45 MCV MCH MCHC RDW Plt Count MPV Immature Gran % (Auto) Neut % (Auto) Lymph % (Auto) [place] % (Auto) Eos % (Auto) Baso % (Auto) Lymph # (Auto) Winston # (Auto) Eos # (Auto) Baso # (Auto) Abs Immat Gran (auto) Absolute Neuts (auto) Absolute Nucleated RBC Nucleated RBC % (auto) Neutrophils % (Manual) Band Neutrophils % Lymphocytes % (Manual) Monocytes % (Manual) Eosinophils % (Manual) Metamyelocytes % Abs Neuts (Manual) Lymphocytes # (Manual) Monocytes # (Manual) Eosinophils # (Manual) Metamyelocytes # Toxic Granulation Toxic Vacuolation Dohle Bodies Platelet Estimate Plt Morphology Comment RBC Morphology Ovalocytes Lisle Cells Hold Purple Top SEE NOTE VBG pH VBG pCO2 VBG pO2 VBG HCO3 VBG O2 Saturation VBG Base Excess Anion Gap Estim Creat Clear Calc Estimated GFR POC Glucose 154 H Random Glucose Lactic Acid Lactic Acid F/U @ 2Hr Calcium Assessment and Plan (1) Pancreatic cancer: Status: Acute Plan Pt is a 65-year-old male with a PMH significant for 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 Shelton, hx of prostate cancer, GERD, and BPH, h/o of portal vein thrombosis on [facility] who is directly admitted to the hospital after routine labs during oncology visit showed hyponatremia of 126 on 02/26. On 02/27 to 02/28 overnight, has become increasingly hypotensive, abdominal pain and, N/V and lactic acidosis and now hypothermic. Abdominal pain, n/v, Hypotensive... Has underlying chronic abdominal pain but worse, and now concerning given acute lactic acidosis and hypotension. CT is requested. KUB no obstruction. CXR PNA Surgery consult. NPO for. Broad spec Abx (Flagyl and Zosyn). Hypotension--likely multifactorial, sepsis not excluded. 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 Sodium 126 at time of presentation--> 128 and now 131 Reduced p.o. intake Pt reports not eating much for the past few weeks In the setting of chemotherapy document control clerk consult, supplement Pancreatic cancer w/mets to liver Continue temozolomide, capecitabine Oncology following, poor prognosis and hospice should be of consideration. Portal vein trhombosis--Eliquis Nicotine dependence NRT: gum Constipation In the setting of opioid analgesics Continue bowel regimen Full Code DVT Prophylaxis: On Eliquis Pt will require a hospitalization of at least two nights for treatment of acute hyponatremia and hypotension requiring close monitoring of labs and vitals. Discussed with Quality Stroke Does the patient have a stroke diagnosis?: No VTE Prior VTE?: No VTE Risk Level:: Medical - moderate - high VTE Device Contraindication: Treatment Not Indicated VTE Drug Contraindication: N/A - Med Ordered
[2025-02-28 08:05] LABS: ~Lactic Acid-LAB USE ONLY 7.8 mmol/L (0.5-2.0)
[2025-02-28] MEDS: Lactated Ringers 500 ML 999 ML IV (08:05)
[2025-02-28 08:08] LABS: Anion Gap 20 (12-20); Blood Urea Nitrogen 14 mg/dL (9-16); Calcium 8.3 mg/dL (8.4-10.2); Carbon Dioxide 17 mmol/L (22-29); Chloride 99 mmol/L (96-108); Creatinine Clr Calc Pharmacy 67.9; Estimated Glomerular Filt Rate 57; Glucose Random 164 mg/dL (60-115); Potassium 3.7 mmol/L (3.3-5.1); Sodium 132 mmol/L (135-145)
[2025-02-28] MEDS: Albumin Human 25 % 100 ML IV ×2 (08:09→13:05)
[2025-02-28] MEDS: ondansetron HCL 4 MG/2 ML VIAL IVPUSH ×2 (08:19→13:57)
--- NOTE | 2025-02-28 08:23 | PM.CNGS ---
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 He was initially admitted to the hospitalist service on 02/26/2025 for hyponatremia of 126. Patient is under the care of Dr. Shelton, receiving oral chemotherapy for the liver metastasis. He also has a history of prostate CA, GERD, BPH. He previously underwent embolization of the right hepatic lobe on 10/30/2024 and left hepatic lobe on 12/06/2024 [place] [facility] He also underwent ERCP with balloon dilatation and stent placement at [facility] on 01/22/2025. This morning the patient reported increased abdominal pain felt diffusely. He was also noted to have a blood pressure of 72/50. Surgical consultation was requested for further evaluation. Abdominal CT is planned although because the hypotension could not be performed. Flat plate of the abdomen is pending. Review of Systems Review of Systems: Yes Unobtainable due to mental condition PMFSH Past Medical History Medical History Pancreatic tumor Positive colorectal cancer screening using Cologuard test (~07/23/24) Spinal stenosis Osteoarthritis Environmental allergies Nicotine dependence, cigarettes, uncomplicated Seasonal allergies Benign prostatic hyperplasia with lower urinary tract symptoms Nocturia Prostate cancer (~2018) Wrist fracture, right Traumatic rupture of left biceps tendon Family History Family History Father Cancer Mother Cancer Surgical History Surgical History History of liver biopsy Previous back surgery History of prostate biopsy History of surgery on arm (~2005) History of arthroplasty of right ankle Hx of shoulder surgery (~1981) Social History Social History Household Members: Spouse Housing: House Are you a primary assisted living care manager to a significant other at home: Yes (daughter, supportive ) Do you presently have visiting nurse or other home services: No Alcohol intake: never Patient Tobacco Use Status: Current everyday Tobacco user Tobacco use type: Cigarette Cigarette Packs Per Day: 0.5 Years Smoked: 35 e-Cigarette/Vaping Use: Never Used Second Hand Smoke Exposure: No Use of substances other than those prescribed or required for medical reasons: No Have you been hit, kicked, punched, or otherwise hurt by someone within the past year? If so, by whom?: No Do you feel safe in your current relationship?: Yes Do you have thoughts of harming others: None Do you have a plan to hurt others: No Plan service: No Current occupational status: retired Cognitive needs: No Hearing needs: No Vision needs: No Meds Allergies Allergy/AdvReac Type Severity Reaction Status Date / Time ampicillin Allergy Severe Anaphylaxis Verified 02/04/25 11:11 Penicillins Allergy Severe Anaphylaxis Verified 02/04/25 11:11 all cillins pineapple Allergy Severe Rash Verified 02/04/25 11:11 pseudoephedrine Allergy Severe anaphylaxis Verified 02/04/25 11:11 Sudafed oyster extract Allergy Mild Unknown Verified 02/04/25 11:11 Active Medications: Current Medications Acetaminophen (Acetaminophen 325 Mg Tablet) 650 mg PO Q6H PRN PRN Reason: Pain, Mild 1-3,fever,headache Albuterol Sulfate (Albuterol Sulfate 90 Mcg 8 Gm Inhaler) 1 puff INHALE QID PRN PRN Reason: shortness of breath or wheezing Apixaban (Apixaban 5 Mg Tablet) 5 mg PO BID [facility] Last Admin: 02/27/25 19:27 Dose: 5 mg Calcium Carbonate (Calcium Carbonate 750 Mg Tab.Chew) 750 mg PO Q4H PRN PRN Reason: Heartburn Fluticasone Propionate (Fluticasone Propionate Nasal 16 Gm [place]) 2 spray NOSTRIL-B DAILY PRN PRN Reason: Allergy Symptoms Albumin Human (Kedbumin 25 %) 100 mls @ 100 mls/hr IV Q6H [facility] Stop: 02/28/25 14:44 Last Admin: 02/28/25 08:09 Dose: 100 mls/hr Levofloxacin (Levaquin) 750 mg in 150 mls @ 100 mls/hr IV Q24H [facility] Metronidazole (Flagyl) 500 mg in 100 mls @ 100 mls/hr IV Q8H [facility] Magnesium Citrate (Magnesium Citrate 300 Ml Solution) 150 ml PO DAILY PRN PRN Reason: Constipation Magnesium Hydroxide (Milk Of Magnesia 30 Ml Oral.Susp) 30 ml PO DAILY PRN PRN Reason: Constipation Last Admin: 02/27/25 23:22 Dose: 30 ml Melatonin (Melatonin 3 Mg Tablet) 6 mg PO BEDTIME PRN PRN Reason: Insomnia Morphine Sulfate (Morphine Sulfate 4 Mg/Ml Cartridge) 2 mg IVPUSH Q4H PRN; Protocol PRN Reason: Pain, Severe (Pain Scale 7-10) Last Admin: 02/27/25 23:41 Dose: 2 mg Nicotine Polacrilex (Nicotine Polacrilex 2 Mg Gum) 2 mg BUCCAL Q1H PRN PRN Reason: Nicotine Cravings Last Admin: 02/27/25 18:20 Dose: 2 mg Non-Formulary Medication (Capecitabine) 1,500 mg PO BID [facility] Pt Owned Med (Lipase -Protease-Amylase [ Creon] 36,000-114, 000- 180,000 Unit Cap 1 cap PO TIDWM [facility] Last Admin: 02/27/25 20:55 Dose: Not Given Non-Formulary Medication (Temozolomide) 300 mg PO DAILY [facility] Omeprazole (Omeprazole 20 Mg Capsule.Dr) 20 mg PO DAILY@0630 [facility] Last Admin: 02/28/25 05:31 Dose: 20 mg Ondansetron HCl (Ondansetron Hcl 4 Mg/2 Ml Vial) 4 mg IVPUSH Q6H PRN PRN Reason: Nausea and Vomiting Last Admin: 02/28/25 08:19 Dose: 4 mg Oxycodone HCl (Oxycodone Hcl Immed Release 5 Mg Tablet) 5 mg PO Q6H PRN PRN Reason: Pain, Moderate(Pain Scale 4-6) Last Admin: 02/27/25 18:20 Dose: 5 mg Polyethylene Glycol (Polyethylene Glycol 3350 17 Gm Powd.Pack) 17 gm PO DAILY [facility] Last Admin: 02/27/25 08:22 Dose: 17 gm Sodium Chloride (0.9 % Sodium Chloride Flush 3 Ml Syringe) [facility] Last Admin: 02/27/25 19:21 Dose: 3 ml Tamsulosin HCl (Tamsulosin Hcl 0.4 Mg Capsule) 0.4 mg PO DAILY [facility] Last Admin: 02/27/25 08:22 Dose: 0.4 mg Tizanidine HCl (Tizanidine Hcl 4 Mg Tablet) 2 mg PO BEDTIME PRN PRN Reason: Muscle Spasm Tramadol HCl (Tramadol Hcl 50 Mg Tablet) 75 mg PO BID PRN PRN Reason: Pain, Moderate(Pain Scale 4-6) Last Admin: 02/27/25 21:50 Dose: 75 mg Home Medications ?Medication ?Instructions ?Recorded ?Confirmed ?Last Taken ?Type fluticasone propionate 50 2 spray intranasal DAILY PRN 04/17/24 02/26/25 02/25/25 History mcg/actuation nasal Allergy Symptoms spray,suspension (Flonase Allergy Relief) omeprazole 20 mg capsule,delayed 20 mg PO DAILY 01/13/25 02/26/25 02/25/25 History release [id number] 1 cap PO TIDWM 02/26/25 02/26/25 02/25/25 History 36,000-114,000-180,000 unit capsule,delay rel (Creon) tamsulosin 0.4 mg capsule 0.4 mg PO DAILY 02/26/25 02/26/25 02/25/25 History tizanidine 2 mg tablet 2 mg PO BEDTIME PRN Muscle Spasm 02/26/25 02/26/25 02/25/25 History Physical Exam Vital Signs: Vital Signs: Last Vital Signs Temp 95.6 F L 02/28/25 07:30 Pulse 96 02/28/25 07:30 Resp 18 02/28/25 07:30 BP 72/50 L 02/28/25 07:30 Pulse Ox 92 02/28/25 07:30 O2 Del Method Room Air 02/28/25 07:30 BMI result Body Mass Index 28.8 Eyes: Sclerae: scleral abnormal (Scleral icterus) bilateral GI: Inspection: Yes distended Palpation (GI): Tenderness to palpation present (GI) (All quadrants) Skin: Other: Jaundice Results Labs 02/28/25 01:57 02/28/25 07:30 Labs: Abnormal lab results 02/28/25 02/28/25 02/28/25 Range/Units 01:57 02:01 05:19 RBC 4.58 L D (4.60-5.80) X10*6/uL Hgb 12.9 L D (14.0-18.0) g/dl Hct 38.6 L D (42.0-52.0) % MPV 9.2 L (9.4-12.4) fL Band Neutrophils % 32 H (3-5) % Lymphocytes % (Manual) 9 L (20-40) % Monocytes % (Manual) 1 L (2-11) % Lymphocytes # (Manual) 0.5 L (1.2-4.9) X10*3/uL VBG HCO3 15 L (22-26) mmol/L Sodium 131 L (135-145) mmol/L Potassium 3.2 L (3.3-5.1) mmol/L Carbon Dioxide 14 L (22-29) mmol/L POC Glucose (60-115) mg/dL Random Glucose 125 H (60-115) mg/dL Lactic Acid 7.3 H* (0.5-2.0) mmol/L Lactic Acid F/U @ 2Hr 7.0 H* (0.5-2.0) mmol/L Lactic Acid F/U @ 4Hr (0.5-2.0) mmol/L Calcium 8.2 L (8.4-10.2) mg/dL 02/28/25 02/28/25 Range/Units 07:30 07:45 RBC (4.60-5.80) X10*6/uL Hgb (14.0-18.0) g/dl Hct (42.0-52.0) % MPV (9.4-12.4) fL Band Neutrophils % (3-5) % Lymphocytes % (Manual) (20-40) % Monocytes % (Manual) (2-11) % Lymphocytes # (Manual) (1.2-4.9) X10*3/uL VBG HCO3 (22-26) mmol/L Sodium 132 L (135-145) mmol/L Potassium (3.3-5.1) mmol/L Carbon Dioxide 17 L (22-29) mmol/L POC Glucose 154 H (60-115) mg/dL Random Glucose 164 H (60-115) mg/dL Lactic Acid (0.5-2.0) mmol/L Lactic Acid F/U @ 2Hr (0.5-2.0) mmol/L Lactic Acid F/U @ 4Hr 7.8 H* (0.5-2.0) mmol/L Calcium 8.3 L (8.4-10.2) mg/dL Short CBC 02/28/25 Range/Units 01:57 WBC 6.1 (4.8-10.8) X10*3/uL Hgb 12.9 L D (14.0-18.0) g/dl Hct 38.6 L D (42.0-52.0) % Plt Count 234 D (160-400) X10*3/uL BMP 02/28/25 02/28/25 01:57 07:30 Sodium 131 L 132 L Potassium 3.2 L 3.7 Chloride 101 99 Carbon Dioxide 14 L 17 L BUN 12 14 Creatinine 0.96 1.27 Calcium 8.2 L 8.3 L Urine 02/26/25 Range/Units 17:17 Urine Color Dark Yellow Urine Appearance Clear Urine pH 6.0 (5.0-9.0) Ur Specific [place] 1.020 (1.005-1.025) Urine Protein Trace (Neg-Trace) mg/dL Urine Glucose (UA) Negative (Negative) mg/dL All other labs normal. Assessment and Plan (1) Neuroendocrine tumor of pancreas: Status: Acute (2) Acute generalized abdominal pain: Status: Acute Plan Unfortunate 65-year-old male with a known history of liver metastasis of a neuroendocrine tumor from the pancreas, with previous embolization treatments to the liver found to have multiple additional metastases now with increased abdominal pain of unknown etiology. Patient is also hypotensive with an elevated lactate level. Patient's overall prognosis is very poor and I would be reluctant to perform any surgical intervention at this time. Goals of care to be discussed by the hospitalist team with the patient and his family. Procedures Date of Service Date of Service: 02/28/25
[2025-02-28] MEDS: SODIUM CHLORIDE 2892 ML IV (09:00)
[2025-02-28] MEDS: metroNIDAZOLE/NS 500 MG/100 ML PIGGYBACK 100 MG IV (09:20)
[2025-02-28] MEDS: levoFLOXacin/D5W 750 MG/150 ML PIGGYBACK 100 MG IV (09:20)
[2025-02-28] MEDS: fentaNYL citrate/PF 100 MCG/2 ML VIAL 25 MCG IVPUSH (10:07)
[2025-02-28] MEDS: 0.9 % Sodium Chloride Flush 3 ML SYRINGE IVFLUSH ×2 (10:10→18:10)
[2025-02-28 10:20] LABS: Lactic Acid 6.4 mmol/L (0.5-2.0)
[2025-02-28 10:23] LABS: Alanine Aminotransferase < 6 U/L (0-40); Alkaline Phosphatase 73 U/L (39-117); Anion Gap 17 (12-20); Aspartate Amino Transferase 35 U/L (5-37); Bilirubin Total 2.2 mg/dL (0.0-1.0); Blood Urea Nitrogen 15 mg/dL (9-16); Carbon Dioxide 15 mmol/L (22-29); Chloride 100 mmol/L (96-108); Creatinine Clr Calc Pharmacy 71.3; Estimated Glomerular Filt Rate 60; Glucose Random 149 mg/dL (60-115); Potassium 3.3 mmol/L (3.3-5.1); Sodium 129 mmol/L (135-145); Total Protein 5.4 g/dL (6.5-8.0)
--- NOTE | 2025-02-28 11:06 | MHC.CLN ---
PT IS MODERATELY MALNOURISHED PT WITH MILDLY DEPLETED SUBCUTANEOUS FAT AND 19.5% SIGNIFICANT WT LOSS X 1 YEAR WITH CHRONIC POOR PO INTAKE X A FEW WEEKS PER PT R/T NAUSEA WITHOUT VOMITING PT IS CURRENTLY NPO PT IS REFUSING NUTRITION SUPPLEMENTS AT THIS TIME WHEN DIET TO ADVANCE, RECOMMEND KEEP LIBERALIZED TO INCREASE PO AND OFFER VARIETY CAN OFFER MAGIC CUP TID TO PROVIDE 870KCALS, 27G PROTEIN FOLLOWING FOR DIET ADVANCEMENT SEE FULL CLINICAL NUTRITION ASSESSMENT
[2025-02-28] MEDS: iohexoL 350 MG/ML 100 ML INFUS..BTL IV (11:29)
--- NOTE | 2025-02-28 11:55 | PC.NURSE ---
10:07 PT states abdominal pain 05/01. PT requests pain medication. MD notified, assessed abd at bedside. prn fentanyl IVP 25 mcg given per MD
[2025-02-28] MEDS: Sucralfate 1 GM TABLET PO (11:57)
[2025-02-28 11:58] LABS: Reflex Lactate? Lactic Acid Added
[2025-02-28] MEDS: Amiodarone/Dextrose 150 MG/100 ML PLAST..BAG 600 MG IV (12:27)
[2025-02-28] MEDS: Morphine Sulfate 4 MG/ML CARTRIDGE 2 MG IVPUSH ×2 (12:41→16:59)
[2025-02-28 12:59] LABS: ~Lactic Acid-LAB USE ONLY 4.8 mmol/L (0.5-2.0)
[2025-02-28] MEDS: Furosemide 100 MG/10 ML VIAL 60 MG IVPUSH (13:32)
[2025-02-28] MEDS: Amiodarone HCL 900 MG in 0.9 % Sodium Chloride 500 ML 34.53 MG IVCONT (13:33)
[2025-02-28 14:31] LABS: Reflex Lactate? 2 Y
[2025-02-28 15:00] LABS: Ammonia 48 umol/L (13-55)
[2025-02-28 15:11] LABS: ~Lactic Acid-LAB USE ONLY 4.4 mmol/L (0.5-2.0)
--- NOTE | 2025-02-28 15:16 | P.CONCC_ITS ---
History of Present Illness Data of Consult Service Date: 02/28/25 Primary Care Provider: Nelson Silva MD HPI Reason for consult: hypotension 65-year-old gentleman with past medical history of pancreatic cancer with Mets to liver on oral chemotherapy follows with Dr. Shelton initiated on a new oral chemotherapy the last dose was 14 days ago, hx of prostate cancer, GERD, and BPH was sent in from oncology clinic to the hospital due to hyponatremia. Review of Systems 2 Constitutional: Constitutional: Reports anorexia, Reports body ache(s) and Denies chills Eyes: Eyes: Reports blurry vision, Denies exophthalmos and Reports change in vision ENT: Denies Normal hearing present and Denies bleeding gums Cardiovascular: Cardiovascular: Denies Abdominal Cramping after Meds and Denies Abdominal Distension Respiratory: Respiratory: Denies change in phlegm color and Denies chest congestion Gastrointestinal: Gastrointestinal: Denies abdominal pain, Denies belching and Denies melena Genitourinary: Genitourinary: Denies hematospermia and Denies change in libido Musculoskeletal: Musculoskeletal: Denies abnormal gait and Denies back pain Integumentary/Breasts: Skin/Breast: Denies bleeding lesions and Denies swelling Neurologic: Denies Normal hearing present and Denies abnormal gait Psychiatric: Psychiatric: Denies abnormal sleep pattern and Denies change in libido Endocrine: Endocrine: Denies change in body appearance and Denies change in libido [facility] Past Medical History Medical History Pancreatic tumor Positive colorectal cancer screening using Cologuard test (~07/23/24) Spinal stenosis Osteoarthritis Environmental allergies Nicotine dependence, cigarettes, uncomplicated Seasonal allergies Benign prostatic hyperplasia with lower urinary tract symptoms Nocturia Prostate cancer (~2018) Wrist fracture, right Traumatic rupture of left biceps tendon Family History Family History Father Cancer Mother Cancer Surgical History Surgical History History of liver biopsy Previous back surgery History of prostate biopsy History of surgery on arm (~2005) History of arthroplasty of right ankle Hx of shoulder surgery (~1981) Social History Social History Household Members: Spouse Housing: House Are you a primary residential care officer to a significant other at home: Yes (daughter, supportive ) Do you presently have visiting nurse or other home services: No Alcohol intake: never Patient Tobacco Use Status: Current everyday Tobacco user Tobacco use type: Cigarette Cigarette Packs Per Day: 0.5 Years Smoked: 35 e-Cigarette/Vaping Use: Never Used Second Hand Smoke Exposure: No Use of substances other than those prescribed or required for medical reasons: No Have you been hit, kicked, punched, or otherwise hurt by someone within the past year? If so, by whom?: No Do you feel safe in your current relationship?: Yes Do you have thoughts of harming others: None Do you have a plan to hurt others: No Plan service: No Current occupational status: retired Cognitive needs: No Hearing needs: No Vision needs: No Meds Allergies Allergy/AdvReac Type Severity Reaction Status Date / Time ampicillin Allergy Severe Anaphylaxis Verified 02/04/25 11:11 Penicillins Allergy Severe Anaphylaxis Verified 02/04/25 11:11 all cillins pineapple Allergy Severe Rash Verified 02/04/25 11:11 pseudoephedrine Allergy Severe anaphylaxis Verified 02/04/25 11:11 Sudafed oyster extract Allergy Mild Unknown Verified 02/04/25 11:11 Active Medications: Current Medications Acetaminophen (Acetaminophen 325 Mg Tablet) 650 mg PO Q6H PRN PRN Reason: Pain, Mild 1-3,fever,headache Albuterol Sulfate (Albuterol Sulfate 90 Mcg 8 Gm Inhaler) 1 puff INHALE QID PRN PRN Reason: shortness of breath or wheezing Apixaban (Apixaban 5 Mg Tablet) 5 mg PO BID [facility] Last Admin: 02/28/25 10:10 Dose: Not Given Calcium Carbonate (Calcium Carbonate 750 Mg Tab.Chew) 750 mg PO Q4H PRN PRN Reason: Heartburn Fentanyl (Fentanyl Citrate/Pf 100 Mcg/2 Ml Vial) 25 mcg IVPUSH Q2H PRN; Protocol PRN Reason: Pain, Moderate(Pain Scale 4-6) Last Admin: 02/28/25 10:07 Dose: 25 mcg Fluticasone Propionate (Fluticasone Propionate Nasal 16 Gm [place]) 2 spray NOSTRIL-B DAILY PRN PRN Reason: Allergy Symptoms Levofloxacin (Levaquin) 750 mg in 150 mls @ 100 mls/hr IV Q24H [facility] Last Infusion: 02/28/25 12:27 Dose: Infused Metronidazole (Flagyl) 500 mg in 100 mls @ 100 mls/hr IV Q8H [facility] Last Infusion: 02/28/25 10:43 Dose: Infused Norepinephrine Bitartrate (Levophed) 8 mg in 250 mls @ 0 mls/hr IVCONT .Q0M [facility]; Protocol Amiodarone HCl 900 mg/ Sodium (Chloride) 518 mls @ 34.533 mls/hr IVCONT .Q15H1M [facility]; Protocol Last Admin: 02/28/25 13:33 Dose: 1 mg/min, 34.53 mls/hr Magnesium Citrate (Magnesium Citrate 300 Ml Solution) 150 ml PO DAILY PRN PRN Reason: Constipation Magnesium Hydroxide (Milk Of Magnesia 30 Ml Oral.Susp) 30 ml PO DAILY PRN PRN Reason: Constipation Last Admin: 02/27/25 23:22 Dose: 30 ml Melatonin (Melatonin 3 Mg Tablet) 6 mg PO BEDTIME PRN PRN Reason: Insomnia Morphine Sulfate (Morphine Sulfate 4 Mg/Ml Cartridge) 2 mg IVPUSH Q4H PRN; Protocol PRN Reason: Pain, Severe (Pain Scale 7-10) Last Admin: 02/28/25 12:41 Dose: 2 mg Nicotine Polacrilex (Nicotine Polacrilex 2 Mg Gum) 2 mg BUCCAL Q1H PRN PRN Reason: Nicotine Cravings Last Admin: 02/27/25 18:20 Dose: 2 mg Non-Formulary Medication (Capecitabine) 1,500 mg PO BID [facility] Pt Owned Med (Lipase -Protease-Amylase [ Creon] 36,000-114, 000- 180,000 Unit Cap 1 cap PO TIDWM [facility] Last Admin: 02/28/25 12:01 Dose: Not Given Non-Formulary Medication (Temozolomide) 300 mg PO DAILY [facility] Omeprazole (Omeprazole 20 Mg Capsule.Dr) 20 mg PO DAILY@0630 [facility] Last Admin: 02/28/25 05:31 Dose: 20 mg Ondansetron HCl (Ondansetron Hcl 4 Mg/2 Ml Vial) 4 mg IVPUSH Q6H PRN PRN Reason: Nausea and Vomiting Last Admin: 02/28/25 13:57 Dose: 4 mg Oxycodone HCl (Oxycodone Hcl Immed Release 5 Mg Tablet) 5 mg PO Q6H PRN PRN Reason: Pain, Moderate(Pain Scale 4-6) Last Admin: 02/27/25 18:20 Dose: 5 mg Polyethylene Glycol (Polyethylene Glycol 3350 17 Gm Powd.Pack) 17 gm PO DAILY [facility] Last Admin: 02/28/25 10:10 Dose: Not Given Sodium Chloride (0.9 % Sodium Chloride Flush 3 Ml Syringe) 3 ml IVFLUSH QSHIFT [facility] Last Admin: 02/28/25 10:10 Dose: 3 ml Sucralfate (Sucralfate 1 Gm Tablet) 1 gm PO BIDAC [facility] Last Admin: 02/28/25 11:57 Dose: 1 gm Tamsulosin HCl (Tamsulosin Hcl 0.4 Mg Capsule) 0.4 mg PO DAILY [facility] Last Admin: 02/28/25 10:10 Dose: Not Given Tizanidine HCl (Tizanidine Hcl 4 Mg Tablet) 2 mg PO BEDTIME PRN PRN Reason: Muscle Spasm Tramadol HCl (Tramadol Hcl 50 Mg Tablet) 75 mg PO BID PRN PRN Reason: Pain, Moderate(Pain Scale 4-6) Last Admin: 02/27/25 21:50 Dose: 75 mg Home Medications ?Medication ?Instructions ?Recorded ?Confirmed ?Last Taken ?Type fluticasone propionate 50 2 spray intranasal DAILY PRN 04/17/24 02/26/25 02/25/25 History mcg/actuation nasal Allergy Symptoms spray,suspension (Flonase Allergy Relief) omeprazole 20 mg capsule,delayed 20 mg PO DAILY 01/13/25 02/26/25 02/25/25 History release [id number] 1 cap PO TIDWM 02/26/25 02/26/25 02/25/25 History 36,000-114,000-180,000 unit capsule,delay rel (Creon) tamsulosin 0.4 mg capsule 0.4 mg PO DAILY 02/26/25 02/26/25 02/25/25 History tizanidine 2 mg tablet 2 mg PO BEDTIME PRN Muscle Spasm 02/26/25 02/26/25 02/25/25 History Physical Exam 2 Vital Signs: Vital Signs: Last Vital Signs Temp 97.3 F 02/28/25 11:00 Pulse 125 H 02/28/25 15:00 Resp 45 H 02/28/25 15:00 BP 115/68 02/28/25 15:00 Pulse Ox 91 L 02/28/25 15:00 O2 Del Method Nasal Cannula 02/28/25 15:00 O2 Flow Rate 3 02/28/25 15:00 BMI result Body Mass Index 28.8 General: acute distress, ill appearing and tired appearing Nutritional Appearance: well nourished and overweight Eyes: appearance normal, both eyes and all related structures; Alignment and Position: alignment normal and position normal Neck: No lymphadenopathy, no thyromegaly Resp: bilateral air entry equal, occasional added sounds present Cardio: Regular rate, regular rhythm; Heart sounds: S1 normal heart sound present and S2 normal heart sound present GI: soft,distended, tender, no hepatosplenomegaly : bladder normal to inspection, bladder normal to palpation, no renal angle tenderness Skin: no rashes or lesions noted and elasticity normal Neuro: oriented to person, oriented to place, oriented to time and moves all extremities Neuro: Cranial nerves: No Normal hearing present Results Labs 02/28/25 01:57 02/28/25 09:49 Labs: Short CBC 02/28/25 Range/Units 01:57 WBC 6.1 (4.8-10.8) X10*3/uL Hgb 12.9 L D (14.0-18.0) g/dl Hct 38.6 L D (42.0-52.0) % Plt Count 234 D (160-400) X10*3/uL BMP 02/28/25 02/28/25 02/28/25 01:57 07:30 09:49 Sodium 131 L 132 L 129 L Potassium 3.2 L 3.7 3.3 Chloride 101 99 100 Carbon Dioxide 14 L 17 L 15 L BUN 12 14 15 Creatinine 0.96 1.27 1.21 Calcium 8.2 L 8.3 L 8.0 L Liver Function 02/28/25 Range/Units 09:49 Total Bilirubin 2.2 H (0.0-1.0) mg/dL AST 35 (5-37) U/L ALT < 6 (0-40) U/L Alkaline Phosphatase 73 (39-117) U/L Albumin 3.0 L (3.5-5.0) g/dL Assessment and Plan (1) Obesity: Status: Acute (2) Malnutrition compromising bodily function: Status: Acute (3) Neuroendocrine tumor of pancreas: Status: Acute (4) Acute hyponatremia: Status: Acute (5) Severe protein-calorie malnutrition: Status: Acute Plan Shock: distributive shock vs septic shock. Possibly secondary to chemotherapy, as there is no clear source of infection. We will start the patient on Solu- Medrol. lactate trended, sepsis bolus fluids given, repeat blood culture sent, antibiotics continued We will start on Levophed support, titrate Levophed to keep map above 65 mm Hg Atrial fibrillation with RVR: Treating the patient with amiodarone bolus followed by amiodarone drip GI: Pancreatic cancer with liver metastasis: Status post bland embolization of right lobe disease on 10/30/2024 and embolization of the left lobe on 12/06/24. Started on Capecitabine 750 mg per m2 twice daily on days 1-14, Temozolomide 150 mg per m2 once daily on days 10-14 the last dose of chemo was about 10 days ago. The family has been stating patient has feeling progressively worse since starting chemotherapy. Nausea/ vomiting and hypersensitivity reactions can be the complication of chemo Status post ERCP with balloon dilation and stent placement of CBD on 01/22/2025 Renal: Creatinine normal 1.21 We will closely monitor I's and O's Avoid nephrotoxic medications Heme: Chronic anemia, closely monitor H&H, transfuse for hemoglobin less than 7 grams/deciliter Endocrine: Blood sugars under control Sliding scale insulin as needed Infectious disease: Pancultures negative so far Antibiotics changed from levofloxacin to Zosyn along with Flagyl; we will discontinue Flagyl Musculoskeletal: Decubitus ulcer prevention protocol Lines: Peripheral Prophylaxis: Lovenox, pantoprazole
--- NOTE | 2025-02-28 15:54 | MHC.CM.PN ---
PT TRANSFERRED FROM MED/SURG UNIT TO ICU THIS AM. PT CURRENTLY ON PRESSOR SUPPORT. FAMILY AT BEDSIDE AND SUPPORT OFFERED. CM WILL CONTINUE TO FOLLOW FOR DC PLAN.
[2025-02-28] MEDS: Norepinephrine Bitartrate/D5W 8 MG/250 ML PLAST..BAG 9.04 MG IVCONT (16:15)
--- NOTE | 2025-02-28 17:14 | P.DS_ITS ---
DS: Providers Provider Date of Service: 02/28/25 Date of admission: 02/26/25 14:59 Date of discharge: 02/28/25 Primary care physician: Nelson Silva MD Admitting clinician: Ned Larose Consults: 02/26/25 22:59 Consult to Hematology / Oncology Routine Consulting Provider: [facility] [place]cology/Hematology Reason for consultation: Pancreatic cancer w/mets to liver, follows with Dr. Shelton 02/28/25 07:41 Consult to General Surgery Routine Consulting Provider: [facility] General Surgeons Reason for consultation: increasing abdominal pain 02/28/25 14:29 Consult to Hematology / Oncology Stat Consulting Provider: [facility] Oncology/Hematology Reason for consultation: pancreatic cancer Attending physician on discharge: Joel Vanegas DS: Diagnosis Discharge Diagnosis (1) Obesity: Status: Acute (2) Malnutrition compromising bodily function: Status: Acute (3) Neuroendocrine tumor of pancreas: Status: Acute (4) Acute hyponatremia: Status: Acute (5) Severe protein-calorie malnutrition: Status: Acute DS: Summary Time Attestation Discharge Coordination Time (in mins): 35 Quality: Safe Use of Opioids Does Pt have an Active Cancer Diagnosis on the Problem List?: Yes Opioid Measure Date for [facility] Report: 01/29/25 Opioid Measure Time for [facility] Report: 17:28 Quality: Stroke Does the patient have a stroke diagnosis?: No Physical Exam Vital Signs: Vital Signs: Last Vital Signs Temp 96.3 F L 02/28/25 16:00 Pulse 124 H 02/28/25 16:00 Resp 40 H 02/28/25 16:00 BP 103/55 L 02/28/25 16:00 Pulse Ox 93 02/28/25 16:00 O2 Del Method Nasal Cannula 02/28/25 16:00 O2 Flow Rate 3 02/28/25 16:00 BMI result Body Mass Index 28.8 General: Slightly elderly male in severe acute distress clock, chronically ill and tired appearing, lying in the bed with mottled skin Nutritional Appearance: well nourished and overweight Eyes: appearance normal, both eyes and all related structures; Alignment and Position: alignment normal and position normal Neck: No lymphadenopathy, no thyromegaly Resp: bilateral air entry equal, occasional added sounds present, tachypneic Cardio: Regular rate, regular rhythm; Heart sounds: S1 normal heart sound present and S2 normal heart sound present GI: soft, distended, generalized tenderness present, no hepatosplenomegaly : bladder normal to inspection, bladder normal to palpation, no renal angle tenderness Skin: no rashes or lesions noted and elasticity normal Neuro: oriented to person, oriented to place, oriented to time and moves all extremities DS: Data Data Completed and Pending Labs on day of discharge: Laboratory Results - last 24 hr 02/28/25 02/28/25 02/28/25 01:57 02:01 05:19 WBC 6.1 RBC 4.58 L D Hgb 12.9 L D Hct 38.6 L D MCV 84.3 MCH 28.2 MCHC 33.4 RDW 15.2 Plt Count 234 D MPV 9.2 L Immature Gran % (Auto) Cancelled Neut % (Auto) Cancelled Lymph % (Auto) Cancelled Polk % (Auto) Cancelled Eos % (Auto) Cancelled Baso % (Auto) Cancelled Lymph # (Auto) Cancelled Polk # (Auto) Cancelled Eos # (Auto) Cancelled Baso # (Auto) Cancelled Abs Immat Gran (auto) Cancelled Absolute Neuts (auto) Cancelled Absolute Nucleated RBC 0.000 Nucleated RBC % (auto) 0.0 Neutrophils % (Manual) 52 Band Neutrophils % 32 H Lymphocytes % (Manual) 9 L Monocytes % (Manual) 1 L Eosinophils % (Manual) 4 Metamyelocytes % 2 Abs Neuts (Manual) 5.1 Lymphocytes # (Manual) 0.5 L Monocytes # (Manual) 0.1 Eosinophils # (Manual) 0.2 Metamyelocytes # 0.1 Toxic Granulation PRESENT Toxic Vacuolation PRESENT Dohle Bodies PRESENT Platelet Estimate NORMAL Plt Morphology Comment NORMAL RBC Morphology NOTED Ovalocytes 1+ (5-14) Carmel Cells 2+ (3-5) Hold Purple Top VBG pH 7.35 VBG pCO2 26 VBG pO2 49 VBG HCO3 15 L VBG O2 Saturation 73.0 VBG Base Excess -8.6 Sodium 131 L Potassium 3.2 L Chloride 101 Carbon Dioxide 14 L Anion Gap 19 BUN 12 Creatinine 0.96 Estim Creat Clear Calc 89.8 Estimated GFR > 60 POC Glucose Random Glucose 125 H Lactic Acid 7.3 H* Lactic Acid F/U @ 2Hr 7.0 H* Lactic Acid F/U @ 4Hr Calcium 8.2 L Total Bilirubin AST ALT Alkaline Phosphatase Ammonia Troponin I High Sens 17.5 D Total Protein Albumin 02/28/25 02/28/25 02/28/25 07:30 07:45 09:49 WBC RBC Hgb Hct MCV MCH MCHC RDW Plt Count MPV Immature Gran % (Auto) Neut % (Auto) Lymph % (Auto) Polk % (Auto) Eos % (Auto) Baso % (Auto) Lymph # (Auto) Polk # (Auto) Eos # (Auto) Baso # (Auto) Abs Immat Gran (auto) Absolute Neuts (auto) Absolute Nucleated RBC Nucleated RBC % (auto) Neutrophils % (Manual) Band Neutrophils % Lymphocytes % (Manual) Monocytes % (Manual) Eosinophils % (Manual) Metamyelocytes % Abs Neuts (Manual) Lymphocytes # (Manual) Monocytes # (Manual) Eosinophils # (Manual) Metamyelocytes # Toxic Granulation Toxic Vacuolation Dohle Bodies Platelet Estimate Plt Morphology Comment RBC Morphology Ovalocytes Analisa Cells Hold Purple Top SEE NOTE VBG pH VBG pCO2 VBG pO2 VBG HCO3 VBG O2 Saturation VBG Base Excess Sodium 132 L 129 L Potassium 3.7 3.3 Chloride 99 100 Carbon Dioxide 17 L 15 L Anion Gap 20 17 BUN 14 15 Creatinine 1.27 1.21 Estim Creat Clear Calc 67.9 71.3 Estimated GFR 57 60 POC Glucose 154 H Random Glucose 164 H 149 H Lactic Acid Lactic Acid F/U @ 2Hr Lactic Acid F/U @ 4Hr 7.8 H* Calcium 8.3 L 8.0 L Total Bilirubin 2.2 H AST 35 ALT < 6 Alkaline Phosphatase 73 Ammonia Troponin I High Sens Total Protein 5.4 L Albumin 3.0 L 02/28/25 02/28/25 02/28/25 09:53 12:22 14:44 WBC RBC Hgb Hct MCV MCH MCHC RDW Plt Count MPV Immature Gran % (Auto) Neut % (Auto) Lymph % (Auto) Polk % (Auto) Eos % (Auto) Baso % (Auto) Lymph # (Auto) Polk # (Auto) Eos # (Auto) Baso # (Auto) Abs Immat Gran (auto) Absolute Neuts (auto) Absolute Nucleated RBC Nucleated RBC % (auto) Neutrophils % (Manual) Band Neutrophils % Lymphocytes % (Manual) Monocytes % (Manual) Eosinophils % (Manual) Metamyelocytes % Abs Neuts (Manual) Lymphocytes # (Manual) Monocytes # (Manual) Eosinophils # (Manual) Metamyelocytes # Toxic Granulation Toxic Vacuolation Dohle Bodies Platelet Estimate Plt Morphology Comment RBC Morphology Ovalocytes Analisa Cells Hold Purple Top VBG pH VBG pCO2 VBG pO2 VBG HCO3 VBG O2 Saturation VBG Base Excess Sodium Potassium Chloride Carbon Dioxide Anion Gap BUN Creatinine Estim Creat Clear Calc Estimated GFR POC Glucose Random Glucose Lactic Acid 6.4 H* Lactic Acid F/U @ 2Hr 4.8 H* Lactic Acid F/U @ 4Hr 4.4 H* Calcium Total Bilirubin AST ALT Alkaline Phosphatase Ammonia 48 Troponin I High Sens Total Protein Albumin Discharge Plan Discharge Anticipated Discharge Date/Time: 02/28/25 17:20 Patient Disposition: Xfer Acute Care Hospital Discharge Diagnosis: Distributive shock Referrals: Nelson Silva MD [Primary Care Provider] - 1 Week Discharge Medications: No Action albuterol sulfate 90 mcg/actuation HFA aerosol inhaler 1 inh inhalation QID PRN (Reason: shortness of breath or wheezing) Qty: 6.7 1RF apixaban 5 mg tablet 5 mg PO BID 90 Days Qty: 180 1RF tadalafil 10 mg tablet 10 mg PO DAILY 90 Days Qty: 90 1RF polyethylene glycol 3350 [Miralax] 17 gram/dose powder 17 g PO DAILY Qty: 238 0RF capecitabine 500 mg Tablet 1,500 mg PO BID Qty: 84 6RF Rx Instructions: for 14 days per 28-day cycle; must administer with water 30 minutes after a meal temozolomide 100 mg Capsule 300 mg PO DAILY Qty: 30 6RF Rx Instructions: Take 300 mg p.o. days 10-14 every 28 days. must be taken on empty stomach Phazyme Gas and Acid 750-250 mg Tablet,Chewable 1 tab PO BID PRN (Reason: Gastrointestinal Spasms Or Cramping) Qty: 30 3RF magnesium citrate [Citrate of Magnesia] Solution 150 ml PO DAILY PRN (Reason: Constipation) Qty: 150 1RF ondansetron 8 mg Tablet,Disintegrating 8 mg PO Q8H Qty: 50 3RF oxycodone 5 mg Tablet 5 mg PO Q6H PRN (Reason: Breakthrough Pain, Severe) Qty: 60 0RF Rx Instructions: Partial Fill upon patient request. tizanidine 2 mg Tablet 2 mg PO BEDTIME PRN (Reason: Muscle Spasm) tamsulosin 0.4 mg capsule 0.4 mg PO DAILY Creon 36,000-114,000- 180,000 unit capsule,delayed release(DR/EC) 1 cap PO TIDWM Rx Instructions: administer with meals and/or snacks fluticasone propionate [Flonase Allergy Relief] 50 mcg/actuation [place],Suspension 2 spray INTRANASAL DAILY PRN (Reason: Allergy Symptoms) Rx Instructions: administer into each nostril diclofenac sodium 1 % gel 4 g topical QID Qty: 100 6RF Rx Instructions: apply to bilateral knees 4 times a day tramadol 50 mg tablet 75 mg PO BID PRN (Reason: pain) 30 Days Qty: 135 5RF omeprazole 20 mg capsule,delayed release(DR/EC) 20 mg PO DAILY Discharge Orders: Discharge Order (Routine); Ordered 02/28/25 Ordered By: Joel Vanegas Activity on Discharge: Rest with bed elevated Stand Alone Forms: Patient Portal Discharge page Print Language: Yemeni Care Plan Goals: Patient is being transferred to higher level of care for the management of possible distributive shock from oral chemotherapy. He is on Levophed for vasopressor support, on CPAP for respiratory support as he has some pulmonary edema Health Concerns: Patient is critically ill with multiple organ failures including distributed shock on vasopressor support, tachypneic from pulmonary edema on CPAP support, anuric for the past several hours, has some lactic acidosis possibly from poor clearance of lactate in the setting of liver disease Plan of Treatment: Continue vasopressor support, continue CPAP support possibly might need continuous renal replacement therapy given he is anuric and acidotic Assessment: Shock: distributive shock vs septic shock. Possibly secondary to chemotherapy, as there is no clear source of infection. Patient is started on empiric Solu- Medrol 60 mg Q [address] chest reported as a lingual pneumonia but upon reviewing the images it is unimpressive, he has a pulmonary edema. CT abdomen and pelvis showed metastatic disease in the liver, necrotic left lobe of liver possibly from previous chemoembolization, pancreatic head tumor, ascites lactate trended, sepsis bolus fluids given, repeat blood culture sent, antibiotics changed to Zosyn. Patient is started on Levophed support, titrate Levophed to keep map above 65 mm Hg Atrial fibrillation with RVR: He does not have a history of AFib with RVR in the past, however he was on therapeutic anticoagulation given pancreatic malignancy Treated the patient with amiodarone bolus followed by amiodarone drip GI: Pancreatic cancer with liver metastasis: Status post bland embolization of right lobe disease on 10/30/2024 and embolization of the left lobe on 12/06/24 at [facility]. Started on Capecitabine 750 mg per m2 twice daily on days 1-14, Temozolomide 150 mg per m2 once daily on days 10-14 the last dose of chemo was about 10 days ago. The family has been stating patient has feeling progressively worse since starting chemotherapy. Nausea/ vomiting and hypersensitivity reactions can be the complication of chemo. Status post ERCP with balloon dilation and stent placement of CBD on 01/22/2025 On Zofran q.4 and sucralfate given repeated nausea and vomiting. Renal: Creatinine normal 1.21 but currently patient is anuric despite Lasix of 60 mg followed by 100 mg. Possibly he might have developed ATN from distributive shock might need continuous renal replacement therapy to correct acidosis and volume overload. We will closely monitor I's and O's Avoid nephrotoxic medications Lactic acidosis: Lactate was up to 7 yesterday, but trended down to 4.7 today possibly due to poor clearance from liver disease. Heme: Chronic anemia, closely monitor H&H, transfuse for hemoglobin less than 7 grams/deciliter Endocrine: Blood sugars under control Sliding scale insulin as needed Infectious disease: Pancultures negative so far CT chest abdomen and pelvis as reported above Antibiotics changed from levofloxacin to Zosyn; Flagyl discontinued Musculoskeletal: Decubitus ulcer prevention protocol Lines: Peripheral Prophylaxis: on oral anticoagulation due to pancreatic cancer, pantoprazole
[2025-02-28] MEDS: Piperacillin Sodium/Tazobactam 4.5 GM in 0.9 % Sodium Chloride 100 ML IV (17:34)
[2025-02-28 17:56] LABS: Alanine Aminotransferase 11 U/L (0-40); Albumin Level 3.3 g/dL (3.5-5.0); Anion Gap 19 (12-20); Aspartate Amino Transferase 68 U/L (5-37); Blood Urea Nitrogen 18 mg/dL (9-16); Calcium 8.2 mg/dL (8.4-10.2); Carbon Dioxide 16 mmol/L (22-29); Chloride 103 mmol/L (96-108); Creatinine Clr Calc Pharmacy 59.9; Estimated Glomerular Filt Rate 49; Glucose Random 128 mg/dL (60-115); Potassium 3.7 mmol/L (3.3-5.1); Sodium 134 mmol/L (135-145); Total Protein 5.7 g/dL (6.5-8.0)
[2025-02-28 18:08] LABS: Alkaline Phosphatase 74 U/L (39-117)
--- NOTE | 2025-02-28 19:18 | PC.NURSE ---
Assumed care of patient 09:30 Pt transferred 09:30 from Med surg to ICU 255. BP at goal MAP >65. SBP goal >100 per MD. patient SBP 90-100. Pt on room air, lung anaya clear. Per MD administered sepsis fluids protocol 30 ml/kg for total of 2,892 ml. Albumin, IV Flagyl, IV Levaquin given per DEC. updated family at bedside. approx 11:[address] with contrast of Abdomen and CTA Chest in ED CT. Accompanied by RN and Transport. 13:30 IV Amiodarone load dose 150mg given and IV Amiodarone gtt started for rhythm change of Afib HR 120-140s. Lasix 60 mg IVP given per new orders. Male Primafit external catheter in place. <50 ml urine output this shift, dark yellow concentrated. Per MD inserted Gold catheter 15:30. Scant amount dark yellow urine 5ml. IV zosyn and IV solumedrol new orders given. This RN placed 2 new peripheral IVs Ultrasound to left arm. approx 16:15 Pt required Levophed gtt for MAP less than goal 65. updated family at bedside. Plan to transfer pt to [facility] per family request. Pt [facility], room 20. Pt transported via [facility] and departed [facility] at 18:38. Levophed gtt @0.09, Amio gtt changed per protocol to 0.5 mg/hr.
== END 2025-02-28 18:38 | disposition short-term general hospital (02) | DRG 426 ==
LOC: HO.S3 02-27 07:01 → HO.ICU 02-28 08:28
PROVIDERS: Internal Medicine Critical Care Medicine; Student in an Organized Health Care Education/Training Program; Admitting Provider Internal Medicine; PCP Internal Medicine; Visit Provider Internal Medicine
DX: E22.2 Syndrome of inappropriate secretion of antidiuretic hormone (principal); R57.8 Other shock; N17.0 Acute kidney failure with tubular necrosis; I81 Portal vein thrombosis; R18.0 Malignant ascites; E43 Unspecified severe protein-calorie malnutrition; I95.9 Hypotension, unspecified; E87.21 Acute metabolic acidosis; I96 Gangrene, not elsewhere classified; C7A.098 Malignant carcinoid tumors of other sites; D63.0 Anemia in neoplastic disease; C78.7 Secondary malignant neoplasm of liver and intrahepatic bile duct; E86.1 Hypovolemia; I48.19 Other persistent atrial fibrillation; G89.3 Neoplasm related pain (acute) (chronic); K59.03 Drug induced constipation; T40.605A Adverse effect of unspecified narcotics, initial encounter; F17.210 Nicotine dependence, cigarettes, uncomplicated; Z71.6 Tobacco abuse counseling; Z68.28 Body mass index [BMI] 28.0-28.9, adult; Z85.46 Personal history of malignant neoplasm of prostate; Z79.01 Long term (current) use of anticoagulants; Z79.899 Other long term (current) drug therapy
CPT/HCPCS: 36415; 71045; 71260; 74018; 74177; 80048; 80053; 81001; 82140; 82570; 82803; 82947; 83605; 83930; 84300; 84484; 85007; 85027; 87040; J0282; J0283; J1836; J1938; J1956; J2270; J2405; J2543; J2765; J2919; J3010; J7120; P9047; Q9967

== ENCOUNTER 2025-02-26 14:59 | Outpatient (BNV) | payer OTHER, SELFPAY | END 2025-02-28 08:00 | PROVIDERS: Admitting Provider Internal Medicine; PCP Internal Medicine; Visit Provider Radiology Diagnostic Radiology | DX: J90 Pleural effusion, not elsewhere classified (principal); R10.9 Unspecified abdominal pain; R06.02 Shortness of breath | CPT/HCPCS: 71045; 71260; 74018; 74177 ==

== ENCOUNTER → 2025-02-26 14:59 | Outpatient (BNV) | payer OTHER, SELFPAY | PROVIDERS: Admitting Provider Internal Medicine; PCP Internal Medicine; Visit Provider Internal Medicine Critical Care Medicine | DX: D3A.8 Other benign neuroendocrine tumors (principal); E87.1 Hypo-osmolality and hyponatremia; E46 Unspecified protein-calorie malnutrition; E66.9 Obesity, unspecified; E43 Unspecified severe protein-calorie malnutrition | CPT/HCPCS: 99239; 99499 ==

== ENCOUNTER → 2025-02-26 14:59 | Outpatient (BNV) | payer OTHER, SELFPAY | PROVIDERS: Admitting Provider Internal Medicine; PCP Internal Medicine; Visit Provider Student in an Organized Health Care Education/Training Program | DX: C25.9 Malignant neoplasm of pancreas, unspecified (principal) | CPT/HCPCS: 99223; 99233; 99499 ==

== ENCOUNTER → 2025-02-26 14:59 | Outpatient (BNV) | payer OTHER, SELFPAY | PROVIDERS: Admitting Provider Internal Medicine; PCP Internal Medicine; Visit Provider Internal Medicine Medical Oncology | DX: C7A.8 Other malignant neuroendocrine tumors (principal) | CPT/HCPCS: 99222 ==

== ENCOUNTER → 2025-02-26 14:59 | Outpatient (BNV) | payer OTHER, SELFPAY | PROVIDERS: Admitting Provider Internal Medicine; PCP Internal Medicine; Visit Provider Surgery | DX: D3A.8 Other benign neuroendocrine tumors (principal); R10.84 Generalized abdominal pain | CPT/HCPCS: 99222 ==